=== PATIENT | female | born 1980 | race Two or more races ===

== ENCOUNTER → 2024-04-26 | Outpatient (CLI) | payer BC, SELFPAY ==
--- NOTE | 2024-04-26 16:15 | XR_ITS ---
Examination: Transvaginal ultrasound of the pelvis, complete Technique: Transvaginal sonographic images pelvis performed using calzada scale imaging Exam date and time: April 26, 2024 1407 hours INDICATIONS: Intermittent pelvic pain beginning one week ago FINDINGS: Uterus 9.4 x 4.2 x 4.9 cm anteverted Endometrial stripe 13 mm No uterine mass or intrauterine gestation Right ovary 3.6 x 2.0 x 3.0 cm arterial flow 19 mm follicular cyst Left ovary 3.6 x 1.9 x 2.5 cm arterial flow, follicular cysts, the largest 11 mm IMPRESSION: Negative examination.
== END | disposition home or self-care (01) ==
PROVIDERS: PCP Internal Medicine; Referring Provider Internal Medicine; Visit Provider Internal Medicine
DX: R10.2 Pelvic and perineal pain (principal)
CPT/HCPCS: 76830

== ENCOUNTER → 2024-08-03 | Outpatient (CLI) | payer BC, SELFPAY ==
[2024-08-03 11:01] LABS: Sed Rate (ESR) 12 mm/hr (0-20)
[2024-08-03 11:14] LABS: Syphilis Nonreactive (Nonreactive)
[2024-08-03 16:06] LABS: Chlamydia trachomatis PCR Negative (Not Detect); Neisseria Gonorrhoeae DNA PCR Negative (Not Detect); Trichomonas Negative (Negative)
[2024-08-08 06:51] LABS: HSV2 IgG Type Specific Ab <0.90 INDEX
== END | disposition home or self-care (01) ==
LOC: COPL 09:12
PROVIDERS: PCP Internal Medicine; Referring Provider Internal Medicine; Visit Provider Internal Medicine
DX: Z11.3 Encounter for screening for infections with a predominantly sexual mode of transmission (principal); M60.89 Other myositis, multiple sites
CPT/HCPCS: 36415; 85652; 86695; 86696; 86780; 87491; 87591; 87661

== ENCOUNTER → 2024-09-21 | Outpatient (CLI) | payer BC, SELFPAY ==
--- NOTE | 2024-09-21 10:13 | XR_ITS ---
Examination: Retroperitoneal ultrasound, complete Technique: Multiple high resolution grayscale images of the retroperitoneum obtained, including kidneys and bladder. Exam date and time:September 21, 2024 1101 hours INDICATIONS: Left flank pain beginning today FINDINGS: Right kidney 11.4 cm cortex 1.4 cm Midpole cyst 7 mm Left kidney 13.2 cm cortex 1.7 cm Multiple calculi, the largest 5 mm in the mid kidney Moderate bilateral renal parenchymal scar formation Mild to moderate left hydronephrosis No bladder mass or bladder calculi Bladder prevoid volume 121 cc Incidental note multiple periaortic lymph nodes, the largest 6.8 cm IMPRESSION: Multiple left renal calculi Mild to moderate left hydronephrosis Significant periaortic lymphadenopathy Recommend CT scan abdomen pelvis pre and post intravenous contrast follow-up
== END | disposition home or self-care (01) ==
LOC: CDIM 10:06
PROVIDERS: PCP Internal Medicine; Referring Provider Internal Medicine; Visit Provider Internal Medicine
DX: N20.0 Calculus of kidney (principal); N13.30 Unspecified hydronephrosis; R59.0 Localized enlarged lymph nodes
CPT/HCPCS: 76770

== ENCOUNTER 2024-09-27 03:39 | Inpatient (IN) | payer BC, SELFPAY ==
[2024-09-27] VITALS (8 sets, daily range): BP systolic 136–163; BP diastolic 73–94; PULSE 67–89; RESP 17–20; TEMP 36.5–37.2; O2SAT 96–100; BMI 28.3; BMI 27.8
--- NOTE | 2024-09-27 04:11 | XR_ITS ---
Examination: CT abdomen and pelvis without contrast. Coronal 3-D reconstructions. Sagittal 2-D reconstructions. Date and time of exam:September 27, 2024 0439 hours INDICATIONS: Right flank and abdominal pain beginning 12 hours ago CTDI: vol (mGy): 8.1 DLP: (mGycm): 441 Technique: Axial images of the abdomen have been obtained, 3 mm slice thickness Intravenous contrast material has not been administered. Low dose protocols were performed. One or more of the following dose reduction techniques were used; automated exposure control, adjustment of the mA and/or KV according to patient size, use of iterative reconstruction technique. Findings: 6 mm lower right lobe liver lesion axial image 81 No gallstones Spleen not enlarged No pancreatic mass Mild bilateral hydronephrosis, likely secondary to extensive pericaval periaortic lymphadenopathy as Normal appendix Fluid distended small bowel loops Prominent common iliac and external iliac lymphadenopathy No pelvic mass Urinary bladder wall is thickened IMPRESSION: Extensive abdominal and pelvic lymphadenopathy, differential would include metastatic lymphadenopathy, Hodgkin's disease, non-Hodgkin's lymphoma Recommend MRI abdomen liver follow-up pre and postcontrast to assess right lower lobe liver lesion
--- NOTE | 2024-09-27 04:14 | PD.EDRME ---
Rapid Medical Screening Exam RME Arrival date/time: 09/27/24 03:39 Chief Complaint: Abdominal Pain Time Seen by Provider: 09/27/24 03:43 Vital signs: Vital Signs Temperature 98.1 F 09/27/24 03:44 Pulse Rate 89 09/27/24 03:44 Respiratory Rate 19 09/27/24 03:44 Blood Pressure 148/79 H 09/27/24 03:44 Pulse Oximetry (%) 100 09/27/24 03:44 Oxygen Delivery Method Room Air 09/27/24 03:44 RME Narrative: Right flank pain radiating to RLQ since 1500 yesterday. Reports nausea but no vomiting. History of kidney stones.
[2024-09-27 04:24] LABS: Collection Type, Urine Clean Catch
[2024-09-27] MEDS: ONDANSETRON ODT 4 MG TABRAP PO (04:27)
[2024-09-27] MEDS: KETOROLAC INJ 60 MG/2 ML VIAL 30 MG IM (04:27)
[2024-09-27 04:28] LABS: Bilirubin,Urine Negative (Negative); Blood,Urine Negative (Negative); Clarity,Urine Clear (Clear/Hazy); Color,Urine Colorless (Lt Yel-Yel); Glucose, Urine Negative (Negative); Ketones,Urine Negative (Negative); Leukocyte Esterase,Urine Negative (Negative); Nitrite,Urine Negative (Negative); PH,Urine 6.5 (5.0-7.0); Protein,Urine Negative (Neg - Trace); RBC,Urine < 1 /hpf (0-3); Specific Gravity,Urine 1.011 (1.001-1.035); Squamous Epithelial Cell,Urine 5 /hpf (0-5); Urobilinogen,Urine Negative mg/dL (0.0-1.0); WBC,Urine 2 /hpf (0-5)
[2024-09-27 04:29] LABS: HCG Qualitative,Urine Negative
[2024-09-27] MEDS: HYDROcodone/APAP 5/325 TABLET 1 TAB PO (04:29)
[2024-09-27 05:16] LABS: Basophils % (Auto) 1 % (0-2.5); Eosinophils % (Auto) 1 % (0-10); Hematocrit 31.7 % (36.0-46.0); Hemoglobin 10.2 g/dL (12.0-16.0); Immature Granulocytes % (Auto) 0 % (0-0); Immature Granulocytes Auto 0.01 Thou/mm3 (0.00-0.00); Lymphocytes # (Auto) 0.7 Thou/mm3 (1.0-4.8); Lymphocytes % (Auto) 12 % (10-50); Mean Corpuscular HGB Conc 32.2 g/dl (31.0-37.0); Mean Corpuscular Hemoglobin 24.4 pg (25.0-35.0); Mean Corpuscular Volume 76 fL (80-100); Monocytes # (Auto) 0.5 Thou/mm3 (0.0-0.8); Monocytes % (Auto) 8 % (0-12); Neutrophils % (Auto) 79 % (37-80); Nucleated Red Blood Cell % 0 /100 WBC (0); Platelet Count 149 Thou/mm3 (140-440); RDW Standard Deviation 42.4 fL (36.4-46.3); Red Blood Count 4.18 Miln/mm3 (4.00-5.20); White Blood Count 6.4 Thou/mm3 (3.6-11.0)
[2024-09-27 05:35] LABS: Alanine Aminotransferase 14 U/L (10-49); Albumin, Serum 4.2 gm/dL (3.5-5.0); Albumin/Globulin Ratio 1.2 (1.2-2.2); Alkaline Phosphatase 79 U/L (46-116); Anion Gap 10 (7-16); Aspartate Amino Transferase 24 U/L (0-34); BUN/Creatinine Ratio 11 Ratio (12-20); Bilirubin,Total 0.4 mg/dL (0.3-1.2); Blood Urea Nitrogen 15 mg/dL (9-23); Calcium 8.6 mg/dL (8.3-10.6); Calcium (Corrected) 8.6 mg/dL (8.5-10.1); Carbon Dioxide 21.5 mMol/L (20.0-31.0); Chloride 104 mMol/L (98-107); Creatinine (Component) 1.4 mg/dL (0.6-1.3); Estimated Creatinine Clearance 46.6 mL/min (>60); Globulin 3.5 gm/dL (2.3-3.5); Glucose 113 mg/dL (74-106); Lipase 62 U/L (12-53); Osmolality,Calculated 271 (275-295); Sodium 135 mMol/L (136-145); Total Protein 7.7 gm/dL (5.7-8.2); eGFR 47 See Note
--- NOTE | 2024-09-27 06:00 | PRELIM_ITS ---
CT scan of the abdomen and pelvis without intravenous contrast (axial sections with sagittal and coronal reformats) September 27, 2024 at 0439 hours Clinical History: Right flank, right lower quadrant pain. Comparison: No prior study is available for comparison. Findings: Clear lung bases. Liver is subtly heterogeneous. The gallbladder, spleen, right adrenal gland, pancreas are unremarkable. Punctate nonobstructing right renal calculus. Moderate bilateral hydroureteronephrosis. 1.5 cm left adrenal nodule measuring 28 Hounsfield units. The urinary bladder is decompressed, limiting evaluation. Possible urinary bladder wall thickening. No urinary tract calculi. Bulky para-aortic lymphadenopathy. Short segment wall thickening of the junction of descending and sigmoid colon. Bulky adjacent mesenteric lymphadenopathy and mesenteric edema. The appendix is normal, best seen (on image 137). The abdominal wall is unremarkable. Small bowel fluid levels. No acute osseous process. Impression: Bulky retroperitoneal lymphadenopathy suspicious for metastatic disease , causing moderate bilateral hydroureteronephrosis. Focal wall thickening of the junction of the descending and sigmoid colon, with adjacent lymphadenopathy and inflammation, may represent focal colitis versus malignancy. Indeterminate left adrenal nodule. Heterogeneous liver. Recommend follow-up with intravenous contrast to exclude metastases Report Electronically Signed By: Ej Disla 09/27/2024 5:59:47 AM [EST]
--- NOTE | 2024-09-27 06:28 | PC.NURSE ---
PT C/O CP, VS DONE AND ORDER EKG.
--- NOTE | 2024-09-27 08:45 | PC.NURSE ---
PT PRESENTED TO THE ED FOR ABDOMINAL AND BACK PAIN. PT FOLLOWED UP WITH PCP AND WAS INSTRUCTED TO TAKE IBUPROFEN and acetaminophen.
--- NOTE | 2024-09-27 08:53 | EDNOTE_ITS ---
ED Abdominal Pain RME/HPI General Chief Complaint: Abdominal Pain Stated complaint: ABD PAIN Time seen by provider: 09/27/24 03:43 Arrival date/time: 09/27/24 03:39 RME / HPI RME / HPI narrative: Right flank pain radiating to RLQ since 1500 yesterday. Reports nausea but no vomiting. History of kidney stones. DR. EPSTEIN MAIN ED EVALUATION: 44 year old female with past medical history significant for kidney stones, hemorrhoids, and an umbilical hernia repair by Dr. Alvarez on 05/19/23 presents to the Emergency Department with complaint of bilateral lower abdominal pain that is sharp since yesterday 3 PM. She states after medications she now feels better. She states she also has nausea, but no vomiting. and bright red blood in the stools from her hemorrhoids which is a chronic problem. She has a referral with urologist Dr. Johns in process. PCP: Dr. Collado. Related Data Previous Rx's ?Medication ?Instructions ?Recorded hydrocodone 5 mg-acetaminophen 325 1 tab PO Q6H #20 ta bs 05/19/23 mg tablet Allergies Allergy/AdvReac Type Severity Reaction Status Date / Time No Known Allergies Allergy Verified 09/27/24 03:42 Review of Systems Review of Systems Systems Reviewed: All systems reviewed, normal except as documented Narrative Review of Systems: Constitutional: DENIES: fevers; Eyes: DENIES: loss of vision; Head/Ear/Nose: DENIES: loss of hearing. Throat: DENIES: dysphagia. Cardiovascular: DENIES: chest pain, dyspnea, or syncope. Respiratory: DENIES: shortness of breath; Gastrointestinal: POSITIVES: bilateral lower abdominal pain, nausea, bright red blood in the stools from her hemorrhoids which is a chronic problem; DENIES: rectal bleeding or melena. Genitourinary: DENIES: dysuria (painful or difficult urination); Musculoskeletal: DENIES: arthralgia (pain in a joint); Skin: DENIES: rash; Neurological: DENIES: loss of function or movement; Psychiatric: DENIES: recent major life stressor, emotional problem, illicit drug use or abuse; Endocrinology: DENIES: weight change,; Hematologic/Lymphatic: DENIES: abnormal bruising. Allergic/Immunologic: DENIES: urticaria (hives). Past Medical History Past Medical History GENITOURINARY: Positive Genitourinary Disorders and Kidney Stones REPRODUCTIVE: Positive Previous Pregnancies HEMATOLOGIC: Positive Blood Disorders and Anemia Social History SMOKING STATUS: Never smoker SUBSTANCE USE: does not use ALCOHOL: Never ED Exam Narrative Physical exam: Physical Exam: General: The vital signs were reviewed. The patient is non-toxic, in no apparent distress and appears healthy with a patent airway, no respiratory distress and has no apparent circulatory problems. Head & Scalp: Normocephalic, atraumatic. Face: Appears normal and is without lesions, deformity. Ears: Left external pinna appears normal. Right external pinna appears normal. Eyes: The sclera is anicteric. No obvious photophobia. The Left and Right Orbit/Lid/Conjunctiva appears normal without swelling, discoloration or injection. Nose: The nose is without deformity, discharge or tenderness; Throat: Appears normal. The mucous membranes are pink and moist without exudates, redness or mass seen. The tongue appears normal. Neck: The neck is supple and no apparent mass or adenopathy. Chest: The chest wall is normal in size and symmetry and has no chest wall tenderness or crepitus. The patient displays normal ventilator effort without retractions, accessory muscle use and has adequate air movement bilaterally with no wheezes and no rales. Cardiovascular: Regular rate and rhythm; No murmurs, rubs, or gallops; Gastrointestinal: The abdomen appears normal. Umbilical scar well-healed slightly hypertrophied No obvious hernias or mass. The abdomen has a fullness in the left lower quadrant and tenderness no discrete mass was palpated otherwise the remaining abdomen is soft and benign, non-distended, with no pain, no guarding and no rebound tenderness. Bowel sounds are present and normal sounding. No CVA tenderness. Genitourinary: Back/Spine: Normal inspection nontender Extremities/Musculoskeletal/lymphatic: The bilateral upper and lower extremities are warm. There is no evidence of arterial insufficiency. There is no evidence of venous insufficiency/edema. The patient spontaneously moves bilateral upper and lower extremities with no pain and no limitation of movement. There is no apparent, injury or trauma. Skin: The skin is warm, dry and intact. No rashes. No petechia. No purpura. No abnormal bruising. The color is appropriate with no cyanosis. Mental status/Psychiatric: Mental status is appropriate for age. The patient has no apparent delusions, visual hallucinations, no apparent audible hallucinations. The patient has no apparent suicidal thoughts/ideation and no apparent homicidal thoughts/ideation. Neurological: The patient is awake, alert, interactive, cordial, cooperative and is oriented to name and situation. The patient follows commands and answers historical question with no impairment. There is no visual disturbance apparent. The pupils are equal and reactive bilaterally with normal eye movements and no diplopia The bilateral upper and lower extremities have normal strength, normal range of motion and normal functioning. The gait, station and balance appear to be baseline with no acute change Course Quality Measures none Orders Category Date Time Status Consult to Gastroenterology Stat Cons 09/27/24 08:59 Ordered Diet Clear Liquid Diet 09/27/[address] abdomen pelvis wo con Stat Exams 09/27/24 04:11 Completed CBC Stat Lab 09/27/24 04:21 Completed CMP [Comprehensive Metabolic Panel] Stat Lab 09/27/24 04:21 Completed HCG Qualitative,Urine Stat Lab 09/27/24 04:17 Completed Lipase Stat Lab 09/27/24 04:21 Completed UA [Urinalysis] Stat Lab 09/27/24 04:17 Completed HYDROcodone*/APAP 5/325 [[place] 5/325] Med 09/27/24 04:11 Discontinued 1 tab PO X1 ONE Ketorolac Inj [Toradol Inj] Med 09/27/24 04:11 Discontinued 30 mg IM X1 ONE NA BR[place]FORD/NAHCO3/POLO/PEG (Golytely) [Golytely] Med 09/27/24 08:57 Discontinued 4,000 ml PO X1 ONE Ondansetron Odt [Zofran Odt] Med 09/27/24 04:11 Discontinued 4 mg PO X1 ONE Vital Signs Vital signs: Vital Signs Temperature 98.1 F 09/27/24 03:44 Pulse Rate 89 09/27/24 03:44 Respiratory Rate 19 09/27/24 03:44 Blood Pressure 148/79 H 09/27/24 03:44 Pulse Oximetry (%) 100 09/27/24 03:44 Oxygen Delivery Method Room Air 09/27/24 03:44 Abdominal Pain MDM MDM Narrative MDM Narrative:: I, Comfort Malave, am scribing for and in the presence of Dr. Epstein. Patient presents with a vague abdominal pain which seems to be more reducible in the left lower quadrant even though she points to the right lower midline and a hint of a fullness not a palpable mass at least that I can feel and she is got an ultrasound was recently done that revealed significant adenopathy and a CT today without contrast reveals moderate bilateral hydro and ureteral nephrosis with bulky retroperitoneal lymphadenopathy and focal wall thickening of the junction of the descending and sigmoid colon concerning for neoplasm inflammatory bowel disease. Radiologist felt to the high possibility this could be malignant or neoplastic but also could be secondary to inflammatory bowel issues also. Medical workup today reveals a white count of 6.4 hemoglobin of 10.2 transaminases and bilirubin are normal. Lipase is 62 urinalysis came back negative. Urinalysis came back negative she is not . Dr Collado was called and we discussed the case and she agrees with admit the patient to further work this up for either neoplasm colitis or lymphoma and possibly get IR involved to evaluate the lymphadenopathy I contact Dr. Torres who will be consulting and and he requested GoLytely for bowel prep and clear liquids only. Patient data External records reviewed:: [facility] previous records (Reviewed surgical note by Dr. Alvarez, dated 05/19/23.) Clinical information provided by:: patient and spouse Social determinants that could affect healthcare access:: none Patient has the following chronic illnesses:: kidney stones, hemorrhoids, and an umbilical hernia repair by Dr. Alvarez on 05/19/23. How is presenting disease/condition affected by chronic disease/condition?: exacerbated by Evaluation data The following diagnostics were reviewed and interpreted by me:: lab results, radiology exam(s) and EKG tracing(s) (EKG#1: EKG at 0631 hours. Interpreted by me: sinus rhythm, rate 68, no STEMI) Lab and/or radiology exams considered but not ordered:: none Interpretation Summary: [facility] [address] [place] [address] [place] Preliminary Report Draft Patient: ANUP GARCIA. Record#: [id number] Birthdate: 1980 Age/Sex: 44 / F Location: [facility] Attending Dr: Ordering Physician: Date of Service: Procedure(s): Accession Number(s): cc: ~ CT scan of the abdomen and pelvis without intravenous contrast (axial sections with sagittal and coronal reformats) September 27, 2024 at 0439 hours Clinical History: Right flank, right lower quadrant pain. Comparison: No prior study is available for comparison. Findings: Clear lung bases. Liver is subtly heterogeneous. The gallbladder, spleen, right adrenal gland, pancreas are unremarkable. Punctate nonobstructing right renal calculus. Moderate bilateral hydroureteronephrosis. 1.5 cm left adrenal nodule measuring 28 Hounsfield units. The urinary bladder is decompressed, limiting evaluation. Possible urinary bladder wall thickening. No urinary tract calculi. Bulky para-aortic lymphadenopathy. Short segment wall thickening of the junction of descending and sigmoid colon. Bulky adjacent mesenteric lymphadenopathy and mesenteric edema. The appendix is normal, best seen (on image 137). The abdominal wall is unremarkable. Small bowel fluid levels. No acute osseous process. Impression: Bulky retroperitoneal lymphadenopathy suspicious for metastatic disease , ca using moderate bilateral hydroureteronephrosis. Focal wall thickening of the junction of the descending and sigmoid colon, with adjacent lymphadenopathy and inflammation, may represent focal colitis versus malignancy. Indeterminate left adrenal nodule. Heterogeneous liver. Recommend follow-up with intravenous contrast to exclude metastases Report Electronically Signed By: Ej Disla 09/27/2024 5:59:47 AM [EST] Dictated By: Signed By: DD/ [id number] TD/TT: 09/27/24 0559 Cake Former: Medications / Prescriptions Medications or Prescriptions considered but not ordered:: none Medication administrations:: Medication Administration History Sodium Chloride (Ns) 1,000 mls @ 100 mls/hr IV .Q10H IFEOMA Stop: 10/27/24 12:58 Last Admin: 09/27/24 13:14 Dose: 100 mls/hr Documented By: Discontinued Medications Hydrocodone Bitart/Acetaminophen (Hydrocodone/Apap 5/325 Tablet) 1 tab PO X1 ONE Stop: 09/27/24 04:12 Last Admin: 09/27/24 04:29 Dose: 1 tab Documented By: CVL Ketorolac Tromethamine (Ketorolac Inj 60 Mg/2 Ml Vial) 30 mg IM X1 ONE Stop: 09/27/24 04:12 Last Admin: 09/27/24 04:27 Dose: 30 mg Documented By: CVL Ondansetron HCl (Ondansetron Odt 4 Mg Tabrap) 4 mg PO X1 ONE; Protocol Stop: 09/27/24 04:12 Last Admin: 09/27/24 04:27 Dose: 4 mg Documented By: CVL Polyethylene Glycol/Electrolytes (Na [place]/Nahco3/Polo/Peg (Golytely) 4,000 Ml Btl) 4,000 ml PO X1 ONE Stop: 09/27/24 08:58 Last Admin: 09/27/24 09:30 Dose: 4,000 ml Documented By: SM see above Consultations Consultation(s) initiated? (list below): Yes Consultation #1 (Physician, Specialty, Details): Discussed test HPI, PMHx, lab, radiology results and/or management with Dr. Collado. Will admit for further evaluation and management. Accepts patient for admission. Time: 08:54 Consultation #2 (Physician, Specialty, Details): Discussed test HPI, PMHx, lab, radiology results and/or management with Dr. Torres. Will consult. Time: 08:56 Diagnosis Differential diagnosis abdominal pain: abdominal pain, calculus of kidney and other (thickened neoplasm, colitis, lymphoma) Most likely diagnosis given after review of the tests above:: Abdominal pain Hematochezia Mural thickening of sigmoid colon Retroperitoneal lymphadenopathy Admission Indicated Admission indicated?: indicated Admission Request Was there a request for admission?: Yes Admission Attestation Admission request attestation: Discussed case with [] from Hospitalist service regarding admission. Discussed patients ED course, exam findings, labs, and radiology results. The Hospitalist [agrees,declines] to accept the patient for admission. Disposition Plan Disposition Plan: Admit Discharge Plan Plan Disposition Comment: Dr Collado to admit Dr. Torres to consult Problem List Clinical Impression: Abdominal pain, Hematochezia, Mural thickening of sigmoid colon, Retroperitoneal lymphadenopathy
--- NOTE | 2024-09-27 09:07 | PC.NURSE ---
PHARMACY CALLED TO BRING DOWN HANHLY
[2024-09-27] MEDS: NA SU/NAHCO3/KC/PEG (Golytely) 4,000 ML BTL 4000 ML PO ×2 (09:30→22:40)
--- NOTE | 2024-09-27 13:00 | PD.NEPHHP ---
Documentation for date of: 09/27/24 History of Present Illness History of Present Illness Chief complaint: Abdominal pain History of present illness: Ms. Taveras is a 44 year old female with past medical history significant for kidney stones, hemorrhoids, and an umbilical hernia repair by Dr. Alvarez on 05/19/23 presents to my office last week complaining of left flank pain. Exam showed left CVA tenderness and I requested for a renal ultrasound. Renal ultrasound showed Multiple left renal calculi mild to moderate left hydronephrosis and significant periaortic lymphadenopathy recommended CT with and without contrast. Authorization was submitted to the insurance to get CT. In the interim patient started having significant right lower quadrant abdominal pain since yesterday that she brought herself to the emergency department. In the ED blood pressure 148/79. Heart rate 88. Afebrile. WBC 6.4, hemoglobin 10.2, platelets 149. Coagulation profile normal. Lab data shows sodium 135, potassium 4, BUN 15, creatinine 1.4, glucose 113, calcium 8.6, LFTs normal, lipase 62 urinalysis negative. Cocci titers pending. Patient also stated that she was having occasionally hematochezia for the last couple of weeks on and off. Was supposed to see Dr. Torres as an outpatient. She has a referral with urologist Dr. Johns, Dr. Torres in process as outpatient. Spoke to Dr. Ruggiero-agreed to do lymph node biopsy. Patient admitted to medical floor. GI was consulted. IV fluids were initiated for CHERI. Tylenol given for pain. Review of Systems Review of Systems Narrative Review of Systems: CONSTITUTIONAL: Patient denies any fever, chills. Complaining of fatigue HEENT: Denies any visual disturbances or hearing problems. CARDIOVASCULAR: Patient denies any chest pain, shortness of breath, swelling in the lower extremities. PULMONARY: Patient denies any shortness of breath, cough. GASTROINTESTINAL: Patient complaining of right lower quadrant abdominal pain, blood in the stools on and off GENITOURINARY: Patient denies any urinary symptoms of burning or frequency or hematuria, denies any form in the urine. SKIN: Denies any rash. MUSCULOSKELETAL: Denies any muscular skeletal problems of joint pains. NEUROLOGICAL: Denies any neurological problems of strokes, seizures or confusion. Denies any memory problems. PSYCHIATRIC: Denies any depression or anxiety. LYMPHATICS : No lymphadenopathy Past Medical History Past Medical History NEUROLOGIC: Negative Neurological Disorders or Seizures CARDIAC: Negative Cardiac Disorders or Congestive Heart Failure RESPIRATORY: Negative Chronic Obstructive Pulmonary Disease (COPD) GASTROINTESTINAL: Negative Gastrointestinal Disorders, Hepatitis or Colorectal Cancer GENITOURINARY: Positive Genitourinary Disorders and Kidney Stones; Negative Renal Disease or Prostate Cancer REPRODUCTIVE: Positive Previous Pregnancies; Negative Breast Cancer or Testicular Cancer MUSCULOSKELETAL: Negative Musculoskeletal Disorders or Bone Cancer ENDOCRINE: Negative Endocrine Disorders, Diabetes Mellitus Type 1 or Diabetes Mellitus Type 2 HEMATOLOGIC: Positive Blood Disorders and Anemia OTHER HISTORY: Negative Hospitalization, Autoimmune Disease, Down Syndrome, Developmental Delay, Shingles, Falls, Blood Transfusions, Blood Transfusion Reaction, Anesthesia Reactions, Organ Transplant, Chemotherapy, Radiation Therapy, Hyperbaric Therapy, MRSA, VRSA, Vancomycin-Resistant Enterococci, Human Immunodeficiency Virus (HIV), Chicken Pox, Measles, Mumps, Rubella (Fijian Measles), Pertussis, Clostridium Difficile, Cancer, Breast Cancer, Cervical Cancer, Colorectal Cancer, Lung Cancer, Ovarian Cancer, Prostate Cancer or Testicular Cancer Family History FAMILY HISTORY: Negative Family Psychiatric Problems, Family Respiratory Disorders, Family Cardiac Disorders, Family Gastrointestinal Problems, Family Cancer, Family Surgery or Family Anesthesia Reaction Surgical History SURGICAL: Negative Endocrine Surgery, Ear Surgery, Abdominal Surgery, Nephrectomy, Joint Replacement, Neurologic Surgery, Mastectomy, Section, Vasectomy or Organ Transplant OTHER SURGICAL HX: As in the history of present illness Social History SMOKING STATUS: Never smoker SUBSTANCE USE: does not use Meds Home Medications and Allergies Home Medications ?Medication ?Instructions ?Recorded ?Confirmed ?Type acetaminophen 500 mg tablet 500 mg PO Q4H PRN pain 09/27/24 09/27/24 History (Acetaminophen Extra Strength) cetirizine 5 mg tablet (Allergy 5 mg PO QDAY PRN allergy symptoms 09/27/24 09/27/24 History Relief (cetirizine)) ibuprofen 600 mg tablet 600 mg PO QDAY PRN pain 09/27/24 09/27/24 History Allergies Allergy/AdvReac Type Severity Reaction Status Date / Time No Known Allergies Allergy Verified 09/27/24 03:42 Exam Vital Signs Temp Pulse Resp BP Pulse Ox O2 Del Method 36.7 C 86 17 150/82 H 100 Room Air 09/27/24 10:23 09/27/24 10:23 09/27/24 10:23 09/27/24 10:23 09/27/24 10:23 09/27/24 10:23 Narrative Exam GENERAL APPEARANCE: Patient seems to be comfortable, adequately hydrated and nourished. Seen in emergency department HEENT: EOMI, PERRLA NECK: Neck supple, no JVD or bruit CARDIOVASCULAR: Heart regular, no murmurs LUNGS/CHEST: Chest clear to auscultation. No rales, rhonchi, wheezing ABDOMEN: Soft, tenderness noted in the right lower quadrant. Nondistended. No masses. Normal bowel sounds. EXTREMITIES: No edema, clubbing or cyanosis. SKIN: Skin exam normal without any rashes MUSCULOSKELETAL: Musculoskeletal exam normal PSYCHIATRIC: Normal mood, affect LYMPHATICS: No lymphadenopathy noted NEUROLOGICAL : No neurological deficits Results: Labs 09/27/24 04:21 09/27/24 04:21 Labs: Short CBC 09/27/24 Range/Units 04:21 WBC 6.4 (3.6-11.0) Thou/mm3 Hgb 10.2 L (12.0-16.0) g/dL Hct 31.7 L (36.0-46.0) % Plt Count 149 (140-440) Thou/mm3 BMP 09/27/24 04:21 Sodium 135 L Potassium 4.0 Chloride 104 Carbon Dioxide 21.5 BUN 15 Creatinine 1.4 H Glucose 113 H Calcium 8.6 Liver Function 09/27/24 Range/Units 04:21 Total Bilirubin 0.4 (0.3-1.2) mg/dL AST 24 (0-34) U/L ALT 14 (10-49) U/L Alkaline Phosphatase 79 (46-116) U/L Albumin 4.2 (3.5-5.0) gm/dL Urine 09/27/24 Range/Units 04:17 Urine Color Colorless A (Lt Yel-Yel) Urine Clarity Clear (Clear/Hazy) Urine pH 6.5 (5.0-7.0) Ur Specific [place] 1.011 (1.001-1.035) Urine Protein Negative (Neg - Trace) Urine Glucose (UA) Negative (Negative) Assessment & Plan Assessment and plan (1) Abdominal pain: Status: Acute Assessment and plan: Patient presented with abdominal pain right lower quadrant. CT scan showed multiple retroperitoneal lymphadenopathy and calculi. Mild hydronephrosis noted probably related to the lymph node impingement. Good urine output. Will give IV fluids. Biopsy of the lymph node will be done. Rule out malignancy// inflammatory response. GI was consulted. Dr. Torres planning to do endoscopy and colonoscopy. IV fluids for CHERI. (2) Retroperitoneal lymphadenopathy: Status: Acute (3) Mural thickening of sigmoid colon: Status: Acute (4) Hematochezia: Status: Acute (5) CHERI (acute kidney injury): Status: Acute Additional Assessment & Plan Additional Plan: Estimated length of stay 2 days DVT prophylaxis not needed GI prophylaxis Protonix Disposition Home Quality Measures Quality Measures none
[2024-09-27] MEDS: SODIUM CHLORIDE 0.9% 1000 ML 1,000 ML 100 ML IV ×2 (13:14→22:43)
--- NOTE | 2024-09-27 14:00 | PC.SS ---
Initial assessment: this is 44 year old female pending admission to med/tele. Patient appears to be alert and oriented. Patient reports living at home with her Arnol and their children. Patient confirmed demographic information. Patient reports being independent with ADL's. Patient denies use of DME. Patient informs her PCP is Dr. Collado. Pharmacy of choice is [facility] in [place]. Patient assigned her spouse Arnol as her alternate medical surrogate decision maker. Patient would like to return home upon discharge, family to assist with transportation. No needs identified at this time. D/c plan: Home Next of kin: spouse, Arnol
[2024-09-27 14:21] LABS: Partial Thromboplastin Time 28.4 Seconds (22.0-36.0); Prothrombin Time 10.8 Seconds (9.0-12.2)
--- NOTE | 2024-09-27 14:30 | PC.NURSE ---
notified anne vazquez of [facility] recommendation of performing ct guide biopsy of lymphnode as a scheduled outpatient procedure.
--- NOTE | 2024-09-27 20:50 | PD.IMCONS ---
HPI Data of Consult Requesting Physician: Ching Collado MD Primary Care Provider: Ching Collado MD Consult Narrative Reason for consult: rectal bleeding hematochezia abnormal CTAP History of present illness: 44 years old female called into consult by the ER physician for episodes of hematochezia She also had a CT scan of the abdomen pelvis done which showed extensive abdominal and pelvic lymphadenopathy Presenting hemoglobin hematocrit 10.2 and 31.7 with a platelet count of 149,000 She also has a history of kidney stones and umbilical hernia repair in the past cc:: cc: Ching Collado MD Review of Systems Review of Systems Systems Reviewed: All systems reviewed, normal except as documented Past Medical History Surgical History OTHER SURGICAL HX: As in the history of present illness Meds Home Medications and Allergies Home Medications ?Medication ?Instructions ?Recorded ?Confirmed ?Type acetaminophen 500 mg tablet 500 mg PO Q4H PRN pain 09/27/24 09/27/24 History (Acetaminophen Extra Strength) cetirizine 5 mg tablet (Allergy 5 mg PO QDAY PRN allergy symptoms 09/27/24 09/27/24 History Relief (cetirizine)) ibuprofen 600 mg tablet 600 mg PO QDAY PRN pain 09/27/24 09/27/24 History Allergies Allergy/AdvReac Type Severity Reaction Status Date / Time No Known Allergies Allergy Verified 09/27/24 03:42 Exam Vital Signs Temp Pulse Resp BP Pulse Ox O2 Del Method 97.7 F 88 17 148/76 H 98 Room Air 09/27/24 20:00 09/27/24 20:00 09/27/24 20:00 09/27/24 20:00 09/27/24 20:00 09/27/24 20:00 Constitutional Comments: Chronically ill-appearing Routine Respiratory Exam Comments: Normal to auscultation Routine Abdominal Exam Comments: Tender positive bowel sounds Results Labs 09/29/24 04:30 09/29/24 04:30 Labs: Short CBC 09/27/24 Range/Units 04:21 WBC 6.4 (3.6-11.0) Thou/mm3 Hgb 10.2 L (12.0-16.0) g/dL Hct 31.7 L (36.0-46.0) % Plt Count 149 (140-440) Thou/mm3 BMP 09/27/24 04:21 Sodium 135 L Potassium 4.0 Chloride 104 Carbon Dioxide 21.5 BUN 15 Creatinine 1.4 H Glucose 113 H Calcium 8.6 Liver Function 09/27/24 Range/Units 04:21 Total Bilirubin 0.4 (0.3-1.2) mg/dL AST 24 (0-34) U/L ALT 14 (10-49) U/L Alkaline Phosphatase 79 (46-116) U/L Albumin 4.2 (3.5-5.0) gm/dL Urine 09/27/24 Range/Units 04:17 Urine Color Colorless A (Lt Yel-Yel) Urine Clarity Clear (Clear/Hazy) Urine pH 6.5 (5.0-7.0) Ur Specific [place] 1.011 (1.001-1.035) Urine Protein Negative (Neg - Trace) Urine Glucose (UA) Negative (Negative) Assessment and Plan Additional Assessment & Plan Additional Plan: # Hematochezia # Abnormal CT scan of the abdomen pelvis with extensive abdominal and pelvic lymphadenopathy plan Tumor markers CEA level CA 19?9 level CA 15-3 level AFP Ca125 level CT-guided biopsy of the left adenopathy by the IR Clear liquid diet consider colonoscopy once biopsy is done with a GoLytely prep and possible upper endoscopy to make sure the GI tract is clean Thank you very much for the opportunity to participate in care of this patient
--- NOTE | 2024-09-27 21:30 | PC.NURSE ---
seen and examined by Dr. Torres.
[2024-09-28] VITALS (31 sets, daily range): BP systolic 121–163; BP diastolic 66–99; PULSE 78–112; RESP 12–27; TEMP 36.2–37.2; O2SAT 91–100
[2024-09-28] MEDS: HYDROcodone/APAP 5/325 TABLET 1 TAB PO (00:55)
[2024-09-28 06:46] LABS: AFP Non-Pregnant < 1.30 ng/mL (<8.10); CA 15-3 4.5 U/mL (<32.4); Carcinoembryonic Antigen 8.8 ng/mL (0.0-5.0)
[2024-09-28 07:48] LABS: Basophils % (Auto) 1 % (0-2.5); Eosinophils % (Auto) 1 % (0-10); Hematocrit 27.4 % (36.0-46.0); Immature Granulocytes % (Auto) 0 % (0-0); Immature Granulocytes Auto 0.01 Thou/mm3 (0.00-0.00); Lymphocytes # (Auto) 0.7 Thou/mm3 (1.0-4.8); Lymphocytes % (Auto) 20 % (10-50); Mean Corpuscular HGB Conc 31.8 g/dl (31.0-37.0); Mean Corpuscular Hemoglobin 24.2 pg (25.0-35.0); Mean Corpuscular Volume 76 fL (80-100); Monocytes # (Auto) 0.4 Thou/mm3 (0.0-0.8); Monocytes % (Auto) 13 % (0-12); Neutrophils # (Auto) 2.2 Thou/mm3 (1.8-7.7); Neutrophils % (Auto) 66 % (37-80); Nucleated Red Blood Cell % 0 /100 WBC (0); Platelet Count 147 Thou/mm3 (140-440); RDW Standard Deviation 44.1 fL (36.4-46.3); White Blood Count 3.3 Thou/mm3 (3.6-11.0)
[2024-09-28 07:50] LABS: Hemoglobin 8.7 g/dL (12.0-16.0)
--- NOTE | 2024-09-28 08:00 | XR_ITS ---
Examination: CT-guided percutaneous biopsy para-aortic lymph node CT abdomen without intravenous contrast INDICATIONS: Extensive abdominal pelvic lymphadenopathy on CT abdomen pelvis September 27, 2024 Date and time of procedure: September 28, 2024 1238 hours Informed consent provided. A timeout was completed verifying correct patient, procedure, site and positioning. Technique: Axial 3 mm sections were obtained for localization of an enlarged lower left lateral periaortic lymph node Appropriate area is marked. The patient's site was prepped and draped in sterile fashion Maximal sterile barrier technique utilized, including hand hygiene Local anesthesia was obtained with 1% lidocaine. Low dose protocols were performed. One or more of the following dose reduction techniques were used; automated exposure control, adjustment of the mA and/or KV according to patient size, use of iterative reconstruction technique. Single 18-gauge core biopsies obtained of the lower left lateral periaortic lymph node Patient appears in stable condition during this procedure. At completion of the procedure, the patient is in satisfactory condition. Estimated blood loss 4 cc Complete pathology report to follow. Impression: Successful CT-guided percutaneous biopsy para-aortic lymph node
[2024-09-28 08:17] LABS: Alanine Aminotransferase 11 U/L (10-49); Albumin, Serum 3.3 gm/dL (3.5-5.0); Albumin/Globulin Ratio 1.1 (1.2-2.2); Alkaline Phosphatase 63 U/L (46-116); Anion Gap 9 (7-16); Aspartate Amino Transferase 23 U/L (0-34); BUN/Creatinine Ratio 8 Ratio (12-20); Bilirubin,Total 0.3 mg/dL (0.3-1.2); Blood Urea Nitrogen 13 mg/dL (9-23); Calcium 7.6 mg/dL (8.3-10.6); Calcium (Corrected) 8.2 mg/dL (8.5-10.1); Carbon Dioxide 22.4 mMol/L (20.0-31.0); Chloride 115 mMol/L (98-107); Creatinine (Component) 1.6 mg/dL (0.6-1.3); Glucose 71 mg/dL (74-106); Osmolality,Calculated 288 (275-295); Phosphorous 3.7 mg/dL (2.4-5.1); Potassium 4.3 mMol/L (3.4-5.1); Sodium 146 mMol/L (136-145); Total Protein 6.3 gm/dL (5.7-8.2); eGFR 40 See Note
--- NOTE | 2024-09-28 08:39 | PD.RESPRO ---
Documentation for date of: 09/28/24 Subjective Subjective Interval history: Ms. Taveras is a 44 year old female with past medical history significant for kidney stones, hemorrhoids, and an umbilical hernia repair by Dr. Alvarez on 05/19/23 presents to my office last week complaining of left flank pain. Exam showed left CVA tenderness and I requested for a renal ultrasound. Renal ultrasound showed Multiple left renal calculi mild to moderate left hydronephrosis and significant periaortic lymphadenopathy recommended CT with and without contrast. Authorization was submitted to the insurance to get CT. In the interim patient started having significant right lower quadrant abdominal pain since yesterday that she brought herself to the emergency department. In the ED blood pressure 148/79. Heart rate 88. Afebrile. WBC 6.4, hemoglobin 10.2, platelets 149. Coagulation profile normal. Lab data shows sodium 135, potassium 4, BUN 15, creatinine 1.4, glucose 113, calcium 8.6, LFTs normal, lipase 62 urinalysis negative. Cocci titers pending. Patient also stated that she was having occasionally hematochezia for the last couple of weeks on and off. Was supposed to see Dr. Torres as an outpatient. 09/28/24: Patient was seen and examined in [facility] today. There were no major overnight events and patient is doing okay this morning. She continues to have abdominal pain for which she has been receiving Keiser's. CEA came back at 8.8 which is elevated. CA 15-3 is negative CA 19-9 is pending and tumor marker AFP is negative. Patient will undergo CT-guided percutaneous biopsy of the lymphadenopathy later today. Her creatinine function did worsen to 1.6 today we will continue to monitor closely. Intake. Exam Vital Signs Temp Pulse Resp BP Pulse Ox O2 Del Method 97.3 F 87 16 129/75 98 Room Air 09/28/24 04:00 09/28/24 04:00 09/28/24 04:00 09/28/24 04:00 09/28/24 04:00 09/28/24 04:00 Narrative Exam Constitutional: Well nourished and in no acute distress CVS: RRR, S1 and S2 present, no murmurs, rubs or gallops . RESP: CTAB, no SOB, no rales, rhonchi or wheezing. No respiratory Distress GI: Tenderness to deep palpation but normal BS, nondistended. MSK: Full range of motion, No trauma or deformities or masses. Skin: Warm to touch, Dry. No rashes or lesions. 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 Sensation grossly intact. Psych: (AAO) x3 . Appropriate mood and affect. Objective Labs 09/29/24 04:30 09/29/24 04:30 Labs: Laboratory Results - last 24 hr 09/27/24 09/28/24 04:21 04:45 WBC 3.3 L D RBC 3.60 L Hgb 8.7 L Hct 27.4 L MCV 76 L MCH 24.2 L MCHC 31.8 RDW Std Deviation 44.1 Plt Count 147 Neut % (Auto) 66 Lymph % (Auto) 20 [place] % (Auto) 13 H Eos % (Auto) 1 Baso % (Auto) 1 Neut # (Auto) 2.2 Lymph # (Auto) 0.7 L [place] # (Auto) 0.4 Eos # (Auto) 0.0 Baso # (Auto) 0.0 Immature Gran # (Auto) 0.01 H Absolute Nucleated RBC 0.00 Immature Gran % 0 Nucleated RBC % 0 PT 10.8 INR 1.0 APTT 28.4 Sodium 146 H D Potassium 4.3 Chloride 115 H Carbon Dioxide 22.4 Anion Gap 9 BUN 13 Creatinine 1.6 H Estim Creat Clear Calc 42.0 L eGFR 40 L BUN/Creatinine Ratio 8 L Glucose 71 L Calculated Osmolality 288 Calcium 7.6 L Corrected Calcium 8.2 L Phosphorus 3.7 Magnesium 2.0 Total Bilirubin 0.3 AST 23 ALT 11 Alkaline Phosphatase 63 D Total Protein 6.3 Albumin 3.3 L D Globulin 3.0 Albumin/Globulin Ratio 1.1 L Tumor Marker AFP < 1.30 Carcinoembryonic Ag 8.8 H CA 15-3 Antigen 4.5 Quality Measures Quality Measures none Assessment & Plan Assessment Current Active Medications: Generic Name Dose Route Start Last Admin Trade Name Freq PRN Reason Stop Dose Admin Acetaminophen 650 mg 09/27/24 20:59 Acetaminophen 325 Mg Tablet PO 10/27/24 20:58 Q6HR PRN PAIN SCALE 1-3 (mild Hydrocodone Bitart/Acetaminophen 1 tab 09/28/24 00:18 09/28/24 00:55 Hydrocodone/Apap 5/325 Tablet PO 10/03/24 00:17 1 tab Q6HR PRN Administration PAIN SCALE 4-6 (Moderate Sodium Chloride 1,000 mls @ 100 mls/hr 09/27/24 12:59 09/27/24 22:43 Ns IV 10/27/24 12:58 100 mls/hr .Q10H IFEOMA Administration Plan 44-year-old female with past medical history of kidney stones, hemorrhoids and umbilical hernia repair with Dr. Mcfarland on 05/19/2023 admitted for left flank pain and found to have abdominal lymphadenopathy. #Retroperitoneal lymphadenopathy #Unretractable abdominal pain Patient presented with abdominal pain right lower quadrant. CT scan showed multiple retroperitoneal lymphadenopathy and calculi. Mild hydronephrosis noted probably related to the lymph node impingement. Good urine output. Will give IV fluids. Biopsy of the lymph node will be done. Rule out malignancy// inflammatory response. GI was consulted. CA 15?3 is negative as well as tumor marker AFP. CEA is positive at 8.8 and CA 19-9 is pending. Plan: ? Patient will undergo CT-guided percutaneous lung biopsy today. ?Follow-up with pathology ? N.p.o. ? Pain management #Hematochezia #Mural thickening of sigmoid colon Patient presented with episodes of hematochezia Patient does have history of hemorrhoids however the hematochezia is more prominent and given thickening of the sigmoid colon she needs colonoscopy GI was consulted Plan: ? Patient will undergo colonoscopy later today. #CHERI (acute kidney injury): Likely obstructive from impingement by the lymphadenopathy. Patient's baseline creatinine 0.7 it has climbed up to 1.6 Plan: ? Continue IV fluids ? Will restart oral intake once patient undergoes the procedures ? Follow-up with daily [facility] Health maintenance plan: Dispo: Patient will remain in [facility] for further management of her unretractable abdominal pain and workup of her retroperitoneal lymphadenopathy Code: Full code DVT PPx: None GI PPx: None FEN: N.p.o., NS at 100 cc/h I discussed patient's care with attending physician, Dr Heaven Santoyo PGY3 Attending Provider Attestation/Addendum Patient seen and examined with resident physician Dr. Santoyo. Note reviewed, agree with findings and recommendations. Significant lymphadenopathy. Going for intra-abdominal lymph node biopsy, colonoscopy for hematochezia.
[2024-09-28 10:05] LABS: Prothrombin Time 10.9 Seconds (9.0-12.2)
[2024-09-28] MEDS: SODIUM CHLORIDE 0.9% 1000 ML 1,000 ML 100 ML IV (10:32)
[2024-09-28 12:42] LABS: Cocci Serology, IgM Positive (Negative)
[2024-09-28 12:43] LABS: Cocid Sro, CF/ID (UCD) NO CHG* See Sep Rpt
[2024-09-28] MEDS: fentaNYL CIT INJ 50 mCg/ML AMP 2ML 100 MCG IVP (13:05)
--- NOTE | 2024-09-28 14:38 | PC.SS ---
SS follow up note; Patient will undergo CT-guided percutaneous biopsy of the lymphadenopathy later today. Patient will discharge back home when medically cleared.
[2024-09-28] MEDS: FLUCONAZOLE/NS 400 MG IVPB 400 MG/200 ML BAG 100 MG IV (15:50)
--- NOTE | 2024-09-28 20:05 | SUR.PHASEI ---
pt received from OR in recovery bay 2. pt asleep but responds to voice, breathing unlabored on nc 2l. v/s stable. report received from Ev ASHLEY.
--- NOTE | 2024-09-28 20:45 | SUR.PHASEI ---
pt asleep but responds to voice, breathing unlabored on 1l nc. v/s stable. report called to Anali ASHLEY. pt will be transferred to room at this time.
--- NOTE | 2024-09-28 21:24 | PC.NURSE ---
reconnectedf to iv fluid of ns at 100ml/hr.
[2024-09-29] VITALS (7 sets, daily range): BP systolic 116–163; BP diastolic 78–98; PULSE 85–110; RESP 17–18; TEMP 36.1–37.2; O2SAT 98–100
[2024-09-29] MEDS: SODIUM CHLORIDE 0.9% 1000 ML 1,000 ML 100 ML IV (05:34)
[2024-09-29 05:56] LABS: Basophils % (Auto) 0 % (0-2.5); Eosinophils % (Auto) 1 % (0-10); Hematocrit 29.1 % (36.0-46.0); Immature Granulocytes % (Auto) 0 % (0-0); Immature Granulocytes Auto 0.01 Thou/mm3 (0.00-0.00); Lymphocytes # (Auto) 0.6 Thou/mm3 (1.0-4.8); Lymphocytes % (Auto) 19 % (10-50); Mean Corpuscular HGB Conc 30.9 g/dl (31.0-37.0); Mean Corpuscular Volume 78 fL (80-100); Monocytes # (Auto) 0.4 Thou/mm3 (0.0-0.8); Monocytes % (Auto) 13 % (0-12); Neutrophils # (Auto) 1.9 Thou/mm3 (1.8-7.7); Neutrophils % (Auto) 66 % (37-80); Nucleated Red Blood Cell % 0 /100 WBC (0); Platelet Count 150 Thou/mm3 (140-440); RDW Standard Deviation 45.9 fL (36.4-46.3); Red Blood Count 3.75 Miln/mm3 (4.00-5.20)
[2024-09-29 06:13] LABS: White Blood Count 2.9 Thou/mm3 (3.6-11.0)
[2024-09-29 06:28] LABS: Alanine Aminotransferase 17 U/L (10-49); Albumin, Serum 3.6 gm/dL (3.5-5.0); Albumin/Globulin Ratio 1.2 (1.2-2.2); Alkaline Phosphatase 65 U/L (46-116); Anion Gap 15 (7-16); Aspartate Amino Transferase 31 U/L (0-34); BUN/Creatinine Ratio 9 Ratio (12-20); Bilirubin,Total 0.4 mg/dL (0.3-1.2); Blood Urea Nitrogen 12 mg/dL (9-23); Calcium 8.2 mg/dL (8.3-10.6); Calcium (Corrected) 8.5 mg/dL (8.5-10.1); Carbon Dioxide 16.8 mMol/L (20.0-31.0); Chloride 116 mMol/L (98-107); Creatinine (Component) 1.3 mg/dL (0.6-1.3); Estimated Creatinine Clearance 51.7 mL/min (>60); Globulin 3.1 gm/dL (2.3-3.5); Glucose 53 mg/dL (74-106); Osmolality,Calculated 290 (275-295); Phosphorous 4.9 mg/dL (2.4-5.1); Potassium 4.1 mMol/L (3.4-5.1); Sodium 148 mMol/L (136-145); Total Protein 6.7 gm/dL (5.7-8.2); eGFR 52 See Note
--- NOTE | 2024-09-29 08:42 | PD.RESPRO ---
Documentation for date of: 09/29/24 Subjective Subjective Interval history: Ms. Taveras is a 44 year old female with past medical history significant for kidney stones, hemorrhoids, and an umbilical hernia repair by Dr. Alvarez on 05/19/23 presents to my office last week complaining of left flank pain. Exam showed left CVA tenderness and I requested for a renal ultrasound. Renal ultrasound showed Multiple left renal calculi mild to moderate left hydronephrosis and significant periaortic lymphadenopathy recommended CT with and without contrast. Authorization was submitted to the insurance to get CT. In the interim patient started having significant right lower quadrant abdominal pain since yesterday that she brought herself to the emergency department. In the ED blood pressure 148/79. Heart rate 88. Afebrile. WBC 6.4, hemoglobin 10.2, platelets 149. Coagulation profile normal. Lab data shows sodium 135, potassium 4, BUN 15, creatinine 1.4, glucose 113, calcium 8.6, LFTs normal, lipase 62 urinalysis negative. Cocci titers pending. Patient also stated that she was having occasionally hematochezia for the last couple of weeks on and off. Was supposed to see Dr. Torres as an outpatient. 09/28/24: Patient was seen and examined in [facility] today. There were no major overnight events and patient is doing okay this morning. She continues to have abdominal pain for which she has been receiving Cromwell's. CEA came back at 8.8 which is elevated. CA 15-3 is negative CA 19-9 is pending and tumor marker AFP is negative. Patient will undergo CT-guided percutaneous biopsy of the lymphadenopathy later today. Her creatinine function did worsen to 1.6 today we will continue to monitor closely. 09/29/24: Patient seen and examined at bedside, resting comfortably. Patient states abdominal pain significantly improved. Patient received CT-guided percutaneous biopsy and colonoscopy yesterday, well-tolerated. However colonoscopy showed ulcerated partially obstructing mass in sigmoid colon with biopsies taken, concern for malignancy. Dr Levine was consulted, will see patient. Patient seems to be developing hyperchloremic metabolic acidosis induced by excess normal saline, fluids stopped. Started Bicitra. BUN 12, creatinine 1.3, EGFR 52. Encouraged oral hydration. Exam Vital Signs Temp Pulse Resp BP Pulse Ox O2 Del Method O2 Flow Rate 97.4 F 108 H 18 151/80 H 98 Room Air 1 09/29/24 08:00 09/29/24 08:00 09/29/24 08:00 09/29/24 08:00 09/29/24 08:00 09/29/24 08:00 09/28/24 20:35 Narrative Exam Constitutional: Well nourished and in no acute distress CVS: RRR, S1 and S2 present, no murmurs, rubs or gallops . RESP: CTAB, no SOB, no rales, rhonchi or wheezing. No respiratory Distress GI: Tenderness to deep palpation but normal BS, nondistended. MSK: Full range of motion, No trauma or deformities or masses. Skin: Warm to touch, Dry. No rashes or lesions. 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 Sensation grossly intact. Psych: (AAO) x3 . Appropriate mood and affect. Objective Labs 09/29/24 04:30 09/29/24 04:30 Labs: Laboratory Results - last 24 hr 09/27/24 09/28/24 09/29/24 13:28 09:11 04:30 WBC 2.9 L RBC 3.75 L Hgb 9.0 L Hct 29.1 L MCV 78 L MCH 24.0 L MCHC 30.9 L RDW Std Deviation 45.9 Plt Count 150 Neut % (Auto) 66 Lymph % (Auto) 19 [place] % (Auto) 13 H Eos % (Auto) 1 Baso % (Auto) 0 Neut # (Auto) 1.9 Lymph # (Auto) 0.6 L [place] # (Auto) 0.4 Eos # (Auto) 0.0 Baso # (Auto) 0.0 Immature Gran # (Auto) 0.01 H Absolute Nucleated RBC 0.00 Immature Gran % 0 Nucleated RBC % 0 PT 10.9 INR 1.0 Sodium 148 H Potassium 4.1 Chloride 116 H Carbon Dioxide 16.8 L Anion Gap 15 BUN 12 Creatinine 1.3 Estim Creat Clear Calc 51.7 L eGFR 52 L BUN/Creatinine Ratio 9 L Glucose 53 L Calculated Osmolality 290 Calcium 8.2 L Corrected Calcium 8.5 Phosphorus 4.9 Magnesium 2.0 Total Bilirubin 0.4 AST 31 ALT 17 Alkaline Phosphatase 65 Total Protein 6.7 Albumin 3.6 Globulin 3.1 Albumin/Globulin Ratio 1.2 Coccidioides IgM Ab Positive A Quality Measures Quality Measures VTE prophylaxis Assessment & Plan Assessment Current Active Medications: Generic Name Dose Route Start Last Admin Trade Name Freq PRN Reason Stop Dose Admin Acetaminophen 650 mg 09/27/24 20:59 Acetaminophen 325 Mg Tablet PO 10/27/24 20:58 Q6HR PRN PAIN SCALE 1-3 (mild Hydrocodone Bitart/Acetaminophen 1 tab 09/28/24 00:18 09/28/24 00:55 Hydrocodone/Apap 5/325 Tablet PO 10/03/24 00:17 1 tab Q6HR PRN Administration PAIN SCALE 4-6 (Moderate Citric Acid/Sodium Citrate 30 ml 09/29/24 09:00 Citric Acid/Sodium Citr 15 Ml Udc (Bicitra) PO 10/29/24 08:59 BID IFEOMA Fluconazole 400 mg in 200 mls @ 100 mls/hr 09/28/24 13:32 09/28/24 15:50 Diflucan/Ns Ivpb IV 10/05/24 13:31 100 mls/hr QDAY IFEOMA Administration Plan 44-year-old female with past medical history of kidney stones, hemorrhoids and umbilical hernia repair with Dr. Mcfarland on 05/19/2023 admitted for left flank pain and found to have abdominal lymphadenopathy. #Retroperitoneal lymphadenopathy #Hematochezia #Colon mass Patient presented with abdominal pain right lower quadrant. CT scan showed multiple retroperitoneal lymphadenopathy and calculi. Mild hydronephrosis noted probably related to the lymph node impingement. Good urine output. Will give IV fluids. Biopsy of the lymph node will be done. Rule out malignancy// inflammatory response. GI was consulted, colonoscopy performed. Patient found to have ulcerated partially obstructing mass in the sigmoid colon, biopsies taken. Concerning for malignancy. These results were discussed with patient and her . General surgery consulted CA 15?3 is negative as well as tumor marker AFP. CEA is positive at 8.8 and CA 19-9 is pending. Patient denies any known family history of colon cancer. - General Surgery consulted, appreciate recommendations - Appreciate GI recommendations - Follow-up on biopsies #Hypochloremic metabolic acidosis Labs showed increased chloride 116, with increased sodium 148. Patient's metabolic acidosis 16.8 bicarb. Likely due to high rates of IV fluids normal saline. Fluids held. - Monitor daily labs - Bicitra 30 mL p.o. twice daily #CHERI (acute kidney injury) Likely obstructive from impingement by the lymphadenopathy. Patient's baseline creatinine 0.7 it has climbed up to 1.6 Creatinine and eGFR improving. Patient received several liters of normal saline, appears to be developing metabolic acidosis, fluids held. - Encourage oral hydration - Avoid nephrotoxins - Monitor daily labs Code: Full code DVT PPx: SCDs GI PPx: None FEN: Clear liquid diet Lines: PIV Plan of care discussed with attending Dr. Collado. Alex Lenz MD PGY?1 Attending Provider Attestation/Addendum Patient seen and examined with resident physician Dr. Patel. Note reviewed, agree with findings and recommendations. Significant intra-abdominal lymphadenopathy. Preliminary biopsy came back metastatic colon cancer. Dr Levine was consulted. Awaiting final pathology from colonoscopy Biopsies. Colonoscopy showed a left sigmoid partially obstructive mass
[2024-09-29] MEDS: CITRIC ACID/SODIUM CITR 15 ML UDC (BICITRA) 30 ML PO ×2 (09:01→20:27)
[2024-09-29] MEDS: FLUCONAZOLE/NS 400 MG IVPB 400 MG/200 ML BAG 100 MG IV (09:02)
--- NOTE | 2024-09-29 14:06 | PD.SURCONS ---
HPI Consult details Consult date: 09/29/24 Reason for consultation narrative: Obstructing sigmoid tumor History of present illness: 44-year-old female with history of kidney stone was admitted with left-sided flank pain radiating to lower abdomen. She states that she has had this pain for about a week that has been getting progressively worse. She denies nausea, vomiting, fever, chills, weight loss or changes in bowel habits. She has noted blood per rectum over the past week. She has not had colonoscopy in the past and she denies having family history of colorectal cancer. A CT scan revealed significant abdominal and pelvic lymphadenopathy, CT-guided biopsy was performed. Patient also underwent a colonoscopy that revealed near obstructing sigmoid tumor, biopsies were obtained and pending. Review of Systems Constitutional Constitutional: Denies chills, Denies fatigue, Denies fever(s) and Denies weight loss Cardiovascular Cardiovascular: Denies chest pain Respiratory Respiratory: Denies cough Gastrointestinal Gastrointestinal: Reports abdominal pain, Denies nausea and Denies vomiting Genitourinary Genitourinary: Denies difficulty voiding Endocrine Endocrine: Denies fatigue Hematologic/Lymphatic Hematologic/Lymphatic: Denies easy bleeding and Denies easy bruising Past Medical History Surgical History OTHER SURGICAL HX: Umbilical hernia repair, diagnostic laparoscopy Social History SMOKING STATUS: Never smoker SUBSTANCE USE: does not use ALCOHOL: Never Meds Home Medications and Allergies Home Medications ?Medication ?Instructions ?Recorded ?Confirmed ?Type acetaminophen 500 mg tablet 500 mg PO Q4H PRN pain 09/27/24 09/27/24 History (Acetaminophen Extra Strength) cetirizine 5 mg tablet (Allergy 5 mg PO QDAY PRN allergy symptoms 09/27/24 09/27/24 History Relief (cetirizine)) ibuprofen 600 mg tablet 600 mg PO QDAY PRN pain 09/27/24 09/27/24 History Allergies Allergy/AdvReac Type Severity Reaction Status Date / Time No Known Allergies Allergy Verified 09/27/24 03:42 Exam Vital Signs Temp Pulse Resp BP Pulse Ox O2 Del Method O2 Flow Rate 98.3 F 110 H 18 116/98 H 99 Room Air 1 09/29/24 12:00 09/29/24 12:00 09/29/24 12:00 09/29/24 12:00 09/29/24 12:00 09/29/24 12:00 09/28/24 20:35 Constitutional Constitutional: no acute distress Routine Abdominal Exam Comments: Abdomen is soft and minimally distended. No obvious hernia. Minimal tenderness to deep palpation, no rebound tenderness or peritonitis at this time Results Results: Laboratory Laboratory results: results reviewed Results: Imaging CT scan - abdomen: report reviewed and image reviewed CT scan - pelvis: report reviewed and image reviewed Assessment & Plan Additional Assessment Additional comments: Near obstructing sigmoid tumor. Significant abdominal and pelvic lymphadenopathy. Differentials would include lymphoma versus metastatic colon cancer, biopsies are waiting Plan Await biopsy results. If biopsies reveal lymphoma, patient will require Port-A-Cath placement for administration of systemic chemotherapy. If she is found to have colon cancer she will require palliative resection.
--- NOTE | 2024-09-29 19:23 | PD.IMPROG ---
Documentation for date of: 09/29/24 Subjective Subjective Interval history: Patient evaluated Hemoglobin hematocrit 9.0 and 29.1 Discussed the case with Dr. Collado as well as Dr. Julianna Nation on surgery till the path report is available which should be ready by tomorrow Also discussed the findings with the patient and the family in the room Exam Vital Signs Temp Pulse Resp BP Pulse Ox O2 Del Method O2 Flow Rate 98.7 F 92 18 163/93 H 100 Room Air 1 09/29/24 16:00 09/29/24 16:00 09/29/24 16:00 09/29/24 16:00 09/29/24 16:00 09/29/24 16:00 09/28/24 20:35 Objective Labs 09/29/24 04:30 09/29/24 04:30 Labs: Laboratory Results - last 24 hr 09/29/24 04:30 WBC 2.9 L RBC 3.75 L Hgb 9.0 L Hct 29.1 L MCV 78 L MCH 24.0 L MCHC 30.9 L RDW Std Deviation 45.9 Plt Count 150 Neut % (Auto) 66 Lymph % (Auto) 19 [place] % (Auto) 13 H Eos % (Auto) 1 Baso % (Auto) 0 Neut # (Auto) 1.9 Lymph # (Auto) 0.6 L [place] # (Auto) 0.4 Eos # (Auto) 0.0 Baso # (Auto) 0.0 Immature Gran # (Auto) 0.01 H Absolute Nucleated RBC 0.00 Immature Gran % 0 Nucleated RBC % 0 Sodium 148 H Potassium 4.1 Chloride 116 H Carbon Dioxide 16.8 L Anion Gap 15 BUN 12 Creatinine 1.3 Estim Creat Clear Calc 51.7 L eGFR 52 L BUN/Creatinine Ratio 9 L Glucose 53 L Calculated Osmolality 290 Calcium 8.2 L Corrected Calcium 8.5 Phosphorus 4.9 Magnesium 2.0 Total Bilirubin 0.4 AST 31 ALT 17 Alkaline Phosphatase 65 Total Protein 6.7 Albumin 3.6 Globulin 3.1 Albumin/Globulin Ratio 1.2 Impressions Impression: Sigmoid colon mass Abdominal lymphadenopathy Late for biopsy report Assessment & Plan A&P Narrative # Hematochezia # Abnormal CT scan of the abdomen pelvis with extensive abdominal and pelvic lymphadenopathy plan Tumor markers CEA level CA 19?9 level CA 15-3 level AFP Ca125 level CT-guided biopsy of the left adenopathy by the IR Clear liquid diet consider colonoscopy once biopsy is done with a GoLytely prep and possible upper endoscopy to make sure the GI tract is clean Thank you very much for the opportunity to participate in care of this patient Time Spent With Patient Time: Total time spent is greater than 50% in coordination of care (as documented) at patient's floor/unit and/or counseling patient:
[2024-09-29] MEDS: ACETAMINOPHEN 325 MG TABLET 650 MG PO (20:27)
[2024-09-30] VITALS: BP 147/85; PULSE 82; RESP 18; TEMP 36.3; O2SAT 98
[2024-09-30 04:00] VITALS: BP 151/77; PULSE 75; RESP 18; TEMP 36.4; O2SAT 99
[2024-09-30 06:22] LABS: Basophils % (Auto) 1 % (0-2.5); Eosinophils # (Auto) 0.1 Thou/mm3 (0.0-0.5); Eosinophils % (Auto) 3 % (0-10); Hematocrit 30.1 % (36.0-46.0); Hemoglobin 9.3 g/dL (12.0-16.0); Immature Granulocytes % (Auto) 0 % (0-0); Lymphocytes # (Auto) 0.6 Thou/mm3 (1.0-4.8); Lymphocytes % (Auto) 24 % (10-50); Mean Corpuscular HGB Conc 30.9 g/dl (31.0-37.0); Mean Corpuscular Hemoglobin 23.7 pg (25.0-35.0); Mean Corpuscular Volume 77 fL (80-100); Monocytes # (Auto) 0.3 Thou/mm3 (0.0-0.8); Monocytes % (Auto) 13 % (0-12); Neutrophils # (Auto) 1.6 Thou/mm3 (1.8-7.7); Neutrophils % (Auto) 59 % (37-80); Nucleated Red Blood Cell % 0 /100 WBC (0); Platelet Count 152 Thou/mm3 (140-440); Red Blood Count 3.92 Miln/mm3 (4.00-5.20)
[2024-09-30 06:41] LABS: White Blood Count 2.6 Thou/mm3 (3.6-11.0)
[2024-09-30 07:07] LABS: Alanine Aminotransferase 21 U/L (10-49); Albumin, Serum 3.6 gm/dL (3.5-5.0); Albumin/Globulin Ratio 1.1 (1.2-2.2); Alkaline Phosphatase 65 U/L (46-116); Anion Gap 11 (7-16); Aspartate Amino Transferase 32 U/L (0-34); BUN/Creatinine Ratio 6 Ratio (12-20); Bilirubin,Total 0.4 mg/dL (0.3-1.2); Blood Urea Nitrogen 10 mg/dL (9-23); Calcium 8.7 mg/dL (8.3-10.6); Carbon Dioxide 24.2 mMol/L (20.0-31.0); Chloride 111 mMol/L (98-107); Creatinine (Component) 1.6 mg/dL (0.6-1.3); Globulin 3.2 gm/dL (2.3-3.5); Glucose 82 mg/dL (74-106); Magnesium 1.7 mg/dL (1.6-2.6); Osmolality,Calculated 288 (275-295); Potassium 3.8 mMol/L (3.4-5.1); Sodium 146 mMol/L (136-145); Total Protein 6.8 gm/dL (5.7-8.2); eGFR 40 See Note
[2024-09-30 08:00] VITALS: BP 144/82; PULSE 83; RESP 16; TEMP 36.7; O2SAT 98
[2024-09-30] MEDS: FLUCONAZOLE/NS 400 MG IVPB 400 MG/200 ML BAG 100 MG IV (08:50)
[2024-09-30] MEDS: CITRIC ACID/SODIUM CITR 15 ML UDC (BICITRA) 30 ML PO ×2 (08:50→20:49)
[2024-09-30 09:26] VITALS: BMI 27.8
--- NOTE | 2024-09-30 09:47 | ESPR_ITS ---
Documentation for date of: 09/30/24 Subjective Subjective Interval history: Ms. Taveras is a 44 year old female with past medical history significant for kidney stones, hemorrhoids, and an umbilical hernia repair by Dr. Alvarez on 05/19/23 presents to my office last week complaining of left flank pain. Exam showed left CVA tenderness and I requested for a renal ultrasound. Renal ultrasound showed Multiple left renal calculi mild to moderate left hydronephrosis and significant periaortic lymphadenopathy recommended CT with and without contrast. Authorization was submitted to the insurance to get CT. In the interim patient started having significant right lower quadrant abdominal pain since yesterday that she brought herself to the emergency department. In the ED blood pressure 148/79. Heart rate 88. Afebrile. WBC 6.4, hemoglobin 10.2, platelets 149. Coagulation profile normal. Lab data shows sodium 135, potassium 4, BUN 15, creatinine 1.4, glucose 113, calcium 8.6, LFTs normal, lipase 62 urinalysis negative. Cocci titers pending. Patient also stated that she was having occasionally hematochezia for the last couple of weeks on and off. Was supposed to see Dr. Torres as an outpatient. 09/28/24: Patient was seen and examined in [facility] today. There were no major overnight events and patient is doing okay this morning. She continues to have abdominal pain for which she has been receiving [place]'s. CEA came back at 8.8 which is elevated. CA 15-3 is negative CA 19-9 is pending and tumor marker AFP is negative. Patient will undergo CT-guided percutaneous biopsy of the lymphadenopathy later today. Her creatinine function did worsen to 1.6 today we will continue to monitor closely. 09/29/24: Patient seen and examined at bedside, resting comfortably. Patient states abdominal pain significantly improved. Patient received CT-guided percutaneous biopsy and colonoscopy yesterday, well-tolerated. However colonoscopy showed ulcerated partially obstructing mass in sigmoid colon with biopsies taken, concern for malignancy. Dr Levine was consulted, will see patient. Patient seems to be developing hyperchloremic metabolic acidosis induced by excess normal saline, fluids stopped. Started Bicitra. BUN 12, creatinine 1.3, EGFR 52. Encouraged oral hydration. 09/30/24: Patient seen examined at bedside, resting comfortably. Pathology report from lymph node biopsy in colon when mass biopsy showed well- differentiated adenocarcinoma, metastatic colon cancer. Patient was told about her diagnosis, discussed next steps. Patient was emotionally distraught, provided comfort and answered questions with patient and her . Dr Levine was informed of the updated diagnosis, patient will need resection of colonic tumor, outpatient chemotherapy treatment. Hemoglobin 9.3, WBC 2.6. Sodium improved to 146, chloride 111, bicarb 24.2. BUN 10, creatinine 1.6, EGFR 40. Exam Vital Signs Temp Pulse Resp BP Pulse Ox O2 Del Method O2 Flow Rate 98.1 F 83 16 144/82 H 98 Room Air 1 09/30/24 08:00 09/30/24 08:00 09/30/24 08:00 09/30/24 08:00 09/30/24 08:00 09/30/24 08:00 09/28/24 20:35 Narrative Exam Constitutional: Well nourished and in no acute distress CVS: RRR, S1 and S2 present, no murmurs, rubs or gallops . RESP: CTAB, no SOB, no rales, rhonchi or wheezing. No respiratory Distress GI: Tenderness to deep palpation but normal BS, nondistended. MSK: Full range of motion, No trauma or deformities or masses. Skin: Warm to touch, Dry. No rashes or lesions. 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 Sensation grossly intact. Psych: (AAO) x3 . Appropriate mood and affect. Objective Labs 09/30/24 05:19 09/30/24 05:19 Labs: Laboratory Results - last 24 hr 09/30/24 05:19 WBC 2.6 L RBC 3.92 L Hgb 9.3 L Hct 30.1 L MCV 77 L MCH 23.7 L MCHC 30.9 L RDW Std Deviation 44.0 Plt Count 152 Neut % (Auto) 59 Lymph % (Auto) 24 [place] % (Auto) 13 H Eos % (Auto) 3 Baso % (Auto) 1 Neut # (Auto) 1.6 L Lymph # (Auto) 0.6 L [place] # (Auto) 0.3 Eos # (Auto) 0.1 Baso # (Auto) 0.0 Immature Gran # (Auto) 0.00 Absolute Nucleated RBC 0.00 Immature Gran % 0 Nucleated RBC % 0 Sodium 146 H Potassium 3.8 Chloride 111 H Carbon Dioxide 24.2 Anion Gap 11 BUN 10 Creatinine 1.6 H Estim Creat Clear Calc 42.0 L eGFR 40 L BUN/Creatinine Ratio 6 L Glucose 82 D Calculated Osmolality 288 Calcium 8.7 Corrected Calcium 9.0 Phosphorus 4.0 Magnesium 1.7 Total Bilirubin 0.4 AST 32 ALT 21 Alkaline Phosphatase 65 Total Protein 6.8 Albumin 3.6 Globulin 3.2 Albumin/Globulin Ratio 1.1 L Quality Measures Quality Measures VTE prophylaxis Assessment & Plan Assessment Current Active Medications: Generic Name Dose Route Start Last Admin Trade Name Freq PRN Reason Stop Dose Admin Acetaminophen 650 mg 09/27/24 20:59 09/29/24 20:27 Acetaminophen 325 Mg Tablet PO 10/27/24 20:58 650 mg Q6HR PRN Administration PAIN SCALE 1-3 (mild Hydrocodone Bitart/Acetaminophen 1 tab 09/28/24 00:18 09/28/24 00:55 Hydrocodone/Apap 5/325 Tablet PO 10/03/24 00:17 1 tab Q6HR PRN Administration PAIN SCALE 4-6 (Moderate Citric Acid/Sodium Citrate 30 ml 09/29/24 09:00 09/30/24 08:50 Citric Acid/Sodium Citr 15 Ml Udc (Bicitra) PO 10/29/24 08:59 30 ml BID IFEOMA Administration Fluconazole 400 mg in 200 mls @ 100 mls/hr 09/28/24 13:32 09/30/24 08:50 Diflucan/Ns Ivpb IV 10/05/24 13:31 100 mls/hr QDAY IFEOMA Administration Plan 44-year-old female with past medical history of kidney stones, hemorrhoids and umbilical hernia repair with Dr. Mcfarland on 05/19/2023 admitted for left flank pain and found to have abdominal lymphadenopathy. #Metastatic colon cancer #Hematochezia Patient presented with abdominal pain right lower quadrant. CT scan showed multiple retroperitoneal lymphadenopathy and calculi. Mild hydronephrosis noted probably related to the lymph node impingement. Good urine output. Will give IV fluids. Biopsy of the lymph node will be done. Rule out malignancy// inflammatory response. GI was consulted, colonoscopy performed. Patient found to have ulcerated partially obstructing mass in the sigmoid colon, biopsies taken. Concerning for malignancy. These results were discussed with patient and her . General surgery consulted CA 15?3 is negative as well as tumor marker AFP. CEA is positive at 8.8 and CA 19-9 is pending. Patient denies any known family history of colon cancer. Biopsies showed no differentiated adenocarcinoma, metastatic colon cancer. Patient informed of her diagnosis. - General Surgery consulted, appreciate recommendations - Appreciate GI recommendations - Will refer for outpatient chemotherapy #Hypochloremic metabolic acidosis, resolved Labs showed increased chloride 116, with increased sodium 148. Patient's metabolic acidosis 16.8 bicarb. Likely due to high rates of IV fluids normal saline. Fluids held. New labs show chloride 111, sodium 146, bicarb 24.2. - Monitor daily labs - Bicitra 30 mL p.o. twice daily #CHERI (acute kidney injury) Likely obstructive from impingement by the lymphadenopathy. Patient's baseline creatinine 0.7 it has climbed up to 1.6 Creatinine and eGFR improving. Patient received several liters of normal saline, appears to be developing metabolic acidosis, fluids held. - Encourage oral hydration - Avoid nephrotoxins - Monitor daily labs Code: Full code DVT PPx: SCDs GI PPx: None FEN: Clear liquid diet Lines: PIV Plan of care discussed with attending Dr. Collado. Alex Lenz MD PGY?1 Attending Provider Attestation/Addendum Patient seen and examined with resident physician Dr. Patel. Note reviewed, agree with findings and recommendations. Significant intra-abdominal lymphadenopathy. Preliminary biopsy came back metastatic colon cancer. Dr Levine was consulted. pathology from colonoscopy Biopsies- Colon cancer. Colonoscopy showed a left sigmoid partially obstructive mass. Had a long conversation with patient, at bedside. Spoke to Dr. Levine- needs colon surgery, Port-A-Cath prior to discharge. Spoke to Dr. Torres. Spoke to Dr. Hdz at cancer center, Dr. Dunaway-recommended surgery, Port-A-Cath and will start chemotherapy once she gets discharged. Will try to quicken the process.
--- NOTE | 2024-09-30 11:07 | PC.SS ---
SS follow up note; Pathology report from lymph node biopsy in colon. Biopsy showed well-differentiated adenocarcinoma, metastatic colon cancer. Patient getting IV fluid. Patient will follow up with oncology when medically cleared.
[2024-09-30 12:00] VITALS: BP 149/82; PULSE 77; RESP 18; TEMP 36.9; O2SAT 97
--- NOTE | 2024-09-30 12:10 | PD.IMPROG ---
Documentation for date of: 09/30/24 Subjective Subjective Interval history: Patient evaluated Colonic mass biopsy via colonoscopy and lymph node biopsy by CT-guided all consistent with well-differentiated adenocarcinoma Exam Vital Signs Temp Pulse Resp BP Pulse Ox O2 Del Method O2 Flow Rate 98.1 F 83 16 144/82 H 98 Room Air 1 09/30/24 08:00 09/30/24 08:00 09/30/24 08:00 09/30/24 08:00 09/30/24 08:00 09/30/24 08:00 09/28/24 20:35 Objective Labs 09/30/24 05:19 09/30/24 05:19 Labs: Laboratory Results - last 24 hr 09/30/24 05:19 WBC 2.6 L RBC 3.92 L Hgb 9.3 L Hct 30.1 L MCV 77 L MCH 23.7 L MCHC 30.9 L RDW Std Deviation 44.0 Plt Count 152 Neut % (Auto) 59 Lymph % (Auto) 24 [place] % (Auto) 13 H Eos % (Auto) 3 Baso % (Auto) 1 Neut # (Auto) 1.6 L Lymph # (Auto) 0.6 L [place] # (Auto) 0.3 Eos # (Auto) 0.1 Baso # (Auto) 0.0 Immature Gran # (Auto) 0.00 Absolute Nucleated RBC 0.00 Immature Gran % 0 Nucleated RBC % 0 Sodium 146 H Potassium 3.8 Chloride 111 H Carbon Dioxide 24.2 Anion Gap 11 BUN 10 Creatinine 1.6 H Estim Creat Clear Calc 42.0 L eGFR 40 L BUN/Creatinine Ratio 6 L Glucose 82 D Calculated Osmolality 288 Calcium 8.7 Corrected Calcium 9.0 Phosphorus 4.0 Magnesium 1.7 Total Bilirubin 0.4 AST 32 ALT 21 Alkaline Phosphatase 65 Total Protein 6.8 Albumin 3.6 Globulin 3.2 Albumin/Globulin Ratio 1.1 L Impressions Impression: # Metastatic well-differentiated adenocarcinoma of the sigmoid colon Plan Case discussed with Dr Levine Surgical intervention as planned MRI of the liver pending Assessment & Plan A&P Narrative # Hematochezia # Abnormal CT scan of the abdomen pelvis with extensive abdominal and pelvic lymphadenopathy plan Tumor markers CEA level CA 19?9 level CA 15-3 level AFP Ca125 level CT-guided biopsy of the left adenopathy by the IR Clear liquid diet consider colonoscopy once biopsy is done with a GoLytely prep and possible upper endoscopy to make sure the GI tract is clean Thank you very much for the opportunity to participate in care of this patient Time Spent With Patient Time: Total time spent is greater than 50% in coordination of care (as documented) at patient's floor/unit and/or counseling patient:
[2024-09-30] MEDS: NA SU/NAHCO3/KC/PEG (Golytely) 4,000 ML BTL 4000 ML PO (13:27)
[2024-09-30] MEDS: ZINC SULFATE 220 MG CAPSULE PO (13:27)
[2024-09-30 16:00] VITALS: BP 162/100; PULSE 83; RESP 18; TEMP 37; O2SAT 100
--- NOTE | 2024-09-30 17:20 | PC.NURSE ---
Verified with lukas Connor over the phone in regards to multiple doses for neomycin and flagyl doses for this afternoon. Per pharmacist safe to give and a usual med indication by MD Levine.
[2024-09-30] MEDS: metroNIDAZOLE 250 MG TABLET 1000 MG PO ×2 (17:32→19:07)
[2024-09-30] MEDS: NEOMYCIN SULFATE 500 MG TABLET 1000 MG PO ×2 (17:33→19:06)
[2024-09-30 20:00] VITALS: BP 141/92; PULSE 92; RESP 18; TEMP 36.3; O2SAT 99
[2024-09-30] MEDS: ASCORBIC ACID 250 MG TABLET 500 MG PO (20:49)
[2024-10-01] VITALS (15 sets, daily range): BP systolic 139–163; BP diastolic 73–96; PULSE 78–104; RESP 16–24; TEMP 36.2–36.7; O2SAT 97–100
--- NOTE | 2024-10-01 | XR_ITS ---
Examination: MRI abdomen with intravenous contrast. MRI abdomen without intravenous contrast. Date and time of exam: October 01, 2024, 1156 hours INDICATIONS: Diagnosis malignant neoplasms of the colon 2 weeks ago with extensive abdominal pelvic lymphadenopathy and 6 mm lower right lobe liver lesion on CT abdomen pelvis September 27, 2024, staging Technique: Multiple axial, sagittal and coronal sections of the abdomen obtained. Transverse images, TR 6020, TE 107. T1 weighted transverse images, TR 582, TE 9.5. T2-weighted sagittal images, TR 4000, TE 105. T2-weighted sagittal images, TR 4000, TE 5. Coronal images, TR 4210, TE 107. Axial and coronal images are obtained post 3 cc intravenous injection, gadolinium. Findings: Hepatomegaly, 17 cm 5 mm posterior right lobe liver lesion, increased signal on the T2-weighted precontrast images Postcontrast images do not demonstrate enhancement of this lesion No gallstones Spleen not enlarged No hydronephrosis Prominent abdominal lymphadenopathy and mesenteric lymphadenopathy, including left lateral periaortic 31 mm lymph node No ascites Homogeneous marrow signal IMPRESSION: Hepatomegaly Small benign cyst right lobe of the liver, no enhancing hepatic metastases noted Prominent abdominal lymphadenopathy
[2024-10-01] MEDS: metroNIDAZOLE 250 MG TABLET 1000 MG PO (02:09)
[2024-10-01] MEDS: NEOMYCIN SULFATE 500 MG TABLET 1000 MG PO (02:09)
[2024-10-01] MEDS: ONDANSETRON INJ 2 MG/ML INJ 2 ML 4 MG IV (03:53)
[2024-10-01 05:57] LABS: Basophils % (Auto) 1 % (0-2.5); Eosinophils % (Auto) 2 % (0-10); Hematocrit 29.8 % (36.0-46.0); Hemoglobin 9.5 g/dL (12.0-16.0); Immature Granulocytes % (Auto) 1 % (0-0); Immature Granulocytes Auto 0.01 Thou/mm3 (0.00-0.00); Lymphocytes # (Auto) 0.6 Thou/mm3 (1.0-4.8); Lymphocytes % (Auto) 29 % (10-50); Mean Corpuscular HGB Conc 31.9 g/dl (31.0-37.0); Mean Corpuscular Hemoglobin 23.9 pg (25.0-35.0); Mean Corpuscular Volume 75 fL (80-100); Monocytes # (Auto) 0.3 Thou/mm3 (0.0-0.8); Monocytes % (Auto) 16 % (0-12); Neutrophils # (Auto) 1.1 Thou/mm3 (1.8-7.7); Neutrophils % (Auto) 52 % (37-80); Nucleated Red Blood Cell % 0 /100 WBC (0); Platelet Count 155 Thou/mm3 (140-440); RDW Standard Deviation 42.9 fL (36.4-46.3); Red Blood Count 3.98 Miln/mm3 (4.00-5.20)
[2024-10-01 06:29] LABS: Alanine Aminotransferase 17 U/L (10-49); Albumin/Globulin Ratio 1.1 (1.2-2.2); Alkaline Phosphatase 68 U/L (46-116); Anion Gap 12 (7-16); Aspartate Amino Transferase 26 U/L (0-34); BUN/Creatinine Ratio 5 Ratio (12-20); Bilirubin,Total 0.4 mg/dL (0.3-1.2); Blood Urea Nitrogen 11 mg/dL (9-23); Calcium 8.4 mg/dL (8.3-10.6); Calcium (Corrected) 8.4 mg/dL (8.5-10.1); Carbon Dioxide 24.8 mMol/L (20.0-31.0); Chloride 108 mMol/L (98-107); Creatinine (Component) 2.1 mg/dL (0.6-1.3); Estimated Creatinine Clearance 31.3 mL/min (>60); Globulin 3.5 gm/dL (2.3-3.5); Glucose 99 mg/dL (74-106); Magnesium 1.7 mg/dL (1.6-2.6); Osmolality,Calculated 288 (275-295); Phosphorous 4.3 mg/dL (2.4-5.1); Potassium 3.4 mMol/L (3.4-5.1); Sodium 145 mMol/L (136-145); Total Protein 7.5 gm/dL (5.7-8.2); eGFR 29 See Note
[2024-10-01] MEDS: HYDROcodone/APAP 5/325 TABLET 1 TAB PO (08:08)
[2024-10-01] MEDS: FLUCONAZOLE/NS 400 MG IVPB 400 MG/200 ML BAG 100 MG IV (09:14)
--- NOTE | 2024-10-01 10:30 | XR_ITS ---
Examination: Abdomen sonogram, complete Date and time of exam: October 01, 2024, 1047 hours INDICATIONS: Right upper abdominal pain radiating to the back beginning 5 hours ago, a 6 mm right lobe liver lesion on CT abdomen September 27, 2024. Technique: Multiple real-time grayscale transabdominal sonographic images of the abdomen have been obtained. Findings: Normal gallbladder. Normal common bile ducts are 0.3 cm Pancreatic head 2.9 cm Aorta not enlarged. Liver 14.4 cm fatty infiltration no focal liver lesions noted Normal hepatopedal portal venous flow Patent IVC Right kidney 12.8 cm renal cortex 1.5 cm 5 mm mid pole calculus [id number] hydronephrosis Left kidney 12.9 cm renal cortical) 9 cm Dlij-ib-bmesiaoc hydronephrosis Spleen 10.2 cm IMPRESSION: Normal gallbladder. Normal common bile duct. Liver 14.4 cm fatty infiltration no definite focal liver lesions noted Mild to moderate bilateral hydronephrosis. 5 mm mid pole right renal calculus
--- NOTE | 2024-10-01 10:52 | PD.RESPRO ---
Documentation for date of: 10/01/24 Subjective Subjective Interval history: Ms. Taveras is a 44 year old female with past medical history significant for kidney stones, hemorrhoids, and an umbilical hernia repair by Dr. Alvarez on 05/19/23 presents to my office last week complaining of left flank pain. Exam showed left CVA tenderness and I requested for a renal ultrasound. Renal ultrasound showed Multiple left renal calculi mild to moderate left hydronephrosis and significant periaortic lymphadenopathy recommended CT with and without contrast. Authorization was submitted to the insurance to get CT. In the interim patient started having significant right lower quadrant abdominal pain since yesterday that she brought herself to the emergency department. In the ED blood pressure 148/79. Heart rate 88. Afebrile. WBC 6.4, hemoglobin 10.2, platelets 149. Coagulation profile normal. Lab data shows sodium 135, potassium 4, BUN 15, creatinine 1.4, glucose 113, calcium 8.6, LFTs normal, lipase 62 urinalysis negative. Cocci titers pending. Patient also stated that she was having occasionally hematochezia for the last couple of weeks on and off. Was supposed to see Dr. Torres as an outpatient. 09/28/24: Patient was seen and examined in [facility] today. There were no major overnight events and patient is doing okay this morning. She continues to have abdominal pain for which she has been receiving [place]'s. CEA came back at 8.8 which is elevated. CA 15-3 is negative CA 19-9 is pending and tumor marker AFP is negative. Patient will undergo CT-guided percutaneous biopsy of the lymphadenopathy later today. Her creatinine function did worsen to 1.6 today we will continue to monitor closely. 09/29/24: Patient seen and examined at bedside, resting comfortably. Patient states abdominal pain significantly improved. Patient received CT-guided percutaneous biopsy and colonoscopy yesterday, well-tolerated. However colonoscopy showed ulcerated partially obstructing mass in sigmoid colon with biopsies taken, concern for malignancy. Dr Levine was consulted, will see patient. Patient seems to be developing hyperchloremic metabolic acidosis induced by excess normal saline, fluids stopped. Started Bicitra. BUN 12, creatinine 1.3, EGFR 52. Encouraged oral hydration. 09/30/24: Patient seen examined at bedside, resting comfortably. Pathology report from lymph node biopsy in colon when mass biopsy showed well-differentiated adenocarcinoma, metastatic colon cancer. Patient was told about her diagnosis, discussed next steps. Patient was emotionally distraught, provided comfort and answered questions with patient and her . Dr Levine was informed of the updated diagnosis, patient will need resection of colonic tumor, outpatient chemotherapy treatment. Hemoglobin 9.3, WBC 2.6. Sodium improved to 146, chloride 111, bicarb 24.2. BUN 10, creatinine 1.6, EGFR 40. 10/01/2024: Patient seen examined at bedside, resting comfortably. Patient remains mildly emotionally distressed due to diagnosis, but appears to be coping well overall. Hemoglobin 9.5, sodium 145, BUN 11, creatinine 2.1, EGFR 29. Patient had multiple bowel movements due to GoLytely prep anticipation of colonic resection, suspect dehydration. Patient was complaining of right sided pain in back and abdomen, ordered abdominal ultrasound. Will provide IV fluids. Exam Vital Signs Temp Pulse Resp BP Pulse Ox O2 Del Method O2 Flow Rate 97.2 F 85 16 144/76 H 97 Room Air 1 10/01/24 07:21 10/01/24 07:21 10/01/24 07:21 10/01/24 07:21 10/01/24 07:21 10/01/24 07:21 09/28/24 20:35 Narrative Exam Constitutional: Well nourished and in no acute distress CVS: RRR, S1 and S2 present, no murmurs, rubs or gallops . RESP: CTAB, no SOB, no rales, rhonchi or wheezing. No respiratory Distress GI: Normal BS, nondistended. Tenderness right upper quadrant with pain in right flank. MSK: Full range of motion, No trauma or deformities or masses. Skin: Warm to touch, Dry. No rashes or lesions. 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 Sensation grossly intact. Psych: (AAO) x3 . Appropriate mood and affect. Objective Labs 10/02/24 06:09 10/02/24 06:09 Labs: Laboratory Results - last 24 hr 10/01/24 05:17 WBC 2.0 L RBC 3.98 L Hgb 9.5 L Hct 29.8 L MCV 75 L MCH 23.9 L MCHC 31.9 RDW Std Deviation 42.9 Plt Count 155 Neut % (Auto) 52 Lymph % (Auto) 29 [place] % (Auto) 16 H Eos % (Auto) 2 Baso % (Auto) 1 Neut # (Auto) 1.1 L Lymph # (Auto) 0.6 L [place] # (Auto) 0.3 Eos # (Auto) 0.0 Baso # (Auto) 0.0 Immature Gran # (Auto) 0.01 H Absolute Nucleated RBC 0.00 Immature Gran % 1 H Nucleated RBC % 0 Sodium 145 Potassium 3.4 Chloride 108 H Carbon Dioxide 24.8 Anion Gap 12 BUN 11 Creatinine 2.1 H D Estim Creat Clear Calc 31.3 L eGFR 29 L BUN/Creatinine Ratio 5 L Glucose 99 Calculated Osmolality 288 Calcium 8.4 Corrected Calcium 8.4 L Phosphorus 4.3 Magnesium 1.7 Total Bilirubin 0.4 AST 26 ALT 17 Alkaline Phosphatase 68 Total Protein 7.5 Albumin 4.0 Globulin 3.5 Albumin/Globulin Ratio 1.1 L Quality Measures Quality Measures VTE prophylaxis Assessment & Plan Assessment Current Active Medications: Generic Name Dose Route Start Last Admin Trade Name Freq PRN Reason Stop Dose Admin Acetaminophen 650 mg 09/27/24 20:59 09/29/24 20:27 Acetaminophen 325 Mg Tablet PO 10/27/24 20:58 650 mg Q6HR PRN Administration PAIN SCALE 1-3 (mild Hydrocodone Bitart/Acetaminophen 1 tab 09/28/24 00:18 10/01/24 08:08 Hydrocodone/Apap 5/325 Tablet PO 10/03/24 00:17 1 tab Q6HR PRN Administration PAIN SCALE 4-6 (Moderate Ascorbic Acid 500 mg 09/30/24 21:00 09/30/24 20:49 Ascorbic Acid 250 Mg Tablet PO 10/30/24 20:59 500 mg BID IFEOMA Administration Citric Acid/Sodium Citrate 30 ml 09/29/24 09:00 09/30/24 20:49 Citric Acid/Sodium Citr 15 Ml Udc (Bicitra) PO 10/29/24 08:59 30 ml BID IFEOMA Administration Fluconazole 400 mg in 200 mls @ 100 mls/hr 09/28/24 13:32 10/01/24 09:14 Diflucan/Ns Ivpb IV 10/05/24 13:31 100 mls/hr QDAY IFEOMA Administration Sodium Chloride 1,000 mls @ 125 mls/hr 10/01/24 11:31 Ns 0.45% IV 10/02/24 03:30 .Q8H IFEOMA Ondansetron HCl 4 mg 10/01/24 03:44 10/01/24 03:53 Ondansetron Inj 2 Mg/Ml Inj 2 Ml IV 10/31/24 03:43 4 mg Q6HR PRN Administration NAUSEA OR VOMITING Protocol Zinc Sulfate 220 mg 09/30/24 11:00 09/30/24 13:27 Zinc Sulfate 220 Mg Capsule PO 10/30/24 10:59 220 mg QDAY IFEOMA Administration Plan 44-year-old female with past medical history of kidney stones, hemorrhoids and umbilical hernia repair with Dr. Mcfarland on 05/19/2023 admitted for left flank pain and found to have abdominal lymphadenopathy. #Metastatic colon cancer #Hematochezia Patient presented with abdominal pain right lower quadrant. CT scan showed multiple retroperitoneal lymphadenopathy and calculi. Mild hydronephrosis noted probably related to the lymph node impingement. Good urine output. Will give IV fluids. Biopsy of the lymph node will be done. Rule out malignancy// inflammatory response. GI was consulted, colonoscopy performed. Patient found to have ulcerated partially obstructing mass in the sigmoid colon, biopsies taken. Concerning for malignancy. These results were discussed with patient and her . General surgery consulted CA 15?3 is negative as well as tumor marker AFP. CEA is positive at 8.8 and CA 19-9 is pending. Patient denies any known family history of colon cancer. Biopsies showed well differentiated adenocarcinoma, metastatic colon cancer. Patient informed of her diagnosis. - General Surgery consulted, appreciate recommendations - Plan for hemicolectomy - Appreciate GI recommendations - Will refer for outpatient chemotherapy with Dr. To #CHERI (acute kidney injury) Likely obstructive from impingement by the lymphadenopathy. Patient's baseline creatinine 0.7 it has climbed up to 1.6 Creatinine and eGFR improving. Patient received several liters of normal saline, appears to be developing metabolic acidosis, fluids held. Patient taking GoLytely preparation for surgery, has had multiple bowel movements. Kidney function worsening, likely due to dehydration. Also possible obstruction given right flank plain and lymphadenopathy. - Encourage oral hydration - Avoid nephrotoxins - Monitor daily labs - Abdominal ultrasound, follow-up - Bolus 1 L half NS - IVF: Half NS at 125 mL x 2 L #Hypochloremic metabolic acidosis, resolved Labs showed increased chloride 116, with increased sodium 148. Patient's metabolic acidosis 16.8 bicarb. Likely due to high rates of IV fluids normal saline. Fluids held. New labs show chloride 111, sodium 146, bicarb 24.2. - Monitor daily labs - Bicitra 30 mL p.o. twice daily Code: Full code DVT PPx: SCDs GI PPx: None FEN: Currently n.p.o. Lines: PIV Plan of care discussed with attending Dr. Collado. Alex Lenz MD PGY?1 Attending Provider Attestation/Addendum Patient seen and examined with resident physician Dr. Patel. Note reviewed, agree with findings and recommendations. Significant intra-abdominal lymphadenopathy. Preliminary biopsy came back metastatic colon cancer. Dr Levine was consulted. pathology from colonoscopy Biopsies- Colon cancer. Colonoscopy showed a left sigmoid partially obstructive mass. Had a long conversation with patient, at bedside. Spoke to Dr. Levine-needs colon surgery, Port-A-Cath prior to discharge. Spoke to Dr. Torres. Spoke to Dr. Hdz at cancer center, Dr. Dunaway-recommended surgery, Port-A-Cath and will start chemotherapy once she gets discharged. Will try to quicken the process. 10/01/2024 patient currently seen in medical floor. at bedside. She will be going for a partial colectomy for the colon cancer today. Spoke to Dr. Levine-she will need a Port-A-Cath prior to discharge. Complaining of mild right upper quadrant abdominal discomfort. Abdominal ultrasound ordered. MRI ordered by Dr. Levine. Noted patient has elevated BUN and creatinine-did have loose stools and decreased p.o. intake. Will repeat renal ultrasound and give fluids.
[2024-10-01] MEDS: SODIUM CHLORIDE 0.45 % 1,000 ML 125 ML IV (11:36)
--- NOTE | 2024-10-01 15:35 | PD.SUROPNT ---
Date of Procedure 10/01/24 Pre Op Diagnosis Sigmoid cancer Post Op Diagnosis Sigmoid cancer Significant lymphadenopathy around inferior mesenteric vessels Right adnexal mass Procedure Exploratory laparotomy, sigmoid colectomy with low pelvic coloproctostomy Excision of right adnexal mass Findings Near obstructing sigmoid tumor with significant lymphadenopathy around the inferior mesenteric vessels. Right adnexal mass. No evidence of pelvic, peritoneal or omental nodules. No ascites. Anterior surface of the liver was smooth without nodules or any lesions. Procedure Description Patient brought into the operating room in supine position. After administration of general endotracheal anesthesia, patient was placed in low lithotomy position. Her abdomen and perineum prepped and draped in standard surgical manner. A laparotomy incision was made from above the umbilicus to suprapubic region. Dissection was carried to subcutaneous tissue and anterior abdominal fascia was divided. Upon entering the abdominal cavity a Bookwalter retractor was placed for adequate exposure. The small bowel was eviscerated, was run from ligament of Treitz up to ileocecal junction, no obvious mass, tumors or adenopathy noted. Cecum, ascending colon, transverse colon and descending colon were palpated, no masses noted. The anterior surface of the liver was smooth without nodules or any lesions. There was no evidence of omental or pelvic nodules. Patient was noted to have a large and obstructing tumor of the sigmoid colon with significant lymphadenopathy around inferior mesenteric vessels. She was also noted to have a hard right adnexal mass that was suspicious for tumor. The right adnexal mass was excised with Enseal harmonic device and removed as specimen. The descending colon and sigmoid colon were mobilized by dividing the white line of [place]. Mobilization continued superiorly up to the splenic flexure to assure tension-free anastomosis. Proximal aspect of the rectum and distal sigmoid colon were mobilized. Distal end of descending colon was divided with JEB stapling device. The mesocolon was ligated with Enseal harmonic scalpel. The proximal rectum was divided with TA stapling device. The remainder of mesocolon and mesorectum ligated with Enseal harmonic device. Patient was noted to have significant adenopathy around the inferior mesenteric vessels. The vessels were dissected and ligated with silk tie, the enlarged lymph nodes around the inferior mesenteric vessels were removed with the specimen. The end of descending colon was reaching the pelvis without any tension. End of descending colon was opened and a pursestring suture using 2-0 Prolene applied. The anvil portion of the EEA stapling device was placed and pursestring suture was closed. The anal canal and patient's rectum was dilated sequentially. The EEA stapling device was placed through the rectum and brought out just anterior to the staple line. The EEA stapling device was opened and connected with the anvil, care was taken to make sure orientation was appropriate without tension or any kinking. The EEA stapling device was closed and fired, 2 well-formed donuts were retrieved. An air leak test was performed by placing a rigid proctoscope and insufflating air. The pelvis was filled with warm saline, there were no air bubbles assuring the anastomosis was airtight. There was evacuated and the rigid proctoscope was removed. I elected to place Lembert sutures using 3-0 silk circumferentially around the anastomosis to further secure the anastomosis. Abdomen and pelvis copiously and thoroughly washed and irrigated, all the fluids were suctioned and the suction fluid returned clear. Hemostasis was adequate and satisfactory. Anterior abdominal fascia was closed with running 0 PDS as well as interrupted sutures with #1 Vicryl. Incision was washed and closed with sam. Instruments, needles and sponge counts were reported to be correct x2. Patient tolerated procedure well. She was placed in supine position then extubated. She was breathing spontaneously and without difficulty and was transferred to postanesthesia care in stable condition. Anesthesia GETA Pathology / specimen Other (Sigmoid colon, right adnexal mass) Estimated Blood Loss 150 Condition Stable Disposition PACU Surgeon Shahid Levine MD Surgical Staff Operation Date: 10/01/24 13:45 Case Staff Anesthesiologist: Uriah Quiroz RN First Assistant: Tali Gonzalez
--- NOTE | 2024-10-01 15:45 | SUR.PHASEI ---
received report from GABI Mares and Dr Quiroz. VSS, Dressing to mid abd CDI, IV in place, no redness or infiltration noted to site. Pt asleep at this time, no distress noted. F/C in place and draining well.
[2024-10-01] MEDS: Morphine Sulfate PF 1 MG/ML PCA VIAL 30 ML 30 MG IV ×2 (16:19→23:52)
--- NOTE | 2024-10-01 16:38 | SUR.PHASEI ---
Pt c/o of 6/10 pain and is moaning[address] Dr[address] Quiroz at bedside and informed of pt's pain after AV SPECIALIST was initiated. Received orders to follow pain medication protocol as he had ordered.
[2024-10-01] MEDS: MORPHINE SULF INJ 10 MG/ML VIAL 3 MG IV (16:41)
--- NOTE | 2024-10-01 17:00 | SUR.PHASEI ---
report given to GABI Aggarwal, pt's pain is now controlled, no distress noted, dressing remains CDI, f/c continues to drain well, IV still intact - no redness or infiltration noted to site. Pt requested to remove blankets and wants a sheet instead of the blankets.
--- NOTE | 2024-10-01 17:10 | SUR.PHASEI ---
pt is resting, no distress noted, vss. Pt states 4/10 pain to abd. Pain meds are now effective. Educated her that she has a pain medication pump and she receive pain meds every 10 mins. She stated verbal understanding.
--- NOTE | 2024-10-01 17:43 | PD.IMPROG ---
Documentation for date of: 10/01/24 Subjective Subjective Interval history: Patient status post Hospital problems were resection of right adnexal mass resection with significant lymphadenopathy in the [place] colonic mass region Fortunately liver is clean And also no peritoneal carcinomatosis Exam Vital Signs Temp Pulse Resp BP Pulse Ox O2 Del Method O2 Flow Rate 98.0 F 89 16 148/84 H 100 Room Air 2 10/01/24 17:38 10/01/24 17:38 10/01/24 17:38 10/01/24 17:38 10/01/24 17:38 10/01/24 17:38 10/01/24 17:15 FiO2 4 10/01/24 15:55 Objective Labs 10/01/24 05:17 10/01/24 05:17 Labs: Laboratory Results - last 24 hr 10/01/24 05:17 WBC 2.0 L RBC 3.98 L Hgb 9.5 L Hct 29.8 L MCV 75 L MCH 23.9 L MCHC 31.9 RDW Std Deviation 42.9 Plt Count 155 Neut % (Auto) 52 Lymph % (Auto) 29 [place] % (Auto) 16 H Eos % (Auto) 2 Baso % (Auto) 1 Neut # (Auto) 1.1 L Lymph # (Auto) 0.6 L [place] # (Auto) 0.3 Eos # (Auto) 0.0 Baso # (Auto) 0.0 Immature Gran # (Auto) 0.01 H Absolute Nucleated RBC 0.00 Immature Gran % 1 H Nucleated RBC % 0 Sodium 145 Potassium 3.4 Chloride 108 H Carbon Dioxide 24.8 Anion Gap 12 BUN 11 Creatinine 2.1 H D Estim Creat Clear Calc 31.3 L eGFR 29 L BUN/Creatinine Ratio 5 L Glucose 99 Calculated Osmolality 288 Calcium 8.4 Corrected Calcium 8.4 L Phosphorus 4.3 Magnesium 1.7 Total Bilirubin 0.4 AST 26 ALT 17 Alkaline Phosphatase 68 Total Protein 7.5 Albumin 4.0 Globulin 3.5 Albumin/Globulin Ratio 1.1 L Impressions Impression: Mass sigmoid colon status post resection it is well-differentiated adenocarcinoma with significant pericolonic lymphadenopathy Right adnexal mass status post resection Plan Continue postoperative care Assessment & Plan A&P Narrative # Hematochezia # Abnormal CT scan of the abdomen pelvis with extensive abdominal and pelvic lymphadenopathy plan Tumor markers CEA level CA 19?9 level CA 15-3 level AFP Ca125 level CT-guided biopsy of the left adenopathy by the IR Clear liquid diet consider colonoscopy once biopsy is done with a GoLytely prep and possible upper endoscopy to make sure the GI tract is clean Thank you very much for the opportunity to participate in care of this patient Time Spent With Patient Time: Total time spent is greater than 50% in coordination of care (as documented) at patient's floor/unit and/or counseling patient:
[2024-10-01] MEDS: KCL 20 mEq/L in D5-1/2NS 20 MEQ/1,000 ML BAG 60 MEQ IV (17:49)
[2024-10-01] MEDS: CEFOXITIN 2 GM in SODIUM CHLORIDE 0.9% (Popper) 50 ML IV (18:03)
[2024-10-01] MEDS: ACETAMINOPHEN IVPB 1,000 MG/100 ML VIAL 250 MG IV ×2 (18:38→23:46)
--- NOTE | 2024-10-01 21:17 | PC.NURSE ---
Rn called Dr. Magdaleno because pt has no diet ordered after surgery with Dr. Levine. Dr. Magdaleno said to wait for Dr. Levine to put a diet order and keep her NPO for now.
[2024-10-01] MEDS: DOCUSATE SOD 100 MG CAPSULE PO (21:22)
[2024-10-01] MEDS: ASCORBIC ACID 250 MG TABLET 500 MG PO (21:22)
[2024-10-02] VITALS (8 sets, daily range): BP systolic 103–156; BP diastolic 75–95; PULSE 70–98; RESP 16–28; TEMP 36.2–36.6; O2SAT 94–99
[2024-10-02] MEDS: CEFOXITIN 2 GM in SODIUM CHLORIDE 0.9% (Popper) 50 ML IV ×3 (05:11→22:22)
[2024-10-02] MEDS: ACETAMINOPHEN IVPB 1,000 MG/100 ML VIAL 250 MG IV ×2 (05:49→12:06)
[2024-10-02 07:11] LABS: Alanine Aminotransferase 14 U/L (10-49); Albumin, Serum 3.8 gm/dL (3.5-5.0); Albumin/Globulin Ratio 1.1 (1.2-2.2); Alkaline Phosphatase 64 U/L (46-116); Anion Gap 14 (7-16); Aspartate Amino Transferase 20 U/L (0-34); BUN/Creatinine Ratio 7 Ratio (12-20); Bilirubin,Total 0.4 mg/dL (0.3-1.2); Blood Urea Nitrogen 15 mg/dL (9-23); Calcium 8.2 mg/dL (8.3-10.6); Calcium (Corrected) 8.4 mg/dL (8.5-10.1); Carbon Dioxide 21.4 mMol/L (20.0-31.0); Chloride 111 mMol/L (98-107); Creatinine (Component) 2.1 mg/dL (0.6-1.3); Estimated Creatinine Clearance 31.3 mL/min (>60); Globulin 3.4 gm/dL (2.3-3.5); Glucose 151 mg/dL (74-106); Magnesium 1.8 mg/dL (1.6-2.6); Osmolality,Calculated 294 (275-295); Phosphorous 4.5 mg/dL (2.4-5.1); Potassium 4.1 mMol/L (3.4-5.1); Sodium 146 mMol/L (136-145); Total Protein 7.2 gm/dL (5.7-8.2); eGFR 29 See Note
[2024-10-02 07:14] LABS: Basophils % (Auto) 0 % (0-2.5); Eosinophils % (Auto) 0 % (0-10); Hematocrit 31.6 % (36.0-46.0); Hemoglobin 9.7 g/dL (12.0-16.0); Immature Granulocytes % (Auto) 0 % (0-0); Immature Granulocytes Auto 0.01 Thou/mm3 (0.00-0.00); Lymphocytes # (Auto) 0.3 Thou/mm3 (1.0-4.8); Lymphocytes % (Auto) 6 % (10-50); Mean Corpuscular HGB Conc 30.7 g/dl (31.0-37.0); Mean Corpuscular Hemoglobin 24.1 pg (25.0-35.0); Mean Corpuscular Volume 78 fL (80-100); Monocytes # (Auto) 0.3 Thou/mm3 (0.0-0.8); Monocytes % (Auto) 8 % (0-12); Neutrophils # (Auto) 3.6 Thou/mm3 (1.8-7.7); Neutrophils % (Auto) 86 % (37-80); Nucleated Red Blood Cell % 0 /100 WBC (0); Platelet Count 148 Thou/mm3 (140-440); RDW Standard Deviation 45.7 fL (36.4-46.3); Red Blood Count 4.03 Miln/mm3 (4.00-5.20); White Blood Count 4.2 Thou/mm3 (3.6-11.0)
[2024-10-02] MEDS: FLUCONAZOLE/NS 200 MG IVPB 100 ML 100 MG IV (09:02)
--- NOTE | 2024-10-02 10:03 | PD.SURPROG ---
Documentation for date of: 10/02/24 Subjective Subjective Narrative: Patient is seen and examined. She is complaining of incisional pain that is controlled with [employer]. She denies nausea or vomiting. She has not passed flatus or bowel movement yet Exam Vital Signs Temp Pulse Resp BP Pulse Ox O2 Del Method O2 Flow Rate 97.5 F 90 18 141/86 H 94 L Nasal Cannula 2 10/02/24 07:57 10/02/24 07:57 10/02/24 07:57 10/02/24 07:57 10/02/24 07:57 10/02/24 04:00 10/02/24 04:00 FiO2 4 10/01/24 15:55 Constitutional Constitutional: no acute distress Routine Abdominal Exam Comments: Abdomen is soft and mildly distended. There are no active bowel sounds. Incision with dressings clean, dry and intact Assessment & Plan Assessment Additional comments: Postop day #1 status post exploratory laparotomy with sigmoid colectomy and excision of right adnexal mass Plan Keep n.p.o. except ice chips and sips of water with oral pain medications. DC Posey catheter. Increase ambulation and use incentive spirometer. Procedures Procedures Exploratory laparotomy, sigmoid colectomy with low pelvic coloproctostomy Excision of right adnexal mass
--- NOTE | 2024-10-02 12:13 | ESPR_ITS ---
Documentation for date of: 10/02/24 Subjective Subjective Interval history: Ms. Taveras is a 44 year old female with past medical history significant for kidney stones, hemorrhoids, and an umbilical hernia repair by Dr. Alvarez on 05/19/23 presents to my office last week complaining of left flank pain. Exam showed left CVA tenderness and I requested for a renal ultrasound. Renal ultrasound showed Multiple left renal calculi mild to moderate left hydronephrosis and significant periaortic lymphadenopathy recommended CT with and without contrast. Authorization was submitted to the insurance to get CT. In the interim patient started having significant right lower quadrant abdominal pain since yesterday that she brought herself to the emergency department. In the ED blood pressure 148/79. Heart rate 88. Afebrile. WBC 6.4, hemoglobin 10.2, platelets 149. Coagulation profile normal. Lab data shows sodium 135, potassium 4, BUN 15, creatinine 1.4, glucose 113, calcium 8.6, LFTs normal, lipase 62 urinalysis negative. Cocci titers pending. Patient also stated that she was having occasionally hematochezia for the last couple of weeks on and off. Was supposed to see Dr. Torres as an outpatient. She has a referral with urologist Dr. Johns, Dr. Torres in process as outpatient. Spoke to Dr. Ruggiero-agreed to do lymph node biopsy. Patient admitted to medical floor. GI was consulted. IV fluids were initiated for CHERI. Tylenol given for pain. 10/02/2024 patient currently seen in medical floor. Status post left partial colectomy with Dr Levine along with removal of adnexal mass. Postop day 1. Did not pass gas yet. and 2 kids at bedside. Currently being controlled with the [employer] pump. Dr Levine order removal of Posey catheter. Ice chips given. Labs showed creatinine 2.1. Continue with IV fluids. Review of Systems Review of Systems Narrative Review of Systems: CONSTITUTIONAL: Patient denies any fever, chills. Complaining of fatigue HEENT: Denies any visual disturbances or hearing problems. CARDIOVASCULAR: Patient denies any chest pain, shortness of breath, swelling in the lower extremities. PULMONARY: Patient denies any shortness of breath, cough. GASTROINTESTINAL: Patient complaining of abdominal pain GENITOURINARY: Patient denies any urinary symptoms of burning or frequency or hematuria, denies any form in the urine. SKIN: Denies any rash. MUSCULOSKELETAL: Denies any muscular skeletal problems of joint pains. NEUROLOGICAL: Denies any neurological problems of strokes, seizures or confusion. Denies any memory problems. PSYCHIATRIC: Denies any depression or anxiety. LYMPHATICS : No lymphadenopathy Exam Vital Signs Temp Pulse Resp BP Pulse Ox O2 Del Method O2 Flow Rate 36.5 C 82 16 103/75 94 L Room Air 2 10/02/24 11:57 10/02/24 11:57 10/02/24 11:57 10/02/24 11:57 10/02/24 11:57 10/02/24 11:57 10/02/24 04:00 FiO2 4 10/01/24 15:55 Narrative Exam GENERAL APPEARANCE: Patient seems to be comfortable, adequately hydrated and nourished. Seen in medical floor HEENT: EOMI, PERRLA NECK: Neck supple, no JVD or bruit CARDIOVASCULAR: Heart regular, no murmurs LUNGS/CHEST: Chest clear to auscultation. No rales, rhonchi, wheezing ABDOMEN: Soft, tenderness noted in the lower quadrant. Nondistended. No masses. ++ bowel sounds. Midline incision. EXTREMITIES: No edema, clubbing or cyanosis. SKIN: Skin exam normal without any rashes MUSCULOSKELETAL: Musculoskeletal exam normal PSYCHIATRIC: Normal mood, affect LYMPHATICS: No lymphadenopathy noted NEUROLOGICAL : No neurological deficits Objective Labs 10/03/24 05:06 10/02/24 06:09 Labs: Laboratory Results - last 24 hr 10/02/24 06:09 WBC 4.2 D RBC 4.03 Hgb 9.7 L Hct 31.6 L MCV 78 L MCH 24.1 L MCHC 30.7 L RDW Std Deviation 45.7 Plt Count 148 Neut % (Auto) 86 H Lymph % (Auto) 6 L [place] % (Auto) 8 Eos % (Auto) 0 Baso % (Auto) 0 Neut # (Auto) 3.6 Lymph # (Auto) 0.3 L [place] # (Auto) 0.3 Eos # (Auto) 0.0 Baso # (Auto) 0.0 Immature Gran # (Auto) 0.01 H Absolute Nucleated RBC 0.00 Immature Gran % 0 Nucleated RBC % 0 Sodium 146 H Potassium 4.1 D Chloride 111 H Carbon Dioxide 21.4 Anion Gap 14 BUN 15 Creatinine 2.1 H Estim Creat Clear Calc 31.3 L eGFR 29 L BUN/Creatinine Ratio 7 L Glucose 151 H D Calculated Osmolality 294 Calcium 8.2 L Corrected Calcium 8.4 L Phosphorus 4.5 Magnesium 1.8 Total Bilirubin 0.4 AST 20 ALT 14 Alkaline Phosphatase 64 Total Protein 7.2 Albumin 3.8 Globulin 3.4 Albumin/Globulin Ratio 1.1 L Assessment & Plan Assessment and plan (1) Abdominal pain: Status: Acute (2) Retroperitoneal lymphadenopathy: Status: Acute (3) Mural thickening of sigmoid colon: Status: Acute (4) Hematochezia: Status: Acute (5) CHERI (acute kidney injury): Status: Acute Additional Assessment & Plan Additional Plan: 44-year-old female with past medical history of kidney stones, hemorrhoids and umbilical hernia repair with Dr. Mcfarland on 05/19/2023 admitted for left flank pain and found to have abdominal lymphadenopathy. #Metastatic colon cancer #Hematochezia Patient presented with abdominal pain right lower quadrant. CT scan showed multiple retroperitoneal lymphadenopathy and calculi. Mild hydronephrosis noted probably related to the lymph node impingement. Good urine output. Will give IV fluids. Biopsy of the lymph node will be done. Rule out malignancy// inflammatory response. GI was consulted, colonoscopy performed. Patient found to have ulcerated partially obstructing mass in the sigmoid colon, biopsies taken. CA 15?3 is negative as well as tumor marker AFP. CEA is positive at 8.8 and CA 19-9 is pending. Patient denies any known family history of colon cancer. Biopsies showed well differentiated adenocarcinoma, metastatic colon cancer. Patient informed of her diagnosis. - General Surgery - s/p hemicolectomy - Appreciate GI recommendations - Will refer for outpatient chemotherapy with Dr. Hdz Patient needs a Port-A-Cath prior to discharge. If white count continues to be low-will do reverse isolation #CHERI (acute kidney injury) Likely obstructive from impingement by the lymphadenopathy. Patient's baseline creatinine 0.7 it has climbed up to 2.1 Creatinine and eGFR improving. Continue with fluids,, also possible obstruction given right flank plain and lymphadenopathy. Renal ultrasound showed mild left hydronephrosis - Encourage oral hydration - Avoid nephrotoxins - Monitor daily labs #Hyperchloremic metabolic acidosis- better Was given Bicitra - Monitor daily labs - Code: Full code DVT PPx: SCDs GI PPx: None FEN: Currently n.p.o. Lines: PIV
[2024-10-02] MEDS: SODIUM CHLORIDE 0.45 % 1,000 ML 120 ML IV (18:02)
--- NOTE | 2024-10-02 19:30 | ESPR_ITS ---
Documentation for date of: 10/02/24 Subjective Subjective Interval history: No passage of flatus incisional hernia pain Controlled by [employer] Exam Vital Signs Temp Pulse Resp BP Pulse Ox O2 Del Method O2 Flow Rate 97.7 F 94 16 156/95 H 99 Room Air 4 10/02/24 15:49 10/02/24 15:49 10/02/24 15:49 10/02/24 15:49 10/02/24 15:49 10/02/24 11:57 10/02/24 12:50 FiO2 4 10/01/24 15:55 Objective Labs 10/02/24 06:09 10/02/24 06:09 Labs: Laboratory Results - last 24 hr 10/02/24 06:09 WBC 4.2 D RBC 4.03 Hgb 9.7 L Hct 31.6 L MCV 78 L MCH 24.1 L MCHC 30.7 L RDW Std Deviation 45.7 Plt Count 148 Neut % (Auto) 86 H Lymph % (Auto) 6 L [place] % (Auto) 8 Eos % (Auto) 0 Baso % (Auto) 0 Neut # (Auto) 3.6 Lymph # (Auto) 0.3 L [place] # (Auto) 0.3 Eos # (Auto) 0.0 Baso # (Auto) 0.0 Immature Gran # (Auto) 0.01 H Absolute Nucleated RBC 0.00 Immature Gran % 0 Nucleated RBC % 0 Sodium 146 H Potassium 4.1 D Chloride 111 H Carbon Dioxide 21.4 Anion Gap 14 BUN 15 Creatinine 2.1 H Estim Creat Clear Calc 31.3 L eGFR 29 L BUN/Creatinine Ratio 7 L Glucose 151 H D Calculated Osmolality 294 Calcium 8.2 L Corrected Calcium 8.4 L Phosphorus 4.5 Magnesium 1.8 Total Bilirubin 0.4 AST 20 ALT 14 Alkaline Phosphatase 64 Total Protein 7.2 Albumin 3.8 Globulin 3.4 Albumin/Globulin Ratio 1.1 L Impressions 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 Continue postoperative care Assessment & Plan A&P Narrative # Hematochezia # Abnormal CT scan of the abdomen pelvis with extensive abdominal and pelvic lymphadenopathy plan Tumor markers CEA level CA 19?9 level CA 15-3 level AFP Ca125 level CT-guided biopsy of the left adenopathy by the IR Clear liquid diet consider colonoscopy once biopsy is done with a GoLytely prep and possible upper endoscopy to make sure the GI tract is clean Thank you very much for the opportunity to participate in care of this patient Time Spent With Patient Time: Total time spent is greater than 50% in coordination of care (as documented) at patient's floor/unit and/or counseling patient:
[2024-10-02] MEDS: DOCUSATE SOD 100 MG CAPSULE PO (21:14)
[2024-10-02] MEDS: ASCORBIC ACID 250 MG TABLET 500 MG PO (21:14)
[2024-10-03] VITALS (8 sets, daily range): BP systolic 142–154; BP diastolic 80–94; PULSE 89–100; RESP 16–18; TEMP 36.2–36.8; O2SAT 94–100
[2024-10-03] MEDS: SODIUM CHLORIDE 0.45 % 1,000 ML 120 ML IV (04:39)
[2024-10-03] MEDS: CEFOXITIN 2 GM in SODIUM CHLORIDE 0.9% (Popper) 50 ML IV ×3 (05:12→21:45)
[2024-10-03 05:55] LABS: Basophils % (Auto) 0 % (0-2.5); Eosinophils % (Auto) 0 % (0-10); Hematocrit 25.8 % (36.0-46.0); Immature Granulocytes % (Auto) 0 % (0-0); Lymphocytes # (Auto) 0.4 Thou/mm3 (1.0-4.8); Lymphocytes % (Auto) 23 % (10-50); Mean Corpuscular HGB Conc 31.8 g/dl (31.0-37.0); Mean Corpuscular Hemoglobin 24.1 pg (25.0-35.0); Mean Corpuscular Volume 76 fL (80-100); Monocytes # (Auto) 0.4 Thou/mm3 (0.0-0.8); Monocytes % (Auto) 20 % (0-12); Neutrophils # (Auto) 1.1 Thou/mm3 (1.8-7.7); Neutrophils % (Auto) 57 % (37-80); Nucleated Red Blood Cell % 0 /100 WBC (0); Platelet Count 157 Thou/mm3 (140-440); RDW Standard Deviation 45.2 fL (36.4-46.3)
[2024-10-03 06:18] LABS: White Blood Count 1.9 Thou/mm3 (3.6-11.0)
--- NOTE | 2024-10-03 06:19 | PC.NURSE ---
Dr. Cooper made aware of patients WBC count from 4.[address] Cooper will notify the day team.
[2024-10-03 06:30] LABS: Hemoglobin 8.2 g/dL (12.0-16.0)
[2024-10-03 06:51] LABS: Alanine Aminotransferase 11 U/L (10-49); Albumin, Serum 3.6 gm/dL (3.5-5.0); Albumin/Globulin Ratio 1.1 (1.2-2.2); Alkaline Phosphatase 55 U/L (46-116); Anion Gap 13 (7-16); Aspartate Amino Transferase 17 U/L (0-34); BUN/Creatinine Ratio 13 Ratio (12-20); Bilirubin,Total 0.4 mg/dL (0.3-1.2); Blood Urea Nitrogen 21 mg/dL (9-23); Calcium (Corrected) 8.3 mg/dL (8.5-10.1); Carbon Dioxide 20.9 mMol/L (20.0-31.0); Chloride 113 mMol/L (98-107); Creatinine (Component) 1.6 mg/dL (0.6-1.3); Estimated Creatinine Clearance 41.1 mL/min (>60); Globulin 3.2 gm/dL (2.3-3.5); Glucose 100 mg/dL (74-106); Magnesium 1.9 mg/dL (1.6-2.6); Osmolality,Calculated 295 (275-295); Phosphorous 3.7 mg/dL (2.4-5.1); Potassium 4.1 mMol/L (3.4-5.1); Sodium 147 mMol/L (136-145); Total Protein 6.8 gm/dL (5.7-8.2); eGFR 40 See Note
[2024-10-03 07:18] LABS: CA 19-9 Antigen* 26 U/mL (<34)
[2024-10-03] MEDS: FLUCONAZOLE/NS 200 MG IVPB 100 ML 100 MG IV (08:38)
[2024-10-03] MEDS: ZINC SULFATE 220 MG CAPSULE PO (08:39)
[2024-10-03] MEDS: DOCUSATE SOD 100 MG CAPSULE PO ×2 (08:39→20:15)
[2024-10-03] MEDS: ASCORBIC ACID 250 MG TABLET 500 MG PO ×2 (08:39→20:15)
--- NOTE | 2024-10-03 08:43 | ESPR_ITS ---
Documentation for date of: 10/03/24 Subjective Subjective Interval history: Ms. Taveras is a 44 year old female with past medical history significant for kidney stones, hemorrhoids, and an umbilical hernia repair by Dr. Alvarez on 05/19/23 presents to my office last week complaining of left flank pain. Exam showed left CVA tenderness and I requested for a renal ultrasound. Renal ultrasound showed Multiple left renal calculi mild to moderate left hydronephrosis and significant periaortic lymphadenopathy recommended CT with and without contrast. Authorization was submitted to the insurance to get CT. In the interim patient started having significant right lower quadrant abdominal pain since yesterday that she brought herself to the emergency department. In the ED blood pressure 148/79. Heart rate 88. Afebrile. WBC 6.4, hemoglobin 10.2, platelets 149. Coagulation profile normal. Lab data shows sodium 135, potassium 4, BUN 15, creatinine 1.4, glucose 113, calcium 8.6, LFTs normal, lipase 62 urinalysis negative. Cocci titers pending. Patient also stated that she was having occasionally hematochezia for the last couple of weeks on and off. Was supposed to see Dr. Torres as an outpatient. 09/28/24: Patient was seen and examined in [facility] today. There were no major overnight events and patient is doing okay this morning. She continues to have abdominal pain for which she has been receiving [place]'s. CEA came back at 8.8 which is elevated. CA 15-3 is negative CA 19-9 is pending and tumor marker AFP is negative. Patient will undergo CT-guided percutaneous biopsy of the lymphadenopathy later today. Her creatinine function did worsen to 1.6 today we will continue to monitor closely. 09/29/24: Patient seen and examined at bedside, resting comfortably. Patient states abdominal pain significantly improved. Patient received CT-guided percutaneous biopsy and colonoscopy yesterday, well-tolerated. However colonoscopy showed ulcerated partially obstructing mass in sigmoid colon with biopsies taken, concern for malignancy. Dr Levine was consulted, will see patient. Patient seems to be developing hyperchloremic metabolic acidosis induced by excess normal saline, fluids stopped. Started Bicitra. BUN 12, creatinine 1.3, EGFR 52. Encouraged oral hydration. 09/30/24: Patient seen examined at bedside, resting comfortably. Pathology report from lymph node biopsy in colon when mass biopsy showed well- differentiated adenocarcinoma, metastatic colon cancer. Patient was told about her diagnosis, discussed next steps. Patient was emotionally distraught, provided comfort and answered questions with patient and her . Dr Levine was informed of the updated diagnosis, patient will need resection of colonic tumor, outpatient chemotherapy treatment. Hemoglobin 9.3, WBC 2.6. Sodium improved to 146, chloride 111, bicarb 24.2. BUN 10, creatinine 1.6, EGFR 40. 10/01/2024: Patient seen examined at bedside, resting comfortably. Patient remains mildly emotionally distressed due to diagnosis, but appears to be coping well overall. Hemoglobin 9.5, sodium 145, BUN 11, creatinine 2.1, EGFR 29. Patient had multiple bowel movements due to GoLytely prep anticipation of colonic resection, suspect dehydration. Patient was complaining of right sided pain in back and abdomen, ordered abdominal ultrasound. Will provide IV fluids. 10/02/2024 patient currently seen in medical floor. Status post left partial colectomy with Dr Levine along with removal of adnexal mass. Postop day 1. Did not pass gas yet. and 2 kids at bedside. Currently being controlled with the CONTROL SYSTEM[employer] SPECIALIST pump. Dr Levine order removal of Posey catheter. Ice chips given. Labs showed creatinine 2.1. Continue with IV fluids. 10/03/2024: Patient seen and examined abmulating in her room. Comfortable. Reports no bowel movements but has been passing gas. Plan to start clear liquid diet today. Denies nausea, vomiting, chest pain. Abdominal tenderness in LLQ. WBC 1.9, reverse isolation precuations ordered. Sodium 147, BUN 21, creatinine 1.6, eGFR 40. Continuing IVF, pain controlled with pain pump. Exam Vital Signs Temp Pulse Resp BP Pulse Ox O2 Del Method O2 Flow Rate 97.3 F 97 18 154/93 H 96 Room Air 4 10/03/24 08:00 10/03/24 08:00 10/03/24 08:00 10/03/24 08:00 10/03/24 08:00 10/03/24 08:00 10/02/24 12:50 FiO2 4 10/01/24 15:55 Narrative Exam Constitutional: Well nourished and in no acute distress CVS: RRR, S1 and S2 present, no murmurs, rubs or gallops . RESP: CTAB, no SOB, no rales, rhonchi or wheezing. No respiratory Distress GI: Hypoactive bowel sounds, nondistended. Tenderness LLQ. MSK: Full range of motion, No trauma or deformities or masses. Skin: Warm to touch, Dry. No rashes or lesions. 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 Sensation grossly intact. Psych: (AAO) x3 . Appropriate mood and affect. Objective Labs 10/03/24 05:06 10/03/24 05:06 Labs: Laboratory Results - last 24 hr 09/28/24 10/03/24 04:45 05:06 WBC 1.9 L D RBC 3.40 L Hgb 8.2 L Hct 25.8 L MCV 76 L MCH 24.1 L MCHC 31.8 RDW Std Deviation 45.2 Plt Count 157 Neut % (Auto) 57 Lymph % (Auto) 23 [place] % (Auto) 20 H Eos % (Auto) 0 Baso % (Auto) 0 Neut # (Auto) 1.1 L Lymph # (Auto) 0.4 L [place] # (Auto) 0.4 Eos # (Auto) 0.0 Baso # (Auto) 0.0 Immature Gran # (Auto) 0.00 Absolute Nucleated RBC 0.00 Immature Gran % 0 Nucleated RBC % 0 Sodium 147 H Potassium 4.1 Chloride 113 H Carbon Dioxide 20.9 Anion Gap 13 BUN 21 Creatinine 1.6 H D Estim Creat Clear Calc 41.1 L eGFR 40 L BUN/Creatinine Ratio 13 Glucose 100 D Calculated Osmolality 295 Calcium 8.0 L Corrected Calcium 8.3 L Phosphorus 3.7 Magnesium 1.9 Total Bilirubin 0.4 AST 17 ALT 11 Alkaline Phosphatase 55 Total Protein 6.8 Albumin 3.6 Globulin 3.2 Albumin/Globulin Ratio 1.1 L CA 19-9 Antigen 26 Quality Measures Quality Measures VTE prophylaxis Assessment & Plan Assessment Current Active Medications: Generic Name Dose Route Start Last Admin Trade Name Freq PRN Reason Stop Dose Admin Ascorbic Acid 500 mg 09/30/24 21:00 10/03/24 08:39 Ascorbic Acid 250 Mg Tablet PO 10/30/24 20:59 500 mg BID IFEOMA Administration Docusate Sodium 100 mg 10/01/24 21:00 10/03/24 08:39 Docusate Sod 100 Mg Capsule PO 10/31/24 20:59 100 mg BID IFEOMA Administration Protocol Fluconazole 100 mls @ 100 mls/hr 10/02/24 09:00 10/03/24 08:38 Diflucan/Ns Ivpb IV 10/05/24 13:31 100 mls/hr DAILY IFEOMA Administration Cefoxitin Sodium 2 gm/ Sodium 50 mls @ 100 mls/hr 10/01/24 18:00 10/03/24 05:12 Chloride IV 10/08/24 17:59 100 mls/hr Q8HR IFEOMA Administration Potassium Chloride/Dextrose/Sod Cl 20 meq in 1,000 mls @ 30 mls/hr 10/02/24 10:09 Kcl 20 Meq/L In D5-1/2ns IV 11/01/24 10:07 .Q24H IFEOMA Sodium Chloride 1,000 mls @ 120 mls/hr 10/02/24 12:04 10/03/24 04:39 Ns 0.45% IV 11/01/24 12:03 120 mls/hr .Q8H20M IFEOMA Administration Morphine Sulfate 30 mg 10/01/24 16:15 10/01/24 23:52 Morphine Sulfate Pf 1 Mg/Ml Choke Reamer Vial 30 Ml IV 10/06/24 16:14 30 mg UD IFEOMA Administration Protocol Ondansetron HCl 4 mg 10/01/24 03:44 10/01/24 03:53 Ondansetron Inj 2 Mg/Ml Inj 2 Ml IV 10/31/24 03:43 4 mg Q6HR PRN Administration NAUSEA OR VOMITING Protocol Zinc Sulfate 220 mg 09/30/24 11:00 10/03/24 08:39 Zinc Sulfate 220 Mg Capsule PO 10/30/24 10:59 220 mg QDAY IFEOMA Administration Plan 44-year-old female with past medical history of kidney stones, hemorrhoids and umbilical hernia repair with Dr. Mcfarland on 05/19/2023 admitted for left flank pain and found to have abdominal lymphadenopathy. #Metastatic colon cancer s/p sigmoid colectomy #Hematochezia Patient presented with abdominal pain right lower quadrant. CT scan showed multiple retroperitoneal lymphadenopathy and calculi. Mild hydronephrosis noted probably related to the lymph node impingement. Good urine output. Will give IV fluids. Biopsy of the lymph node will be done. Rule out malignancy// inflammatory response. GI was consulted, colonoscopy performed. Patient found to have ulcerated partially obstructing mass in the sigmoid colon, biopsies taken. Concerning for malignancy. These results were discussed with patient and her . General surgery consulted CA 15?3 is negative as well as tumor marker AFP. CEA is positive at 8.8 and CA 19-9 is pending. Patient denies any known family history of colon cancer. Biopsies showed well differentiated adenocarcinoma, metastatic colon cancer. Patient informed of her diagnosis. Patient received exploratory laporotomy with sigmoid colectomy and right adnexal mass excision. - General Surgery - s/p sigmoid collectomy - Appreciate GI recommendations - Will refer for outpatient chemotherapy with Dr. Hdz - Patient needs a Port-A-Cath prior to discharge. - reverse isolation due to low WBCs - patient controlled morphine pump #CHERI (acute kidney injury) Likely obstructive from impingement by the lymphadenopathy. Patient's baseline creatinine 0.7 it has climbed up to 1.6 Creatinine and eGFR improving. Patient received several liters of normal saline, appears to be developing metabolic acidosis, fluids held. Patient taking GoLytely preparation for surgery, has had multiple bowel movements. Kidney function worsening, likely due to dehydration. Also possible obstruction given right flank plain and lymphadenopathy. US showed right nonobstructing nephrolithiasis, mild to moderate bilateral hydronephrosis. - Encourage oral hydration - Avoid nephrotoxins - Monitor daily labs - encourage oral hydration #Hypochloremic metabolic acidosis, resolved Labs showed increased chloride 116, with increased sodium 148. Patient's metabolic acidosis 16.8 bicarb. Likely due to high rates of IV fluids normal saline. Fluids held. New labs show chloride 111, sodium 146, bicarb 24.2. - Monitor daily labs - Bicitra 30 mL p.o. twice daily Code: Full code DVT PPx: SCDs GI PPx: None FEN: Clear liquid diet Lines: PIV Plan of care discussed with attending Dr. Collado. Alex Lenz MD PGY?1 Attending Provider Attestation/Addendum Patient seen and examined with resident physician Dr. Patel. Note reviewed, agree with findings and recommendations. s/p partial colectomy- Dr. Levine POD #2 Passing gas on clear liquid diet WBC low- reverse isolation
--- NOTE | 2024-10-03 09:33 | PC.SS ---
Follow up note: On IV medications and IV anti fungal. White blood cells are low. Pt will return home upon dc.
--- NOTE | 2024-10-03 11:03 | PD.SURPROG ---
Documentation for date of: 10/03/24 Subjective Subjective Brief History: Narrative: Pt is seen and examined. Her pain is improving. She is passing flatus Exam Vital Signs Temp Pulse Resp BP Pulse Ox O2 Del Method O2 Flow Rate 97.3 F 97 18 154/93 H 96 Room Air 4 10/03/24 08:00 10/03/24 08:00 10/03/24 08:00 10/03/24 08:00 10/03/24 08:00 10/03/24 08:00 10/02/24 12:50 FiO2 4 10/01/24 15:55 Constitutional Constitutional: no acute distress Routine Abdominal Exam Comments: Abdomen is soft and minimally distended. Incision with dressings clean, dry and intact. She has hypoactive bowel sounds Assessment & Plan Assessment Additional comments: Postop day #2 status post exploratory laparotomy with sigmoid colectomy and excision of right adnexal mass Plan Start clear liquids Procedures Procedures Exploratory laparotomy, sigmoid colectomy with low pelvic coloproctostomy Excision of right adnexal mass
[2024-10-03 15:13] LABS: Cocci Serology, IgM Positive (Negative)
[2024-10-03 15:15] LABS: Cocid Sro, CF/ID (UCD) NO CHG* See Sep Rpt
--- NOTE | 2024-10-03 16:15 | PC.NURSE ---
Morphine DRAGLINE OILER not given dose for 1615 d/t morphine remaining amount in pump.
[2024-10-03] MEDS: FILGRASTIM INJ (ZARXIO) 300 MCG/0.5 ML SYRINGE SC (18:21)
--- NOTE | 2024-10-03 19:25 | PC.NURSE ---
Morphine MOLECULAR SPECTROSCOPIST amounts verified with Apolinar ASHLEY at change of shifts. Amount received for my shift was 5MG total. Remaining amount at this time 1922 was 7.39mls.
--- NOTE | 2024-10-03 21:10 | PD.IMPROG ---
Documentation for date of: 10/03/24 Subjective Subjective Interval history: Passing flatus No nausea vomiting Advance to clear liquid diet Exam Vital Signs Temp Pulse Resp BP Pulse Ox O2 Del Method O2 Flow Rate 97.8 F 100 17 150/84 H 100 Room Air 4 10/03/24 20:00 10/03/24 20:45 10/03/24 20:45 10/03/24 20:00 10/03/24 20:45 10/03/24 20:00 10/02/24 12:50 FiO2 4 10/01/24 15:55 Objective Labs 10/03/24 05:06 10/03/24 05:06 Labs: Laboratory Results - last 24 hr 09/28/24 10/03/24 10/03/24 04:45 05:06 07:44 WBC 1.9 L D RBC 3.40 L Hgb 8.2 L Hct 25.8 L MCV 76 L MCH 24.1 L MCHC 31.8 RDW Std Deviation 45.2 Plt Count 157 Neut % (Auto) 57 Lymph % (Auto) 23 [place] % (Auto) 20 H Eos % (Auto) 0 Baso % (Auto) 0 Neut # (Auto) 1.1 L Lymph # (Auto) 0.4 L [place] # (Auto) 0.4 Eos # (Auto) 0.0 Baso # (Auto) 0.0 Immature Gran # (Auto) 0.00 Absolute Nucleated RBC 0.00 Immature Gran % 0 Nucleated RBC % 0 Sodium 147 H Potassium 4.1 Chloride 113 H Carbon Dioxide 20.9 Anion Gap 13 BUN 21 Creatinine 1.6 H D Estim Creat Clear Calc 41.1 L eGFR 40 L BUN/Creatinine Ratio 13 Glucose 100 D Calculated Osmolality 295 Calcium 8.0 L Corrected Calcium 8.3 L Phosphorus 3.7 Magnesium 1.9 Total Bilirubin 0.4 AST 17 ALT 11 Alkaline Phosphatase 55 Total Protein 6.8 Albumin 3.6 Globulin 3.2 Albumin/Globulin Ratio 1.1 L CA 19-9 Antigen 26 Coccidioides IgM Ab Positive A Impressions Impression: Status post exploratory laparotomy and sigmoid colectomy and primary anastomosis for well-differentiated adenocarcinoma of the sigmoid colon metastatic regional lymph nodes clear liquid diet Assessment & Plan A&P Narrative # Hematochezia # Abnormal CT scan of the abdomen pelvis with extensive abdominal and pelvic lymphadenopathy plan Tumor markers CEA level CA 19?9 level CA 15-3 level AFP Ca125 level CT-guided biopsy of the left adenopathy by the IR Clear liquid diet consider colonoscopy once biopsy is done with a GoLytely prep and possible upper endoscopy to make sure the GI tract is clean Thank you very much for the opportunity to participate in care of this patient Time Spent With Patient Time: Total time spent is greater than 50% in coordination of care (as documented) at patient's floor/unit and/or counseling patient:
[2024-10-04] VITALS (19 sets, daily range): BP systolic 125–161; BP diastolic 74–90; PULSE 85–100; RESP 16–92; TEMP 36.6–37.2; O2SAT 18–100
[2024-10-04] MEDS: CEFOXITIN 2 GM in SODIUM CHLORIDE 0.9% (Popper) 50 ML IV (05:29)
[2024-10-04 06:28] LABS: Basophils % (Auto) 1 % (0-2.5); Eosinophils # (Auto) 0.1 Thou/mm3 (0.0-0.5); Eosinophils % (Auto) 4 % (0-10); Hematocrit 24.5 % (36.0-46.0); Immature Granulocytes % (Auto) 1 % (0-0); Immature Granulocytes Auto 0.02 Thou/mm3 (0.00-0.00); Lymphocytes # (Auto) 0.5 Thou/mm3 (1.0-4.8); Lymphocytes % (Auto) 21 % (10-50); Mean Corpuscular HGB Conc 31.8 g/dl (31.0-37.0); Mean Corpuscular Hemoglobin 24.4 pg (25.0-35.0); Mean Corpuscular Volume 77 fL (80-100); Monocytes # (Auto) 0.4 Thou/mm3 (0.0-0.8); Monocytes % (Auto) 17 % (0-12); Neutrophils # (Auto) 1.4 Thou/mm3 (1.8-7.7); Neutrophils % (Auto) 57 % (37-80); Nucleated Red Blood Cell % 0 /100 WBC (0); Platelet Count 132 Thou/mm3 (140-440); RDW Standard Deviation 46.9 fL (36.4-46.3)
[2024-10-04 07:04] LABS: Hemoglobin 7.8 g/dL (12.0-16.0); White Blood Count 2.5 Thou/mm3 (3.6-11.0)
[2024-10-04 07:21] LABS: Alanine Aminotransferase 9 U/L (10-49); Albumin, Serum 3.5 gm/dL (3.5-5.0); Albumin/Globulin Ratio 1.2 (1.2-2.2); Alkaline Phosphatase 54 U/L (46-116); Anion Gap 12 (7-16); Aspartate Amino Transferase 18 U/L (0-34); BUN/Creatinine Ratio 10 Ratio (12-20); Bilirubin,Total 0.3 mg/dL (0.3-1.2); Blood Urea Nitrogen 30 mg/dL (9-23); Calcium (Corrected) 8.4 mg/dL (8.5-10.1); Carbon Dioxide 19.6 mMol/L (20.0-31.0); Chloride 113 mMol/L (98-107); Estimated Creatinine Clearance 21.9 mL/min (>60); Globulin 2.9 gm/dL (2.3-3.5); Glucose 78 mg/dL (74-106); Osmolality,Calculated 293 (275-295); Potassium 3.9 mMol/L (3.4-5.1); Sodium 145 mMol/L (136-145); Total Protein 6.4 gm/dL (5.7-8.2); eGFR 19 See Note
[2024-10-04] MEDS: DOCUSATE SOD 100 MG CAPSULE PO ×2 (08:14→23:28)
[2024-10-04] MEDS: ZINC SULFATE 220 MG CAPSULE PO (08:14)
[2024-10-04] MEDS: ASCORBIC ACID 250 MG TABLET 500 MG PO ×2 (08:14→23:28)
[2024-10-04] MEDS: FLUCONAZOLE/NS 200 MG IVPB 100 ML 100 MG IV (08:15)
[2024-10-04] MEDS: CITRIC ACID/SODIUM CITR 15 ML UDC (BICITRA) 30 ML PO ×2 (09:37→23:29)
--- NOTE | 2024-10-04 12:09 | PD.SURPROG ---
Documentation for date of: 10/04/24 Subjective Subjective Brief History: Narrative: Patient is seen and examined. Her pain is improving. She is tolerating clear liquids without nausea or vomiting. She started passing flatus and had a small bowel movement Exam Vital Signs Temp Pulse Resp BP Pulse Ox O2 Del Method O2 Flow Rate 98.5 F 97 17 142/79 H 100 Room Air 4 10/04/24 08:00 10/04/24 10:07 10/04/24 10:07 10/04/24 08:00 10/04/24 10:07 10/04/24 08:00 10/02/24 12:50 FiO2 4 10/01/24 15:55 Constitutional Constitutional: no acute distress Routine Abdominal Exam Comments: Abdomen is soft and minimally distended. Incision is clean, dry and intact. She has active bowel sounds Assessment & Plan Assessment Additional comments: Postop day #3 status post exploratory laparotomy with sigmoid colectomy and excision of right adnexal mass. She was noted to have drop in hemoglobin and elevation of BUN and creatinine Plan Advance to full liquids and nutritional supplements. Patient will receive blood transfusions today Procedures Procedures Exploratory laparotomy, sigmoid colectomy with low pelvic coloproctostomy Excision of right adnexal mass
--- NOTE | 2024-10-04 13:22 | ESPR_ITS ---
Documentation for date of: 10/04/24 Subjective Subjective Interval history: Ms. Taveras is a 44 year old female with past medical history significant for kidney stones, hemorrhoids, and an umbilical hernia repair by Dr. Alvarez on 05/19/23 presents to my office last week complaining of left flank pain. Exam showed left CVA tenderness and I requested for a renal ultrasound. Renal ultrasound showed Multiple left renal calculi mild to moderate left hydronephrosis and significant periaortic lymphadenopathy recommended CT with and without contrast. Authorization was submitted to the insurance to get CT. In the interim patient started having significant right lower quadrant abdominal pain since yesterday that she brought herself to the emergency department. In the ED blood pressure 148/79. Heart rate 88. Afebrile. WBC 6.4, hemoglobin 10.2, platelets 149. Coagulation profile normal. Lab data shows sodium 135, potassium 4, BUN 15, creatinine 1.4, glucose 113, calcium 8.6, LFTs normal, lipase 62 urinalysis negative. Cocci titers pending. Patient also stated that she was having occasionally hematochezia for the last couple of weeks on and off. Was supposed to see Dr. Torres as an outpatient. 09/28/24: Patient was seen and examined in [facility] today. There were no major overnight events and patient is doing okay this morning. She continues to have abdominal pain for which she has been receiving [place]'s. CEA came back at 8.8 which is elevated. CA 15-3 is negative CA 19-9 is pending and tumor marker AFP is negative. Patient will undergo CT-guided percutaneous biopsy of the lymphadenopathy later today. Her creatinine function did worsen to 1.6 today we will continue to monitor closely. 09/29/24: Patient seen and examined at bedside, resting comfortably. Patient states abdominal pain significantly improved. Patient received CT-guided percutaneous biopsy and colonoscopy yesterday, well-tolerated. However colonoscopy showed ulcerated partially obstructing mass in sigmoid colon with biopsies taken, concern for malignancy. Dr Levine was consulted, will see patient. Patient seems to be developing hyperchloremic metabolic acidosis induced by excess normal saline, fluids stopped. Started Bicitra. BUN 12, creatinine 1.3, EGFR 52. Encouraged oral hydration. 09/30/24: Patient seen examined at bedside, resting comfortably. Pathology report from lymph node biopsy in colon when mass biopsy showed well- differentiated adenocarcinoma, metastatic colon cancer. Patient was told about her diagnosis, discussed next steps. Patient was emotionally distraught, provided comfort and answered questions with patient and her . Dr Levine was informed of the updated diagnosis, patient will need resection of colonic tumor, outpatient chemotherapy treatment. Hemoglobin 9.3, WBC 2.6. Sodium improved to 146, chloride 111, bicarb 24.2. BUN 10, creatinine 1.6, EGFR 40. 10/01/2024: Patient seen examined at bedside, resting comfortably. Patient remains mildly emotionally distressed due to diagnosis, but appears to be coping well overall. Hemoglobin 9.5, sodium 145, BUN 11, creatinine 2.1, EGFR 29. Patient had multiple bowel movements due to GoLytely prep anticipation of colonic resection, suspect dehydration. Patient was complaining of right sided pain in back and abdomen, ordered abdominal ultrasound. Will provide IV fluids. 10/02/2024 patient currently seen in medical floor. Status post left partial colectomy with Dr Levine along with removal of adnexal mass. Postop day 1. Did not pass gas yet. and 2 kids at bedside. 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 Dr Levine order removal of Posey catheter. Ice chips given. Labs showed creatinine 2.1. Continue with IV fluids. 10/03/2024: Patient seen and examined abmulating in her room. Comfortable. Reports no bowel movements but has been passing gas. Plan to start clear liquid diet today. Denies nausea, vomiting, chest pain. Abdominal tenderness in LLQ. WBC 1.9, reverse isolation precuations ordered. Sodium 147, BUN 21, creatinine 1.6, eGFR 40. Continuing IVF, pain controlled with pain pump. 10/04/2024: Patient seen examined ambulating in her room. Patient has been avoiding using the pain pump, states pain is present but not overwhelming. Tolerating liquid diet well, advancing to full liquid diet. Hemoglobin has dropped, patient reports she is currently having her period, has had a bowel movement which may or may not be bloody. Hemoglobin 7.8, WBC 2.5. Sodium 145, potassium 3.9, chloride 113, bicarb 19.6, BUN 30, creatinine 3.0, EGFR 19. Transfusing 1 unit PRBC, after which we will get repeat CBC and renal panel. Started patient on Bicitra. Transitioned pain pump to p.o. [place], fluconazole from IV to p.o., discontinued IV antibiotics. Exam Vital Signs Temp Pulse Resp BP Pulse Ox O2 Del Method O2 Flow Rate 98.2 F 100 19 142/74 H 98 Room Air 4 10/04/24 13:15 10/04/24 13:15 10/04/24 13:15 10/04/24 13:15 10/04/24 13:15 10/04/24 12:00 10/02/24 12:50 FiO2 4 10/01/24 15:55 Narrative Exam Constitutional: Well nourished and in no acute distress CVS: RRR, S1 and S2 present, no murmurs, rubs or gallops . RESP: CTAB, no SOB, no rales, rhonchi or wheezing. No respiratory Distress GI: Hypoactive bowel sounds, nondistended. Tenderness LLQ. MSK: Full range of motion, No trauma or deformities or masses. Skin: Warm to touch, Dry. No rashes or lesions. No hematomas Neuro: hemodialysis technician II-XII grossly intact. Sensation grossly intact. Psych: (AAO) x3 . Appropriate mood and affect. Objective Labs 10/09/24 06:35 10/09/24 06:35 Labs: Laboratory Results - last 24 hr 10/03/24 10/04/24 10/04/24 07:44 04:52 09:20 WBC 2.5 L RBC 3.20 L Hgb 7.8 L Hct 24.5 L MCV 77 L MCH 24.4 L MCHC 31.8 RDW Std Deviation 46.9 H Plt Count 132 L Neut % (Auto) 57 Lymph % (Auto) 21 [place] % (Auto) 17 H Eos % (Auto) 4 Baso % (Auto) 1 Neut # (Auto) 1.4 L Lymph # (Auto) 0.5 L [place] # (Auto) 0.4 Eos # (Auto) 0.1 Baso # (Auto) 0.0 Immature Gran # (Auto) 0.02 H Absolute Nucleated RBC 0.00 Immature Gran % 1 H Nucleated RBC % 0 Sodium 145 Potassium 3.9 Chloride 113 H Carbon Dioxide 19.6 L Anion Gap 12 BUN 30 H Creatinine 3.0 H D Estim Creat Clear Calc 21.9 L eGFR 19 L BUN/Creatinine Ratio 10 L Glucose 78 Calculated Osmolality 293 Calcium 8.0 L Corrected Calcium 8.4 L Phosphorus 4.0 Magnesium 2.0 Total Bilirubin 0.3 AST 18 ALT 9 L Alkaline Phosphatase 54 Total Protein 6.4 Albumin 3.5 Globulin 2.9 Albumin/Globulin Ratio 1.2 Coccidioides IgM Ab Positive A Blood Type O Positive Antibody Screen NEGATIVE Crossmatch See Detail Blood Bank Wristband ID Yes Quality Measures Quality Measures VTE prophylaxis Assessment & Plan Assessment Current Active Medications: Generic Name Dose Route Start Last Admin Trade Name Freq PRN Reason Stop Dose Admin Hydrocodone Bitart/Acetaminophen 1 tab 10/04/24 08:56 Hydrocodone/Apap 5/325 Tablet PO 10/09/24 08:55 Q4HR PRN PAIN Ascorbic Acid 500 mg 09/30/24 21:00 10/04/24 08:14 Ascorbic Acid 250 Mg Tablet PO 10/30/24 20:59 500 mg BID IFEOMA Administration Citric Acid/Sodium Citrate 30 ml 10/04/24 09:00 10/04/24 09:37 Citric Acid/Sodium Citr 15 Ml Udc (Bicitra) PO 11/03/24 08:59 30 ml BID IFEOMA Administration Docusate Sodium 100 mg 10/01/24 21:00 10/04/24 08:14 Docusate Sod 100 Mg Capsule PO 10/31/24 20:59 100 mg BID IFEOMA Administration Protocol Fluconazole 400 mg 10/05/24 09:00 Fluconazole 100 Mg Tablet PO 10/12/24 08:59 QDAY IFEOMA Fluconazole 100 mls @ 100 mls/hr 10/02/24 09:00 10/04/24 08:15 Diflucan/Ns Ivpb IV 10/05/24 13:31 100 mls/hr DAILY IFEOMA Administration Ondansetron HCl 4 mg 10/01/24 03:44 10/01/24 03:53 Ondansetron Inj 2 Mg/Ml Inj 2 Ml IV 10/31/24 03:43 4 mg Q6HR PRN Administration NAUSEA OR VOMITING Protocol Zinc Sulfate 220 mg 09/30/24 11:00 10/04/24 08:14 Zinc Sulfate 220 Mg Capsule PO 10/30/24 10:59 220 mg QDAY IFEOMA Administration Plan 44-year-old female with past medical history of kidney stones, hemorrhoids and umbilical hernia repair with Dr. Mcfarland on 05/19/2023 admitted for left flank pain and found to have abdominal lymphadenopathy. #Metastatic colon cancer s/p sigmoid colectomy #Hematochezia #Acute anemia Patient presented with abdominal pain right lower quadrant. CT scan showed multiple retroperitoneal lymphadenopathy and calculi. Mild hydronephrosis noted probably related to the lymph node impingement. Good urine output. Will give IV fluids. Biopsy of the lymph node will be done. Rule out malignancy// inflammatory response. GI was consulted, colonoscopy performed. Patient found to have ulcerated partially obstructing mass in the sigmoid colon, biopsies taken. Concerning for malignancy. These results were discussed with patient and her . General surgery consulted CA 15?3 is negative as well as tumor marker AFP. CEA is positive at 8.8 and CA 19-9 is pending. Patient denies any known family history of colon cancer. Biopsies showed well differentiated adenocarcinoma, metastatic colon cancer. Patient informed of her diagnosis. Patient received exploratory laporotomy with sigmoid colectomy and right adnexal mass excision. Following day patient had notable drop in hemoglobin. Patient currently on her period, has had a bowel movement which may or may not be bloody. - General Surgery - s/p sigmoid colectomy - Appreciate GI recommendations - Will refer for outpatient chemotherapy with Dr. Hdz - Patient needs a Port-A-Cath prior to discharge. - reverse isolation due to low WBCs - [place] 5 every 6 hours as needed for pain - 1 unit PRBCs, CBC after transfusion #CHERI (acute kidney injury) Likely obstructive from impingement by the lymphadenopathy. Patient's baseline creatinine 0.7 it has climbed up to 1.6 Creatinine and eGFR improving. Patient received several liters of normal saline, appears to be developing metabolic acidosis, fluids held. Patient taking GoLytely preparation for surgery, has had multiple bowel movements. Kidney function worsening, likely due to dehydration. Also possible obstruction given right flank plain and lymphadenopathy. US showed right nonobstructing nephrolithiasis, mild to moderate bilateral hydronephrosis. 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 Does not report respiratory symptoms. - Fluconazole 400 mg p.o. daily #Hypochloremic metabolic acidosis, resolved Labs showed increased chloride 116, with increased sodium 148. Patient's metabolic acidosis 16.8 bicarb. Likely due to high rates of IV fluids normal saline. Fluids held. New labs show chloride 111, sodium 146, bicarb 24.2. - Monitor daily labs - Bicitra 30 mL p.o. twice daily Code: Full code DVT PPx: SCDs GI PPx: None FEN: Full liquid diet, protein supplement Lines: PIV Plan of care discussed with attending Dr. Collado. Alex Lenz MD PGY?1 Attending Provider Attestation/Addendum Patient currently seen and examined with resident physician Dr. Patel. Note reviewed, agree with findings and recommendations. Patient noted to have CHERI, neutropenia. Will monitor closely. Dr. Villalobos will be covering for me.
[2024-10-04 15:43] LABS: Albumin, Serum 3.8 gm/dL (3.5-5.0); Anion Gap 11 (7-16); BUN/Creatinine Ratio 9 Ratio (12-20); Blood Urea Nitrogen 34 mg/dL (9-23); Calcium 8.5 mg/dL (8.3-10.6); Calcium (Corrected) 8.7 mg/dL (8.5-10.1); Chloride 107 mMol/L (98-107); Creatinine (Component) 3.6 mg/dL (0.6-1.3); Estimated Creatinine Clearance 18.2 mL/min (>60); Glucose 109 mg/dL (74-106); Osmolality,Calculated 284 (275-295); Phosphorous 4.2 mg/dL (2.4-5.1); Potassium 3.4 mMol/L (3.4-5.1); Sodium 138 mMol/L (136-145); eGFR 15 See Note
[2024-10-04] MEDS: FUROSEMIDE INJ 10 MG/ML 4ML VIAL 40 MG IVP (16:05)
--- NOTE | 2024-10-04 20:30 | PD.IMPROG ---
Documentation for date of: 10/04/24 Subjective Subjective Interval history: Patient evaluated Hemoglobin hematocrit 7.8 and 24.5 Getting blood transfusion Passing flatus and had a small bowel movement Currently on full liquid diet and tolerating Exam Vital Signs Temp Pulse Resp BP Pulse Ox O2 Del Method O2 Flow Rate 98.9 F 95 17 157/88 H 99 Room Air 4 10/04/24 20:00 10/04/24 20:00 10/04/24 20:00 10/04/24 20:00 10/04/24 20:00 10/04/24 20:00 10/02/24 12:50 FiO2 4 10/01/24 15:55 Objective Labs 10/04/24 04:52 10/04/24 14:56 Labs: Laboratory Results - last 24 hr 10/04/24 10/04/24 10/04/24 04:52 09:20 14:56 WBC 2.5 L RBC 3.20 L Hgb 7.8 L Hct 24.5 L MCV 77 L MCH 24.4 L MCHC 31.8 RDW Std Deviation 46.9 H Plt Count 132 L Neut % (Auto) 57 Lymph % (Auto) 21 [place] % (Auto) 17 H Eos % (Auto) 4 Baso % (Auto) 1 Neut # (Auto) 1.4 L Lymph # (Auto) 0.5 L [place] # (Auto) 0.4 Eos # (Auto) 0.1 Baso # (Auto) 0.0 Immature Gran # (Auto) 0.02 H Absolute Nucleated RBC 0.00 Immature Gran % 1 H Nucleated RBC % 0 Sodium 145 138 Potassium 3.9 3.4 D Chloride 113 H 107 Carbon Dioxide 19.6 L 20.0 Anion Gap 12 11 BUN 30 H 34 H Creatinine 3.0 H D 3.6 H D Estim Creat Clear Calc 21.9 L 18.2 L eGFR 19 L 15 L BUN/Creatinine Ratio 10 L 9 L Glucose 78 109 H Calculated Osmolality 293 284 Calcium 8.0 L 8.5 Corrected Calcium 8.4 L 8.7 Phosphorus 4.0 4.2 Magnesium 2.0 Total Bilirubin 0.3 AST 18 ALT 9 L Alkaline Phosphatase 54 Total Protein 6.4 Albumin 3.5 3.8 Globulin 2.9 Albumin/Globulin Ratio 1.2 Blood Type O Positive Antibody Screen NEGATIVE Crossmatch See Detail Blood Bank Wristband ID Yes Impressions Impression: Status post sigmoid colectomy with primary anastomosis for well-differentiated adenocarcinoma of the sigmoid colon advance diet as tolerated Assessment & Plan A&P Narrative # Hematochezia # Abnormal CT scan of the abdomen pelvis with extensive abdominal and pelvic lymphadenopathy plan Tumor markers CEA level CA 19?9 level CA 15-3 level AFP Ca125 level CT-guided biopsy of the left adenopathy by the IR Clear liquid diet consider colonoscopy once biopsy is done with a GoLytely prep and possible upper endoscopy to make sure the GI tract is clean Thank you very much for the opportunity to participate in care of this patient Time Spent With Patient Time: Total time spent is greater than 50% in coordination of care (as documented) at patient's floor/unit and/or counseling patient:
[2024-10-05] VITALS (7 sets, daily range): BP systolic 150–162; BP diastolic 76–99; PULSE 75–89; RESP 17–19; TEMP 36.1–36.5; O2SAT 92–97; BMI 27.8
[2024-10-05 05:52] LABS: Basophils % (Auto) 1 % (0-2.5); Eosinophils # (Auto) 0.2 Thou/mm3 (0.0-0.5); Eosinophils % (Auto) 5 % (0-10); Hematocrit 33.3 % (36.0-46.0); Hemoglobin 10.9 g/dL (12.0-16.0); Immature Granulocytes % (Auto) 2 % (0-0); Immature Granulocytes Auto 0.05 Thou/mm3 (0.00-0.00); Lymphocytes # (Auto) 0.7 Thou/mm3 (1.0-4.8); Lymphocytes % (Auto) 21 % (10-50); Mean Corpuscular HGB Conc 32.7 g/dl (31.0-37.0); Mean Corpuscular Hemoglobin 25.8 pg (25.0-35.0); Mean Corpuscular Volume 79 fL (80-100); Monocytes # (Auto) 0.5 Thou/mm3 (0.0-0.8); Monocytes % (Auto) 14 % (0-12); Neutrophils # (Auto) 1.9 Thou/mm3 (1.8-7.7); Neutrophils % (Auto) 57 % (37-80); Nucleated Red Blood Cell % 0 /100 WBC (0); Platelet Count 122 Thou/mm3 (140-440); RDW Standard Deviation 46.9 fL (36.4-46.3); Red Blood Count 4.23 Miln/mm3 (4.00-5.20); White Blood Count 3.4 Thou/mm3 (3.6-11.0)
[2024-10-05 06:47] LABS: Alanine Aminotransferase 10 U/L (10-49); Albumin, Serum 3.6 gm/dL (3.5-5.0); Albumin/Globulin Ratio 1.2 (1.2-2.2); Alkaline Phosphatase 76 U/L (46-116); Anion Gap 11 (7-16); Aspartate Amino Transferase 19 U/L (0-34); BUN/Creatinine Ratio 11 Ratio (12-20); Bilirubin,Total 0.3 mg/dL (0.3-1.2); Blood Urea Nitrogen 39 mg/dL (9-23); Calcium 8.5 mg/dL (8.3-10.6); Calcium (Corrected) 8.8 mg/dL (8.5-10.1); Carbon Dioxide 22.4 mMol/L (20.0-31.0); Chloride 109 mMol/L (98-107); Creatinine (Component) 3.6 mg/dL (0.6-1.3); Estimated Creatinine Clearance 18.2 mL/min (>60); Glucose 97 mg/dL (74-106); Osmolality,Calculated 292 (275-295); Phosphorous 5.4 mg/dL (2.4-5.1); Potassium 3.8 mMol/L (3.4-5.1); Sodium 142 mMol/L (136-145); Total Protein 6.6 gm/dL (5.7-8.2); eGFR 15 See Note
[2024-10-05] MEDS: ASCORBIC ACID 250 MG TABLET 500 MG PO ×2 (08:58→20:20)
[2024-10-05] MEDS: HYDROcodone/APAP 5/325 TABLET 1 TAB PO (08:58)
[2024-10-05] MEDS: ZINC SULFATE 220 MG CAPSULE PO (08:58)
[2024-10-05] MEDS: DOCUSATE SOD 100 MG CAPSULE PO ×2 (08:58→20:20)
[2024-10-05] MEDS: CITRIC ACID/SODIUM CITR 15 ML UDC (BICITRA) 30 ML PO ×2 (08:59→20:18)
[2024-10-05] MEDS: FLUCONAZOLE 100 MG TABLET 400 MG PO (08:59)
--- NOTE | 2024-10-05 09:15 | PC.SS ---
Follow up note: Pending general surgery recommendations. On IV fluids. Pt will return home upon dc.
[2024-10-05 09:48] LABS: Creatine Kinase 103 U/L (34-171)
--- NOTE | 2024-10-05 11:09 | XR_ITS ---
Examination: Retroperitoneal ultrasound, complete Technique: Multiple high resolution grayscale images of the retroperitoneum obtained, including kidneys and bladder. Exam date and time:September 1356 hours INDICATIONS: Bilateral flank pain history kidney stones this week, recent diagnosis malignant neoplasm colon FINDINGS: Right kidney 12.0 cm cortex 1.4 cm Mild right hydronephrosis 5 mm midpole calculus Left kidney 13.5 cm cortex 2.0 cm Mild hydronephrosis Bilateral mild renal cortical scar formation No bladder mass or bladder calculi Contracted urinary bladder IMPRESSION: Mild bilateral hydronephrosis 5 mm midpole left renal calculus
[2024-10-05] MEDS: SODIUM CHLORIDE 0.9% 1000 ML 1,000 ML 125 ML IV (11:20)
--- NOTE | 2024-10-05 11:25 | ESPR_ITS ---
Documentation for date of: 10/05/24 Subjective Subjective Brief History: Narrative: Patient is seen and examined. She is resting comfortably. She is tolerating clear liquids without nausea or vomiting and having bowel movements Exam Vital Signs Temp Pulse Resp BP Pulse Ox O2 Del Method O2 Flow Rate 97.3 F 75 18 150/76 H 97 Room Air 4 10/05/24 08:00 10/05/24 08:00 10/05/24 08:00 10/05/24 08:00 10/05/24 08:00 10/05/24 08:00 10/02/24 12:50 FiO2 4 10/01/24 15:55 Constitutional Constitutional: no acute distress Routine Abdominal Exam Abdominal: Present soft, normoactive bowel sounds and tenderness (Mild estrellita- incisional tenderness. Incision is clean, dry and intact); Absent distended Assessment & Plan Assessment Additional comments: Postop day #4 status post exploratory laparotomy with sigmoid colectomy and excision of right adnexal mass. Pathology is adenocarcinoma with 22 lymph nodes positive for cancer (T4 N2b) she is a stage IIIc colon cancer Plan Advance to soft diet. Will keep her n.p.o. after midnight and plan for Port-A-Cath placement tomorrow. Risks include but not limited to infection, bleeding, malfunctioning of the catheter, pneumothorax, possible need for chest tube placement discussed with the patient. Benefits and alternatives explained to her, all her questions answered, she agreed and consented to proceed with the operation. Procedures Procedures Exploratory laparotomy, sigmoid colectomy with low pelvic coloproctostomy Excision of right adnexal mass
[2024-10-05 13:31] LABS: Chloride,Urine Random 47.8 mMol/L (55.0-125.0); Potassium,Urine Random < 10 mMol/L (12-62); Sodium,Urine Random 60.5 mMol/L (20.0-110.0)
[2024-10-05 14:55] LABS: Band Neutrophils (Manual) 12 % (0-6); Eosinophils (Manual) 5 % (0-4); Lymphocytes (Manual) 22 % (20-44); Metamyelocytes (Manual) 4 % (0-0); Monocytes (Manual) 11 % (2-9); Myelocytes (Manual) 3 % (0-0); Neutrophils (Manual) 43 % (50-70)
--- NOTE | 2024-10-05 16:30 | ESPR_ITS ---
<Statement entered by Raghu Mayer MD - 10/05/24 18:30> Patient was seen and examined at bedside, patient was noted to have serum creatinine of 2.6 continue to uptrend. Even though the patient has been tolerating feeding well. Her urine output this morning was 500, we noticed that at 4 PM that her urine output was only 50 milliliters for that reason we did a bladder scan it was negative, we opted for the patient renal ultrasound, CK, urine creatinine, renal ultrasound only showed mild bilateral hydronephrosis, creatinine kinase was normal, pending urine electrolytes and urine creatinine. Will do strict in and out every 1 hour, will start the patient on IV fluids 100 mL/h with close monitoring for any signs of fluid overload. Dr Levine patient that tomorrow we will place a Port-A-Cath for the patient to start her chemotherapy. - Patient's plan and care discussed with my attending, Dr. Dulce Mayer MD Internal Medicine PGY-2 Documentation for date of: 10/05/24 Subjective Subjective Interval history: Patient was seen and examined at bedside this AM. No acute exents overnight. Patient tolerating diet, adequate urine output and mentation is at baseline. Patient endorses improvement of abdominal pain. She had 2 bowel movements for the day Patient is currently on her menstrual cycle, the previously suspected hematochezia was due to this. Will advance to soft diet. N.p.o. after midnight for Port-A-Cath placement tomorrow. BUN 39, CR 3.6. Renal ultrasound, urine sodium, CK, CK-MB ordered. Normal saline IV fluids at 120 cc/h. Exam Vital Signs Temp Pulse Resp BP Pulse Ox O2 Del Method O2 Flow Rate 97.0 F 78 18 151/85 H 94 L Room Air 4 10/05/24 12:00 10/05/24 12:00 10/05/24 12:00 10/05/24 12:00 10/05/24 12:00 10/05/24 12:00 10/02/24 12:50 FiO2 4 10/01/24 15:55 Narrative Exam Constitutional Alert, oriented x 3 and comfortable. Young female HEENT Vision grossly intact. Patent nares. Trachea midline Respiratory Chest normal on inspection and clear auscultation bilaterally Cardiovascular S1 and S2 audible, RRR. No murmurs carotid bruit. No gross JVD. Abdominal Soft, mild distention, midline abdominal scar with sam, no oozing. Bowel sounds present Genitourinary No bladder tenderness, no flank pain. Normal to palpation Musculoskeletal Extremities tone within normal limits. No LE edema. Neurological CN II - XII grossly intact. Extremity motor and sensation grossly intact. Skin Warm, dry and intact. No apparent lesions. Psychiatric Patient has good affect, is cooperative Objective Labs 10/06/24 05:27 10/06/24 05:27 Labs: Laboratory Results - last 24 hr 10/04/24 10/05/24 10/05/24 09:20 04:26 12:15 WBC 3.4 L RBC 4.23 Hgb 10.9 L D Hct 33.3 L MCV 79 L MCH 25.8 MCHC 32.7 RDW Std Deviation 46.9 H Plt Count 122 L Neut % (Auto) 57 Lymph % (Auto) 21 [place] % (Auto) 14 H Eos % (Auto) 5 Baso % (Auto) 1 Neut # (Auto) 1.9 Lymph # (Auto) 0.7 L [place] # (Auto) 0.5 Eos # (Auto) 0.2 Baso # (Auto) 0.0 Immature Gran # (Auto) 0.05 H Absolute Nucleated RBC 0.00 Immature Gran % 2 H Neutrophils % (Manual) 43 L Monocytes % (Manual) 11 H Eosinophils % (Manual) 5 H Metamyelocytes % 4 H Myelocytes % 3 H Nucleated RBC % 0 Band Neutrophils 12 H Lymphocytes (Manual) 22 Sodium 142 Potassium 3.8 Chloride 109 H Carbon Dioxide 22.4 Anion Gap 11 BUN 39 H Creatinine 3.6 H Estim Creat Clear Calc 18.2 L eGFR 15 L BUN/Creatinine Ratio 11 L Glucose 97 Calculated Osmolality 292 Calcium 8.5 Corrected Calcium 8.8 Phosphorus 5.4 H Magnesium 2.0 Total Bilirubin 0.3 AST 19 ALT 10 Alkaline Phosphatase 76 D Total Creatine Kinase 103 Total Protein 6.6 Albumin 3.6 Globulin 3.0 Albumin/Globulin Ratio 1.2 Ur Random Sodium 60.5 Ur Random Potassium < 10 L Ur Random Chloride 47.8 L Crossmatch See Detail Quality Measures Quality Measures VTE prophylaxis Assessment & Plan Assessment Current Active Medications: Generic Name Dose Route Start Last Admin Trade Name Freq PRN Reason Stop Dose Admin Hydrocodone Bitart/Acetaminophen 1 tab 10/04/24 08:56 10/05/24 08:58 Hydrocodone/Apap 5/325 Tablet PO 10/09/24 08:55 1 tab Q4HR PRN Administration PAIN Ascorbic Acid 500 mg 09/30/24 21:00 10/05/24 08:58 Ascorbic Acid 250 Mg Tablet PO 10/30/24 20:59 500 mg BID IFEOMA Administration Citric Acid/Sodium Citrate 30 ml 10/04/24 09:00 10/05/24 08:59 Citric Acid/Sodium Citr 15 Ml Udc (Bicitra) PO 11/03/24 08:59 30 ml BID IFEOMA Administration Docusate Sodium 100 mg 10/01/24 21:00 10/05/24 08:58 Docusate Sod 100 Mg Capsule PO 10/31/24 20:59 100 mg BID IFEOMA Administration Protocol Fluconazole 400 mg 10/05/24 09:00 10/05/24 08:59 Fluconazole 100 Mg Tablet PO 10/12/24 08:59 400 mg QDAY IFEOMA Administration Sodium Chloride 1,000 mls @ 125 mls/hr 10/05/24 11:08 10/05/24 11:20 Ns IV 11/04/24 11:07 125 mls/hr .Q8H IFEOMA Administration Ondansetron HCl 4 mg 10/01/24 03:44 10/01/24 03:53 Ondansetron Inj 2 Mg/Ml Inj 2 Ml IV 10/31/24 03:43 4 mg Q6HR PRN Administration NAUSEA OR VOMITING Protocol Zinc Sulfate 220 mg 09/30/24 11:00 10/05/24 08:58 Zinc Sulfate 220 Mg Capsule PO 10/30/24 10:59 220 mg QDAY IFEOMA Administration Plan 44-year-old female with past medical history of kidney stones, hemorrhoids and umbilical hernia repair with Dr. Mcfarland on 05/19/2023 admitted for left flank pain and found to have abdominal lymphadenopathy. #Metastatic colon cancer s/p sigmoid colectomy 10/01 #Acute anemia Patient presented with abdominal pain right lower quadrant. CT scan showed multiple retroperitoneal lymphadenopathy and calculi. Mild hydronephrosis noted probably related to the lymph node impingement. Good urine output. Will give IV fluids. Biopsy of the lymph node will be done. Rule out malignancy// inflammatory response. GI was consulted, colonoscopy performed. Patient found to have ulcerated partially obstructing mass in the sigmoid colon, biopsies taken. Concerning for malignancy. These results were discussed with patient and her . General surgery consulted CA 15?3 is negative as well as tumor marker AFP. CEA is positive at 8.8 and CA 19-9 ; 26. Patient denies any known family history of colon cancer. Biopsies showed well differentiated adenocarcinoma, metastatic colon cancer. Patient informed of her diagnosis. Patient received exploratory laporotomy with sigmoid colectomy and right adnexal mass excision. Following day patient had notable drop in hemoglobin. Patient currently on her period, has had a bowel movement which may or may not be bloody. Plan: ? Soft diet. N.p.o. after midnight ? Strict input output charting ? For insertion of Port-A-Cath tomorrow by general surgeon, Dr Levine. - Will refer for outpatient chemotherapy with Dr. Wilder Dick 5 every 6 hours as needed for pain ? GI, Dr. Torres consulted. Appreciate recommendations ? General Surgery, Dr Levine consulted. Appreciate recommendations #Neutropenia?resolved ANC 1.93 Plan: ? Remove reverse isolation precautions #CHERI (acute kidney injury) Prerenal versus renal DDx: Direct compression, ATN, medication side effect, obstruction Patient abdomen/pelvis CT showed extensive lymphadenopathy. Mild hydronephrosis and 5 mm nonobstructing renal calculi Plan: ? Strict input output charting ? Posey catheter ? Urine electrolytes, urine creatinine ? Renally dose medication ? Avoid nephrotoxic agents ? 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 Does not report respiratory symptoms. - Fluconazole 400 mg p.o. daily #Hypochloremic metabolic acidosis, resolved Labs showed increased chloride 116, with increased sodium 148. Patient's metabolic acidosis 16.8 bicarb. Likely due to high rates of IV fluids normal saline. Fluids held. New labs show chloride 111, sodium 146, bicarb 24.2. - Monitor daily labs - Bicitra 30 mL p.o. twice daily Health maintenance: Disposition: For Port-A-Cath insertion tomorrow Diet: Soft diet. N.p.o. after midnight Lines: pIVs GI Prophylaxis: None Thrombo Prophylaxis: None Code status: FULL CODE Plan of care discussed with Attending Dr. Angeles and PGY 2 Dr. Leyla Cruz MD PGY 1 Disclaimer: This note was dictated by speech recognition. Minor errors in produce associate may be present due to voice recognition software. Attending Provider Attestation/Addendum I attest that I was physically present for the evaluation, physical examination, lab and imaging review of the patient with the residents. I discussed the case with the residents and agree with the findings and plans of care as documented above. At bedside today, patient is states she is feeling better. Her abdominal pain has been improving. She had bowel movement, has been tolerating diet, denies any nausea or vomiting. We will advance her diet to soft diet. Patient's kidney function continues to worsen, BUN/creatinine of 39/3.6 today. We will start her on IV hydration, normal saline at 100 cc/h and encourage her to drink more fluids. 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 Patient is planned for Port-A-Cath placement by Dr. Levine tomorrow, we will keep her n.p.o. after midnight. Bina Angeles MD
[2024-10-05] MEDS: SODIUM CHLORIDE 0.9% 1000 ML 1,000 ML 100 ML IV (18:30)
--- NOTE | 2024-10-05 22:34 | PD.IMPROG ---
Documentation for date of: 10/05/24 Subjective Subjective Interval history: Patient evaluated final path report back All 22 lymph node positive for invasive adenocarcinoma Final stage pT4a Exam Vital Signs Temp Pulse Resp BP Pulse Ox O2 Del Method O2 Flow Rate 97.7 F 89 19 162/99 H 92 L Room Air 4 10/05/24 20:00 10/05/24 20:00 10/05/24 20:00 10/05/24 20:00 10/05/24 20:00 10/05/24 20:00 10/02/24 12:50 FiO2 4 10/01/24 15:55 Objective Labs 10/05/24 04:26 10/05/24 04:26 Labs: Laboratory Results - last 24 hr 10/05/24 10/05/24 04:26 12:15 WBC 3.4 L RBC 4.23 Hgb 10.9 L D Hct 33.3 L MCV 79 L MCH 25.8 MCHC 32.7 RDW Std Deviation 46.9 H Plt Count 122 L Neut % (Auto) 57 Lymph % (Auto) 21 [place] % (Auto) 14 H Eos % (Auto) 5 Baso % (Auto) 1 Neut # (Auto) 1.9 Lymph # (Auto) 0.7 L [place] # (Auto) 0.5 Eos # (Auto) 0.2 Baso # (Auto) 0.0 Immature Gran # (Auto) 0.05 H Absolute Nucleated RBC 0.00 Immature Gran % 2 H Neutrophils % (Manual) 43 L Monocytes % (Manual) 11 H Eosinophils % (Manual) 5 H Metamyelocytes % 4 H Myelocytes % 3 H Nucleated RBC % 0 Band Neutrophils 12 H Lymphocytes (Manual) 22 Sodium 142 Potassium 3.8 Chloride 109 H Carbon Dioxide 22.4 Anion Gap 11 BUN 39 H Creatinine 3.6 H Estim Creat Clear Calc 18.2 L eGFR 15 L BUN/Creatinine Ratio 11 L Glucose 97 Calculated Osmolality 292 Calcium 8.5 Corrected Calcium 8.8 Phosphorus 5.4 H Magnesium 2.0 Total Bilirubin 0.3 AST 19 ALT 10 Alkaline Phosphatase 76 D Total Creatine Kinase 103 Total Protein 6.6 Albumin 3.6 Globulin 3.0 Albumin/Globulin Ratio 1.2 Ur Random Sodium 60.5 Ur Random Potassium < 10 L Ur Random Chloride 47.8 L Impressions Impression: Metastatic adenocarcinoma well-differentiated final stage pT4a Will need extensive chemotherapy postoperatively Assessment & Plan A&P Narrative # Hematochezia # Abnormal CT scan of the abdomen pelvis with extensive abdominal and pelvic lymphadenopathy plan Tumor markers CEA level CA 19?9 level CA 15-3 level AFP Ca125 level CT-guided biopsy of the left adenopathy by the IR Clear liquid diet consider colonoscopy once biopsy is done with a GoLytely prep and possible upper endoscopy to make sure the GI tract is clean Thank you very much for the opportunity to participate in care of this patient Time Spent With Patient Time: Total time spent is greater than 50% in coordination of care (as documented) at patient's floor/unit and/or counseling patient:
[2024-10-06] VITALS (18 sets, daily range): BP systolic 135–166; BP diastolic 67–103; PULSE 66–99; RESP 12–20; TEMP 36.1–37.1; O2SAT 95–99
[2024-10-06 06:27] LABS: Basophils % (Auto) 2 % (0-2.5); Eosinophils # (Auto) 0.1 Thou/mm3 (0.0-0.5); Eosinophils % (Auto) 8 % (0-10); Hematocrit 32.2 % (36.0-46.0); Hemoglobin 10.9 g/dL (12.0-16.0); Immature Granulocytes % (Auto) 6 % (0-0); Lymphocytes # (Auto) 0.5 Thou/mm3 (1.0-4.8); Lymphocytes % (Auto) 31 % (10-50); Mean Corpuscular HGB Conc 33.9 g/dl (31.0-37.0); Mean Corpuscular Hemoglobin 25.9 pg (25.0-35.0); Mean Corpuscular Volume 77 fL (80-100); Monocytes # (Auto) 0.6 Thou/mm3 (0.0-0.8); Monocytes % (Auto) 34 % (0-12); Neutrophils # (Auto) 0.3 Thou/mm3 (1.8-7.7); Neutrophils % (Auto) 20 % (37-80); Nucleated Red Blood Cell % 0 /100 WBC (0); Platelet Count 133 Thou/mm3 (140-440); RDW Standard Deviation 45.5 fL (36.4-46.3); Red Blood Count 4.21 Miln/mm3 (4.00-5.20)
[2024-10-06 06:32] LABS: White Blood Count 1.7 Thou/mm3 (3.6-11.0)
[2024-10-06 06:35] LABS: Partial Thromboplastin Time 27.3 Seconds (22.0-36.0)
--- NOTE | 2024-10-06 06:45 | PC.NURSE ---
Dr. Cooper was contacted to ask if they want to restart the fluids or to continue holding the order, Allison Duggan stated that she would check chart and call back.
[2024-10-06 07:14] LABS: Alanine Aminotransferase 11 U/L (10-49); Albumin, Serum 3.4 gm/dL (3.5-5.0); Albumin/Globulin Ratio 1.2 (1.2-2.2); Alkaline Phosphatase 79 U/L (46-116); Anion Gap 9 (7-16); Aspartate Amino Transferase 17 U/L (0-34); BUN/Creatinine Ratio 10 Ratio (12-20); Bilirubin,Total 0.3 mg/dL (0.3-1.2); Blood Urea Nitrogen 53 mg/dL (9-23); Calcium (Corrected) 8.5 mg/dL (8.5-10.1); Carbon Dioxide 22.9 mMol/L (20.0-31.0); Chloride 106 mMol/L (98-107); Creatinine (Component) 5.2 mg/dL (0.6-1.3); Estimated Creatinine Clearance 12.6 mL/min (>60); Globulin 2.8 gm/dL (2.3-3.5); Glucose 113 mg/dL (74-106); Osmolality,Calculated 291 (275-295); Phosphorous 6.1 mg/dL (2.4-5.1); Potassium 3.8 mMol/L (3.4-5.1); Sodium 138 mMol/L (136-145); Total Protein 6.2 gm/dL (5.7-8.2); eGFR 10 See Note
--- NOTE | 2024-10-06 09:43 | ESPR_ITS ---
<Statement entered by Raghu Mayer MD - 10/06/24 16:13> Patient was seen and examined at bedside, patient continues to have mild abdominal discomfort, her urine output is improving. However her serum creatinine increased to 5.9. Yesterday patient became puffy on examination she was found to have lower extremity edema in which we stopped her IV fluids. Because of worsening of her serum creatinine we consulted the english tutor Dr. Zamorano in which she recommended to keep monitoring the patient and if the patient does not improve by tomorrow a dialysis catheter will be placed and will start hemodialysis. At this time her electrolytes are within normal limits. Today patient underwent for Port-A-Cath placement by Dr Levine - Patient's plan and care discussed with my attending, Dr. Carlos Enrique Mayer MD Internal Medicine PGY-2 Documentation for date of: 10/06/24 Subjective Subjective Interval history: Patient was seen and examined at bedside this AM. No acute exents overnight. Patient tolerating diet, adequate urine output and mentation is at baseline. Patient endorses improvement of abdominal pain. For placement of Port-A-Cath today. BUN 53, CR 5.2. Urine sodium 60.5 Renal ultrasound showed mild bilateral hydronephrosis Nephrology, Dr. Villalobos consulted. Recommended possible placement of dialysis catheter tomorrow. Urology, Dr. Johns consulted. Recommended [place] renal scan ANC 0.34. Continue reverse isolation precautions Exam Vital Signs Temp Pulse Resp BP Pulse Ox O2 Del Method O2 Flow Rate 97.7 F 81 18 164/88 H 97 Room Air 1 10/06/24 08:00 10/06/24 08:00 10/06/24 08:00 10/06/24 08:00 10/06/24 08:00 10/06/24 08:00 10/06/24 00:00 FiO2 4 10/01/24 15:55 Narrative Exam Constitutional Alert, oriented x 3 and comfortable. Young female HEENT Vision grossly intact. Patent nares. Trachea midline Respiratory Chest normal on inspection and clear auscultation bilaterally Cardiovascular S1 and S2 audible, RRR. No murmurs carotid bruit. No gross JVD. Abdominal Soft, mild distention, midline abdominal scar with sam, no oozing. Bowel sounds present Genitourinary No bladder tenderness, no flank pain. Normal to palpation Musculoskeletal Extremities tone within normal limits. No LE edema. Neurological CN II - XII grossly intact. Extremity motor and sensation grossly intact. Skin Warm, dry and intact. No apparent lesions. Psychiatric Patient has good affect, is cooperative Objective Labs 10/06/24 05:27 10/06/24 05:27 Labs: Laboratory Results - last 24 hr 10/05/24 10/05/24 10/06/24 04:26 12:15 05:27 WBC 1.7 L D RBC 4.21 Hgb 10.9 L Hct 32.2 L MCV 77 L MCH 25.9 MCHC 33.9 RDW Std Deviation 45.5 Plt Count 133 L Neut % (Auto) 20 L Lymph % (Auto) 31 [place] % (Auto) 34 H Eos % (Auto) 8 Baso % (Auto) 2 Neut # (Auto) 0.3 L Lymph # (Auto) 0.5 L [place] # (Auto) 0.6 Eos # (Auto) 0.1 Baso # (Auto) 0.0 Immature Gran # (Auto) 0.10 H Absolute Nucleated RBC 0.00 Immature Gran % 6 H Neutrophils % (Manual) 43 L Monocytes % (Manual) 11 H Eosinophils % (Manual) 5 H Metamyelocytes % 4 H Myelocytes % 3 H Nucleated RBC % 0 Band Neutrophils 12 H Lymphocytes (Manual) 22 PT 11.0 INR 1.0 APTT 27.3 Sodium 138 Potassium 3.8 Chloride 106 Carbon Dioxide 22.9 Anion Gap 9 BUN 53 H Creatinine 5.2 H* D Estim Creat Clear Calc 12.6 L eGFR 10 L* BUN/Creatinine Ratio 10 L Glucose 113 H Calculated Osmolality 291 Calcium 8.0 L Corrected Calcium 8.5 Phosphorus 6.1 H Magnesium 2.0 Total Bilirubin 0.3 AST 17 ALT 11 Alkaline Phosphatase 79 Total Creatine Kinase 103 Total Protein 6.2 Albumin 3.4 L Globulin 2.8 Albumin/Globulin Ratio 1.2 Ur Random Sodium 60.5 Ur Random Potassium < 10 L Ur Random Chloride 47.8 L Quality Measures Quality Measures VTE prophylaxis Assessment & Plan Assessment Current Active Medications: Generic Name Dose Route Start Last Admin Trade Name Freq PRN Reason Stop Dose Admin Hydrocodone Bitart/Acetaminophen 1 tab 10/04/24 08:56 10/05/24 08:58 Hydrocodone/Apap 5/325 Tablet PO 10/09/24 08:55 1 tab Q4HR PRN Administration PAIN Ascorbic Acid 500 mg 09/30/24 21:00 10/05/24 20:20 Ascorbic Acid 250 Mg Tablet PO 10/30/24 20:59 500 mg BID IFEOMA Administration Citric Acid/Sodium Citrate 30 ml 10/04/24 09:00 10/05/24 20:18 Citric Acid/Sodium Citr 15 Ml Udc (Bicitra) PO 11/03/24 08:59 30 ml BID IFEOMA Administration Docusate Sodium 100 mg 10/01/24 21:00 10/05/24 20:20 Docusate Sod 100 Mg Capsule PO 10/31/24 20:59 100 mg BID IFEOMA Administration Protocol Fluconazole 400 mg 10/05/24 09:00 10/05/24 08:59 Fluconazole 100 Mg Tablet PO 10/12/24 08:59 400 mg QDAY IFEOMA Administration Sodium Chloride 1,000 mls @ 100 mls/hr 10/05/24 18:20 10/06/24 08:34 Ns IV 11/04/24 18:18 Not Given .Q10H IFEOMA Ondansetron HCl 4 mg 10/01/24 03:44 10/01/24 03:53 Ondansetron Inj 2 Mg/Ml Inj 2 Ml IV 10/31/24 03:43 4 mg Q6HR PRN Administration NAUSEA OR VOMITING Protocol Zinc Sulfate 220 mg 09/30/24 11:00 10/05/24 08:58 Zinc Sulfate 220 Mg Capsule PO 10/30/24 10:59 220 mg QDAY IFEOMA Administration Plan 44-year-old female with past medical history of kidney stones, hemorrhoids and umbilical hernia repair with Dr. Mcfarland on 05/19/2023 admitted for left flank pain and found to have abdominal lymphadenopathy. #CHERI (acute kidney injury) Prerenal versus renal DDx: Direct compression, ATN, medication side effect, obstruction Patient abdomen/pelvis CT showed extensive lymphadenopathy. Mild hydronephrosis and 5 mm nonobstructing renal calculi BUN 53, CR 5.2. Urine sodium 60.5 Renal ultrasound showed mild bilateral hydronephrosis Nephrology, Dr. Villalobos consulted. Recommended possible placement of dialysis catheter tomorrow. Urology, Dr. Johns consulted. Recommended possible percutaneous nephrostomy. Plan: ? Strict input output charting ? Posey catheter ? Renally dose medication ? Avoid nephrotoxic agents - NM renal flow and function ordered - Nephrology, Dr. Villalobos consulted. Appreciate recommendations ? Neurology, Dr. Johns consulted. Appreciate recommendations #Metastatic colon cancer s/p sigmoid colectomy 10/01 #Acute anemia Patient presented with abdominal pain right lower quadrant. CT scan showed multiple retroperitoneal lymphadenopathy and calculi. Mild hydronephrosis noted probably related to the lymph node impingement. Good urine output. Will give IV fluids. Biopsy of the lymph node will be done. Rule out malignancy// inflammatory response. GI was consulted, colonoscopy performed. Patient found to have ulcerated partially obstructing mass in the sigmoid colon, biopsies taken. Concerning for malignancy. These results were discussed with patient and her . General surgery consulted CA 15?3 is negative as well as tumor marker AFP. CEA is positive at 8.8 and CA 19-9 ; 26. Patient denies any known family history of colon cancer. Biopsies showed well differentiated adenocarcinoma, metastatic colon cancer. Patient informed of her diagnosis. Patient received exploratory laporotomy with sigmoid colectomy and right adnexal mass excision. Following day patient had notable drop in hemoglobin. Patient currently on her period, has had a bowel movement which may or may not be bloody. Plan: ? Strict input output charting - Will refer for outpatient chemotherapy with Dr. Wilder Dick 5 every 6 hours as needed for pain ? GI, Dr. Torres consulted. Appreciate recommendations ? General Surgery, Dr Levine consulted. Appreciate recommendations #Neutropenia ANC 0.34 Plan: ? 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 Does not report respiratory symptoms. - Fluconazole 400 mg p.o. daily #Hypochloremic metabolic acidosis, resolved Labs showed increased chloride 116, with increased sodium 148. Patient's metabolic acidosis 16.8 bicarb. Likely due to high rates of IV fluids normal saline. Fluids held. New labs show chloride 111, sodium 146, bicarb 24.2. - Monitor daily labs - Bicitra 30 mL p.o. twice daily Health maintenance: Disposition: Pending Urology consult. Possible nephrostomy tube tomorrow and dialysis catheter Diet: Soft diet. Lines: pIVs GI Prophylaxis: None Thrombo Prophylaxis: None Code status: FULL CODE Plan of care discussed with Attending Dr. Angeles and PGY 2 Dr. Leyla Cruz MD PGY 1 Disclaimer: This note was dictated by speech recognition. Minor errors in ladle liner helper may be present due to voice recognition software. Attending Provider Attestation/Addendum I attest that I was physically present for the evaluation, physical examination, lab and imaging review of the patient with the residents. I discussed the case with the residents and agree with the findings and plans of care as documented above. Bina Angeles MD
[2024-10-06 10:11] LABS: Uric Acid 10.3 mg/dL (3.1-7.8)
--- NOTE | 2024-10-06 10:18 | XR_ITS ---
Examination: AP chest single view Technique : AP portable supine chest single view INDICATIONS: Port-A-Cath insertion today FINDINGS: Left subclavian Port-A-Cath tip right atrium satisfactory position Reduced inspiratory effort Endotracheal tube 22 mm above carol IMPRESSION: Left subclavian Port-A-Cath tip satisfactory position
[2024-10-06 10:21] LABS: Path Review Blood Smear Sent to Pathologist
--- NOTE | 2024-10-06 11:08 | PD.RESCONSUL ---
HPI Data of Consult Patient: new to practice Consult date: 10/06/24 Requesting Physician: Bina Angeles MD Admitting Provider: Ching Collado MD Attending Provider: Bina Angeles MD Primary Care Provider: Ching Collado MD Consult Narrative Reason for consult: Worsening CHERI History of present illness: Ms. Taveras is a 44 year old female with past medical history significant for kidney stones, hemorrhoids, and an umbilical hernia repair by Dr. Alvarez on 05/19/23 presents to my office last week complaining of left flank pain. Exam showed left CVA tenderness and I requested for a renal ultrasound. Renal ultrasound showed Multiple left renal calculi mild to moderate left hydronephrosis and significant periaortic lymphadenopathy recommended CT with and without contrast. Authorization was submitted to the insurance to get CT. In the interim patient started having significant right lower quadrant abdominal pain since yesterday that she brought herself to the emergency department. In the ED blood pressure 148/79. Heart rate 88. Afebrile. Over the course of hospitalization patient had CT-guided biopsy of lymphadenopathy and eventually had a colonoscopy which showed ulcerated partially obstructing mass in sigmoid colon. Pathology report from lymph node showed well-differentiated adenocarcinoma metastatic colon cancer. General surgery was consulted patient had exploratory laparotomy sigmoid colectomy with low pelvic coloproctostomy and excision of right adnexal mass on 10/01/2024. Patient scheduled for Port-A-Cath placement today 10/06/2024: Patient has worsening of renal function BUN 53, creatinine 5.2, GFR 10. Patient has good urine output as of now made about 1300 cc in the last 24 hours, patient was given IV fluids yesterday, has swelling of face legs. Patient has some obstructive etiology considering has multiple lymph node masses throughout abdomen, urology will be consulted for possible nephrostomy tube placement. Will continue to monitor renal function for now, will hold IV fluids. If patient has worsening renal function and decreased urine output, will consider placing dialysis catheter in a.m. cc:: cc: Bina Angeles MD Review of Systems Review of Systems Systems Reviewed: All systems reviewed, normal except as documented Past Medical History Past Medical History NEUROLOGIC: Negative Neurological Disorders or Seizures CARDIAC: Negative Cardiac Disorders or Congestive Heart Failure RESPIRATORY: Negative Chronic Obstructive Pulmonary Disease (COPD) GASTROINTESTINAL: Negative Gastrointestinal Disorders, Hepatitis or Colorectal Cancer GENITOURINARY: Positive Genitourinary Disorders and Kidney Stones; Negative Renal Disease or Prostate Cancer REPRODUCTIVE: Positive Previous Pregnancies; Negative Breast Cancer or Testicular Cancer MUSCULOSKELETAL: Negative Musculoskeletal Disorders or Bone Cancer ENDOCRINE: Negative Endocrine Disorders, Diabetes Mellitus Type 1 or Diabetes Mellitus Type 2 HEMATOLOGIC: Positive Blood Disorders and Anemia OTHER HISTORY: Negative Hospitalization, Autoimmune Disease, Down Syndrome, Developmental Delay, Shingles, Falls, Blood Transfusions, Blood Transfusion Reaction, Anesthesia Reactions, Organ Transplant, Chemotherapy, Radiation Therapy, Hyperbaric Therapy, MRSA, VRSA, Vancomycin-Resistant Enterococci, Human Immunodeficiency Virus (HIV), Chicken Pox, Measles, Mumps, Rubella ([place] Measles), Pertussis, Clostridium Difficile, Cancer, Breast Cancer, Cervical Cancer, Colorectal Cancer, Lung Cancer, Ovarian Cancer, Prostate Cancer or Testicular Cancer Family History FAMILY HISTORY: Negative Family Psychiatric Problems, Family Respiratory Disorders, Family Cardiac Disorders, Family Gastrointestinal Problems, Family Cancer, Family Surgery or Family Anesthesia Reaction Surgical History SURGICAL: Negative Endocrine Surgery, Ear Surgery, Abdominal Surgery, Nephrectomy, Joint Replacement, Neurologic Surgery, Mastectomy, Section, Vasectomy or Organ Transplant OTHER SURGICAL HX: As in the history of present illness Social History SMOKING STATUS: Never smoker SUBSTANCE USE: does not use Exam Vital Signs Temp Pulse Resp BP Pulse Ox O2 Del Method O2 Flow Rate 97.7 F 81 18 164/88 H 97 Room Air 1 10/06/24 08:00 10/06/24 08:00 10/06/24 08:00 10/06/24 08:00 10/06/24 08:00 10/06/24 08:00 10/06/24 00:00 FiO2 4 10/01/24 15:55 Narrative Exam Constitutional Alert, oriented x 3 and comfortable. Young female HEENT Vision grossly intact. Patent nares. Trachea midline Respiratory Chest normal on inspection and clear auscultation bilaterally Cardiovascular S1 and S2 audible, RRR. No murmurs carotid bruit. No gross JVD. Abdominal Soft, mild distention, midline abdominal scar with sam, no oozing. Bowel sounds present Genitourinary No bladder tenderness, no flank pain. Normal to palpation Musculoskeletal Extremities tone within normal limits. No LE edema. Neurological CN II - XII grossly intact. Extremity motor and sensation grossly intact. Skin Warm, dry and intact. No apparent lesions. Psychiatric Patient has good affect, is cooperative Results Labs 10/10/24 04:30 10/10/24 04:30 Labs: Short CBC 10/06/24 Range/Units 05:27 WBC 1.7 L D (3.6-11.0) Thou/mm3 Hgb 10.9 L (12.0-16.0) g/dL Hct 32.2 L (36.0-46.0) % Plt Count 133 L (140-440) Thou/mm3 BMP 10/06/24 05:27 Sodium 138 Potassium 3.8 Chloride 106 Carbon Dioxide 22.9 BUN 53 H Creatinine 5.2 H* D Glucose 113 H Calcium 8.0 L Liver Function 10/06/24 Range/Units 05:27 Total Bilirubin 0.3 (0.3-1.2) mg/dL AST 17 (0-34) U/L ALT 11 (10-49) U/L Alkaline Phosphatase 79 (46-116) U/L Albumin 3.4 L (3.5-5.0) gm/dL Quality Measures Quality Measures VTE prophylaxis Medications Home Medications and Allergies Home Medications ?Medication ?Instructions ?Recorded ?Confirmed ?Type acetaminophen 500 mg tablet 500 mg PO Q4H PRN pain 09/27/24 09/27/24 History (Acetaminophen Extra Strength) cetirizine 5 mg tablet (Allergy 5 mg PO QDAY PRN allergy symptoms 09/27/24 09/27/24 History Relief (cetirizine)) ibuprofen 600 mg tablet 600 mg PO QDAY PRN pain 09/27/24 09/27/24 History Allergies Allergy/AdvReac Type Severity Reaction Status Date / Time No Known Allergies Allergy Verified 10/10/24 15:43 Visit Medications Hydrocodone Bitart/Acetaminophen (Hydrocodone/Apap 5/325 Tablet) 1 tab PO Q4HR PRN PRN Reason: PAIN Stop: 10/09/24 08:55 Last Admin: 10/05/24 08:58 Dose: 1 tab Ascorbic Acid (Ascorbic Acid 250 Mg Tablet) 500 mg PO BID IFEOMA Stop: 10/30/24 20:59 Last Admin: 10/06/24 09:00 Dose: Not Given Citric Acid/Sodium Citrate (Citric Acid/Sodium Citr 15 Ml Udc (Bicitra)) 30 ml PO BID IFEOMA Stop: 11/03/24 08:59 Last Admin: 10/06/24 09:00 Dose: Not Given Docusate Sodium (Docusate Sod 100 Mg Capsule) 100 mg PO BID [facility]; Protocol Stop: 10/31/24 20:59 Last Admin: 10/06/24 09:00 Dose: Not Given Fluconazole (Fluconazole 100 Mg Tablet) 400 mg PO QDAY [facility] Stop: 10/12/24 08:59 Last Admin: 10/06/24 09:00 Dose: Not Given Sodium Chloride (Ns) 1,000 mls @ 100 mls/hr IV .Q10H [facility] Stop: 11/04/24 18:18 Last Admin: 10/06/24 08:34 Dose: Not Given Ondansetron HCl (Ondansetron Inj 2 Mg/Ml Inj 2 Ml) 4 mg IV Q6HR PRN; Protocol PRN Reason: NAUSEA OR VOMITING Stop: 10/31/24 03:43 Last Admin: 10/01/24 03:53 Dose: 4 mg Pharmacy Consult (Pharmacy Renal Dose Adjustment 1 Ea) 1 each XX PRN PRN PRN Reason: CONSULT Stop: 11/05/24 10:13 Zinc Sulfate (Zinc Sulfate 220 Mg Capsule) 220 mg PO QDAY [facility] Stop: 10/30/24 10:59 Last Admin: 10/06/24 09:00 Dose: Not Given Discontinued Medications Acetaminophen (Acetaminophen 325 Mg Tablet) 650 mg PO Q6HR PRN PRN Reason: PAIN SCALE 1-3 (mild Stop: 10/27/24 20:58 Last Admin: 09/29/24 20:27 Dose: 650 mg Hydrocodone Bitart/Acetaminophen (Hydrocodone/Apap 5/325 Tablet) 1 tab PO X1 ONE Stop: 09/27/24 04:12 Last Admin: 09/27/24 04:29 Dose: 1 tab Hydrocodone Bitart/Acetaminophen (Hydrocodone/Apap 5/325 Tablet) 1 tab PO Q6H PRN PRN Reason: pain Stop: 10/02/24 21:44 Hydrocodone Bitart/Acetaminophen (Hydrocodone/Apap 5/325 Tablet) 1 tab PO Q6HR PRN PRN Reason: PAIN SCALE 4-6 (Moderate Stop: 10/03/24 00:17 Last Admin: 10/01/24 08:08 Dose: 1 tab Bisacodyl (Bisacodyl 10 Mg Supp) 10 mg TX X1 PRN PRN Reason: Gas pain Stop: 09/28/24 21:17 Citric Acid/Sodium Citrate (Citric Acid/Sodium Citr 15 Ml Udc (Bicitra)) 30 ml PO BID IFEOMA Stop: 10/29/24 08:59 Last Admin: 10/01/24 17:12 Dose: Not Given Diphenhydramine HCl (Diphenhydramine Inj 50 Mg/Ml Vial) 25 mg IV PRNMRX1 PRN PRN Reason: MODERATE SEDATION Stop: 09/28/24 21:16 Fentanyl Citrate (Fentanyl Cit Inj 50 Mcg/Ml Amp 2ml) 100 mcg IVP X1 ONE Stop: 09/28/24 13:01 Last Admin: 09/28/24 13:05 Dose: 100 mcg Fentanyl Citrate (Fentanyl Cit Inj 50 Mcg/Ml Amp 2ml) 50 mcg IV Q2M PRN PRN Reason: MODERATE SEDATION Stop: 09/28/24 21:16 Fentanyl Citrate (Fentanyl Cit Inj 50 Mcg/Ml Amp 2ml) 25 mcg IV Q5M PRN PRN Reason: PAIN SCALE 1-3 (mild Stop: 10/01/24 16:15 Filgrastim (Filgrastim Inj (Zarxio) 300 Mcg/0.5 Ml Syringe) 300 mcg SC X1 ONE Stop: 10/03/24 18:01 Last Admin: 10/03/24 18:21 Dose: 300 mcg Furosemide (Furosemide Inj 10 Mg/Ml 4ml Vial) 40 mg IVP X1 ONE Stop: 10/04/24 14:15 Last Admin: 10/04/24 16:05 Dose: 40 mg Hydromorphone HCl (Hydromorphone Inj 2 Mg/Ml Vial) 0.4 mg IV Q5M PRN PRN Reason: PAIN SCALE 7-10 (Severe Stop: 10/01/24 16:16 Sodium Chloride (Ns) 1,000 mls @ 100 mls/hr IV .Q10H [facility] Stop: 10/27/24 12:58 Last Admin: 09/29/24 05:34 Dose: 100 mls/hr Fluconazole (Diflucan/Ns Ivpb) 400 mg in 200 mls @ 100 mls/hr IV QDAY IFEOMA Stop: 10/05/24 13:31 Last Admin: 10/01/24 09:14 Dose: 100 mls/hr Sodium Chloride (Ns 0.45%) 1,000 mls @ 125 mls/hr IV .Q8H IFEOMA Stop: 10/02/24 03:30 Last Admin: 10/01/24 11:36 Dose: 125 mls/hr Acetaminophen (Ofirmev Inj) 1,000 mg in 100 mls @ 250 mls/hr IV Q6H IFEOMA Stop: 10/02/24 08:39 Potassium Chloride/Dextrose/Sod Cl (Kcl 20 Meq/L In D5-1/2ns) 20 meq in 1,000 mls @ 60 mls/hr IV .[id number] IFEOMA Stop: 10/31/24 17:14 Last Infusion: 10/02/24 18:23 Dose: Infused Fluconazole (Diflucan/Ns Ivpb) 100 mls @ 100 mls/hr IV DAILY IFEOMA Stop: 10/05/24 13:31 Last Admin: 10/04/24 08:15 Dose: 100 mls/hr Cefoxitin Sodium 2 gm/ Sodium (Chloride) 50 mls @ 100 mls/hr IV Q8HR IFEOMA Stop: 10/08/24 17:59 Last Admin: 10/04/24 05:29 Dose: 100 mls/hr Acetaminophen (Ofirmev Inj) 1,000 mg in 100 mls @ 250 mls/hr IV Q6H IFEOMA Stop: 10/02/24 12:07 Last Admin: 10/02/24 12:06 Dose: 250 mls/hr Potassium Chloride/Dextrose/Sod Cl (Kcl 20 Meq/L In D5-1/2ns) 20 meq in 1,000 mls @ 30 mls/hr IV .Q24H IFEOMA Stop: 11/01/24 10:07 Sodium Chloride (Ns 0.45%) 1,000 mls @ 120 mls/hr IV .Q8H20M IFEOMA Stop: 11/01/24 12:03 Last Admin: 10/03/24 04:39 Dose: 120 mls/hr Sodium Chloride (Ns) 1,000 mls @ 125 mls/hr IV .Q8H IFEOMA Stop: 11/04/24 11:07 Last Admin: 10/05/24 11:20 Dose: 125 mls/hr Ketorolac Tromethamine (Ketorolac Inj 60 Mg/2 Ml Vial) 30 mg IM X1 ONE Stop: 09/27/24 04:12 Last Admin: 09/27/24 04:27 Dose: 30 mg Metronidazole (Metronidazole 250 Mg Tablet) 1,000 mg PO X1 ONE Stop: 09/30/24 18:01 Last Admin: 09/30/24 17:32 Dose: 1,000 mg Metronidazole (Metronidazole 250 Mg Tablet) 1,000 mg PO X1 ONE Stop: 09/30/24 19:01 Last Admin: 09/30/24 19:07 Dose: 1,000 mg Metronidazole (Metronidazole 250 Mg Tablet) 1,000 mg PO X1 ONE Stop: 09/30/24 23:51 Last Admin: 10/01/24 02:09 Dose: 1,000 mg Midazolam HCl (Midazolam Inj 1 Mg/Ml Vial 2 Ml) 2 mg IV Q2M PRN PRN Reason: Moderate Sedation Stop: 09/28/24 21:16 Morphine Sulfate (Morphine Sulf Inj 10 Mg/Ml Vial) 3 mg IV Q5M PRN PRN Reason: PAIN SCALE 4-6 (Moderate Stop: 10/01/24 16:16 Last Admin: 10/01/24 16:41 Dose: 3 mg Morphine Sulfate (Morphine Sulf 1 Mg/Ml Wrister Syringe 30 Ml) 30 mg IV UD IFEOMA; Protocol Stop: 10/06/24 15:54 Morphine Sulfate (Morphine Sulfate Pf 1 Mg/Ml Wrister Vial 30 Ml) 30 mg IV UD IFEOMA; Protocol Stop: 10/06/24 16:14 Last Admin: 10/01/24 23:52 Dose: 30 mg Neomycin Sulfate (Neomycin Sulfate 500 Mg Tablet) 1,000 mg PO X1 ONE Stop: 09/30/24 19:01 Last Admin: 09/30/24 19:06 Dose: 1,000 mg Neomycin Sulfate (Neomycin Sulfate 500 Mg Tablet) 1,000 mg PO X1 ONE Stop: 09/30/24 18:01 Last Admin: 09/30/24 17:33 Dose: 1,000 mg Neomycin Sulfate (Neomycin Sulfate 500 Mg Tablet) 1,000 mg PO X1 ONE Stop: 09/30/24 23:51 Last Admin: 10/01/24 02:09 Dose: 1,000 mg Ondansetron HCl (Ondansetron Odt 4 Mg Tabrap) 4 mg PO X1 ONE; Protocol Stop: 09/27/24 04:12 Last Admin: 09/27/24 04:27 Dose: 4 mg Ondansetron HCl (Ondansetron Inj 2 Mg/Ml Inj 2 Ml) 4 mg IV X1 ONE Stop: 10/01/24 14:16 Polyethylene Glycol/Electrolytes ([place]/Nahco3/Salvador/Peg (Golytely) 4,000 Ml Btl) 4,000 ml PO X1 ONE Stop: 09/27/24 08:58 Last Admin: 09/27/24 09:30 Dose: 4,000 ml Polyethylene Glycol/Electrolytes ([place]/Nahco3/Salvador/Peg (Golytely) 4,000 Ml Btl) 4,000 ml PO X1 ONE Stop: 09/27/24 21:38 Last Admin: 09/27/24 22:40 Dose: 4,000 ml Polyethylene Glycol/Electrolytes ([place]/Nahco3/Salvador/Peg (Golytely) 4,000 Ml Btl) 4,000 ml PO X1 ONE Stop: 09/30/24 10:56 Last Admin: 09/30/24 13:27 Dose: 1 btl Assessment & Plan Plan 44-year-old female with past medical history of kidney stones, hemorrhoids and umbilical hernia repair with Dr. Mcfarland on 05/19/2023 admitted for left flank pain and found to have abdominal lymphadenopathy. #CHERI (acute kidney injury) Prerenal versus renal DDx: Direct compression, ATN, medication side effect, obstruction Patient abdomen/pelvis CT showed extensive lymphadenopathy. Mild hydronephrosis and 5 mm nonobstructing renal calculi BUN 53, CR 5.2. Urine sodium 60.5 Renal ultrasound showed mild bilateral hydronephrosis Recommendations: - If patient has worsening renal function and decreased urine output, will schedule for dialysis catheter placement. - Consult urology, patient will likely benefit from urological evaluation ? Strict input output charting ? Posey catheter ? Renally dose medication ? Avoid nephrotoxic agents #Metastatic colon cancer s/p sigmoid colectomy 10/01 #Acute anemia #Neutropenia #Pancytopenia #Coccidiomycosis #Hypochloremic metabolic acidosis, resolved - Management per primary team Case discussed with Attending Dr. Villalobos. Rohith Magdaleno PGY1 Disclaimer: This note was dictated by speech recognition. Minor errors in lard maker may be present due to voice recognition software. Attending Provider Attestation/Addendum Pt is seen and examined. Labs and investigations are reviewed. Agree witth assessment and plan by resident. agree with findings. Jeremiah Villalobos MD
--- NOTE | 2024-10-06 11:38 | SUR.PHASEI ---
1138 Patient arrived to recovery resting comfortably in [facility], on oxygen 8L with an oral airway in place, breathing unlabored, vital signs stable, dressing intact to upper left chest; dermabond, gauze, tegaderm, no bleeding noted, report received from Kristine ASHLEY and Yosef HERRON/Yosef PIERCE
--- NOTE | 2024-10-06 11:38 | PD.SUROPNT ---
Date of Procedure 10/06/24 Pre Op Diagnosis Compression of vein History of advanced colon cancer Post Op Diagnosis Compression of vein History of advanced colon cancer Procedure Port-A-Cath placement in the left subclavian vein Findings No evidence of pneumothorax, tip of the catheter in superior vena cava Procedure Description The patient was brought into the operating room in supine position. After administration of general endotracheal anesthesia, the left upper chest and neck prepped and draped in standard surgical manner. The infraclavicular region was anesthetized with 0.5% Marcaine. Left subclavian vein was cannulated in first attempt and guidewire was placed. The needle was removed. The placement of guidewire was confirmed on an x-ray. Inferior to the insertion site of the guidewire, an approximate 3 cm incision was made. The guidewire was then tunneled and brought out of the incision. Over the inferior aspects of incision, a pocket was created to accommodate the port aspects of the Port-A-Cath. Once this was done, dilator and introducer sheath placed over the guidewire. The guidewire and dilator were removed. The catheter was placed through the introducer sheath and introducer sheath was then removed. The catheter was cut to an appropriate length and was connected to the port. Connector was tightened. Blood was being aspirated through the port easily, was flushed with heparinized saline. Once again the appropriate placement of the catheter was confirmed with an x-ray. Hemostasis was adequate and satisfactory. Subcutaneous tissue was closed with interrupted suture using 3-0 Vicryl. The skin was closed with 4-0 Monocryl in subcuticular fashion. The port was then accessed through the skin. Blood was being aspirated through the port easily, was flushed with heparinized saline. The patient tolerated the procedure well, was breathing spontaneously and without difficulty, was transferred to the postanesthesia care in stable condition. Anesthesia GETA and local Pathology / specimen None Estimated Blood Loss 5 Condition Stable Disposition PACU Surgeon Shahid Levine MD Surgical Staff Operation Date: 10/06/24 13:15 Case Staff TECHNICIAN TEST SYSTEMS: Yosef Aguilar TECHNICIAN TEST SYSTEMS: Yosef Faulkner
--- NOTE | 2024-10-06 13:02 | SUR.PHASEI ---
1258 Report given to Maribel ASHLEY, patient meets discharge criteria from recovery, awake and alert, breathing unlabored, vital signs stable, denies pain and nausea, eating ice chips tolerating well, dressing intact; no bleeding noted. 1302 Patient transported via gurney to room 363 without incident.
[2024-10-06 13:24] LABS: LDH (Lactate Dehydrogenase) 322 U/L (120-246)
--- NOTE | 2024-10-06 17:23 | XR_ITS ---
Examination: Nuclear medicine renal flow and function multiple studies Examination date time: October 07, 2024 1350 hours INDICATIONS: Elevated BUN/creatinine on laboratory examination last week, mild hydronephrosis on CT abdomen and pelvis October 07, 2024 TECHNIQUE AND FINDINGS: Intravenous administration 10.2 mCi technetium 99m MAG3 Flow and function curves generated to 60 minutes Adequate flow left kidney Minimal renal function, 15% of normal Adequate flow right kidney Minimal renal function, less than 10% IMPRESSION: Minimal bilateral renal function
[2024-10-06] MEDS: CITRIC ACID/SODIUM CITR 15 ML UDC (BICITRA) 30 ML PO (20:04)
[2024-10-06] MEDS: ASCORBIC ACID 250 MG TABLET 500 MG PO (20:04)
[2024-10-06] MEDS: DOCUSATE SOD 100 MG CAPSULE PO (20:04)
--- NOTE | 2024-10-06 21:06 | ESPR_ITS ---
Documentation for date of: 10/06/24 Subjective Subjective Interval history: Status post placement of a Port-A-Cath Having bowel movements Exam Vital Signs Temp Pulse Resp BP Pulse Ox O2 Del Method O2 Flow Rate 98.3 F 89 19 160/93 H 95 Room Air 5 10/06/24 20:00 10/06/24 20:00 10/06/24 20:00 10/06/24 20:00 10/06/24 20:00 10/06/24 20:00 10/06/24 12:23 FiO2 4 10/01/24 15:55 Objective Labs 10/06/24 05:27 10/06/24 05:27 Labs: Laboratory Results - last 24 hr 10/06/24 05:27 WBC 1.7 L D RBC 4.21 Hgb 10.9 L Hct 32.2 L MCV 77 L MCH 25.9 MCHC 33.9 RDW Std Deviation 45.5 Plt Count 133 L Neut % (Auto) 20 L Lymph % (Auto) 31 [place] % (Auto) 34 H Eos % (Auto) 8 Baso % (Auto) 2 Neut # (Auto) 0.3 L Lymph # (Auto) 0.5 L [place] # (Auto) 0.6 Eos # (Auto) 0.1 Baso # (Auto) 0.0 Immature Gran # (Auto) 0.10 H Absolute Nucleated RBC 0.00 Immature Gran % 6 H Nucleated RBC % 0 Smear Path Review Sent to Pathologist PT 11.0 INR 1.0 APTT 27.3 Sodium 138 Potassium 3.8 Chloride 106 Carbon Dioxide 22.9 Anion Gap 9 BUN 53 H Creatinine 5.2 H* D Estim Creat Clear Calc 12.6 L eGFR 10 L* BUN/Creatinine Ratio 10 L Glucose 113 H Calculated Osmolality 291 Uric Acid 10.3 H Calcium 8.0 L Corrected Calcium 8.5 Phosphorus 6.1 H Magnesium 2.0 Total Bilirubin 0.3 AST 17 ALT 11 Alkaline Phosphatase 79 Lactate Dehydrogenase 322 H Total Protein 6.2 Albumin 3.4 L Globulin 2.8 Albumin/Globulin Ratio 1.2 Impressions Impression: Status post sigmoid resection for colon carcinoma well-differentiated Status postplacement of a Port-A-Cath left subclavian for future chemotherapy Assessment & Plan A&P Narrative # Hematochezia # Abnormal CT scan of the abdomen pelvis with extensive abdominal and pelvic lymphadenopathy plan Tumor markers CEA level CA 19?9 level CA 15-3 level AFP Ca125 level CT-guided biopsy of the left adenopathy by the IR Clear liquid diet consider colonoscopy once biopsy is done with a GoLytely prep and possible upper endoscopy to make sure the GI tract is clean Thank you very much for the opportunity to participate in care of this patient Time Spent With Patient Time: Total time spent is greater than 50% in coordination of care (as documented) at patient's floor/unit and/or counseling patient:
[2024-10-07] VITALS: BP 141/81; PULSE 72; RESP 16; TEMP 36.4; O2SAT 95
[2024-10-07 04:00] VITALS: BP 153/88; PULSE 87; RESP 16; TEMP 36.3; O2SAT 95
[2024-10-07 05:45] LABS: Basophils % (Auto) 1 % (0-2.5); Eosinophils % (Auto) 0 % (0-10); Hematocrit 34.3 % (36.0-46.0); Hemoglobin 11.6 g/dL (12.0-16.0); Immature Granulocytes % (Auto) 7 % (0-0); Lymphocytes # (Auto) 0.3 Thou/mm3 (1.0-4.8); Lymphocytes % (Auto) 24 % (10-50); Mean Corpuscular HGB Conc 33.8 g/dl (31.0-37.0); Mean Corpuscular Hemoglobin 25.7 pg (25.0-35.0); Mean Corpuscular Volume 76 fL (80-100); Monocytes # (Auto) 0.5 Thou/mm3 (0.0-0.8); Monocytes % (Auto) 38 % (0-12); Neutrophils # (Auto) 0.4 Thou/mm3 (1.8-7.7); Neutrophils % (Auto) 30 % (37-80); Nucleated Red Blood Cell % 0 /100 WBC (0); Platelet Count 135 Thou/mm3 (140-440); RDW Standard Deviation 45.8 fL (36.4-46.3); Red Blood Count 4.51 Miln/mm3 (4.00-5.20)
[2024-10-07 06:20] LABS: White Blood Count 1.4 Thou/mm3 (3.6-11.0)
[2024-10-07 06:29] LABS: Alanine Aminotransferase 9 U/L (10-49); Albumin, Serum 3.7 gm/dL (3.5-5.0); Albumin/Globulin Ratio 1.2 (1.2-2.2); Alkaline Phosphatase 76 U/L (46-116); Anion Gap 13 (7-16); Aspartate Amino Transferase 18 U/L (0-34); BUN/Creatinine Ratio 10 Ratio (12-20); Bilirubin,Total 0.2 mg/dL (0.3-1.2); Blood Urea Nitrogen 62 mg/dL (9-23); Calcium 8.4 mg/dL (8.3-10.6); Calcium (Corrected) 8.6 mg/dL (8.5-10.1); Carbon Dioxide 22.7 mMol/L (20.0-31.0); Chloride 103 mMol/L (98-107); Creatinine (Component) 6.2 mg/dL (0.6-1.3); Estimated Creatinine Clearance 10.6 mL/min (>60); Globulin 3.2 gm/dL (2.3-3.5); Glucose 125 mg/dL (74-106); Magnesium 2.2 mg/dL (1.6-2.6); Osmolality,Calculated 296 (275-295); Phosphorous 6.6 mg/dL (2.4-5.1); Potassium 4.3 mMol/L (3.4-5.1); Sodium 139 mMol/L (136-145); Total Protein 6.9 gm/dL (5.7-8.2); eGFR 8 See Note
[2024-10-07 07:35] VITALS: BP 154/87; PULSE 86; RESP 15; TEMP 36.8; O2SAT 96
--- NOTE | 2024-10-07 09:00 | XR_ITS ---
Examination: CT abdomen and pelvis without contrast. Coronal 3-D reconstructions. Sagittal 2-D reconstructions. Date and time of exam:October 07, 2024 1011 hours Comparison September 27, 2024 INDICATIONS: History extensive abdominal pelvic lymphadenopathy on CT abdomen pelvis September 27, 2024 CTDI: vol (mGy): 8.50 DLP: (mGycm): 494 Technique: Axial images of the abdomen have been obtained, 3 mm slice thickness Intravenous contrast material has not been administered. Low dose protocols were performed. One or more of the following dose reduction techniques were used; automated exposure control, adjustment of the mA and/or KV according to patient size, use of iterative reconstruction technique. Findings: Pneumoperitoneum, clinical correlation advised No abdominal or pelvic lymphadenopathy No gallstones Mild edema around the head of the pancreas axial image 88 Mild hydronephrosis, again noted extensive abdominal and pelvic lymphadenopathy Postoperative changes anterior abdominal wall Normal appendix Mild free fluid in the pelvis No bowel obstruction No pelvic mass Urinary bladder contracted around a Posey catheter IMPRESSION: Pneumoperitoneum, clinical correlation advised Mild acute pancreatitis Mild hydronephrosis Again noted extensive abdominal and pelvic lymphadenopathy
[2024-10-07 09:18] LABS: Collection Type, Urine Catheter; Squamous Epithelial Cell,Urine 0 /hpf (0-5)
--- NOTE | 2024-10-07 09:20 | PC.SS ---
Follow up note: Pt is possibly new dialysis (not been determined). Pt has bad CHERI. Pt will have dialysis. Pt will return home upon dc.
[2024-10-07 09:26] LABS: HCG Qualitative,Urine Negative
[2024-10-07 09:27] LABS: Bacteria,Urine Rare; Bilirubin,Urine Negative (Negative); Blood,Urine 2+ (Negative); Clarity,Urine Clear (Clear/Hazy); Color,Urine Colorless (Lt Yel-Yel); Glucose, Urine Negative (Negative); Ketones,Urine Trace (Negative); Leukocyte Esterase,Urine Negative (Negative); Nitrite,Urine Negative (Negative); PH,Urine 6.5 (5.0-7.0); Protein,Urine Negative (Neg - Trace); RBC,Urine 92 /hpf (0-3); Specific Gravity,Urine 1.009 (1.001-1.035); Urobilinogen,Urine Negative mg/dL (0.0-1.0); WBC,Urine 5 /hpf (0-5)
[2024-10-07 09:36] LABS: Chloride,Urine Random 29.1 mMol/L (55.0-125.0); Creatinine MALB Rnd Ur 51 mg/dL (30-125); Microalbumin Creat Ratio 10 mg/gCrea (<30); Microalbumin, Random Urine 5 mg/L (0-300); Potassium,Urine Random < 10 mMol/L (12-62); Protein Total, Random Urine 13 mg/dL (1-14); Sodium,Urine Random 58.9 mMol/L (20.0-110.0)
--- NOTE | 2024-10-07 11:51 | ESPR_ITS ---
Documentation for date of: 10/07/24 Subjective Subjective Interval history: Patient evaluated Eating having bowel movements Major problem at the moment is worsening renal function with a BUN of 62 and creatinine of 6.2 CT scan imaging showing mild hydronephrosis May be because of the abdominal and pelvic lymphadenopathy Stenting of the ureters might be of help Patient will be evaluated by the urologist Exam Vital Signs Temp Pulse Resp BP Pulse Ox O2 Del Method O2 Flow Rate 98.2 F 86 15 154/87 H 96 Room Air 5 10/07/24 07:35 10/07/24 07:35 10/07/24 07:35 10/07/24 07:35 10/07/24 07:35 10/07/24 04:00 10/06/24 12:23 FiO2 4 10/01/24 15:55 Objective Labs 10/07/24 04:17 10/07/24 04:17 Labs: Laboratory Results - last 24 hr 10/06/24 10/07/24 10/07/24 05:27 04:17 08:50 WBC 1.4 L RBC 4.51 Hgb 11.6 L Hct 34.3 L MCV 76 L MCH 25.7 MCHC 33.8 RDW Std Deviation 45.8 Plt Count 135 L Neut % (Auto) 30 L Lymph % (Auto) 24 [place] % (Auto) 38 H Eos % (Auto) 0 Baso % (Auto) 1 Neut # (Auto) 0.4 L Lymph # (Auto) 0.3 L [place] # (Auto) 0.5 Eos # (Auto) 0.0 Baso # (Auto) 0.0 Immature Gran # (Auto) 0.10 H Absolute Nucleated RBC 0.00 Immature Gran % 7 H Nucleated RBC % 0 Sodium 139 Potassium 4.3 D Chloride 103 Carbon Dioxide 22.7 Anion Gap 13 BUN 62 H Creatinine 6.2 H* D Estim Creat Clear Calc 10.6 L eGFR 8 L* BUN/Creatinine Ratio 10 L Glucose 125 H Calculated Osmolality 296 H Calcium 8.4 Corrected Calcium 8.6 Phosphorus 6.6 H Magnesium 2.2 Total Bilirubin 0.2 L AST 18 ALT 9 L Alkaline Phosphatase 76 Lactate Dehydrogenase 322 H Total Protein 6.9 Albumin 3.7 Globulin 3.2 Albumin/Globulin Ratio 1.2 Ur Collection Type Catheter Urine Color Colorless A Urine Clarity Clear Urine pH 6.5 Ur Specific [place] 1.009 Urine Protein Negative Urine Glucose (UA) Negative Urine Ketones Trace Urine Blood 2+ A Urine Nitrite Negative Urine Bilirubin Negative Urine Urobilinogen (Auto) Negative Ur Leukocyte Esterase Negative Urine RBC 92 H Urine WBC 5 Ur Squamous Epith Cells 0 Urine Bacteria Rare Ur Random Microalbumin 5 U Random Total Protein 13 Ur Random Sodium 58.9 Ur Random Potassium < 10 L Ur Random Chloride 29.1 L Ur Random Urea Nitrogn 395.0 U Creat (Microalbumin) 51 Microalb/Creat Ratio 10 Urine HCG, Qual Negative Impressions Impression: Obstructive uropathy and worsening renal function Doing very well postoperatively after sigmoid colectomy and primary anastomosis Assessment & Plan A&P Narrative # Hematochezia # Abnormal CT scan of the abdomen pelvis with extensive abdominal and pelvic lymphadenopathy plan Tumor markers CEA level CA 19?9 level CA 15-3 level AFP Ca125 level CT-guided biopsy of the left adenopathy by the IR Clear liquid diet consider colonoscopy once biopsy is done with a GoLytely prep and possible upper endoscopy to make sure the GI tract is clean Thank you very much for the opportunity to participate in care of this patient Time Spent With Patient Time: Total time spent is greater than 50% in coordination of care (as documented) at patient's floor/unit and/or counseling patient:
--- NOTE | 2024-10-07 11:52 | ESPR_ITS ---
Documentation for date of: 10/07/24 Subjective Subjective Brief History: Narrative: Pt is seen and examined. Her pain is improving. She is eating and tolerating diet well and having bowel movements. Exam Vital Signs Temp Pulse Resp BP Pulse Ox O2 Del Method O2 Flow Rate 98.2 F 86 15 154/87 H 96 Room Air 5 10/07/24 07:35 10/07/24 07:35 10/07/24 07:35 10/07/24 07:35 10/07/24 07:35 10/07/24 04:00 10/06/24 12:23 FiO2 4 10/01/24 15:55 Constitutional Constitutional: no acute distress Routine Abdominal Exam Abdominal: Present soft, normoactive bowel sounds and tenderness (minimal estrellita- incisional tenderness. Incision is clean, dry and intact.); Absent distended Assessment & Plan Assessment Additional comments: S/P sigmoid colectomy and portacath placement. She is making urine, but her Cr is going up. Plan Discussed with Dr. Johns who will evaluate the pt for possible bilateral ureteral stent placement. Procedures Procedures Port-A-Cath placement in the left subclavian vein
[2024-10-07 11:57] VITALS: BP 156/88; PULSE 76; RESP 16; TEMP 36.4; O2SAT 98
[2024-10-07 16:00] VITALS: BP 163/92; PULSE 85; RESP 16; TEMP 36.2
[2024-10-07 16:52] LABS: Microalbumin, 24hr Urine 24 mg/L (Unavailable)
--- NOTE | 2024-10-07 16:55 | PD.HHPROG ---
Documentation for date of: 10/07/24 Subjective - Hospitalist Subjective Interval history: At bedside today, patient states she is feeling okay and does not have new complaints. Patient underwent abdomen/pelvic CT shows mild acute pancreatitis and mild hydronephrosis along with extensive abdominal and pelvic lymphadenopathy. We will obtain lipase level for a.m., patient does not have nausea/vomiting or upper abdominal pain. She also underwent nuclear medicine renal scan, shows minimal bilateral renal function. Patient is planned for cystoscopic examination and placement of bilateral ureteral stents by urology. Review of Systems Review of Systems Systems Reviewed: All systems reviewed, normal except as documented Exam Vital Signs Temp Pulse Resp BP Pulse Ox O2 Del Method O2 Flow Rate 98.0 F 89 18 166/101 H 98 Room Air 5 10/07/24 19:49 10/07/24 19:49 10/07/24 19:49 10/07/24 19:49 10/07/24 19:49 10/07/24 19:49 10/06/24 12:23 FiO2 4 10/01/24 15:55 Narrative General: Alert and oriented, comfortable, able to answer questions and follow commands appropriately HEENT: EOMI, PERRLA, no pallor or icterus Cardio: RRR, S1 and S2 heard without murmurs Respiratory: Clear to auscultate bilaterally, no wheeze or crackles Abdomen: Soft, midline abdominal scar without discharge, bowel sounds present MSK: No edema Neuro:Alert and Oriented x 4, moving all her extremities Psych: Appropriate mood and behaviour Objective - Hospitalist Labs Diagram: 10/07/24 04:17 10/07/24 04:17 Labs: Laboratory Results - last 24 hr 10/07/24 10/07/24 10/07/24 04:17 08:50 15:31 WBC 1.4 L RBC 4.51 Hgb 11.6 L Hct 34.3 L MCV 76 L MCH 25.7 MCHC 33.8 RDW Std Deviation 45.8 Plt Count 135 L Neut % (Auto) 30 L Lymph % (Auto) 24 [place] % (Auto) 38 H Eos % (Auto) 0 Baso % (Auto) 1 Neut # (Auto) 0.4 L Lymph # (Auto) 0.3 L [place] # (Auto) 0.5 Eos # (Auto) 0.0 Baso # (Auto) 0.0 Immature Gran # (Auto) 0.10 H Absolute Nucleated RBC 0.00 Immature Gran % 7 H Nucleated RBC % 0 Sodium 139 Potassium 4.3 D Chloride 103 Carbon Dioxide 22.7 Anion Gap 13 BUN 62 H Creatinine 6.2 H* D Estim Creat Clear Calc 10.6 L eGFR 8 L* BUN/Creatinine Ratio 10 L Glucose 125 H Calculated Osmolality 296 H Calcium 8.4 Corrected Calcium 8.6 Phosphorus 6.6 H Magnesium 2.2 Total Bilirubin 0.2 L AST 18 ALT 9 L Alkaline Phosphatase 76 Total Protein 6.9 Albumin 3.7 Globulin 3.2 Albumin/Globulin Ratio 1.2 Ur Collection Type Catheter Urine Color Colorless A Urine Clarity Clear Urine pH 6.5 Ur Specific [place] 1.009 Urine Protein Negative Urine Glucose (UA) Negative Urine Ketones Trace Urine Blood 2+ A Urine Nitrite Negative Urine Bilirubin Negative Urine Urobilinogen (Auto) Negative Ur Leukocyte Esterase Negative Urine RBC 92 H Urine WBC 5 Ur Squamous Epith Cells 0 Urine Bacteria Rare Ur Random Creatinine Cancelled Ur Random Microalbumin 5 U Random Total Protein 13 Ur Random Sodium 58.9 Ur Random Potassium < 10 L Ur Random Chloride 29.1 L Ur Random Urea Nitrogn 395.0 Urine Total Volume 1800 Urine Microalbumin 24 Ur Microalbumin mg/day 43 H Ur Microalbumin mcg/min 30 H U Creat (Microalbumin) 51 Microalb/Creat Ratio 10 Urine HCG, Qual Negative Assessment & Plan Assessment: 44-year-old female with past medical history of kidney stones, hemorrhoids and umbilical hernia repair with Dr. Mcfarland on 05/19/2023 admitted for left flank pain and found to have abdominal lymphadenopathy. #CHERI (acute kidney injury) Prerenal versus renal DDx: Direct compression, ATN, medication side effect, obstruction Patient abdomen/pelvis CT showed extensive lymphadenopathy. Mild hydronephrosis and 5 mm nonobstructing renal calculi Worsening BUN/creatinine, 62/6.2 today Renal ultrasound showed mild bilateral hydronephrosis Nephrology, Dr. Villalobos following. Patient has received dialysis catheter Urology, Dr. Johns following. Patient planned for cystoscopy and stent placement Plan: ? Strict input output charting ? Posey catheter ? Renally dose medication ? Avoid nephrotoxic agents - NM renal flow and function showed minimal bilateral kidney function #Metastatic colon cancer s/p sigmoid colectomy 10/01 #Acute anemia Patient presented with abdominal pain right lower quadrant. CT scan showed multiple retroperitoneal lymphadenopathy and calculi. Mild hydronephrosis noted probably related to the lymph node impingement. Good urine output. Will give IV fluids. Biopsy of the lymph node will be done. Rule out malignancy// inflammatory response. GI was consulted, colonoscopy performed. Patient found to have ulcerated partially obstructing mass in the sigmoid colon, biopsies taken. Concerning for malignancy. These results were discussed with patient and her . General surgery consulted CA 15?3 is negative as well as tumor marker AFP. CEA is positive at 8.8 and CA 19-9 ; 26. Patient denies any known family history of colon cancer. Biopsies showed well differentiated adenocarcinoma, metastatic colon cancer. Patient informed of her diagnosis. Patient received exploratory laporotomy with sigmoid colectomy and right adnexal mass excision. Following day patient had notable drop in hemoglobin. Patient currently on her period, has had a bowel movement which may or may not be bloody. Plan: ? Strict input output charting - Will refer for outpatient chemotherapy with Dr. Wilder Dick 5 every 6 hours as needed for pain ? GI, Dr. Torres consulted. Appreciate recommendations ? General Surgery, Dr Levine following. Appreciate recommendations ? Patient has received Port-A-Cath with general surgery for outpatient chemotherapy #Neutropenia ANC 0.4 Plan: ? 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 Does not report respiratory symptoms. - Fluconazole 400 mg p.o. daily Diet: Soft diet. Lines: pIVs GI Prophylaxis: None Thrombo Prophylaxis: None Code status: FULL CODE Bina Angeles MD Time Spent with Patient Time: Total time spent is greater than 50% in coordination of care (as documented) at patient's floor/unit and/or counseling patient: Time with patient: Greater than 35 minutes Reason for Continued Stay Reason for continued stay: other Quality Measures Quality Measures VTE prophylaxis
[2024-10-07 17:04] LABS: Microalbumin, 24hr U mcg/min 30 mg/L (<20); Microalbumin, 24hr U mg/24 43 mg/24hr (<30); Microalbumin, Urine Volume 1800 mL/24hr (600-1800)
--- NOTE | 2024-10-07 17:54 | PC.NURSE ---
pt completed a 24 hr specimen collection with a total of 1800
--- NOTE | 2024-10-07 19:46 | UCCONSULT_ITS ---
RE: ANUP GARCIA : 1980 DATE OF CONSULTATION: 10/07/2024 CHIEF COMPLAINT: 1. Abdominal pain. 2. History of stone disease in the past. 3. Mild hydronephrosis bilateral. 4. Renal failure. HISTORY OF PRESENT ILLNESS: This is a 44-year-old female. The patient in the past had kidney stones and hemorrhoids. She also has umbilical hernia repair done by Dr. Alvarez on 05/19/2023. She was found to have a cancer of the sigmoid colon with significant lymphadenopathy around the inferior mesenteric vessels and a right adnexal mass She underwent exploratory laparotomy sigmoid colectomy and a low pelvic Coloproctostomy ostomy excision of right adnexal massThe patient had bilateral hydronephrosis on CAT scan and significant periaortic lymphadenopathy. In the emergency room, her WBC is 6.4, hemoglobin is 10.2, and platelet count is 149 and coagulation profile is within normal limits. The patient metastatic sigmoid colon cancer and significant lymphadenopathy with compression of bilateral ureteral obstruction and hydronephrosis. Past medical history, family history, review of the system, personal history, please refer to patient's history form dated 10/07/2024. NARRATIVE REVIEW OF THE SYSTEM: CONSTITUTIONAL. The patient denies any fever or chills. She is complaining of fatigue. CARDIOVASCULAR: The patient denies any chest pain, shortness of breath or swelling of the lower extremities. PULMONARY: Denies any shortness of breath or cough. GASTROINTESTINAL: The patient complains of right lower quadrant abdominal pain and blood in stool off and on. GENITOURINARY: The patient has history of burning in the past. SKIN: Denies any rash. MUSCULOSKELETAL: Denies any musculoskeletal problem of the joint. PSYCHIATRIC: Denies any depression or anxiety. FAMILY HISTORY: Negative for any psychiatric problem in family, respiratory disorder, cardiac disorder, gastrointestinal problems or family history of cancer. SURGICAL HISTORY: Negative endocrine or abdominal history. Negative for nephrectomy, joint replacement or mastectomy. PHYSICAL EXAMINATION: The patient is lying comfortably in the bed. She is not in acute distress. Vital signs are stable. They are in HPI, in EMR. IMPRESSION: 1. Acute renal failure. The patient has indwelling catheter. 2. Bilateral hydronephrosis mild RECOMMENDATIONS: Cystoscopic examination and placement of bilateral ureteral stents under fluoroscopic examination. Procedure and complications were discussed with patient in detail and she is scheduled for the same. DT: 16:36:02 TT: 19:44:00 Ref: [id number] - TID: [id number] MTDD
[2024-10-07 19:49] VITALS: BP 166/101; PULSE 89; RESP 18; TEMP 36.7; O2SAT 98
[2024-10-07] MEDS: DOCUSATE SOD 100 MG CAPSULE PO (20:26)
[2024-10-07] MEDS: ASCORBIC ACID 250 MG TABLET 500 MG PO (20:26)
[2024-10-07] MEDS: CITRIC ACID/SODIUM CITR 15 ML UDC (BICITRA) 30 ML PO (20:26)
[2024-10-08] VITALS: BP 155/92; PULSE 84; RESP 18; TEMP 36.1; O2SAT 98
[2024-10-08 04:00] VITALS: BP 152/84; PULSE 82; RESP 18; TEMP 36.3; O2SAT 98
[2024-10-08 05:22] LABS: Basophils % (Auto) 1 % (0-2.5); Eosinophils # (Auto) 0.1 Thou/mm3 (0.0-0.5); Eosinophils % (Auto) 5 % (0-10); Hematocrit 30.9 % (36.0-46.0); Hemoglobin 10.5 g/dL (12.0-16.0); Immature Granulocytes % (Auto) 1 % (0-0); Immature Granulocytes Auto 0.03 Thou/mm3 (0.00-0.00); Lymphocytes # (Auto) 0.6 Thou/mm3 (1.0-4.8); Lymphocytes % (Auto) 28 % (10-50); Mean Corpuscular Hemoglobin 25.8 pg (25.0-35.0); Mean Corpuscular Volume 76 fL (80-100); Monocytes % (Auto) 47 % (0-12); Neutrophils # (Auto) 0.4 Thou/mm3 (1.8-7.7); Neutrophils % (Auto) 18 % (37-80); Nucleated Red Blood Cell % 0 /100 WBC (0); Platelet Count 144 Thou/mm3 (140-440); Red Blood Count 4.07 Miln/mm3 (4.00-5.20)
[2024-10-08 05:25] LABS: White Blood Count 2.1 Thou/mm3 (3.6-11.0)
[2024-10-08 06:02] LABS: Alanine Aminotransferase 8 U/L (10-49); Albumin, Serum 3.4 gm/dL (3.5-5.0); Albumin/Globulin Ratio 1.2 (1.2-2.2); Alkaline Phosphatase 68 U/L (46-116); Anion Gap 12 (7-16); Aspartate Amino Transferase 19 U/L (0-34); BUN/Creatinine Ratio 11 Ratio (12-20); Bilirubin,Total 0.2 mg/dL (0.3-1.2); Blood Urea Nitrogen 73 mg/dL (9-23); Calcium 8.3 mg/dL (8.3-10.6); Calcium (Corrected) 8.8 mg/dL (8.5-10.1); Carbon Dioxide 21.8 mMol/L (20.0-31.0); Chloride 104 mMol/L (98-107); Creatinine (Component) 6.9 mg/dL (0.6-1.3); Estimated Creatinine Clearance 9.5 mL/min (>60); Globulin 2.9 gm/dL (2.3-3.5); Glucose 94 mg/dL (74-106); Magnesium 2.3 mg/dL (1.6-2.6); Osmolality,Calculated 297 (275-295); Phosphorous 6.8 mg/dL (2.4-5.1); Potassium 4.1 mMol/L (3.4-5.1); Sodium 138 mMol/L (136-145); Total Protein 6.3 gm/dL (5.7-8.2); eGFR 7 See Note
[2024-10-08] MEDS: HYDROcodone/APAP 5/325 TABLET 1 TAB PO ×2 (07:35→15:17)
[2024-10-08 08:00] VITALS: BP 156/94; PULSE 85; RESP 18; TEMP 36.6; O2SAT 98
[2024-10-08 08:47] LABS: Lipase 67 U/L (12-53)
[2024-10-08] MEDS: ASCORBIC ACID 250 MG TABLET 500 MG PO ×2 (08:55→21:58)
[2024-10-08] MEDS: DOCUSATE SOD 100 MG CAPSULE PO ×2 (08:55→21:58)
[2024-10-08] MEDS: CITRIC ACID/SODIUM CITR 15 ML UDC (BICITRA) 30 ML PO ×2 (08:55→21:58)
[2024-10-08] MEDS: FLUCONAZOLE 100 MG TABLET 400 MG PO (08:55)
[2024-10-08] MEDS: ZINC SULFATE 220 MG CAPSULE PO (08:56)
--- NOTE | 2024-10-08 09:41 | PD.RESPRO ---
Documentation for date of: 10/08/24 Subjective Subjective Interval history: Ms. Taveras is a 44 year old female with past medical history significant for kidney stones, hemorrhoids, and an umbilical hernia repair by Dr. Alvarez on 05/19/23 presents to my office last week complaining of left flank pain. Exam showed left CVA tenderness and I requested for a renal ultrasound. Renal ultrasound showed Multiple left renal calculi mild to moderate left hydronephrosis and significant periaortic lymphadenopathy recommended CT with and without contrast. Authorization was submitted to the insurance to get CT. In the interim patient started having significant right lower quadrant abdominal pain since yesterday that she brought herself to the emergency department. In the ED blood pressure 148/79. Heart rate 88. Afebrile. Over the course of hospitalization patient had CT-guided biopsy of lymphadenopathy and eventually had a colonoscopy which showed ulcerated partially obstructing mass in sigmoid colon. Pathology report from lymph node showed well-differentiated adenocarcinoma metastatic colon cancer. General surgery was consulted patient had exploratory laparotomy sigmoid colectomy with low pelvic coloproctostomy and excision of right adnexal mass on 10/01/2024. Patient scheduled for Port-A-Cath placement today 10/06/2024: Patient has worsening of renal function BUN 53, creatinine 5.2, GFR 10. Patient has good urine output as of now made about 1300 cc in the last 24 hours, patient was given IV fluids yesterday, has swelling of face legs. Patient has some obstructive etiology considering has multiple lymph node masses throughout abdomen, urology will be consulted for possible nephrostomy tube placement. Will continue to monitor renal function for now, will hold IV fluids. If patient has worsening renal function and decreased urine output, will consider placing dialysis catheter in a.m. 10/08/2024: Patient seen and examined at bedside, over the course of last 2 days patient's BUN and creatinine have worsened creatinine 6.9, BUN 73, GFR 7 today. Patient's phosphorus 6.8, magnesium 2.3. Patient has underlying ATN, discussed with patient, that she will possibly need dialysis, urine output not being charted, patient does report that she is making good urine. Significant swelling of bilateral lower extremities noted, although patient is stable on room air. Discussed with patient at bedside to start dialysis, temporary dialysis catheter placement discussed with ICU. Patient reports that she wants to discuss with her first and will let the primary team know, both primary team and certified alcohol drug counselor team updated. Exam Vital Signs Temp Pulse Resp BP Pulse Ox O2 Del Method O2 Flow Rate 97.8 F 85 18 156/94 H 98 Room Air 5 10/08/24 08:00 10/08/24 08:00 10/08/24 08:00 10/08/24 08:00 10/08/24 08:00 10/08/24 08:00 10/06/24 12:23 FiO2 4 10/01/24 15:55 Narrative Exam Constitutional Alert, oriented x 3 and comfortable. Young female HEENT Vision grossly intact. Patent nares. Trachea midline Respiratory Chest normal on inspection and clear auscultation bilaterally Cardiovascular S1 and S2 audible, RRR. No murmurs carotid bruit. No gross JVD. Abdominal Soft, mild distention, midline abdominal scar with sam, no oozing. Bowel sounds present Genitourinary No bladder tenderness, no flank pain. Normal to palpation Musculoskeletal Extremities tone within normal limits. No LE edema. Neurological CN II - XII grossly intact. Extremity motor and sensation grossly intact. Skin Warm, dry and intact. No apparent lesions. Psychiatric Patient has good affect, is cooperative Objective Labs 10/10/24 04:30 10/10/24 04:30 Labs: Laboratory Results - last 24 hr 10/07/24 10/08/24 15:31 04:14 WBC 2.1 L D RBC 4.07 Hgb 10.5 L Hct 30.9 L MCV 76 L MCH 25.8 MCHC 34.0 RDW Std Deviation 47.0 H Plt Count 144 Neut % (Auto) 18 L Lymph % (Auto) 28 [place] % (Auto) 47 H Eos % (Auto) 5 Baso % (Auto) 1 Neut # (Auto) 0.4 L Lymph # (Auto) 0.6 L [place] # (Auto) 1.0 H Eos # (Auto) 0.1 Baso # (Auto) 0.0 Immature Gran # (Auto) 0.03 H Absolute Nucleated RBC 0.00 Immature Gran % 1 H Nucleated RBC % 0 Sodium 138 Potassium 4.1 Chloride 104 Carbon Dioxide 21.8 Anion Gap 12 BUN 73 H Creatinine 6.9 H* D Estim Creat Clear Calc 9.5 L eGFR 7 L* BUN/Creatinine Ratio 11 L Glucose 94 Calculated Osmolality 297 H Calcium 8.3 Corrected Calcium 8.8 Phosphorus 6.8 H Magnesium 2.3 Total Bilirubin 0.2 L AST 19 ALT 8 L Alkaline Phosphatase 68 Total Protein 6.3 Albumin 3.4 L Globulin 2.9 Albumin/Globulin Ratio 1.2 Lipase 67 H Ur Random Creatinine Cancelled Urine Total Volume 1800 Urine Microalbumin 24 Ur Microalbumin mg/day 43 H Ur Microalbumin mcg/min 30 H Quality Measures Quality Measures VTE prophylaxis Assessment & Plan Assessment Current Active Medications: Generic Name Dose Route Start Last Admin Trade Name Freq PRN Reason Stop Dose Admin Hydrocodone Bitart/Acetaminophen 1 tab 10/04/24 08:56 10/08/24 07:35 Hydrocodone/Apap 5/325 Tablet PO 10/09/24 08:55 1 tab Q4HR PRN Administration PAIN Ascorbic Acid 500 mg 09/30/24 21:00 10/08/24 08:55 Ascorbic Acid 250 Mg Tablet PO 10/30/24 20:59 500 mg BID IFEOMA Administration Citric Acid/Sodium Citrate 30 ml 10/04/24 09:00 10/08/24 08:55 Citric Acid/Sodium Citr 15 Ml Udc (Bicitra) PO 11/03/24 08:59 30 ml BID IFEOMA Administration Docusate Sodium 100 mg 10/01/24 21:00 10/08/24 08:55 Docusate Sod 100 Mg Capsule PO 10/31/24 20:59 100 mg BID IFEOMA Administration Protocol Fluconazole 400 mg 10/05/24 09:00 10/08/24 08:55 Fluconazole 100 Mg Tablet PO 10/12/24 08:59 400 mg QDAY IFEOMA Administration Sodium Chloride 1,000 mls @ 100 mls/hr 10/05/24 18:20 10/08/24 09:00 Ns IV 11/04/24 18:18 Not Given .Q10H IFEOMA Ondansetron HCl 4 mg 10/01/24 03:44 10/01/24 03:53 Ondansetron Inj 2 Mg/Ml Inj 2 Ml IV 10/31/24 03:43 4 mg Q6HR PRN Administration NAUSEA OR VOMITING Protocol Pharmacy Consult 1 each 10/06/24 10:14 Pharmacy Renal Dose Adjustment 1 Ea XX 11/05/24 10:13 PRN PRN CONSULT Zinc Sulfate 220 mg 09/30/24 11:00 10/08/24 08:56 Zinc Sulfate 220 Mg Capsule PO 10/30/24 10:59 220 mg QDAY IFEOMA Administration Plan 44-year-old female with past medical history of kidney stones, hemorrhoids and umbilical hernia repair with Dr. Mcfarland on 05/19/2023 admitted for left flank pain and found to have abdominal lymphadenopathy. #CHERI (acute kidney injury) Prerenal versus renal DDx: Direct compression, ATN, medication side effect, obstruction Patient abdomen/pelvis CT showed extensive lymphadenopathy. Mild hydronephrosis and 5 mm nonobstructing renal calculi 10/06- BUN 53, CR 5.2. Urine sodium 60.5 Renal ultrasound showed mild bilateral hydronephrosis. Urology saw the patient, per urology patient will benefit from cystoscopic examination and placement of bilateral ureteral stents. Worsening of renal function noted, BUN 73, creatinine 6.9, GFR 7 Recommendations: - Plan for temporary dialysis catheter placement if patient agrees later today - Will schedule for dialysis after temporary dialysis catheter placement ? Strict input output charting ? Posey catheter ? Renally dose medication ? Avoid nephrotoxic agents #Metastatic colon cancer s/p sigmoid colectomy 10/01 #Acute anemia #Neutropenia #Pancytopenia #Coccidiomycosis #Hypochloremic metabolic acidosis, resolved - Management per primary team Case discussed with Attending Dr. Villalobos. Rohith Magdaleno PGY1 Disclaimer: This note was dictated by speech recognition. Minor errors in amf mechanic may be present due to voice recognition software. Attending Provider Attestation/Addendum Pt is seen and examined. Labs and investigations are reviewed. Agree witth assessment and plan by resident. agree with findings. Jeremiah Villalobos MD
--- NOTE | 2024-10-08 10:31 | PD.RESPRO ---
Documentation for date of: 10/08/24 Subjective Subjective Interval history: Patient was seen and examined at bedside this AM. No acute exents overnight. Patient tolerating diet, adequate urine output and mentation is at baseline. Patient complains of pain at the Port-A-Cath site. No urine output charted for the past 24 hours. However patient endorses that she has good urine output and described the color as clear. BUN increased to 73 and CR creased to 6.9. Phosphorus increased to 6.8. Started on sevelamer 800 Mg p.o. 3 times daily with meals Nephrology, Dr. Villalobos following closely. Recommended placement of temporary dialysis catheter for HD tonight or tomorrow. Urology, Dr. Johns following closely. Scheduled patient for cystoscopy and placement of bilateral ureteral stents on 10/10/2024 Exam Vital Signs Temp Pulse Resp BP Pulse Ox O2 Del Method O2 Flow Rate 97.8 F 85 18 156/94 H 98 Room Air 5 10/08/24 08:00 10/08/24 08:00 10/08/24 08:00 10/08/24 08:00 10/08/24 08:00 10/08/24 08:00 10/06/24 12:23 FiO2 4 10/01/24 15:55 Narrative Exam Constitutional Alert, oriented x 3 and comfortable. Young female HEENT Vision grossly intact. Patent nares. Trachea midline Respiratory Port-A-Cath noted left chest wall. clear auscultation bilaterally Cardiovascular S1 and S2 audible, RRR. No murmurs carotid bruit. No gross JVD. Abdominal Soft, mild distention, midline abdominal scar with sam, no oozing. Bowel sounds present Genitourinary No bladder tenderness, no flank pain. Normal to palpation Musculoskeletal Extremities tone within normal limits. No LE edema. Neurological CN II - XII grossly intact. Extremity motor and sensation grossly intact. Skin Warm, dry and intact. No apparent lesions. Psychiatric Patient has good affect, is cooperative Objective Labs 10/08/24 04:14 10/08/24 04:14 Labs: Laboratory Results - last 24 hr 10/07/24 10/08/24 15:31 04:14 WBC 2.1 L D RBC 4.07 Hgb 10.5 L Hct 30.9 L MCV 76 L MCH 25.8 MCHC 34.0 RDW Std Deviation 47.0 H Plt Count 144 Neut % (Auto) 18 L Lymph % (Auto) 28 [place] % (Auto) 47 H Eos % (Auto) 5 Baso % (Auto) 1 Neut # (Auto) 0.4 L Lymph # (Auto) 0.6 L [place] # (Auto) 1.0 H Eos # (Auto) 0.1 Baso # (Auto) 0.0 Immature Gran # (Auto) 0.03 H Absolute Nucleated RBC 0.00 Immature Gran % 1 H Nucleated RBC % 0 Sodium 138 Potassium 4.1 Chloride 104 Carbon Dioxide 21.8 Anion Gap 12 BUN 73 H Creatinine 6.9 H* D Estim Creat Clear Calc 9.5 L eGFR 7 L* BUN/Creatinine Ratio 11 L Glucose 94 Calculated Osmolality 297 H Calcium 8.3 Corrected Calcium 8.8 Phosphorus 6.8 H Magnesium 2.3 Total Bilirubin 0.2 L AST 19 ALT 8 L Alkaline Phosphatase 68 Total Protein 6.3 Albumin 3.4 L Globulin 2.9 Albumin/Globulin Ratio 1.2 Lipase 67 H Ur Random Creatinine Cancelled Urine Total Volume 1800 Urine Microalbumin 24 Ur Microalbumin mg/day 43 H Ur Microalbumin mcg/min 30 H Quality Measures Quality Measures VTE prophylaxis Assessment & Plan Assessment Current Active Medications: Generic Name Dose Route Start Last Admin Trade Name Freq PRN Reason Stop Dose Admin Hydrocodone Bitart/Acetaminophen 1 tab 10/04/24 08:56 10/08/24 07:35 Hydrocodone/Apap 5/325 Tablet PO 10/09/24 08:55 1 tab Q4HR PRN Administration PAIN Ascorbic Acid 500 mg 09/30/24 21:00 10/08/24 08:55 Ascorbic Acid 250 Mg Tablet PO 10/30/24 20:59 500 mg BID IFEOMA Administration Citric Acid/Sodium Citrate 30 ml 10/04/24 09:00 10/08/24 08:55 Citric Acid/Sodium Citr 15 Ml Udc (Bicitra) PO 11/03/24 08:59 30 ml BID IFEOMA Administration Docusate Sodium 100 mg 10/01/24 21:00 10/08/24 08:55 Docusate Sod 100 Mg Capsule PO 10/31/24 20:59 100 mg BID IFEOMA Administration Protocol Fluconazole 400 mg 10/05/24 09:00 10/08/24 08:55 Fluconazole 100 Mg Tablet PO 10/12/24 08:59 400 mg QDAY IFEOMA Administration Sodium Chloride 1,000 mls @ 100 mls/hr 10/05/24 18:20 10/08/24 09:00 Ns IV 11/04/24 18:18 Not Given .Q10H IFEOMA Ondansetron HCl 4 mg 10/01/24 03:44 10/01/24 03:53 Ondansetron Inj 2 Mg/Ml Inj 2 Ml IV 10/31/24 03:43 4 mg Q6HR PRN Administration NAUSEA OR VOMITING Protocol Pharmacy Consult 1 each 10/06/24 10:14 Pharmacy Renal Dose Adjustment 1 Ea XX 11/05/24 10:13 PRN PRN CONSULT Sevelamer Carbonate 800 mg 10/08/24 12:00 Sevelamer Carbonate 800 Mg Tablet PO 11/07/24 11:59 TIDWM IFEOMA Zinc Sulfate 220 mg 09/30/24 11:00 10/08/24 08:56 Zinc Sulfate 220 Mg Capsule PO 10/30/24 10:59 220 mg QDAY IFEOMA Administration Plan 44-year-old female with past medical history of kidney stones, hemorrhoids and umbilical hernia repair with Dr. Mcfarland on 05/19/2023 admitted for left flank pain and found to have abdominal lymphadenopathy. #CHERI (acute kidney injury) Prerenal versus renal DDx: Direct compression, ATN, medication side effect, obstruction Patient abdomen/pelvis CT showed extensive lymphadenopathy. Mild hydronephrosis and 5 mm nonobstructing renal calculi Renal ultrasound showed mild bilateral hydronephrosis Nuclear medicine renal scan showed left kidney 15% function right kidney 10% renal function. No urine output charted for the past 24 hours. However patient endorses that she has good urine output and described the color as clear. BUN increased to 73 and CR creased to 6.9. Phosphorus increased to 6.8. Started on sevelamer 800 Mg p.o. 3 times daily with meals Plan: ? Strict input output charting ? Posey catheter ? Renally dose medication ? Avoid nephrotoxic agents - Placement of temporary left IJ catheter was unsuccessful today. Will defer until tomorrow as per patient's wishes ? Nephrology, Dr. Villalobos following closely. Recommended placement of temporary dialysis catheter for HD tonight or tomorrow. - Urology, Dr. Johns following closely. Scheduled patient for cystoscopy and placement of bilateral ureteral stents on 10/10/2024 #Metastatic colon cancer s/p sigmoid colectomy 10/01 #Acute anemia Patient presented with abdominal pain right lower quadrant. CT scan showed multiple retroperitoneal lymphadenopathy and calculi. Mild hydronephrosis noted probably related to the lymph node impingement. Good urine output. Will give IV fluids. Biopsy of the lymph node will be done. Rule out malignancy// inflammatory response. GI was consulted, colonoscopy performed. Patient found to have ulcerated partially obstructing mass in the sigmoid colon, biopsies taken. Concerning for malignancy. These results were discussed with patient and her . General surgery consulted CA 15?3 is negative as well as tumor marker AFP. CEA is positive at 8.8 and CA 19-9 ; 26. Patient denies any known family history of colon cancer. Biopsies showed well differentiated adenocarcinoma, metastatic colon cancer. Patient informed of her diagnosis. Patient received exploratory laporotomy with sigmoid colectomy and right adnexal mass excision. Following day patient had notable drop in hemoglobin. Patient currently on her period, has had a bowel movement which may or may not be bloody. Plan: ? Strict input output charting - Will refer for outpatient chemotherapy with Dr. Wilder Dick 5 every 6 hours as needed for pain ? GI, Dr. Torres consulted. Appreciate recommendations ? General Surgery, Dr Levine following. Appreciate recommendations ? Patient has received Port-A-Cath with general surgery for outpatient chemotherapy #Neutropenia ANC 0.4 Plan: ? 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 Does not report respiratory symptoms. - Fluconazole 400 mg p.o. daily Diet: Soft diet. Lines: pIVs GI Prophylaxis: None Thrombo Prophylaxis: None Code status: FULL CODE Plan of care discussed with Attending Dr. Bridgette Cruz MD PGY 1 Disclaimer: This note was dictated by speech recognition. Minor errors in sales store checker may be present due to voice recognition software. Attending Provider Attestation/Addendum I attest that I was physically present for the evaluation, physical examination, lab and imaging review of the patient with the residents. I discussed the case with the residents and agree with the findings and plans of care as documented above. Bina Angeles MD
[2024-10-08] MEDS: SEVELAMER CARBONATE 800 MG TABLET PO ×2 (11:13→17:47)
[2024-10-08] MEDS: TUBERCULIN PPD INJ 5 UNIT/0.1 ML DOSE ID (11:14)
[2024-10-08 12:00] VITALS: BP 152/98; PULSE 83; RESP 18; TEMP 36.4; O2SAT 92
--- NOTE | 2024-10-08 15:30 | PD.RESPROC ---
Procedures Procedure Date / Time 10/08/24 15:30 Procedure Narrative Procedure Narrative: Central Venous Catheter for Dialysis Time 3:30 PM Time out completed to verify correct patient, procedure, site, and equipment. Patient was placed supine in reverse [place]. US sound used to locate right internal jugular vein. Area sterilized and draped. Lidocaine used to anesthetize surrounding area. Introducer needles inserted into vein and negative pressure applied until venous return with good blood flow noted. Needle angle dropped parallel to jugular vein. Guidewire introduced. Guidewire met resistance. Using ultrasound, guidewire noted to be in correct location. Repeated two more additional times with successful introducer needle at site but resistance against guidewire once again noted. Patient declined procedure and appeared anxious despite receiving oral pain medication prior to procedure. Consider femoral venous site tomorrow. Minimal blood loss. - The patient's plan was discussed with attending Dr. Shahid King MD PGY1 Internal Medicine Attending Attestation: I was not present at the time of the procedure. Unable to adequately advance the guidewire and appropriately aborted. No immediate complications. Patient will undergo attempt in AM potentially for femoral line placement. Follow up chest xray to ensure no post procedure PTX. Central Line Placement Right IJ: Indication(s): other (Acute Kidney Injury ) Informed consent obtained: from patient Time out done, and the following verified: correct patient, side and site, procedure and patient position Patient placed on monitor/pulse ox: Yes Hand Hygiene: scrub, soap & water and alcohol-based hand rub Max Sterile Barrier Techniques used: cap, mask, sterile gown, sterile gloves and sterile full body drape Central line prep: Povidone-Iodine 1% Local anesthesia used: lidocaine 1% Ultrasound used for placement: Yes Sterile Technique if Ultrasound used, including sterile gel: yes Central line lumen inserted: single Patient tolerated procedure: other (Patient decided to stop procedure and did not want to continue ) Complications: none
--- NOTE | 2024-10-08 15:57 | PD.IMPROG ---
Documentation for date of: 10/08/24 Subjective Subjective Interval history: Worsening renal function he is a major concern with a creatinine jumping up to 6.9 and BUN 73 She most likely has obstructive uropathy Awaiting urology consultation for possible stenting Exam Vital Signs Temp Pulse Resp BP Pulse Ox O2 Del Method O2 Flow Rate 97.6 F 83 18 152/98 H 92 L Room Air 5 10/08/24 12:00 10/08/24 12:00 10/08/24 12:00 10/08/24 12:00 10/08/24 12:00 10/08/24 12:00 10/06/24 12:23 FiO2 4 10/01/24 15:55 Objective Labs 10/08/24 04:14 10/08/24 04:14 Labs: Laboratory Results - last 24 hr 10/07/24 10/08/24 15:31 04:14 WBC 2.1 L D RBC 4.07 Hgb 10.5 L Hct 30.9 L MCV 76 L MCH 25.8 MCHC 34.0 RDW Std Deviation 47.0 H Plt Count 144 Neut % (Auto) 18 L Lymph % (Auto) 28 [place] % (Auto) 47 H Eos % (Auto) 5 Baso % (Auto) 1 Neut # (Auto) 0.4 L Lymph # (Auto) 0.6 L [place] # (Auto) 1.0 H Eos # (Auto) 0.1 Baso # (Auto) 0.0 Immature Gran # (Auto) 0.03 H Absolute Nucleated RBC 0.00 Immature Gran % 1 H Nucleated RBC % 0 Sodium 138 Potassium 4.1 Chloride 104 Carbon Dioxide 21.8 Anion Gap 12 BUN 73 H Creatinine 6.9 H* D Estim Creat Clear Calc 9.5 L eGFR 7 L* BUN/Creatinine Ratio 11 L Glucose 94 Calculated Osmolality 297 H Calcium 8.3 Corrected Calcium 8.8 Phosphorus 6.8 H Magnesium 2.3 Total Bilirubin 0.2 L AST 19 ALT 8 L Alkaline Phosphatase 68 Total Protein 6.3 Albumin 3.4 L Globulin 2.9 Albumin/Globulin Ratio 1.2 Lipase 67 H Ur Random Creatinine Cancelled Urine Total Volume 1800 Urine Microalbumin 24 Ur Microalbumin mg/day 43 H Ur Microalbumin mcg/min 30 H Impressions Impression: Obstructive uropathy Bowel differential adenocarcinoma status post sigmoid resection patient has metastatic disease Continue current management Assessment & Plan A&P Narrative # [place]emat[place]zia # Abnormal CT scan of the abdomen pelvis with extensive abdominal and pelvic lymphadenopathy plan Tumor markers CEA level CA 19?9 level CA 15-3 level AFP Ca125 level CT-guided biopsy of the left adenopathy by the IR Clear liquid diet consider colonoscopy once biopsy is done with a GoLytely prep and possible upper endoscopy to make sure the GI tract is clean Thank you very much for the opportunity to participate in care of this patient Time Spent With Patient Time: Total time spent is greater than 50% in coordination of care (as documented) at patient's floor/unit and/or counseling patient:
[2024-10-08 16:00] VITALS: BP 174/94; PULSE 79; RESP 18; TEMP 36.6; O2SAT 98
[2024-10-08 20:00] VITALS: BP 167/90; PULSE 88; RESP 18; TEMP 37; O2SAT 99
--- NOTE | 2024-10-08 21:02 | XR_ITS ---
Examination: AP chest single view TECHNIQUE: AP portable upright chest single view Date and time: October 08, [id number] hours Comparison October 06, 2024 INDICATIONS: Post dialysis catheter placement FINDINGS: Left subclavian Port-A-Cath tip SVC No pneumothorax Normal heart size Osseous structures are intact IMPRESSION: Left subclavian Port-A-Cath tip satisfactory position, no pneumothorax
[2024-10-09] VITALS (7 sets, daily range): BP systolic 150–168; BP diastolic 87–104; PULSE 94–105; RESP 16–18; TEMP 36.4–37.2; O2SAT 94–98
[2024-10-09 07:49] LABS: Basophils % (Auto) 1 % (0-2.5); Eosinophils # (Auto) 0.1 Thou/mm3 (0.0-0.5); Eosinophils % (Auto) 4 % (0-10); Hematocrit 33.1 % (36.0-46.0); Hemoglobin 11.1 g/dL (12.0-16.0); Immature Granulocytes % (Auto) 1 % (0-0); Immature Granulocytes Auto 0.02 Thou/mm3 (0.00-0.00); Lymphocytes # (Auto) 0.4 Thou/mm3 (1.0-4.8); Lymphocytes % (Auto) 30 % (10-50); Mean Corpuscular HGB Conc 33.5 g/dl (31.0-37.0); Mean Corpuscular Hemoglobin 25.7 pg (25.0-35.0); Mean Corpuscular Volume 77 fL (80-100); Monocytes # (Auto) 0.5 Thou/mm3 (0.0-0.8); Monocytes % (Auto) 33 % (0-12); Neutrophils # (Auto) 0.4 Thou/mm3 (1.8-7.7); Neutrophils % (Auto) 30 % (37-80); Nucleated Red Blood Cell % 0 /100 WBC (0); Platelet Count 148 Thou/mm3 (140-440); RDW Standard Deviation 46.9 fL (36.4-46.3); Red Blood Count 4.32 Miln/mm3 (4.00-5.20)
[2024-10-09 07:54] LABS: Alanine Aminotransferase < 7 U/L (10-49); Albumin, Serum 3.6 gm/dL (3.5-5.0); Albumin/Globulin Ratio 1.2 (1.2-2.2); Alkaline Phosphatase 69 U/L (46-116); Anion Gap 11 (7-16); Aspartate Amino Transferase 15 U/L (0-34); BUN/Creatinine Ratio 12 Ratio (12-20); Bilirubin,Total 0.3 mg/dL (0.3-1.2); Blood Urea Nitrogen 91 mg/dL (9-23); Calcium 8.3 mg/dL (8.3-10.6); Calcium (Corrected) 8.6 mg/dL (8.5-10.1); Carbon Dioxide 23.2 mMol/L (20.0-31.0); Chloride 99 mMol/L (98-107); Creatinine (Component) 7.7 mg/dL (0.6-1.3); Estimated Creatinine Clearance 8.5 mL/min (>60); Glucose 97 mg/dL (74-106); Magnesium 2.1 mg/dL (1.6-2.6); Osmolality,Calculated 294 (275-295); Phosphorous 7.4 mg/dL (2.4-5.1); Potassium 4.4 mMol/L (3.4-5.1); Sodium 133 mMol/L (136-145); Total Protein 6.6 gm/dL (5.7-8.2); White Blood Count 1.4 Thou/mm3 (3.6-11.0); eGFR 6 See Note
[2024-10-09] MEDS: SEVELAMER CARBONATE 800 MG TABLET PO (08:32)
[2024-10-09] MEDS: CITRIC ACID/SODIUM CITR 15 ML UDC (BICITRA) 30 ML PO (08:32)
[2024-10-09] MEDS: FLUCONAZOLE 100 MG TABLET 400 MG PO (08:32)
[2024-10-09] MEDS: ASCORBIC ACID 250 MG TABLET 500 MG PO ×2 (08:32→20:18)
[2024-10-09] MEDS: ZINC SULFATE 220 MG CAPSULE PO (08:32)
[2024-10-09] MEDS: DOCUSATE SOD 100 MG CAPSULE PO (08:33)
[2024-10-09 10:30] LABS: HIV (1&2) Antibody Rapid Non-Reactive
[2024-10-09] MEDS: FILGRASTIM 300 MCG/ML SC (11:48)
[2024-10-09] MEDS: METOPROLOL SUCCINATE XL 25 MG TABCR 50 MG PO (11:48)
[2024-10-09] MEDS: POLYETHYLENE GLYCOL 17 GM PACKET PO (11:48)
[2024-10-09] MEDS: SEVELAMER CARBONATE 800 MG TABLET 1600 MG PO ×2 (11:48→17:55)
--- NOTE | 2024-10-09 12:06 | PD.RESPRO ---
Documentation for date of: 10/09/24 Subjective Subjective Interval history: Ms. Taveras is a 44 year old female with past medical history significant for kidney stones, hemorrhoids, and an umbilical hernia repair by Dr. Alvarez on 05/19/23 presents to my office last week complaining of left flank pain. Exam showed left CVA tenderness and I requested for a renal ultrasound. Renal ultrasound showed Multiple left renal calculi mild to moderate left hydronephrosis and significant periaortic lymphadenopathy recommended CT with and without contrast. Authorization was submitted to the insurance to get CT. In the interim patient started having significant right lower quadrant abdominal pain since yesterday that she brought herself to the emergency department. In the ED blood pressure 148/79. Heart rate 88. Afebrile. Over the course of hospitalization patient had CT-guided biopsy of lymphadenopathy and eventually had a colonoscopy which showed ulcerated partially obstructing mass in sigmoid colon. Pathology report from lymph node showed well-differentiated adenocarcinoma metastatic colon cancer. General surgery was consulted patient had exploratory laparotomy sigmoid colectomy with low pelvic coloproctostomy and excision of right adnexal mass on 10/01/2024. Patient scheduled for Port-A-Cath placement today 10/06/2024: Patient has worsening of renal function BUN 53, creatinine 5.2, GFR 10. Patient has good urine output as of now made about 1300 cc in the last 24 hours, patient was given IV fluids yesterday, has swelling of face legs. Patient has some obstructive etiology considering has multiple lymph node masses throughout abdomen, urology will be consulted for possible nephrostomy tube placement. Will continue to monitor renal function for now, will hold IV fluids. If patient has worsening renal function and decreased urine output, will consider placing dialysis catheter in a.m. 10/08/2024: Patient seen and examined at bedside, over the course of last 2 days patient's BUN and creatinine have worsened creatinine 6.9, BUN 73, GFR 7 today. Patient's phosphorus 6.8, magnesium 2.3. Patient has underlying ATN, discussed with patient, that she will possibly need dialysis, urine output not being charted, patient does report that she is making good urine. Significant swelling of bilateral lower extremities noted, although patient is stable on room air. Discussed with patient at bedside to start dialysis, temporary dialysis catheter placement discussed with ICU. Patient reports that she wants to discuss with her first and will let the primary team know, both primary team and electronic intelligence officer team updated. 10/09/2024: Patient seen examined at bedside, comfortable. Denies fever, chills, chest pain, nausea, vomiting. Endorses constipation (last bowel movement 10/07), minimal abdominal pain with eating. Strong suspicion of ATN in the setting of recent major surgery. Patient continues to make good urine, will follow urine output, hold off on dialysis at this time. Plan for cystoscopy with bilateral stent placement tomorrow. Fluconazole held due to confirmatory IgG testing being negative. Filgrastim x 1 given. Exam Vital Signs Temp Pulse Resp BP Pulse Ox O2 Del Method O2 Flow Rate 97.8 F 97 16 160/104 H 94 L Room Air 5 10/09/24 08:00 10/09/24 11:48 10/09/24 08:00 10/09/24 11:48 10/09/24 08:00 10/09/24 08:00 10/06/24 12:23 FiO2 4 10/01/24 15:55 Narrative Exam Constitutional: Well nourished and in no acute distress CVS: RRR, S1 and S2 present, no murmurs, rubs or gallops . RESP: CTAB, no SOB, no rales, rhonchi or wheezing. No respiratory Distress GI: Hypoactive bowel sounds, nondistended, nontender. Midline laparotomy scar, clean, dry, intact. MSK: Full range of motion, No trauma or deformities or masses. 2+ pitting edema BLE. Skin: Warm to touch, Dry. No rashes or lesions. No hematomas Neuro: hadoop analyst II-XII grossly intact. Sensation grossly intact. Psych: (AAO) x3 . Appropriate mood and affect. Objective Labs 10/09/24 06:35 10/09/24 06:35 Labs: Laboratory Results - last 24 hr 10/09/24 06:35 WBC 1.4 L RBC 4.32 Hgb 11.1 L Hct 33.1 L MCV 77 L MCH 25.7 MCHC 33.5 RDW Std Deviation 46.9 H Plt Count 148 Neut % (Auto) 30 L Lymph % (Auto) 30 [place] % (Auto) 33 H Eos % (Auto) 4 Baso % (Auto) 1 Neut # (Auto) 0.4 L Lymph # (Auto) 0.4 L [place] # (Auto) 0.5 Eos # (Auto) 0.1 Baso # (Auto) 0.0 Immature Gran # (Auto) 0.02 H Absolute Nucleated RBC 0.00 Immature Gran % 1 H Nucleated RBC % 0 Sodium 133 L Potassium 4.4 Chloride 99 Carbon Dioxide 23.2 Anion Gap 11 BUN 91 H Creatinine 7.7 H* D Estim Creat Clear Calc 8.5 L eGFR 6 L* BUN/Creatinine Ratio 12 Glucose 97 Calculated Osmolality 294 Calcium 8.3 Corrected Calcium 8.6 Phosphorus 7.4 H Magnesium 2.1 Total Bilirubin 0.3 AST 15 ALT < 7 L Alkaline Phosphatase 69 Total Protein 6.6 Albumin 3.6 Globulin 3.0 Albumin/Globulin Ratio 1.2 HIV 1&2 Antibody Rapid Non-Reactive Quality Measures Quality Measures VTE prophylaxis Assessment & Plan Assessment Current Active Medications: Generic Name Dose Route Start Last Admin Trade Name Freq PRN Reason Stop Dose Admin Acetaminophen 650 mg 10/09/24 11:11 Acetaminophen 325 Mg Tablet PO 11/08/24 11:10 Q6HR PRN Fever >101, pain Ascorbic Acid 500 mg 09/30/24 21:00 10/09/24 08:32 Ascorbic Acid 250 Mg Tablet PO 10/30/24 20:59 500 mg BID IFEOMA Administration Bisacodyl 10 mg 10/09/24 11:09 Bisacodyl 10 Mg Supp OR 11/08/24 11:08 QDAY PRN CONSTIPATION Protocol Citric Acid/Sodium Citrate 30 ml 10/10/24 09:00 Citric Acid/Sodium Citr 15 Ml Udc (Bicitra) PO 11/09/24 08:59 DAILY IFEOMA Metoprolol Succinate 50 mg 10/09/24 11:15 10/09/24 11:48 Metoprolol Succinate Xl 25 Mg Tabcr PO 11/08/24 11:14 50 mg QDAY IFEOMA Administration Ondansetron HCl 4 mg 10/01/24 03:44 10/01/24 03:53 Ondansetron Inj 2 Mg/Ml Inj 2 Ml IV 10/31/24 03:43 4 mg Q6HR PRN Administration NAUSEA OR VOMITING Protocol Pharmacy Consult 1 each 10/06/24 10:14 Pharmacy Renal Dose Adjustment 1 Ea XX 11/05/24 10:13 PRN PRN CONSULT Polyethylene Glycol 17 gm 10/09/24 11:15 10/09/24 11:48 Polyethylene Glycol 17 Gm Packet PO 11/08/24 11:14 17 gm QDAY IFEOMA Administration Sevelamer Carbonate 1,600 mg 10/09/24 12:00 10/09/24 11:48 Sevelamer Carbonate 800 Mg Tablet PO 11/08/24 11:59 1,600 mg TIDWM IFEOMA Administration Zinc Sulfate 220 mg 09/30/24 11:00 10/09/24 08:32 Zinc Sulfate 220 Mg Capsule PO 10/30/24 10:59 220 mg QDAY IFEOMA Administration Plan 44-year-old female with past medical history of kidney stones, hemorrhoids and umbilical hernia repair with Dr. Mcfarland on 05/19/2023 admitted for left flank pain and found to have abdominal lymphadenopathy. #CHERI (acute kidney injury) Prerenal versus renal DDx: Direct compression, ATN, medication side effect, obstruction Patient abdomen/pelvis CT showed extensive lymphadenopathy. Mild hydronephrosis and 5 mm nonobstructing renal calculi Renal ultrasound showed mild bilateral hydronephrosis Nuclear medicine renal scan showed left kidney 15% function right kidney 10% renal function. No urine output charted for the past 24 hours. However patient endorses that she has good urine output and described the color as clear. BUN increased to 73 and CR creased to 6.9. Phosphorus increased to 6.8. Started on sevelamer 800 Mg p.o. 3 times daily with meals Urology Dr Johns consulted, plan for cystoscopy with bilateral ureteral stent placement tomorrow. - Strict input output charting - Renally dose medication - Avoid nephrotoxic agents - Placement of temporary left IJ catheter was unsuccessful. Continue to monitor, holding off on dialysis at this time. - Urology, Dr. Johns following closely. Scheduled patient for cystoscopy and placement of bilateral ureteral stents on 10/10/2024 #Metastatic colon cancer s/p sigmoid colectomy 10/01 #Acute anemia Patient presented with abdominal pain right lower quadrant. CT scan showed multiple retroperitoneal lymphadenopathy and calculi. Mild hydronephrosis noted probably related to the lymph node impingement. Good urine output. Will give IV fluids. Biopsy of the lymph node will be done. Rule out malignancy// inflammatory response. GI was consulted, colonoscopy performed. Patient found to have ulcerated partially obstructing mass in the sigmoid colon, biopsies taken. Concerning for malignancy. These results were discussed with patient and her . General surgery consulted CA 15?3 is negative as well as tumor marker AFP. CEA is positive at 8.8 and CA 19-9 ; 26. Patient denies any known family history of colon cancer. Biopsies showed well differentiated adenocarcinoma, metastatic colon cancer. Patient informed of her diagnosis. Patient received exploratory laporotomy with sigmoid colectomy and right adnexal mass excision. Following day patient had notable drop in hemoglobin. Patient currently on her period, has had a bowel movement which may or may not be bloody. ? Strict input output charting - Will refer for outpatient chemotherapy with Dr. Hdz ? GI, Dr. Torres consulted. Appreciate recommendations ? General Surgery, Dr Levine following. Appreciate recommendations ? Patient has received Port-A-Cath with general surgery for outpatient chemotherapy #Constipation Patient reports constipation, with mild abdominal discomfort. Last bowel movement 10/07 prior to Port-A-Cath placement. - MiraLAX - Dulcolax suppository #Neutropenia ANC 0.4. Possible suppression due to fluconazole. - Place reverse isolation precautions - Filgastrim x 1 given - Hold fluconazole as below #Coccidiomycosis, ruled out Patient has positive cocci IgM test x 2. Does not report respiratory symptoms. Confirmatory IgG testing negative. - Fluconazole has been stopped Diet: Soft diet. Lines: PIVs, Port-A-Cath GI Prophylaxis: None Thrombo Prophylaxis: None Code status: FULL CODE Plan of care discussed with attending Dr. Collado. Alex Patel MD PGY?1 Attending Provider Attestation/Addendum Patient currently seen and examined with resident physician Dr. Patel. Note reviewed, agree with findings and recommendations. Patient currently seen in medical floor. She seems to be sad with all the procedures she has to go through. Acute renal failure-most likely related to ATN versus obstructive uropathy from underlying lymphadenopathy. Despite BUN/creatinine significantly elevated patient continues to make good urine. Hold off on dialysis. Renal scan consistent with ATN and hopefully will have renal recovery. Yesterday team tried for Vas-Cath placement and were unsuccessful. Patient wants to hold off for now on dialysis catheter. Currently on binders for hyperphosphatemia. Hep panel, PPD negative. Spoke to Dr. Johns-will place him ureteral stents tomorrow. Will keep her n.p.o. Will decide on dialysis in the next 1 to 2 days if needed. [facility] confirmation for cocci came back negative. Will DC fluconazole Patient continues to have leukopenia. Not quite sure if it is related to medication versus underlying malignancy. She needs outpatient hematology follow-up once discharged. Discontinue fluconazole. 1 dose of Neupogen given today. Left message for Dr. Hdz. On reverse isolation. Patient with metastatic colon cancer-s/p left Port-A-Cath by Dr. Levine. Also had partial colectomy. Still having significant constipation-discontinue Colace and instead give Dulcolax suppository and MiraLAX. Suggested to ambulate. Give Tylenol for pain. Time spent today more than 40 minutes regarding plan of care and disease management. Patient admits to depression although did not want any medications. Noted blood pressure significantly elevated with tachycardia-add metoprolol.
--- NOTE | 2024-10-09 13:37 | ESPR_ITS ---
Documentation for date of: 10/09/24 Subjective Subjective Interval history: Major issue at the moment is elevated creatinine and renal function Dialysis on hold Cystoscopy with possible stenting tomorrow Patient continues to make good urinary output Exam Vital Signs Temp Pulse Resp BP Pulse Ox O2 Del Method O2 Flow Rate 98.2 F 97 18 160/104 H 95 Room Air 5 10/09/24 12:00 10/09/24 12:00 10/09/24 12:00 10/09/24 12:00 10/09/24 12:00 10/09/24 12:00 10/06/24 12:23 FiO2 4 10/01/24 15:55 Objective Labs 10/09/24 06:35 10/09/24 06:35 Labs: Laboratory Results - last 24 hr 10/09/24 06:35 WBC 1.4 L RBC 4.32 Hgb 11.1 L Hct 33.1 L MCV 77 L MCH 25.7 MCHC 33.5 RDW Std Deviation 46.9 H Plt Count 148 Neut % (Auto) 30 L Lymph % (Auto) 30 [place] % (Auto) 33 H Eos % (Auto) 4 Baso % (Auto) 1 Neut # (Auto) 0.4 L Lymph # (Auto) 0.4 L [place] # (Auto) 0.5 Eos # (Auto) 0.1 Baso # (Auto) 0.0 Immature Gran # (Auto) 0.02 H Absolute Nucleated RBC 0.00 Immature Gran % 1 H Nucleated RBC % 0 Sodium 133 L Potassium 4.4 Chloride 99 Carbon Dioxide 23.2 Anion Gap 11 BUN 91 H Creatinine 7.7 H* D Estim Creat Clear Calc 8.5 L eGFR 6 L* BUN/Creatinine Ratio 12 Glucose 97 Calculated Osmolality 294 Calcium 8.3 Corrected Calcium 8.6 Phosphorus 7.4 H Magnesium 2.1 Total Bilirubin 0.3 AST 15 ALT < 7 L Alkaline Phosphatase 69 Total Protein 6.6 Albumin 3.6 Globulin 3.0 Albumin/Globulin Ratio 1.2 HIV 1&2 Antibody Rapid Non-Reactive Impressions Impression: Deteriorating renal function urology on board Status post sigmoid colectomy primary anastomosis for well-differentiated adenocarcinoma of the colon with regional spread Continue current management Assessment & Plan A&P Narrative # Hematochezia # Abnormal CT scan of the abdomen pelvis with extensive abdominal and pelvic lymphadenopathy plan Tumor markers CEA level CA 19?9 level CA 15-3 level AFP Ca125 level CT-guided biopsy of the left adenopathy by the IR Clear liquid diet consider colonoscopy once biopsy is done with a GoLytely prep and possible upper endoscopy to make sure the GI tract is clean Thank you very much for the opportunity to participate in care of this patient Time Spent With Patient Time: Total time spent is greater than 50% in coordination of care (as documented) at patient's floor/unit and/or counseling patient:
[2024-10-09 13:38] LABS: Uric Acid 12.3 mg/dL (3.1-7.8)
[2024-10-09 20:26] LABS: Hepatitis B Surface Antigen Non Reactive (Non React)
[2024-10-09 21:09] LABS: Hepatitis A Antibody IgM Non Reactive (Non React); Hepatitis B Core Antibody IgM Non Reactive (Non React); Hepatitis B Surface Ab Reactive (Immune) (Immune); Hepatitis B Surface Antigen Non Reactive (Non React); Hepatitis C Antibody Non Reactive (Non React)
[2024-10-09 21:10] LABS: Hepatitis A Antibody IgM Non Reactive (Non React); Hepatitis B Core Antibody IgM Non Reactive (Non React); Hepatitis B Surface Antigen Non Reactive (Non React); Hepatitis C Antibody Non Reactive (Non React)
[2024-10-10] VITALS (19 sets, daily range): BP systolic 107–150; BP diastolic 62–89; PULSE 77–102; RESP 14–27; TEMP 36.3–36.8; O2SAT 5–99; BMI 27.8
[2024-10-10 05:16] LABS: Basophils % (Auto) 1 % (0-2.5); Eosinophils # (Auto) 0.1 Thou/mm3 (0.0-0.5); Eosinophils % (Auto) 2 % (0-10); Hematocrit 28.7 % (36.0-46.0); Hemoglobin 9.9 g/dL (12.0-16.0); Immature Granulocytes % (Auto) 2 % (0-0); Immature Granulocytes Auto 0.12 Thou/mm3 (0.00-0.00); Immature Reticulocyte Fraction 9.2 % (3.0-15.9); Lymphocytes # (Auto) 0.6 Thou/mm3 (1.0-4.8); Lymphocytes % (Auto) 12 % (10-50); Mean Corpuscular HGB Conc 34.5 g/dl (31.0-37.0); Mean Corpuscular Hemoglobin 25.6 pg (25.0-35.0); Mean Corpuscular Volume 74 fL (80-100); Monocytes # (Auto) 0.4 Thou/mm3 (0.0-0.8); Monocytes % (Auto) 8 % (0-12); Neutrophils % (Auto) 76 % (37-80); Nucleated Red Blood Cell % 0 /100 WBC (0); Platelet Count 135 Thou/mm3 (140-440); RDW Standard Deviation 46.4 fL (36.4-46.3); Red Blood Count 3.87 Miln/mm3 (4.00-5.20); Reticulocyte % (Auto) 0.9 % (0.5-1.5); Reticulocyte Absolute Auto 36.4 Biln/L (25.0-75.0); Reticulocyte Hgb Content 27.7 pg (28.0-35.0); White Blood Count 5.2 Thou/mm3 (3.6-11.0)
[2024-10-10 05:53] LABS: Anion Gap 13 (7-16); Blood Urea Nitrogen 88 mg/dL (9-23); Carbon Dioxide 22.1 mMol/L (20.0-31.0); Chloride 94 mMol/L (98-107); Creatinine (Component) 8.4 mg/dL (0.6-1.3); Potassium 4.7 mMol/L (3.4-5.1); Sodium 129 mMol/L (136-145)
[2024-10-10 05:54] LABS: Alanine Aminotransferase < 7 U/L (10-49); Albumin, Serum 3.3 gm/dL (3.5-5.0); Albumin/Globulin Ratio 1.1 (1.2-2.2); Alkaline Phosphatase 67 U/L (46-116); Aspartate Amino Transferase 16 U/L (0-34); BUN/Creatinine Ratio 10 Ratio (12-20); Bilirubin,Total 0.4 mg/dL (0.3-1.2); Calcium (Corrected) 8.6 mg/dL (8.5-10.1); Estimated Creatinine Clearance 7.8 mL/min (>60); Globulin 2.9 gm/dL (2.3-3.5); Glucose 100 mg/dL (74-106); Osmolality,Calculated 285 (275-295); Phosphorous 7.1 mg/dL (2.4-5.1); Total Protein 6.2 gm/dL (5.7-8.2); eGFR 6 See Note
--- NOTE | 2024-10-10 08:10 | PD.SURPROG ---
Documentation for date of: 10/10/24 Subjective Subjective Brief History: Narrative: Patient is seen and examined. She is resting comfortably. She has been tolerating diet and having bowel movements Exam Vital Signs Temp Pulse Resp BP Pulse Ox O2 Del Method O2 Flow Rate 98.1 F 94 17 136/77 H 93 L Room Air 5 10/10/24 07:39 10/10/24 07:39 10/10/24 07:39 10/10/24 07:39 10/10/24 07:39 10/10/24 07:39 10/06/24 12:23 FiO2 4 10/01/24 15:55 Constitutional Constitutional: no acute distress Routine Abdominal Exam Comments: Abdomen is soft and nondistended. Incision is clean, dry and intact Assessment & Plan Assessment Additional comments: Status post sigmoid colectomy and excision of right adnexal mass. Her creatinine continues to go up however she is making adequate urine Plan Awaiting bilateral ureteral stent placement later today Procedures Procedures Port-A-Cath placement in the left subclavian vein
[2024-10-10] MEDS: SEVELAMER CARBONATE 800 MG TABLET 1600 MG PO ×2 (08:21→17:44)
[2024-10-10] MEDS: FUROSEMIDE INJ 10 MG/ML 4ML VIAL 40 MG IVP (08:21)
[2024-10-10] MEDS: bisacodyL 10 MG SUPP PR (08:21)
[2024-10-10] MEDS: METOPROLOL SUCCINATE XL 25 MG TABCR 50 MG PO (08:22)
[2024-10-10] MEDS: ASCORBIC ACID 250 MG TABLET 500 MG PO ×2 (08:22→20:56)
[2024-10-10] MEDS: ZINC SULFATE 220 MG CAPSULE PO (08:22)
[2024-10-10] MEDS: CITRIC ACID/SODIUM CITR 15 ML UDC (BICITRA) 30 ML PO (08:26)
--- NOTE | 2024-10-10 08:38 | PD.RESPRO ---
Documentation for date of: 10/10/24 Subjective Subjective Interval history: Ms. Taveras is a 44 year old female with past medical history significant for kidney stones, hemorrhoids, and an umbilical hernia repair by Dr. Alvarez on 05/19/23 presents to my office last week complaining of left flank pain. Exam showed left CVA tenderness and I requested for a renal ultrasound. Renal ultrasound showed Multiple left renal calculi mild to moderate left hydronephrosis and significant periaortic lymphadenopathy recommended CT with and without contrast. Authorization was submitted to the insurance to get CT. In the interim patient started having significant right lower quadrant abdominal pain since yesterday that she brought herself to the emergency department. In the ED blood pressure 148/79. Heart rate 88. Afebrile. Over the course of hospitalization patient had CT-guided biopsy of lymphadenopathy and eventually had a colonoscopy which showed ulcerated partially obstructing mass in sigmoid colon. Pathology report from lymph node showed well-differentiated adenocarcinoma metastatic colon cancer. General surgery was consulted patient had exploratory laparotomy sigmoid colectomy with low pelvic coloproctostomy and excision of right adnexal mass on 10/01/2024. Patient scheduled for Port-A-Cath placement today 10/06/2024: Patient has worsening of renal function BUN 53, creatinine 5.2, GFR 10. Patient has good urine output as of now made about 1300 cc in the last 24 hours, patient was given IV fluids yesterday, has swelling of face legs. Patient has some obstructive etiology considering has multiple lymph node masses throughout abdomen, urology will be consulted for possible nephrostomy tube placement. Will continue to monitor renal function for now, will hold IV fluids. If patient has worsening renal function and decreased urine output, will consider placing dialysis catheter in a.m. 10/08/2024: Patient seen and examined at bedside, over the course of last 2 days patient's BUN and creatinine have worsened creatinine 6.9, BUN 73, GFR 7 today. Patient's phosphorus 6.8, magnesium 2.3. Patient has underlying ATN, discussed with patient, that she will possibly need dialysis, urine output not being charted, patient does report that she is making good urine. Significant swelling of bilateral lower extremities noted, although patient is stable on room air. Discussed with patient at bedside to start dialysis, temporary dialysis catheter placement discussed with ICU. 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 10/09/2024: Patient seen examined at bedside, comfortable. Denies fever, chills, chest pain, nausea, vomiting. Endorses constipation (last bowel movement 10/07), minimal abdominal pain with eating. Strong suspicion of ATN in the setting of recent major surgery. Patient continues to make good urine, will follow urine output, hold off on dialysis at this time. Plan for cystoscopy with bilateral stent placement tomorrow. Fluconazole held due to confirmatory IgG testing being negative. Filgrastim x 1 given. 10/10/2024: Patient seen and examined at bedside, sitting upright, comfortable. Denies fever, chills, nausea, vomiting, chest pain, shortness of breath. Patient has not had a bowel movement yet. Patient continued to produce good urine, 1.2 L, holding off on dialysis. WBCs improved with Filgrastim, 5.2. Sodium 129, potassium 4.7, BUN 88, creatinine 8.4, EGFR 6. Phosphorus 7.1. Will start lactulose for constipation. Exam Vital Signs Temp Pulse Resp BP Pulse Ox O2 Del Method O2 Flow Rate 98.1 F 94 17 136/77 H 93 L Room Air 5 10/10/24 07:39 10/10/24 08:22 10/10/24 07:39 10/10/24 08:22 10/10/24 07:39 10/10/24 07:39 10/06/24 12:23 FiO2 4 10/01/24 15:55 Narrative Exam Constitutional: Well nourished and in no acute distress CVS: RRR, S1 and S2 present, no murmurs, rubs or gallops . RESP: CTAB, no SOB, no rales, rhonchi or wheezing. No respiratory Distress GI: Hypoactive bowel sounds, nondistended, nontender. Midline laparotomy scar, clean, dry, intact. MSK: Full range of motion, No trauma or deformities or masses. 2+ pitting edema BLE. Skin: Warm to touch, Dry. No rashes or lesions. 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 Sensation grossly intact. Psych: (AAO) x3 . Appropriate mood and affect. Objective Labs 10/10/24 04:30 10/10/24 04:30 Labs: Laboratory Results - last 24 hr 10/08/24 10/08/24 10/09/24 04:14 15:06 06:35 WBC RBC Hgb Hct MCV MCH MCHC RDW Std Deviation Plt Count Neut % (Auto) Lymph % (Auto) [place] % (Auto) Eos % (Auto) Baso % (Auto) Neut # (Auto) Lymph # (Auto) [place] # (Auto) Eos # (Auto) Baso # (Auto) Immature Gran # (Auto) Absolute Nucleated RBC Immature Gran % Nucleated RBC % Retic Count (auto) Absolute Retic Immature Retic Fraction Retic Hgb Content CHr Sodium Potassium Chloride Carbon Dioxide Anion Gap BUN Creatinine Estim Creat Clear Calc eGFR BUN/Creatinine Ratio Glucose Calculated Osmolality Uric Acid 12.3 H Calcium Corrected Calcium Phosphorus Magnesium Total Bilirubin AST ALT Alkaline Phosphatase Total Protein Albumin Globulin Albumin/Globulin Ratio Hepatitis A IgM Ab Non Reactive Non Reactive Hep Bs Antigen Non Reactive Non Reactive Non Reactive Hep Bs Antibody Reactive (Immune) Hep B Core IgM Ab Non Reactive Non Reactive Hepatitis C Antibody Non Reactive Non Reactive HIV 1&2 Antibody Rapid Non-Reactive 10/10/24 04:30 WBC 5.2 D RBC 3.87 L Hgb 9.9 L Hct 28.7 L MCV 74 L MCH 25.6 MCHC 34.5 RDW Std Deviation 46.4 H Plt Count 135 L Neut % (Auto) 76 Lymph % (Auto) 12 [place] % (Auto) 8 Eos % (Auto) 2 Baso % (Auto) 1 Neut # (Auto) 4.0 Lymph # (Auto) 0.6 L [place] # (Auto) 0.4 Eos # (Auto) 0.1 Baso # (Auto) 0.0 Immature Gran # (Auto) 0.12 H Absolute Nucleated RBC 0.00 Immature Gran % 2 H Nucleated RBC % 0 Retic Count (auto) 0.9 Absolute Retic 36.4 Immature Retic Fraction 9.2 Retic Hgb Content CHr 27.7 L Sodium 129 L Potassium 4.7 Chloride 94 L Carbon Dioxide 22.1 Anion Gap 13 BUN 88 H Creatinine 8.4 H* D Estim Creat Clear Calc 7.8 L eGFR 6 L* BUN/Creatinine Ratio 10 L Glucose 100 Calculated Osmolality 285 Uric Acid Calcium 8.0 L Corrected Calcium 8.6 Phosphorus 7.1 H Magnesium 2.0 Total Bilirubin 0.4 AST 16 ALT < 7 L Alkaline Phosphatase 67 Total Protein 6.2 Albumin 3.3 L Globulin 2.9 Albumin/Globulin Ratio 1.1 L Hepatitis A IgM Ab Hep Bs Antigen Hep Bs Antibody Hep B Core IgM Ab Hepatitis C Antibody HIV 1&2 Antibody Rapid Quality Measures Quality Measures VTE prophylaxis Assessment & Plan Assessment Current Active Medications: Generic Name Dose Route Start Last Admin Trade Name Freq PRN Reason Stop Dose Admin Acetaminophen 650 mg 10/09/24 11:11 Acetaminophen 325 Mg Tablet PO 11/08/24 11:10 Q6HR PRN Fever >101, pain Ascorbic Acid 500 mg 09/30/24 21:00 10/10/24 08:22 Ascorbic Acid 250 Mg Tablet PO 10/30/24 20:59 500 mg BID IFEOMA Administration Bisacodyl 10 mg 10/10/24 08:30 Bisacodyl 10 Mg Supp [place] 11/09/24 08:29 QDAY IFEOMA Protocol Citric Acid/Sodium Citrate 30 ml 10/10/24 09:00 10/10/24 08:26 Citric Acid/Sodium Citr 15 Ml Udc (Bicitra) PO 11/09/24 08:59 30 ml DAILY IFEOMA Administration Furosemide 40 mg 10/10/24 09:00 10/10/24 08:21 Furosemide Inj 10 Mg/Ml 4ml Vial IVP 11/09/24 08:59 40 mg QDAY IFEOMA Administration Lactulose 20 gm 10/10/24 09:00 Lactulose Syrup 20 Gm/30 Ml Udc PO 11/09/24 08:59 BID IFEOMA Protocol Metoprolol Succinate 50 mg 10/09/24 11:15 10/10/24 08:22 Metoprolol Succinate Xl 25 Mg Tabcr PO 11/08/24 11:14 50 mg QDAY IFEOMA Administration Ondansetron HCl 4 mg 10/01/24 03:44 10/01/24 03:53 Ondansetron Inj 2 Mg/Ml Inj 2 Ml IV 10/31/24 03:43 4 mg Q6HR PRN Administration NAUSEA OR VOMITING Protocol Pharmacy Consult 1 each 10/06/24 10:14 Pharmacy Renal Dose Adjustment 1 Ea XX 11/05/24 10:13 PRN PRN CONSULT Polyethylene Glycol 17 gm 10/09/24 11:15 10/09/24 11:48 Polyethylene Glycol 17 Gm Packet PO 11/08/24 11:14 17 gm QDAY IFEOMA Administration Sevelamer Carbonate 1,600 mg 10/09/24 12:00 10/10/24 08:21 Sevelamer Carbonate 800 Mg Tablet PO 11/08/24 11:59 1,600 mg TIDWM IFEOMA Administration Zinc Sulfate 220 mg 09/30/24 11:00 10/10/24 08:22 Zinc Sulfate 220 Mg Capsule PO 10/30/24 10:59 220 mg QDAY IFEOMA Administration Plan 44-year-old female with past medical history of kidney stones, hemorrhoids and umbilical hernia repair with Dr. Mcfarland on 05/19/2023 admitted for left flank pain and found to have abdominal lymphadenopathy. #CHERI (acute kidney injury) Prerenal versus renal DDx: Direct compression, ATN, medication side effect, obstruction Patient abdomen/pelvis CT showed extensive lymphadenopathy. Mild hydronephrosis and 5 mm nonobstructing renal calculi Renal ultrasound showed mild bilateral hydronephrosis Nuclear medicine renal scan showed left kidney 15% function right kidney 10% renal function. No urine output charted for the past 24 hours. However patient endorses that she has good urine output and described the color as clear. BUN increased to 73 and CR creased to 6.9. Phosphorus increased to 6.8. Started on sevelamer 800 Mg p.o. 3 times daily with meals Urology Dr Johns consulted, plan for cystoscopy with bilateral ureteral stent placement today. - Strict input output charting - Renally dose medication - Avoid nephrotoxic agents - Placement of temporary left IJ catheter was unsuccessful. Continue to monitor, holding off on dialysis at this time. - Urology, Dr. Johns following closely. Scheduled patient for cystoscopy and placement of bilateral ureteral stents on 10/10/2024 #Metastatic colon cancer s/p sigmoid colectomy 10/01 #Acute anemia Patient presented with abdominal pain right lower quadrant. CT scan showed multiple retroperitoneal lymphadenopathy and calculi. Mild hydronephrosis noted probably related to the lymph node impingement. Good urine output. Will give IV fluids. Biopsy of the lymph node will be done. Rule out malignancy// inflammatory response. GI was consulted, colonoscopy performed. Patient found to have ulcerated partially obstructing mass in the sigmoid colon, biopsies taken. Concerning for malignancy. These results were discussed with patient and her . General surgery consulted CA 15?3 is negative as well as tumor marker AFP. CEA is positive at 8.8 and CA 19-9 ; 26. Patient denies any known family history of colon cancer. Biopsies showed well differentiated adenocarcinoma, metastatic colon cancer. Patient informed of her diagnosis. Patient received exploratory laporotomy with sigmoid colectomy and right adnexal mass excision. Following day patient had notable drop in hemoglobin. Patient currently on her period, has had a bowel movement which may or may not be bloody. ? Strict input output charting - Will refer for outpatient chemotherapy with Dr. Hdz ? GI, Dr. Torres consulted. Appreciate recommendations ? General Surgery, Dr Levine following. Appreciate recommendations ? Patient has received Port-A-Cath with general surgery for outpatient chemotherapy #Constipation Patient reports constipation, with mild abdominal discomfort. Last bowel movement 10/07 prior to Port-A-Cath placement. - MiraLAX - Dulcolax suppository - Lactulose 20 mg p.o. twice daily #Neutropenia ANC 0.4. Possible suppression due to fluconazole. Improved to 5.2, maintaining isoprecautions for now. - Place reverse isolation precautions - Filgastrim x 1 given - Hold fluconazole as below #Coccidiomycosis, ruled out Patient has positive cocci IgM test x 2. Does not report respiratory symptoms. Confirmatory IgG testing negative. - Fluconazole has been stopped Diet: Soft diet. Lines: PIVs, Port-A-Cath GI Prophylaxis: None Thrombo Prophylaxis: None Code status: FULL CODE Plan of care discussed with attending Dr. Collado. Alex Patel MD PGY?1 Attending Provider Attestation/Addendum Patient currently seen and examined with resident physician Dr. Patel. Note reviewed, agree with findings and recommendations. Patient currently seen in medical floor. She seems to be sad with all the procedures she has to go through. Acute renal failure-most likely related to ATN versus obstructive uropathy from underlying lymphadenopathy. Despite BUN/creatinine significantly elevated patient continues to make good urine- 1.5l. Hold off on dialysis. Renal scan consistent with ATN and hopefully will have renal recovery. Currently on binders for hyperphosphatemia. Hep panel, PPD negative. Spoke to Dr. Johns-will place him ureteral stents today. Will keep her n.p.o. Will decide on dialysis in the next 1 to 2 days if needed. [facility] confirmation for cocci came back negative. Will DC fluconazole Patient continues to have leukopenia. Not quite sure if it is related to medication versus underlying malignancy. Peripheral smear did not show any malignancy. She needs outpatient hematology follow-up once discharged. Discontinued fluconazole. 1 dose of Neupogen given. WBC improved. On reverse isolation. Patient with metastatic colon cancer-s/p left Port-A-Cath by Dr. Levine. Also had partial colectomy. Still having significant constipation-discontinue Colace and instead give Dulcolax suppository and lactulose. Suggested to ambulate. Give Tylenol for pain. Time spent today more than 40 minutes regarding plan of care and disease management. Patient admits to depression although did not want any medications. Noted blood pressure significantly elevated with tachycardia-added metoprolol-today blood pressure much better-.
--- NOTE | 2024-10-10 09:03 | PC.SS ---
Follow up note: Dialysis cath pending. Pt is new dialysis. TB was done on 10/08/24. Pt will return home upon dc.
--- NOTE | 2024-10-10 13:13 | XR_ITS ---
Examination: Bilateral retrograde pyelography with without KUB Fluoroscopy 6 spot abdomen films Exam date and time: October 10, 2024 1507 hours INDICATIONS: Mild hydronephrosis secondary to extensive abdominal pelvic lymphadenopathy on CT abdomen pelvis October 07, 2024 TECHNIQUE AND FINDINGS: 6 spot fluoroscopic films of the abdomen obtained with dilated renal collecting systems Ureteral stents satisfactory position Fluoroscopy 24 seconds radiation dose 5.01 milligray IMPRESSION: Retrograde pyelograms as above
--- NOTE | 2024-10-10 14:25 | SUR.OPER ---
ureteral stent size [id number] inserted to the left ureter. uretertal stent [id number] inserted to the right ureter
--- NOTE | 2024-10-10 14:50 | ESOP_ITS ---
Date of Procedure 10/10/24 Pre Op Diagnosis Acute renal failure, bilateral mild hydronephrosis, metastatic sigmoid colon cancer with abdominal lymphadenopathy Post Op Diagnosis Same Procedure Cystoscopic examination bilateral retrograde pyelogram placement of bilateral lateral ureteral stents 26 cm long double-J right side 24 cm long double-J left side Findings Bilateral mild hydronephrosis Procedure Description Indication for procedure this is a 44-year-old female this patient recently was diagnosed with metastatic sigmoid colon cancer with the bilateral abdominal lymphadenopathy bilateral hydronephrosis acute renal failure was recommended above procedure procedure and complications were discussed with the patient in great detail informed consent is obtained Patient was brought to the operating room in a satisfactory condition after appropriate premedication was put on the operating table in a supine position she was appropriately identified by surgeon and operating room staff site scope and indication of the procedure were reconfirmed with the patient. General anesthesia was given uneventfully she was positioned in the dorsolithotomy position parts were prepped and draped in the usual sterile fashion. 21 cystoscope was introduced into the bladder per urethra. Examination of bladder and all the quadrant was carried out there was a lot of catheter reaction. I identified both ureteral orifice no urine was coming out of each ureteral orifice. On the left side I passed a open-ended Pollick catheter retrograde pyelogram was performed there was mild hydronephrosis. Through the open-ended Pollick catheter I placed safety wire into the upper pole calyx. Cystoscope was withdrawn gently and open-ended Pollick catheter was removed. Over the safety wire I placed under fluoroscopic examination 24 cm long double-J stent proximal and curled in the renal pelvis distal in the bladder. Next I passed the cystoscope again and identified right ureteral orifice. Passed the open-ended Pollick catheter through the open-ended Pollick catheter placed a safety wire after retrograde pyelogram under fluoroscopic examination was done there was mild hydronephrosis. Next the cystoscope was withdrawn gently open-ended Pollick catheter was removed over the safety wire I placed 26 cm long double-J stent proximal and curled in the upper pole calyx distally in the bladder bladder was emptied next the patient after having tolerated the procedure well was sent to recovery room in a satisfactory condition to be transferred to the [facility] she will be followed by me in urology office in 3 months Anesthesia GETA Pathology / specimen None Estimated Blood Loss 0.5 Condition Stable Disposition PACU Surgeon Cliff Johns MD Surgical Staff Operation Date: 10/10/24 12:45 Case Staff HYPERBARIC WELDER DIVER: Andre Rhodes
--- NOTE | 2024-10-10 14:50 | PD.SUROPNT ---
Procedure Port-A-Cath placement in the left subclavian vein Surgeon Cliff Johns MD Surgical Staff Operation Date: 10/10/24 12:45 Case Staff AMBULANCE ATTENDANT: Andre Rhodes
[2024-10-10] MEDS: cefTRIAXone/D5w 1gm IV premix 1 GM/50 ML BAG IV (15:33)
--- NOTE | 2024-10-10 15:44 | SUR.PHASEI ---
1439: Pt received in Pac[facility] via gurney. Report from Greg ASHLEY and Lacho PIERCE. LMA in place. Resp even, unlabored. VS stable. 1444: Pt stirring with eye opening. LMA dc'd. Resp even, unlabored. 1515: Pt resting with no complaints voiced. VS stable. Was informed Dr. Johns wanted Rocephin while pt was in recovery. Dr. Johns into recovery and gave verbal order for Rocephin. Pharmacy notified. 1533: Rocephin received and infusion started. 1543: Pt tolerating infusion with no adverse effects observed. VS stable. Pt resting with no complaints voiced.
--- NOTE | 2024-10-10 16:16 | SUR.PHASEI ---
1545: Pt stated she needed to void. Voided on gurney before bed rivas could be placed. Pt cleaned up. Is resting comfortably with no complaints voiced. 1603: Rocephin infusion complete. Pt tolerated infusion with no problems or complaints voiced. 1605: Report to 3rd floor. Pt transferred to 363 in stable condition.
--- NOTE | 2024-10-10 17:20 | PD.IMPROG ---
Documentation for date of: 10/10/24 Subjective Subjective Interval history: Patient status postplacement of bilateral J stents Hopefully the renal function will start improving as the patient is making urine Exam Vital Signs Temp Pulse Resp BP Pulse Ox O2 Del Method O2 Flow Rate 98.3 F 96 17 128/74 99 Room Air 2 10/10/24 14:39 10/10/24 16:05 10/10/24 16:05 10/10/24 16:05 10/10/24 16:05 10/10/24 12:00 10/10/24 16:05 FiO2 4 10/01/24 15:55 Objective Labs 10/10/24 04:30 10/10/24 04:30 Labs: Laboratory Results - last 24 hr 10/08/24 10/08/24 10/09/24 04:14 15:06 06:35 WBC RBC Hgb Hct MCV MCH MCHC RDW Std Deviation Plt Count Neut % (Auto) Lymph % (Auto) [place] % (Auto) Eos % (Auto) Baso % (Auto) Neut # (Auto) Lymph # (Auto) [place] # (Auto) Eos # (Auto) Baso # (Auto) Immature Gran # (Auto) Absolute Nucleated RBC Immature Gran % Nucleated RBC % Retic Count (auto) Absolute Retic Immature Retic Fraction Retic Hgb Content CHr Sodium Potassium Chloride Carbon Dioxide Anion Gap BUN Creatinine Estim Creat Clear Calc eGFR BUN/Creatinine Ratio Glucose Calculated Osmolality Calcium Corrected Calcium Phosphorus Magnesium Total Bilirubin AST ALT Alkaline Phosphatase Total Protein Albumin Globulin Albumin/Globulin Ratio Hepatitis A IgM Ab Non Reactive Non Reactive Hep Bs Antigen Non Reactive Non Reactive Non Reactive Hep Bs Antibody Reactive (Immune) Hep B Core IgM Ab Non Reactive Non Reactive Hepatitis C Antibody Non Reactive Non Reactive 10/10/24 04:30 WBC 5.2 D RBC 3.87 L Hgb 9.9 L Hct 28.7 L MCV 74 L MCH 25.6 MCHC 34.5 RDW Std Deviation 46.4 H Plt Count 135 L Neut % (Auto) 76 Lymph % (Auto) 12 [place] % (Auto) 8 Eos % (Auto) 2 Baso % (Auto) 1 Neut # (Auto) 4.0 Lymph # (Auto) 0.6 L [place] # (Auto) 0.4 Eos # (Auto) 0.1 Baso # (Auto) 0.0 Immature Gran # (Auto) 0.12 H Absolute Nucleated RBC 0.00 Immature Gran % 2 H Nucleated RBC % 0 Retic Count (auto) 0.9 Absolute Retic 36.4 Immature Retic Fraction 9.2 Retic Hgb Content CHr 27.7 L Sodium 129 L Potassium 4.7 Chloride 94 L Carbon Dioxide 22.1 Anion Gap 13 BUN 88 H Creatinine 8.4 H* D Estim Creat Clear Calc 7.8 L eGFR 6 L* BUN/Creatinine Ratio 10 L Glucose 100 Calculated Osmolality 285 Calcium 8.0 L Corrected Calcium 8.6 Phosphorus 7.1 H Magnesium 2.0 Total Bilirubin 0.4 AST 16 ALT < 7 L Alkaline Phosphatase 67 Total Protein 6.2 Albumin 3.3 L Globulin 2.9 Albumin/Globulin Ratio 1.1 L Hepatitis A IgM Ab Hep Bs Antigen Hep Bs Antibody Hep B Core IgM Ab Hepatitis C Antibody Impressions Impression: Obstructive uropathy status post bilateral ureteric stent placement double-J Well-differentiated adenocarcinoma sigmoid colon metastatic status post resection and primary anastomosis Assessment & Plan A&P Narrative # Hematochezia # Abnormal CT scan of the abdomen pelvis with extensive abdominal and pelvic lymphadenopathy plan Tumor markers CEA level CA 19?9 level CA 15-3 level AFP Ca125 level CT-guided biopsy of the left adenopathy by the IR Clear liquid diet consider colonoscopy once biopsy is done with a GoLytely prep and possible upper endoscopy to make sure the GI tract is clean Thank you very much for the opportunity to participate in care of this patient Time Spent With Patient Time: Total time spent is greater than 50% in coordination of care (as documented) at patient's floor/unit and/or counseling patient:
--- NOTE | 2024-10-10 18:05 | PC.NURSE ---
called dr rothman regarding pts diet order, no answer, will continue to try to call.
[2024-10-10] MEDS: LACTULOSE SYRUP 20 GM/30 ML UDC PO (20:56)
[2024-10-11] VITALS: BP 129/84; PULSE 89; RESP 17; TEMP 36.2; O2SAT 96
[2024-10-11 04:00] VITALS: BP 148/90; PULSE 101; RESP 18; TEMP 36.2; O2SAT 95
[2024-10-11 06:18] LABS: Basophils % (Auto) 1 % (0-2.5); Eosinophils # (Auto) 0.1 Thou/mm3 (0.0-0.5); Eosinophils % (Auto) 4 % (0-10); Hematocrit 35.7 % (36.0-46.0); Hemoglobin 11.7 g/dL (12.0-16.0); Immature Granulocytes % (Auto) 3 % (0-0); Immature Granulocytes Auto 0.04 Thou/mm3 (0.00-0.00); Lymphocytes # (Auto) 0.3 Thou/mm3 (1.0-4.8); Lymphocytes % (Auto) 28 % (10-50); Mean Corpuscular HGB Conc 32.8 g/dl (31.0-37.0); Mean Corpuscular Hemoglobin 25.5 pg (25.0-35.0); Mean Corpuscular Volume 78 fL (80-100); Monocytes # (Auto) 0.3 Thou/mm3 (0.0-0.8); Monocytes % (Auto) 21 % (0-12); Neutrophils # (Auto) 0.5 Thou/mm3 (1.8-7.7); Neutrophils % (Auto) 43 % (37-80); Nucleated Red Blood Cell % 0 /100 WBC (0); Platelet Count 132 Thou/mm3 (140-440); RDW Standard Deviation 48.3 fL (36.4-46.3); Red Blood Count 4.59 Miln/mm3 (4.00-5.20)
[2024-10-11 07:20] LABS: Alanine Aminotransferase < 7 U/L (10-49); Albumin, Serum 4.2 gm/dL (3.5-5.0); Albumin/Globulin Ratio 1.2 (1.2-2.2); Alkaline Phosphatase 75 U/L (46-116); Anion Gap 14 (7-16); Aspartate Amino Transferase 16 U/L (0-34); BUN/Creatinine Ratio 17 Ratio (12-20); Bilirubin,Total 0.3 mg/dL (0.3-1.2); Blood Urea Nitrogen 54 mg/dL (9-23); Calcium 9.3 mg/dL (8.3-10.6); Calcium (Corrected) 9.3 mg/dL (8.5-10.1); Carbon Dioxide 27.9 mMol/L (20.0-31.0); Chloride 99 mMol/L (98-107); Creatinine (Component) 3.2 mg/dL (0.6-1.3); Estimated Creatinine Clearance 20.5 mL/min (>60); Globulin 3.4 gm/dL (2.3-3.5); Glucose 100 mg/dL (74-106); Osmolality,Calculated 295 (275-295); Phosphorous 5.3 mg/dL (2.4-5.1); Potassium 4.3 mMol/L (3.4-5.1); Sodium 141 mMol/L (136-145); Total Protein 7.6 gm/dL (5.7-8.2); eGFR 18 See Note
[2024-10-11 08:00] VITALS: BP 133/98; PULSE 111; RESP 18; TEMP 37; O2SAT 96
[2024-10-11 08:52] VITALS: BP 133/98; PULSE 111
[2024-10-11] MEDS: CITRIC ACID/SODIUM CITR 15 ML UDC (BICITRA) 30 ML PO (08:52)
[2024-10-11] MEDS: FUROSEMIDE INJ 10 MG/ML 4ML VIAL 40 MG IVP (08:52)
[2024-10-11] MEDS: ZINC SULFATE 220 MG CAPSULE PO (08:52)
[2024-10-11] MEDS: ASCORBIC ACID 250 MG TABLET 500 MG PO (08:52)
[2024-10-11] MEDS: SEVELAMER CARBONATE 800 MG TABLET 1600 MG PO (08:52)
[2024-10-11] MEDS: METOPROLOL SUCCINATE XL 25 MG TABCR 50 MG PO (08:52)
--- NOTE | 2024-10-11 09:18 | PD.SURPROG ---
Documentation for date of: 10/11/24 Subjective Subjective Brief History: Narrative: Patient is seen and examined. Pain is improving. She is tolerating diet and having bowel movements. She underwent placement of bilateral ureteral stents, her creatinine has significantly improved Exam Vital Signs Temp Pulse Resp BP Pulse Ox O2 Del Method O2 Flow Rate 98.6 F 111 H 18 133/98 H 96 Room Air 2 10/11/24 08:00 10/11/24 08:52 10/11/24 08:00 10/11/24 08:52 10/11/24 08:00 10/11/24 04:00 10/10/24 16:05 FiO2 4 10/01/24 15:55 Constitutional Constitutional: no acute distress Routine Chest/Breast/Axilla Exam Comments: Left upper chest Port-A-Cath site is healing, no evidence of infection or bleeding Routine Abdominal Exam Comments: Abdomen is soft and nondistended. Bowel sounds are active. Incision is clean, dry and intact Assessment & Plan Assessment Additional comments: Status post sigmoid colectomy, excision of right adnexal mass. Status post Port-A-Cath placement Plan Patient can be discharged from surgical standpoint. Procedures Procedures Cystoscopic examination bilateral retrograde pyelogram placement of bilateral lateral ureteral stents 26 cm long double-J right side 24 cm long double-J left side
[2024-10-11 09:20] LABS: White Blood Count 1.2 Thou/mm3 (3.6-11.0)
--- NOTE | 2024-10-11 09:47 | ESDS_ITS ---
Planned Discharge Date 10/11/24 DS: Providers Provider Date of admission: 09/27/24 12:26 Primary care physician: Ching Collado MD Admitting Provider: Ching Collado MD Attending Provider on Admission: Bina Angeles MD Consults: 09/27/24 08:59 Consult to Gastroenterology Stat Comment: Rule out colitis versus neoplasm Consulting Provider: Sumaya Torres 09/29/24 08:26 Consult to General Surgery Urgent Comment: Mass in colon, biopsy pending Consulting Provider: Shahid Levine 10/06/24 10:07 Consult to Nephrology Routine Comment: CHERI. Possible obstruction from Lymphadenopathy Consulting Provider: Jeremiah Villalobos 10/06/24 10:14 Referral Pharmacy Routine Comment: Renally dose medications please Reason for Consult: To renally dose medication please 10/06/24 13:05 Consult to Urology Routine Comment: Metastatic colon cancer, compression of ureters Consulting Provider: Cliff Johns 10/10/24 22:57 Referral [facility] Routine Comment: Please see patient on 10/11, if possible. Thank you Attending Provider on DC: Ching Collado MD Discharging Provider: Alex Ptael MD DS: Diagnosis Problem List Completed Was Problem List Reviewed/Reconciled?: Yes Hospital Course Hospital Course Hospital course: 44 year old female with past medical history significant for kidney stones, hemorrhoids, and an umbilical hernia repair by Dr. Alvarez on 05/19/23 present to ED for significant right lower quadrant abdominal pain. Over the course of hospitalization patient had CT-guided biopsy of lymphadenopathy and eventually had a colonoscopy which showed ulcerated partially obstructing mass in sigmoid colon. Pathology report from lymph node showed well-differentiated adenocarcinoma metastatic colon cancer. General surgery was consulted, patient had exploratory laparotomy sigmoid colectomy with low pelvic coloproctostomy and excision of right adnexal mass on 10/01/2024. Patient was received a Port-A-Cath placement. Hospitalization course complicated by CHERI with decreased urinary output, believed to be ATN in setting of major surgery. Also concern for obstructive nephropathy with enlarged lymph nodes compressing bilateral ureters. Urology was consulted, performed cystoscopy and placed bilateral ureteral stents, well tolerated. Kidney function improved with supportive care. Patient was started on fluconazole for IgM positive for cocci, confirmatory testing was negative fluconazole discontinued. Patient also noted to have severe leukopenia, reverse isolation during length of stay, patient received filgrastim. Patient medically stable and cleared for discharge. Discharge plan: You are being discharged on the following medications: - Metoprolol succinate 50 mg daily please continue taking all other medications as previously prescribed You are to follow-up with Dr. Hdz within 1 week for outpatient cancer treatment. Please follow-up with Dr. Collado in 2 weeks. Please follow-up with Dr. Levine in 1 week. Please return to the ED if you develop new or worsening symptoms. Wound care for laparotomy incision as follows: -May shower. Avoid lifting, straining, pulling or pushing for 6 weeks. May take unoj-xni-woyhhoj laxatives if no bowel movement in 2 days. May use Port-A-Cath. Wear abdominal binder at all times. Follow-up with Dr Levine in 1 week, please call [phone] for an appointment. Diagnoses: #CHERI (acute kidney injury) #Metastatic colon cancer s/p sigmoid colectomy 10/01 #Acute anemia #Constipation #Neutropenia #Coccidiomycosis, ruled out Plan of care discussed with attending Dr. Collado. Alex Patel MD PGY?1 Status at Discharge Overall status at discharge: patient is progressing back to baseline Time Spent with Patient Time attestation: Total time spent providing and/or coordinating discharge services: Time spent: Greater than 30 minutes Exam Vital Signs Temp Pulse Resp BP Pulse Ox O2 Del Method O2 Flow Rate 98.6 F 111 H 18 133/98 H 96 Room Air 2 10/11/24 08:00 10/11/24 08:52 10/11/24 08:00 10/11/24 08:52 10/11/24 08:00 10/11/24 04:00 10/10/24 16:05 FiO2 4 10/01/24 15:55 Narrative Exam Constitutional: Well nourished and in no acute distress CVS: RRR, S1 and S2 present, no murmurs, rubs or gallops . RESP: CTAB, no SOB, no rales, rhonchi or wheezing. No respiratory Distress GI: Hypoactive bowel sounds, nondistended, nontender. Midline laparotomy scar, clean, dry, intact. MSK: Full range of motion, No trauma or deformities or masses. 2+ pitting edema BLE. Skin: Warm to touch, Dry. No rashes or lesions. 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 Sensation grossly intact. Psych: (AAO) x3 . Appropriate mood and affect. Discharge Plan Plan Patient Disposition: HOME (Self Care) Patient condition on transfer: Stable Care Plan Goals: You are being discharged on the following medications: - Metoprolol succinate 50 mg daily please continue taking all other medications as previously prescribed You are to follow-up with Dr. Hdz within 1 week for outpatient cancer treatment. Please follow-up with Dr. Collado in 2 weeks. Please follow-up with Dr. Levine in 1 week. Please return to the ED if you develop new or worsening symptoms. Wound care for laparotomy incision as follows: -May shower. Avoid lifting, straining, pulling or pushing for 6 weeks. May take yuin-tmo-hjnrgfm laxatives if no bowel movement in 2 days. May use Port-A-Cath. Wear abdominal binder at all times. Follow-up with Dr Levine in 1 week, please call [phone] for an appointment. Prescriptions/Referrals Prescriptions/Med Rec: New metoprolol succinate 50 mg capsule,sprinkle,ER 24hr 50 mg PO QDAY 30 Days Qty: 30 0RF docusate sodium [Colace] 100 mg capsule 100 mg PO BID Qty: 40 0RF Continued acetaminophen [Acetaminophen Extra Strength] 500 mg tablet 500 mg PO Q4H PRN (Reason: pain) Rx Instructions: prn abdominal pain- Over the counter. ibuprofen 600 mg tablet 600 mg PO QDAY PRN (Reason: pain) Patient Comments: take 1 tablet by mouth once daily if needed- does not relieve pain, tylenol works better per patient. cetirizine [Allergy Relief (cetirizine)] 5 mg tablet 5 mg PO QDAY PRN (Reason: allergy symptoms) Rx Instructions: 5 or 10mg pt not sure.- over the counter. Discontinued hydrocodone-acetaminophen 5-325 mg tablet 1 tab PO Q6H MDD 4 Qty: 20 0RF Referrals: Tay Hdz MD [Physician] - Shahid Levine MD [Physician] - Ching Collado MD [Primary Care Provider] - Patient/Caregiver Discharge Instructions Discharge Activity: activity as tolerated Education Materials: Exploratory Laparotomy, Vascular Access Port Implantation, Acute Kidney Failure Dc, Preventing Surgical Site Infections, Managing Post-Op Pain at Home Print Language: Cuban Activity Restrictions/Additional Instructions: May shower. Avoid lifting, straining, pulling or pushing for 6 weeks. May take egwn-fao-vgohhvz laxatives if no bowel movement in 2 days. May use Port-A-Cath. Wear abdominal binder at all times. Follow-up with Dr Levine in 1 week, please call [phone] for an appointment. Stand Alone Forms: [employer] Award Info., Patient Portal Info Letter Discharge Order Discharge Orders: Discharge (Routine); Ordered 10/11/24 Ordered By: Alex Patel Quality Discharge Quality Measures VTE prophylaxis MD Attestestation MD Attestation Patient currently seen and examined with resident physician Dr. Patel. Note reviewed, agree with findings and recommendations. Patient currently seen in medical floor. She seems to be sad with all the procedures she has to go through. Acute renal failure-most likely related to ATN versus obstructive uropathy from underlying lymphadenopathy. Status post ureteral stents. Good urine output. Creatinine markedly improved. Will be discharged today. [facility] confirmation for cocci came back negative. Will DC fluconazole Patient noted to have leukopenia-improved with Neupogen Patient with metastatic colon cancer-s/p left Port-A-Cath by Dr. Levine. Also had partial colectomy. Constipation better. Will send her home on Dulcolax Patient admits to depression although did not want any medications. Noted blood pressure significantly elevated with tachycardia-added metoprolol- today blood pressure much better-will discharge her on metoprolol. Follow-up with cancer center in 1 to 2 weeks, follow-up with myself and Dr. Levine in 1 to 2 weeks Plan of care discussed with at bedside
--- NOTE | 2024-10-11 22:14 | ESPR_ITS ---
Documentation for date of: 10/11/24 Subjective Subjective Interval history: Late entry for the note Precipitous drop in the BUN/creatinine to 54 and 3.2 Okay to discharge patient home to be followed as an outpatient Exam Vital Signs Temp Pulse Resp BP Pulse Ox O2 Del Method O2 Flow Rate 98.6 F 111 H 18 133/98 H 96 Room Air 2 10/11/24 08:00 10/11/24 08:52 10/11/24 08:00 10/11/24 08:52 10/11/24 08:00 10/11/24 04:00 10/10/24 16:05 FiO2 4 10/01/24 15:55 Objective Labs 10/11/24 05:50 10/11/24 05:50 Labs: Laboratory Results - last 24 hr 10/11/24 05:50 WBC 1.2 L D RBC 4.59 Hgb 11.7 L Hct 35.7 L MCV 78 L MCH 25.5 MCHC 32.8 RDW Std Deviation 48.3 H Plt Count 132 L Neut % (Auto) 43 Lymph % (Auto) 28 [place] % (Auto) 21 H Eos % (Auto) 4 Baso % (Auto) 1 Neut # (Auto) 0.5 L Lymph # (Auto) 0.3 L [place] # (Auto) 0.3 Eos # (Auto) 0.1 Baso # (Auto) 0.0 Immature Gran # (Auto) 0.04 H Absolute Nucleated RBC 0.00 Immature Gran % 3 H Nucleated RBC % 0 Sodium 141 D Potassium 4.3 Chloride 99 Carbon Dioxide 27.9 Anion Gap 14 BUN 54 H Creatinine 3.2 H D Estim Creat Clear Calc 20.5 L eGFR 18 L BUN/Creatinine Ratio 17 Glucose 100 Calculated Osmolality 295 Calcium 9.3 Corrected Calcium 9.3 Phosphorus 5.3 H Magnesium 2.0 Total Bilirubin 0.3 AST 16 ALT < 7 L Alkaline Phosphatase 75 Total Protein 7.6 Albumin 4.2 D Globulin 3.4 Albumin/Globulin Ratio 1.2 Impressions Impression: Metastatic sigmoid: Well differential adenocarcinoma Obstructive uropathy requiring stent placement bilaterally with improvement of the renal function Outpatient follow-up Assessment & Plan A&P Narrative # Hematochezia # Abnormal CT scan of the abdomen pelvis with extensive abdominal and pelvic lymphadenopathy plan Tumor markers CEA level CA 19?9 level CA 15-3 level AFP Ca125 level CT-guided biopsy of the left adenopathy by the IR Bharti liquid diet consider colonoscopy once biopsy is done with a GoLytely prep and possible upper endoscopy to make sure the GI tract is clean Thank you very much for the opportunity to participate in care of this patient Time Spent With Patient Time: Total time spent is greater than 50% in coordination of care (as documented) at patient's floor/unit and/or counseling patient:
--- NOTE | 2024-10-12 08:08 | CHAP ---
Patient was visited by a Spiritual Care Volunteer on 10/11/2024 between 0900 and 1130 and received comfort, encouragement and/or prayer.
== END 2024-10-11 11:30 | disposition home or self-care (01) | DRG 329 ==
LOC: SERX 09:09 → S3NX 15:09
PROVIDERS: Internal Medicine; Physician Assistant; Radiology Diagnostic Radiology; Specialist; Student in an Organized Health Care Education/Training Program; Surgery; Urology; Admitting Provider Internal Medicine; Emergency Provider Emergency Medicine; PCP Internal Medicine; Visit Provider Student in an Organized Health Care Education/Training Program
PROC: 0DJD8ZZ Inspection of Lower Intestinal Tract, Via Natural or Artificial Opening Endoscopic (ICD-10-PCS; CPT 45378; principal; 2024-09-28 19:45)
PROC: 0DTE4ZZ Resection of Large Intestine, Percutaneous Endoscopic Approach (ICD-10-PCS; principal; 2024-10-01 13:30)
PROC: 0TJB8ZZ Inspection of Bladder, Via Natural or Artificial Opening Endoscopic (ICD-10-PCS; CPT 52000; principal; 2024-10-10 12:30)
DX: C18.7 Malignant neoplasm of sigmoid colon (principal); K85.90 Acute pancreatitis without necrosis or infection, unspecified; N17.0 Acute kidney failure with tubular necrosis; D61.818 Other pancytopenia; E87.29 Other acidosis; K63.3 Ulcer of intestine; N13.1 Hydronephrosis with ureteral stricture, not elsewhere classified; I87.1 Compression of vein; K64.8 Other hemorrhoids; R59.0 Localized enlarged lymph nodes; E83.39 Other disorders of phosphorus metabolism; E87.8 Other disorders of electrolyte and fluid balance, not elsewhere classified; K64.9 Unspecified hemorrhoids; K52.9 Noninfective gastroenteritis and colitis, unspecified; N20.0 Calculus of kidney; Z78.9 Other specified health status; Z87.442 Personal history of urinary calculi; Z79.899 Other long term (current) drug therapy; Z99.2 Dependence on renal dialysis; F32.A Depression, unspecified
CPT/HCPCS: 36415; 71045; 71046; 74176; 74183; 74420; 76700; 76770; 77012; 78708; 80053; 80069; 80074; 81001; 81025; 82043; 82105; 82378; 82436; 82550; 82570; 83615; 83690; 83735; 84100; 84133; 84156; 84300; 84540; 84550; 85025; 85046; 85610; 85730; 86300; 86301; 86580; 86635; 86703; 86706; 86850; 86900; 86901; 86923; 87340; 96374; 99285; A4217; A4649; A9562; A9579; C1769; C1788; C1894; C2617; J0131; J0694; J0696; J1200; J1442; J1450; J1644; J1885; J1938; J2250; J2270; J2405; J2704; J3010; J3480; J3490; J7030; J7050; P9016; Q0138; Q0162; Q4081; Q5101; A9270

== ENCOUNTER 2024-10-17 09:24 | Inpatient (IN) | payer BC, SELFPAY ==
[2024-10-17 09:24] VITALS: BMI 24.7
--- NOTE | 2024-10-17 10:30 | XR_ITS ---
Examination: PA lateral chest 2 views TECHNIQUE: Upright PA lateral chest 2 views October 17, 2024 12 noon INDICATIONS: Chest pain today FINDINGS: Interval right mediastinal lymphadenopathy No subclavian Port-A-Cath tip satisfactory position Atelectasis versus mild pneumonia left base Normal heart size IMPRESSION: Interval right mediastinal lymphadenopathy, likely tumor lymphadenopathy
--- NOTE | 2024-10-17 10:30 | EKG_ITS ---
[facility] Test Date: 2024-10-17 Pat Name: ANUP GARCIA Department: Room: - Gender: Female Clinical Professor: : 1980 Requested By: Ramses Gibson Order Number: [id number] Reading MD: Ramses Gibson Measurements Intervals [place] Rate: 109 P: 36 AK: 133 QRS: -9 QRSD: 84 T: 18 QT: 301 QTc: 407 Interpretive Statements SINUS TACHYCARDIA ST ELEVATION CONSISTENT WITH INJURY, PERICARDITIS, OR EARLY REPOLARIZATION [ST ELEVATION W/O NORMALLY INFLECTED T-WAVE] No previous ECG available for comparison /store/S0/[id number].pdf
--- NOTE | 2024-10-17 10:30 | PD.EDRME ---
Rapid Medical Screening Exam RME Arrival date/time: 10/17/24 09:24 44-year-old female with a history of lymphoma, presents to the emergency room with a chief complaint of 8 out of 10 sternal chest pain that radiates to the left chest and difficulty breathing x 1 week. I have greeted and performed a focused initial assessment of this patient. A comprehensive ED assessment and evaluation of the patient, analysis of all test results, and completion of the medical decision making process will be conducted by additional ED providers. Chief Complaint: Chest Pain Time Seen by Provider: 10/17/24 10:07 Vital signs reviewed by provider: Yes
[2024-10-17 10:32] VITALS: BP 105/71; PULSE 112; RESP 18; TEMP 36.9; O2SAT 98; BMI 24.7
[2024-10-17 11:04] LABS: Basophils % (Auto) 1 % (0-2.5); Eosinophils % (Auto) 1 % (0-10); Hematocrit 31.8 % (36.0-46.0); Immature Granulocytes % (Auto) 1 % (0-0); Immature Granulocytes Auto 0.01 Thou/mm3 (0.00-0.00); Lymphocytes # (Auto) 0.3 Thou/mm3 (1.0-4.8); Lymphocytes % (Auto) 21 % (10-50); Mean Corpuscular HGB Conc 31.4 g/dl (31.0-37.0); Mean Corpuscular Hemoglobin 25.3 pg (25.0-35.0); Mean Corpuscular Volume 80 fL (80-100); Monocytes # (Auto) 0.5 Thou/mm3 (0.0-0.8); Monocytes % (Auto) 40 % (0-12); Neutrophils # (Auto) 0.4 Thou/mm3 (1.8-7.7); Neutrophils % (Auto) 37 % (37-80); Nucleated Red Blood Cell % 0 /100 WBC (0); Platelet Count 143 Thou/mm3 (140-440); Red Blood Count 3.96 Miln/mm3 (4.00-5.20)
[2024-10-17 11:12] LABS: White Blood Count 1.2 Thou/mm3 (3.6-11.0)
[2024-10-17 11:28] LABS: B-Type Natriuretic Peptide 148 pg/mL (0-100)
[2024-10-17 11:34] LABS: Alanine Aminotransferase 28 U/L (10-49); Albumin, Serum 4.1 gm/dL (3.5-5.0); Albumin/Globulin Ratio 1.2 (1.2-2.2); Alkaline Phosphatase 88 U/L (46-116); Anion Gap 12 (7-16); Aspartate Amino Transferase 18 U/L (0-34); BUN/Creatinine Ratio 14 Ratio (12-20); Bilirubin,Total 0.5 mg/dL (0.3-1.2); Blood Urea Nitrogen 14 mg/dL (9-23); Calcium 9.2 mg/dL (8.3-10.6); Calcium (Corrected) 9.2 mg/dL (8.5-10.1); Carbon Dioxide 20.5 mMol/L (20.0-31.0); Chloride 102 mMol/L (98-107); Estimated Creatinine Clearance 63.7 mL/min (>60); Globulin 3.4 gm/dL (2.3-3.5); Glucose 134 mg/dL (74-106); Magnesium 1.8 mg/dL (1.6-2.6); Osmolality,Calculated 270 (275-295); Sodium 134 mMol/L (136-145); Total Protein 7.5 gm/dL (5.7-8.2); eGFR > 60 See Note
[2024-10-17 12:07] VITALS: BP 127/69; PULSE 115; RESP 19; TEMP 37.1; O2SAT 99
--- NOTE | 2024-10-17 12:25 | XR_ITS ---
Examination: CTA chest with intravenous contrast 2-D reconstructions 3-D reconstructions, vascular Date and time of exam: October 17, 2024 1520 hours INDICATIONS: Chest pain shortness of breath today CTDI: vol (mGy) 11.8 DLP: (mGycm) 234 Technique: Multiple axial sections of the thorax have been obtained. 3 mm slice thickness, from below the hemidiaphragms to above the apices of the lungs. Mediastinal and lung density settings have been obtained. 2-D sagittal and coronal reconstructions. 3-D angiographic renderings, 3-D volume renderings, 3D post processing, vascular maximum intensity projections obtained. Contrast administered is 100 cc Isovue-370. Low dose protocols were performed. One or more of the following dose reduction techniques were used; automated exposure control, adjustment of the mA and/or KV according to patient size, use of iterative reconstruction technique. Findings: No thoracic aortic aneurysm dilatation or dissection Pulmonary artery segments are not enlarged No pulmonary artery filling defects Prominent mediastinal lymphadenopathy, anterior mediastinal, hilar left periaortic, right tracheobronchial, aortopulmonary window and subcarinal Trace pericardial effusion Mild enlargement cardiac contour Pneumonia at the lung bases with minimal pleural fluid No visualized liver or splenic lesion Contracted gallbladder No pancreatic mass Moderate osteopenia IMPRESSION: Extensive mediastinal tumor lymphadenopathy Negative for pulmonary artery emboli Bibasilar pneumonia
[2024-10-17] MEDS: MORPHINE SULF INJ 10 MG/ML VIAL 4 MG IVP ×2 (12:26→15:44)
[2024-10-17] MEDS: SODIUM CHLORIDE 0.9% 500 ML 500 ML 999 ML IV (12:28)
[2024-10-17 12:29] LABS: INR 1.1 (0.9-1.3); Partial Thromboplastin Time 27.6 Seconds (22.0-36.0); Prothrombin Time 12.1 Seconds (9.0-12.2)
--- NOTE | 2024-10-17 12:56 | PD.EDCHEST ---
ED Chest Pain RME/HPI General Chief Complaint: Chest Pain Stated Complaint: CHEST PAIN SINCE LAST NIGHT; COUGH X1 WEEK Time Seen by Provider: 10/17/24 10:07 Arrival date/time: 10/17/24 09:24 RME / HPI RME / HPI narrative: 10/17/24 09:24 44-year-old female with a history of lymphoma, presents to the emergency room with a chief complaint of 8 out of 10 sternal chest pain that radiates to the left chest and difficulty breathing x 1 week. I have greeted and performed a focused initial assessment of this patient. A comprehensive ED assessment and evaluation of the patient, analysis of all test results, and completion of the medical decision making process will be conducted by additional ED providers. DR. OLMSTEAD MAIN ED EVALUATION: 44 year old female presents to the Emergency Department with complaint of left-sided chest pain that wraps around the back. Pain is worse with lying on his left side. Pain is sharp and when exacerbated it feels like stabbing. No radiation or migration. PMHx: Recently diagnosed with colon cancer followed by Dr. Torres and Dr. Levine; malignancy resection and left portacath 3 days ago pending chemo with Dr. Hdz and Dr. Dunaway. Other PMHx include kidney stones, hemorrhoids, and an umbilical hernia repair by Dr. Alvarez on 05/19/23. Social Hx: No tobacco, alcohol, or substance use. Related Data Home Medications ?Medication ?Instructions ?Recorded ?Confirmed acetaminophen 500 mg tablet 500 mg PO Q4H PRN pain 09/27/24 09/27/24 (Acetaminophen Extra Strength) cetirizine 5 mg tablet (Allergy 5 mg PO QDAY PRN allergy symptoms 09/27/24 09/27/24 Relief (cetirizine)) ibuprofen 600 mg tablet 600 mg PO QDAY PRN pain 09/27/24 09/27/24 Previous Rx's ?Medication ?Instructions ?Recorded docusate sodium 100 mg capsule 100 mg PO BID #40 caps 10/11/24 (Colace) metoprolol succinate 50 mg capsule 50 mg PO QDAY 1 month #30 ea 10/11/24 sprinkle, ext. release 24 hr Allergies Allergy/AdvReac Type Severity Reaction Status Date / Time No Known Allergies Allergy Verified 10/17/24 09:27 Review of Systems Review of Systems Systems Reviewed: All systems reviewed, normal except as documented Narrative Review of Systems: GEN: No fever, no chills, no weight loss EYES: No discharge, no visual changes, no pain HEENT: No ear pain, no congestion, no sore throat PULM: No shortness of breath, no cough, no congestion CV: + left-sided chest pain that wraps around the back (see HPI), no dyspnea on exertion, no palpitations GI: No nausea, no vomiting, no diarrhea, no pain, no constipation : No frequency, no urgency and no dysuria MUSC/SKEL: No joint pain SKIN: No rash PSYCH: No hallucinations, no depression HEME/LYMPH: No easy bleeding or bruising tendencies NEURO: No weakness, no headache Past Medical History Past Medical History GENITOURINARY: Positive Genitourinary Disorders and Kidney Stones REPRODUCTIVE: Positive Previous Pregnancies HEMATOLOGIC: Positive Blood Disorders and Anemia Social History SMOKING STATUS: Never smoker SUBSTANCE USE: does not use ALCOHOL: Never Past Medical History Comments PMH COMMENT: Recently diagnosed with colon cancer followed by Dr. Torres and Dr. Levine; malignancy resection and left portacath 3 days ago pending chemo with Dr. Hdz and Dr. Dunaway. Other PMHx include kidney stones, hemorrhoids, and an umbilical hernia repair by Dr. Alvarez on 05/19/23. ED Exam Narrative Physical exam: GENERAL APPEARANCE: AxOx4, generally well-appearing, no acute distress. HEENT: NC, AT. MMM. EOMI, clear conjunctiva, oropharynx clear. NECK: Supple without lymphadenopathy. No stiffness or restricted ROM. HEART: Normal rate and regular rhythm, normal S1/S1, no m/r/g LUNGS: CTAB, moving air well. No crackles or wheezes are heard. ABDOMEN: Soft, nontender, nondistended with good bowel sounds heard. BACK: No midline C/T/L spine pain or deformity, No CVAT, no obvious deformity. EXTREMITIES: Without cyanosis, clubbing or edema. MUSCULOSKELETAL: FROM of all major joints, no chest tenderness NEUROLOGICAL: Grossly nonfocal. Alert and oriented, moving all 4 extremities. CN not formally tested but appear grossly intact. Skin: Warm and dry without any rash. Course Quality Measures none Orders Category Date Time Status Admit to Inpatient Status Routine Admission 10/17/24 16:38 Active Patient Condition Routine Admission 10/17/24 16:38 Ordered Activity as Tolerated Routine Care 10/17/24 16:40 Ordered Bedside COVID-19 Antigen Test NOW Care 10/17/24 16:[address] Screening NOW Care 10/17/24 12:25 Active EKG (ED ONLY) *Do not use* NOW Care 10/17/24 10:30 Completed EKG (ED ONLY) *Do not use* NOW Care 10/17/24 11:04 Completed Insert IV NOW Care 10/17/24 12:09 Active Miscellaneous Nursing Order NOW Care 10/17/24 16:38 Active Notify provider NEEDED Care 10/17/24 16:38 Active Consult to Cardiology Stat Cons 10/17/24 12:58 Ordered Diet Regular Diet 10/18/24 Breakfast Active CA echo doppler complete Stat Exams 10/17/24 12:[address] angio chest Stat Exams 10/17/24 12:25 Completed EKG (ED Only) Stat Exams 10/17/24 10:30 Draft EKG (ED Only) Stat Exams 10/17/24 11:15 Ordered XR chest 1V Stat Exams 10/17/24 10:30 Completed B-Type Natriuretic Peptide Stat Lab 10/17/24 10:53 Completed CBC Stat Lab 10/17/24 10:53 Completed CBC [CBC] AM DRAW Lab 10/18/24 05:00 Ordered CBC [CBC] AM DRAW Lab 10/19/24 05:00 Ordered CBC [CBC] AM DRAW Lab 10/20/24 05:00 Ordered CMP [Comprehensive Metabolic Panel] AM DRAW Lab 10/18/24 05:00 Ordered CMP [Comprehensive Metabolic Panel] AM DRAW Lab 10/19/24 05:00 Ordered CMP [Comprehensive Metabolic Panel] AM DRAW Lab 10/20/24 05:00 Ordered CRP [C-Reactive Protein] Stat Lab 10/17/24 13:17 Completed Comprehensive Metabolic Panel Stat Lab 10/17/24 10:53 Completed ESR [Sed Rate (ESR)] Stat Lab 10/17/24 13:17 Completed HCG,Qualitative Serum Stat Lab 10/17/24 10:53 Completed Mag [Magnesium] AM DRAW Lab 10/18/24 05:00 Ordered Mag [Magnesium] AM DRAW Lab 10/19/24 05:00 Ordered Mag [Magnesium] AM DRAW Lab 10/20/24 05:00 Ordered Magnesium Stat Lab 10/17/24 10:53 Completed Partial Thromboplastin Time Stat Lab 10/17/24 10:53 Completed Phosphorous AM DRAW Lab 10/18/24 05:00 Ordered Phosphorous AM DRAW Lab 10/19/24 05:00 Ordered Phosphorous AM DRAW Lab 10/20/24 05:00 Ordered Prothrombin Time with INR Stat Lab 10/17/24 10:53 Completed Troponin I Stat Lab 10/17/24 10:53 Completed Troponin I Stat Lab 10/17/24 13:17 Completed Acetaminophen Tab [Tylenol Tab] Med 10/17/24 16:37 Discontinued 650 mg PO Q6H PRN Docusate Sod [Colace] Med 10/17/24 16:37 Active 100 mg PO QDAY PRN Heparin Inj Med 10/17/24 21:00 Active 5,000 unit SC Q12HR Ketorolac Inj [Toradol Inj] Med 10/17/24 12:25 Discontinued 15 mg IVP X1 ONE Ketorolac Inj [Toradol Inj] Med 10/17/24 16:43 Active 30 mg IVP Q6HR PRN Morphine Inj Med 10/17/24 11:04 Discontinued 4 mg IVP X1 ONE Morphine Inj Med 10/17/24 15:18 Discontinued 4 mg IVP X1 ONE Ondansetron Inj [Zofran Inj] Med 10/17/24 16:37 Active 4 mg IV Q6H PRN Senna [Senokot] Med 10/17/24 16:37 Active 1 tab PO BID PRN Sodium Chloride 0.9% 500 ml [Ns] 500 ml Med 10/17/24 11:04 Discontinued IV 999 mls/hr cefTRIAXone [Rocephin] 1 gm Med 10/17/24 16:43 Discontinued SODIUM CHLORIDE 0.9% (Popper) [Ns 0.9% (P)] 50 ml IV QDAY cefTRIAXone/D5w 1gm IV premix [Rocephin/D5w 1gm IV Med 10/17/24 17:00 Active premix] 1 gm in 50 ml IV QPM Code Status Routine Oth 10/17/24 16:37 Ordered Vital Signs Vital signs: Vital Signs Temperature 98.5 F 10/17/24 10:32 Pulse Rate 112 H 10/17/24 10:32 Respiratory Rate 18 10/17/24 10:32 Blood Pressure 105/71 10/17/24 10:32 Pulse Oximetry (%) 98 10/17/24 10:32 Oxygen Delivery Method Room Air 10/17/24 10:32 Procedures -ED EKG Interpretation #1: Date of EK10/17/24 Time of EK:36 Rate: 110 Interpretation: Interpreted by me Additional EKG comment: sinus tachycardia, rate 110, no STEMI, J point elevation #2: Date of EK10/17/24 Time of EK:18 Rate: 109 Interpretation: Interpreted by me Additional EKG comment: sinus tachycardia with rate 109, slight ST elevation Chest Pain MDM Narrative MDM Narrative:: Comfort Vang am scribing for and in the presence of Dr. Olmstead. Patient data External records reviewed:: [facility] previous records (Reviewed last admission discharge dated 10/11/24 patient admitted for the following: Abdominal pain) Clinical information provided by:: patient Social determinants that could affect healthcare access:: none Patient has the following chronic illnesses:: Recently diagnosed with colon cancer followed by Dr. Torres and Dr. Levine; malignancy resection and left portacath 3 days ago pending chemo with Dr. Hdz and Dr. Dunaway. Other PMHx include kidney stones, hemorrhoids, and an umbilical hernia repair by Dr. Alvarez on 05/19/23. How is presenting disease/condition affected by chronic disease/condition?: exacerbated by Evaluation data The following diagnostics were reviewed and interpreted by me:: lab results, radiology exam(s) and EKG tracing(s) Lab and/or radiology exams considered but not ordered:: none Interpretation Summary: Procedure(s): XR chest 1V Accession Number(s): [id number] cc: Ramses Perez; Yosef Castellon MD~ Examination: PA lateral chest 2 views TECHNIQUE: Upright PA lateral chest 2 views October 17, 2024 12 noon INDICATIONS: Chest pain today FINDINGS: Interval right mediastinal lymphadenopathy No subclavian Port-A-Cath tip satisfactory position Atelectasis versus mild pneumonia left base Normal heart size IMPRESSION: Interval right mediastinal lymphadenopathy, likely tumor lymphadenopathy Dictated By: Yosef Castellon MD Procedure(s): CT angio chest Accession Number(s): [id number] cc: Steve Olmstead MD; Yosef Castellon MD; Ching Collado MD~ Examination: CTA chest with intravenous contrast 2-D reconstructions 3-D reconstructions, vascular Date and time of exam: October 17, 2024 1520 hours INDICATIONS: Chest pain shortness of breath today CTDI: vol (mGy) 11.8 DLP: (mGycm) 234 Technique: Multiple axial sections of the thorax have been obtained. 3 mm slice thickness, from below the hemidiaphragms to above the apices of the lungs. Mediastinal and lung density settings have been obtained. 2-D sagittal and coronal reconstructions. 3-D angiographic renderings, 3-D volume renderings, 3D post processing, vascular maximum intensity projections obtained. Contrast administered is 100 cc Isovue-370. Low dose protocols were performed. One or more of the following dose reduction techniques were used; automated exposure control, adjustment of the mA and/or KV according to patient size, use of iterative reconstruction technique. Findings: No thoracic aortic aneurysm dilatation or dissection Pulmonary artery segments are not enlarged No pulmonary artery filling defects Prominent mediastinal lymphadenopathy, anterior mediastinal, hilar left periaortic, right tracheobronchial, aortopulmonary window and subcarinal Trace pericardial effusion Mild enlargement cardiac contour Pneumonia at the lung bases with minimal pleural fluid No visualized liver or splenic lesion Contracted gallbladder No pancreatic mass Moderate osteopenia IMPRESSION: Extensive mediastinal tumor lymphadenopathy Negative for pulmonary artery emboli Bibasilar pneumonia Dictated By: Yosef Castellon MD Medications / Prescriptions Medications or Prescriptions considered but not ordered:: none Medication administrations:: Medication Administration History Docusate Sodium (Docusate Sod 100 Mg Capsule) 100 mg PO QDAY PRN; Protocol PRN Reason: CONSTIPATION Stop: 11/16/24 16:36 Heparin Sodium (Porcine) (Heparin Sod Inj 5000 Unit/Ml Vial) 5,000 unit SC Q12HR IFEOMA Stop: 10/31/24 20:59 Ceftriaxone Sodium/Dextrose (Rocephin/D5w 1gm Iv Premix) 1 gm in 50 mls @ 100 mls/hr IV QPM IFEOMA Stop: 10/24/24 16:59 Last Infusion: 10/17/24 17:57 Dose: Infused Documented By: Admin: 10/17/24 17:27 Dose: 100 mls/hr Documented By: DO Ibuprofen (Ibuprofen Tab 600 Mg Tablet) 600 mg PO Q6HR PRN PRN Reason: PAIN 1-3 OR FEVER > 101 Stop: 11/16/24 17:27 Ketorolac Tromethamine (Ketorolac Inj 30 Mg/Ml Vial) 30 mg IVP Q6HR PRN PRN Reason: PAIN SCALE 4-10(Mod-Sev Stop: 10/22/24 16:42 Ondansetron HCl (Ondansetron Inj 2 Mg/Ml Inj 2 Ml) 4 mg IV Q6H PRN; Protocol PRN Reason: NAUSEA OR VOMITING Stop: 11/16/24 16:36 Sennosides (Senna Tablet) 1 tab PO BID PRN; Protocol PRN Reason: CONSTIPATION Stop: 11/16/24 16:36 Discontinued Medications Acetaminophen (Acetaminophen 325 Mg Tablet) 650 mg PO Q6H PRN; Protocol PRN Reason: Fever >100.4 or pain Stop: 11/16/24 16:36 Sodium Chloride (Ns) 500 mls @ 999 mls/hr IV .Q31M ONE Stop: 10/17/24 11:34 Last Infusion: 10/17/24 12:59 Dose: Infused Documented By: Admin: 10/17/24 12:28 Dose: 999 mls/hr Documented By: KRISTIN Ceftriaxone Sodium 1 gm/ (Sodium Chloride) 50 mls @ 100 mls/hr IV QDAY IFEOMA Stop: 10/24/24 16:42 Last Admin: 10/17/24 17:08 Dose: Not Given Documented By: DO Non-Admin Reason: Duplicate Medication on eMAR Ketorolac Tromethamine (Ketorolac Inj 30 Mg/Ml Vial) 15 mg IVP X1 ONE Stop: 10/17/24 12:26 Last Admin: 10/17/24 13:04 Dose: 15 mg Documented By: KRISTIN Morphine Sulfate (Morphine Sulf Inj 10 Mg/Ml Vial) 4 mg IVP X1 ONE Stop: 10/17/24 11:05 Last Admin: 10/17/24 12:26 Dose: 4 mg Documented By: MM Morphine Sulfate (Morphine Sulf Inj 10 Mg/Ml Vial) 4 mg IVP X1 ONE Stop: 10/17/24 15:19 Last Admin: 10/17/24 15:44 Dose: 4 mg Documented By: MM see above Consultations Consultation(s) initiated? (list below): Yes Consultation #1 (Physician, Specialty, Details): Discussed test HPI, PMHx, lab, radiology results and/or management with quality control scientist Dr. Singer. Reviewed EKG #1 done at 1036 hours, sinus tachycardia with rate 110. Dr. Singer states there is no STEMI, just some J point elevation. Recommends doing a repeat EKG in 15 minutes and to re-adjust the leads. Time: 10:40 Consultation #2 (Physician, Specialty, Details): Discussed test HPI, PMHx, lab, radiology results and/or management with quality control scientist Dr. Singer. Reviewed repeat EKG #2 done at 1118 hours, sinus tachycardia with rate 109. Dr. Singer states there is slight ST elevation and considers pericarditis. Also discussed the CXR results, right mediastinal lymphadenopathy likely tumor lymphadenopathy; Dr. Singer recommends an echo and agrees with the chest CTA. Time: 12:50 Consultation #3 (Physician, Specialty, Details): Discussed test HPI, PMHx, lab, radiology results and/or management with resident working with the hospitalist. Will admit for further evaluation and management. Accepts patient for admission. Time: 16:30 Diagnosis Chest Pain Differential Diagnosis: atypical chest pain, costochondritis, chest pain and other (malignant pericarditis) Most likely diagnosis given after review of the tests above:: Pneumonia Admission Indicated Admission indicated?: indicated Admission Request Was there a request for admission?: Yes Admission Attestation Admission request attestation: Discussed case with [] from Hospitalist service regarding admission. Discussed patients ED course, exam findings, labs, and radiology results. The Hospitalist [agrees,declines] to accept the patient for admission. Disposition Plan Disposition Plan: Admit Discharge Plan Plan Patient Disposition: Admit Acute Care w/in Hospital Problem List Clinical Impression: Pneumonia
--- NOTE | 2024-10-17 12:58 | ECHO_ITS ---
Transthoracic Echo Report Ht (in): 63 Wt (lb): 140 Exam Location: Echo Lab Status: Emergency Extrusion Supervisor: Daphnie Magallanes Indications: Procedure Performed: BP: 127 / 69 HR: 115 Technical Quality: Technically difficult study MEASUREMENTS (Male / Female) Normal Values 2D ECHO LV Diastolic Diameter PLAX 3.9 cm 4.2 - 5.9 / 3.9 - 5.3 cm LV Systolic Diameter PLAX 2.8 cm IVS Diastolic Thickness 0.7 cm 0.6 - 1.0 / 0.6 - 0.9 cm LVPW Diastolic Thickness 1.1 cm 0.6 - 1.0 / 0.6 - 0.9 cm LV Relative Wall Thickness 0.5 LVOT Diameter 1.6 cm LA Volume Index 22.9 cm?/m? 16 - 28 cm?/m? M-MODE Aortic Root Diameter MM 2.1 cm LA Systolic Diameter MM 3.2 cm LA Ao Ratio MM 1.5 AV Cusp Separation MM 1.6 cm DOPPLER AV Peak Velocity 162.0 cm/s AV Peak Gradient 10.5 mmHg AV Mean Gradient 5.0 mmHg AV Velocity Time Integral 25.4 cm LVOT Peak Velocity 111.0 cm/s LVOT Peak Gradient 4.9 mmHg LVOT Velocity Time Integral 18.9 cm LVOT Cardiac Index 2583.7 cm?/min?m? AV Area Cont Eq vti 1.5 cm? AV Area Cont Eq pk 1.4 cm? MV Area PHT 5.9 cm? MR Peak Velocity 258.0 cm/s MR Peak Gradient 26.6 mmHg Mitral E Point Velocity 69.8 cm/s Mitral A Point Velocity 69.4 cm/s Mitral E to A Ratio 1.0 LV E' Lateral Velocity 9.1 cm/s Mitral E to LV E' Lateral Ratio 7.6 LV E' Septal Velocity 9.3 cm/s Mitral E to LV E' Septal Ratio 7.5 TR Peak Velocity 216.0 cm/s TR Peak Gradient 18.7 mmHg PV Peak Velocity 97.7 cm/s PV Peak Gradient 3.8 mmHg FINDINGS Left Ventricle Normal left ventricular size, wall thickness, systolic function with no obvious regional wall motion abnormalities. Normal left ventricular diastolic filling pattern for age. The ejection fraction is visually estimated at 55-60 %. Right Ventricle The right ventricle is normal in size and systolic function. Left Atrium The left atrium is normal by two-dimensional, color flow and Doppler imaging with no structural abnormalities, no thrombus formation present. Right Atrium The right atrium is normal by two-dimensional imaging, color flow and Doppler imaging with no structural abnormalities, no thrombus formation present. Atrial Septum The interatrial septum appears normal with no evidence of a shunt. Aorta The aorta is normal by two-dimensional, color flow and Doppler interrogation. Mitral Valve The mitral valve is normal by two-dimensional, color flow and Doppler interrogation.mild mitral regurgitation. Aortic Valve The aortic valve is trileaflet and normal by two-dimensional, color flow and Doppler interrogation. There is no significant aortic valve regurgitation. Tricuspid Valve The tricuspid valve is normal by two-dimensional, color flow and Doppler interrogation. There is mild tricuspid valve regurgitation. Pulmonic Valve The pulmonic valve is not well visualized. There is no significant pulmonic valve regurgitation. Vessels The pulmonary artery appears normal. The inferior vena cava pulmonary and hepatic veins appear normal. Pericardium There is a small pericardial effusion. CONCLUSIONS Indication: pericarditis/effusion- chest pain There is a trace pericardial effusion without any evidence of any tamponade. Normal LV size and function. Estimated EF 55-60%. Normal diastolic function. Normal RV size and function. Normal RVSP. Trace MR and mild TR. Ankur Singer (Electronically Signed) Final Date: 17 Oct 2024 19:24
[2024-10-17] MEDS: KETOROLAC INJ 30 MG/ML VIAL 15 MG IVP (13:04)
[2024-10-17 13:54] LABS: Sed Rate (ESR) 75 mm/hr (0-20)
[2024-10-17 14:14] VITALS: BP 93/69; PULSE 100; RESP 18; TEMP 37; O2SAT 98
[2024-10-17 14:54] LABS: C-Reactive Protein 19.4 mg/dL (0.0-0.9)
[2024-10-17 15:05] LABS: HCG,Qualitative Serum Negative
[2024-10-17 16:08] VITALS: BP 103/71; PULSE 107; RESP 17; TEMP 36.7; O2SAT 99
--- NOTE | 2024-10-17 16:46 | PD.RESHP ---
Documentation for date of: 10/17/24 HPI History of Present Illness Chief complaint: Pleuritic chest pain History of present illness: 44 year old female with past medical history significant for kidney stones, hemorrhoids, umbilical hernia repair, and recently diagnosed colon cancer metastasis s/p colectomy but not yet started chemotherapy presents to the ED with chief complaint of significant chest pain and associated shortness of breath for 1 week. Patient was in her usual state of health when she developed sudden onset left-sided chest pain after laying on her left side. The pain is sharp, exacerbated with deep breaths or laying flat on her back, radiates throughout the chest into the back. Pain has worsened intermittently throughout the past week. Patient also endorses fevers, chills, night sweats. Denies cough, palpitations, weakness, nausea, vomiting. ED COURSE: Labs significant for: WBC 1.2, hemoglobin 10.0, ESR 75, CRP 19.4. Troponin negative x 2. BUN 14, creatinine 1.0, EGFR greater than 60. Imaging significant for: EKG showing diffuse ST elevations and tachycardia. CTA chest showed bibasilar pneumonia and extensive mediastinal lymphadenopathy. Patient received morphine and Toradol with symptom relief. Cardiology consulted due to potential pericarditis. Patient admitted to telemetry. Cardiology on board. IV antibiotics ordered. Review of Systems Review of Systems Systems Reviewed: All systems reviewed, normal except as documented Exam Vital Signs Temp Pulse Resp BP Pulse Ox O2 Del Method 98.0 F 107 H 17 103/71 99 Room Air 10/17/24 16:08 10/17/24 16:08 10/17/24 16:08 10/17/24 16:08 10/17/24 16:08 10/17/24 16:08 Narrative Exam PE: Gen: Well-developed and well-nourished. HEENT: NCAT, PERRLA, EOMI, MMM, anicteric conjunctivae. CVS: normal S1 and S2. No M/R/G. Tachycardia, regular rhythm. Tenderness to palpation sternal region. Resp: Bibasilar crackles. Abd: soft, non-tender, non-distended. Midline laparotomy scar, clean, dry, intact. MSK: Good ROM in BUE & BLE. No edema or rash. Neuro: CN II-XII grossly intact. Strength 5/5 in BUE & BLE. Alert and oriented x3. Psych: appropriate mood and affect. Results: Labs 10/19/24 04:43 10/19/24 04:43 Labs: Short CBC 10/17/24 Range/Units 10:53 WBC 1.2 L (3.6-11.0) Thou/mm3 Hgb 10.0 L (12.0-16.0) g/dL Hct 31.8 L (36.0-46.0) % Plt Count 143 (140-440) Thou/mm3 BMP 10/17/24 10:53 Sodium 134 L Potassium 4.0 Chloride 102 Carbon Dioxide 20.5 BUN 14 Creatinine 1.0 D Glucose 134 H Calcium 9.2 Cardiac Enzymes 10/17/24 10/17/24 Range/Units 10:53 13:17 Troponin I 0.020 0.020 (0.0-0.045) ng/mL Liver Function 10/17/24 Range/Units 10:53 Total Bilirubin 0.5 (0.3-1.2) mg/dL AST 18 (0-34) U/L ALT 28 (10-49) U/L Alkaline Phosphatase 88 (46-116) U/L Albumin 4.1 (3.5-5.0) gm/dL Quality Measures Quality Measures none Medications Home Medications and Allergies Home Medications ?Medication ?Instructions ?Recorded ?Confirmed ?Type acetaminophen 500 mg tablet 500 mg PO Q4H PRN pain 09/27/24 09/27/24 History (Acetaminophen Extra Strength) cetirizine 5 mg tablet (Allergy 5 mg PO QDAY PRN allergy symptoms 09/27/24 09/27/24 History Relief (cetirizine)) ibuprofen 600 mg tablet 600 mg PO QDAY PRN pain 09/27/24 09/27/24 History Allergies Allergy/AdvReac Type Severity Reaction Status Date / Time No Known Allergies Allergy Verified 10/17/24 09:27 Visit Medications Acetaminophen (Acetaminophen 325 Mg Tablet) 650 mg PO Q6H PRN; Protocol PRN Reason: Fever >100.4 or pain Stop: 11/16/24 16:36 Docusate Sodium (Docusate Sod 100 Mg Capsule) 100 mg PO QDAY PRN; Protocol PRN Reason: CONSTIPATION Stop: 11/16/24 16:36 Heparin Sodium (Porcine) (Heparin Sod Inj 5000 Unit/Ml Vial) 5,000 unit SC Q12HR IFEOMA Stop: 10/31/24 20:59 Ceftriaxone Sodium 1 gm/ (Sodium Chloride) 50 mls @ 100 mls/hr IV QDAY [facility]EOMA Stop: 10/24/24 16:42 Ketorolac Tromethamine (Ketorolac Inj 30 Mg/Ml Vial) 30 mg IVP Q6HR PRN PRN Reason: PAIN SCALE 4-10(Mod-Sev Stop: 10/22/24 16:42 Ondansetron HCl (Ondansetron Inj 2 Mg/Ml Inj 2 Ml) 4 mg IV Q6H PRN; Protocol PRN Reason: NAUSEA OR VOMITING Stop: 11/16/24 16:36 Sennosides (Senna Tablet) 1 tab PO BID PRN; Protocol PRN Reason: CONSTIPATION Stop: 11/16/24 16:36 Discontinued Medications Sodium Chloride (Ns) 500 mls @ 999 mls/hr IV .Q31M ONE Stop: 10/17/24 11:34 Last Infusion: 10/17/24 12:59 Dose: Infused Ketorolac Tromethamine (Ketorolac Inj 30 Mg/Ml Vial) 15 mg IVP X1 ONE Stop: 10/17/24 12:26 Last Admin: 10/17/24 13:04 Dose: 15 mg Morphine Sulfate (Morphine Sulf Inj 10 Mg/Ml Vial) 4 mg IVP X1 ONE Stop: 10/17/24 11:05 Last Admin: 10/17/24 12:26 Dose: 4 mg Morphine Sulfate (Morphine Sulf Inj 10 Mg/Ml Vial) 4 mg IVP X1 ONE Stop: 10/17/24 15:19 Last Admin: 10/17/24 15:44 Dose: 4 mg Assessment & Plan Plan 44 year old female with past medical history significant for kidney stones, hemorrhoids, umbilical hernia repair, and recently diagnosed colon cancer metastasis s/p colectomy but not yet started chemotherapy presents to the ED with chief complaint of significant chest pain and associated shortness of breath for 1 week, admitted for pneumonia. #Pneumonia #Pleuritic chest pain Patient presented with chief complaint of pleuritic chest pain x 1 week. Pain is sharp, radiates throughout the whole chest, worsened with lying back. CTA chest showed bibasilar pneumonia. EKG showed diffuse ST elevations, mild, with sinus tachycardia. Patient has elevated ESR and CRP. Troponin negative x 2. Cardiology consulted, appreciate recommendations. Patient admitted and IV antibiotics initiated. Patient's parent symptomatic relief with morphine and Toradol. Chest pain possibly also related to extensive mediastinal lymphadenopathy in the setting of metastatic colon cancer. - Rocephin 1 g IV daily - Cardiology consulted, appreciate recommendations - Telemonitoring - Toradol 30 mg IV every 6 hours as needed for moderate/severe pain #Metastatic colon cancer s/p sigmoid colectomy 10/01/24 #Acute anemia Patient recently diagnosed with metastatic colon cancer, received colectomy 09/30/2024. Patient's Port-A-Cath, has not begun chemotherapy yet. CTA chest showed extensive mediastinal lymphadenopathy. - Monitor daily labs and electrolytes - Consider goals of care in light of new imaging #Neutropenia Patient has WBC count of 1.2, ANC 0.4. This was also present on patient's last admission. - Place reverse isolation precautions Diet: Regular Lines: PIVs, Port-A-Cath GI Prophylaxis: None Thrombo Prophylaxis: Heparin Code status: FULL CODE Plan of care discussed with attending Dr. Collado. Alex Patel MD PGY?1 Attending Provider Attestation/Addendum Patient seen and examined with resident physician Dr. Galdamez. Note reviewed, agree with findings and recommendations. patient currently seen in the emergency department. Complaining of chest pain while laying down and better with sitting up and leaning forward. ST elevations noted on EKG. Dr. Arthur Hawthorne was consulted. Diagnosed with pericarditis. Continue with Aspirin, high-dose colchicine, NSAIDs On reverse isolation.
[2024-10-17] MEDS: cefTRIAXone/D5w 1gm IV premix 1 GM/50 ML BAG IV (17:27)
[2024-10-17 18:10] VITALS: BP 118/78; PULSE 120; RESP 17; TEMP 37.2; O2SAT 98
--- NOTE | 2024-10-17 18:20 | ESCONSULT_ITS ---
HPI Data of Consult Requesting Physician: Ching Collado MD Admitting Provider: Ching Collado MD Attending Provider: Ching Collado MD Primary Care Provider: Ching Collado MD Consult Narrative History of present illness: This is a 44-year-old female with PMHx of kidney stones, hemorrhoids, umbilical hernia repair, recently diagnosed with metastatic adenocarcinoma of the colon, s/p resection of adnexal mass earlier this month, presenting to ED with acute episode of shortness of breath and chest pain. Reports 1 week of gradually worsening SOB, occurring at rest with minimal exertion. Associated with chest pain that worsened over the last 2 days. Chest pain located on the left side of her chest, nonradiating, worsened while laying back, coughing, with deep expiration, improves with sitting up, associated with palpitations, not associated with diaphoresis, unrelated to activities. Reports 1 week of upper respiratory symptoms including nasal congestion and sore throat. Reports occasional sneezing, and dry, nonproductive cough. Denies fever, chills, headaches, visual changes, syncope or presyncope, loss of consciousness, head trauma or fall, productive cough, abdominal pain, N/V/D/C, or urinary symptoms. On 09/28/2024, she presented with lower quadrant abdominal pain. Abdominal MRI at that time showed abdominal lymphadenopathy, small benign cyst of the right lobe of the liver, and hepatomegaly. Abdominal ultrasound showed 5 mm right renal calculi, mild to moderate bilateral hydronephrosis, fatty liver with hepatomegaly 14.4 cm. Renal nuclear scan showed minimal bilateral renal function. Abdominal CT showed pneumoperitoneum, mild acute pancreatitis, mild hydronephrosis and extensive abdominal and pelvic lymphadenopathy. Colonoscopy was done showing colonic mass with pathology consistent with invasive, well-differentiated adenocarcinoma. Abdominal as noted CT biopsy showed metastatic adenocarcinoma. She underwent ex lap with sigmoid colectomy and pelvic, coloproctostomy and right adnexal mass excision. Subsequently she underwent retrograde pyelogram, placement of bilateral ureteral stents for bilateral mild hydronephrosis. She endorsed mild dysuria following discharge, however currently asymptomatic without dysuria, hematuria, anuria or polyuria, or vaginal discharge During hospitalization, she was found leukopenic with WBC 3.3, previously normal from earlier this year. Blood smear showed severe leukopenia without morphologic abnormality identified, moderate micro Citic anemia without hemolysis as well as mild thrombocytopenia. She completed Port-A-Cath placement of left subclavian and was scheduled to follow-up with Oncology, Dr. Hdz. Patient has not had her appointment yet. Has not started outpatient work-up or treatment for cancer. On 10/12/24. She underwent CAT scan showing bulky retroperitoneal lymphadenopathy suspicious metastatic disease with moderate bilateral hydro ureteral nephrosis. There is also focal wall thickening of the descending and sigmoid colon as well as lymphadenopathy in outpatient suggestive of colitis or malignancy, indeterminate left adrenal node, and heterogeneous liver. ED COURSE: * Afebrile, BP 105/71, HR 118, RR 18, satting 98% on room air. * WBC 1.2, Hgb 12.0, PLT 143. PMHx: As above PSHx: Miscarriage, 09/2024 sigmoid colectomy and pelvic, coloproctostomy and right adnexal mass excision. MEDS: METOPROLOL SUCCINATE 50 mg daily, FLUCANZOLE 150 mg daily. ALLERGIES: NKA FHx: Dad of stroke at 52, mom healthy, 1 sibling with DM. 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 cc:: cc: Ching Collado MD Exam Vital Signs Temp Pulse Resp BP Pulse Ox O2 Del Method 99.0 F 120 H 17 118/78 98 Room Air 10/17/24 18:10 10/17/24 18:10 10/17/24 18:10 10/17/24 18:10 10/17/24 18:10 10/17/24 18:10 Narrative Exam GENERAL * Normal appearing female, in mod distress 2/2 pain, on room air satting well. HEENT * NCAT.?ANGELES. Oral mucosa is moist. Patent Nares NECK * Supple, nontender, no thyromegaly, no meningismus, no JVD, no step offs CHEST * RRR, no m/g/r * CTAB, no w/r/r. Symmetrical chest rise. No intercostal subcostal retraction * Atraumatic, nontender, no crepitus, symmetrical expansion. ABDOMEN * Soft, flat, nontender. No guarding/rebound tenderness/masses. * Bowel sounds presents EXTREMITIES * No edema/cyanosis.? SKIN * Warm and dry, no jaundice/rashes. * Left subclavian port a cath without signs of infection, tenderness, or inflammation NEUROMUSCULAR * No lumbar or midline, no CVA, no paraspinal muscle spasm or tenderness. * Moves all 4 extremities well, with full ROM and good CSM. * BALL x4, CN II-XII grossly intact. * No focal neurologic deficits. PSYCHIATRY * Normal mood and affect, cooperative, no SI or HI or hallucinations. Results Labs 10/18/24 04:55 10/18/24 04:55 Labs: Short CBC 10/17/24 Range/Units 10:53 WBC 1.2 L (3.6-11.0) Thou/mm3 Hgb 10.0 L (12.0-16.0) g/dL Hct 31.8 L (36.0-46.0) % Plt Count 143 (140-440) Thou/mm3 BMP 10/17/24 10:53 Sodium 134 L Potassium 4.0 Chloride 102 Carbon Dioxide 20.5 BUN 14 Creatinine 1.0 D Glucose 134 H Calcium 9.2 Cardiac Enzymes 10/17/24 10/17/24 Range/Units 10:53 13:17 Troponin I 0.020 0.020 (0.0-0.045) ng/mL Liver Function 10/17/24 Range/Units 10:53 Total Bilirubin 0.5 (0.3-1.2) mg/dL AST 18 (0-34) U/L ALT 28 (10-49) U/L Alkaline Phosphatase 88 (46-116) U/L Albumin 4.1 (3.5-5.0) gm/dL Quality Measures Quality Measures none Medications Home Medications and Allergies Home Medications ?Medication ?Instructions ?Recorded ?Confirmed ?Type acetaminophen 500 mg tablet 500 mg PO Q4H PRN pain 09/27/24 History (Acetaminophen Extra Strength) cetirizine 5 mg tablet (Allergy 5 mg PO QDAY PRN aller gy symptoms 09/27/24 09/27/24 History Relief (cetirizine)) ibuprofen 600 mg tablet 600 mg PO QDAY PRN pain 08/3109/27/24 History Allergies Allergy/AdvReac Type Severity Reaction Status Date / Time No Known Allergies Allergy Verified 10/17/24 09:27 Visit Medications Docusate Sodium (Docusate Sod 100 Mg Capsule) 100 mg PO QDAY PRN; Protocol PRN Reason: CONSTIPATION Stop: 11/16/24 16:36 Heparin Sodium (Porcine) (Heparin Sod Inj 5000 Unit/Ml Vial) 5,000 unit SC Q12HR [facility] Stop: 10/31/24 20:59 Ceftriaxone Sodium/Dextrose (Rocephin/D5w 1gm Iv Premix) 1 gm in 50 mls @ 100 mls/hr IV QPM IFEOMA Stop: 10/24/24 16:59 Last Infusion: 10/17/24 17:57 Dose: Infused Ibuprofen (Ibuprofen Tab 600 Mg Tablet) 600 mg PO Q6HR PRN PRN Reason: PAIN 1-3 OR FEVER > 101 Stop: 11/16/24 17:27 Ketorolac Tromethamine (Ketorolac Inj 30 Mg/Ml Vial) 30 mg IVP Q6HR PRN PRN Reason: PAIN SCALE 4-10(Mod-Sev Stop: 10/22/24 16:42 Ondansetron HCl (Ondansetron Inj 2 Mg/Ml Inj 2 Ml) 4 mg IV Q6H PRN; Protocol PRN Reason: NAUSEA OR VOMITING Stop: 11/16/24 16:36 Sennosides (Senna Tablet) 1 tab PO BID PRN; Protocol PRN Reason: CONSTIPATION Stop: 11/16/24 16:36 Discontinued Medications Acetaminophen (Acetaminophen 325 Mg Tablet) 650 mg PO Q6H PRN; Protocol PRN Reason: Fever >100.4 or pain Stop: 11/16/24 16:36 Sodium Chloride (Ns) 500 mls @ 999 mls/hr IV .Q31M ONE Stop: 10/17/24 11:34 Last Infusion: 10/17/24 12:59 Dose: Infused Ceftriaxone Sodium 1 gm/ (Sodium Chloride) 50 mls @ 100 mls/hr IV QDAY [facility] Stop: 10/24/24 16:42 Last Admin: 10/17/24 17:08 Dose: Not Given Ketorolac Tromethamine (Ketorolac Inj 30 Mg/Ml Vial) 15 mg IVP X1 ONE Stop: 10/17/24 12:26 Last Admin: 10/17/24 13:04 Dose: 15 mg Morphine Sulfate (Morphine Sulf Inj 10 Mg/Ml Vial) 4 mg IVP X1 ONE Stop: 10/17/24 11:05 Last Admin: 10/17/24 12:26 Dose: 4 mg Morphine Sulfate (Morphine Sulf Inj 10 Mg/Ml Vial) 4 mg IVP X1 ONE Stop: 10/17/24 15:19 Last Admin: 10/17/24 15:44 Dose: 4 mg Assessment & Plan Plan This is a 44 year old female with PMHx for kidney stones, hemorrhoids, umbilical hernia repair, and recently diagnosed colon cancer metastasis s/p colectomy but not yet started chemotherapy presents to the ED with chief complaint of significant chest pain and associated shortness of breath for 1 week, admitted for pneumonia. Acute pericarditis Trace pericardial effusion ddx: malignant, viral/bacterial, idiopathic. Presenting with 1 weeks of shortness of breath. Has acute onset pleuretic chest pain, worse on the left, laying flat and with deep inspiration. Reports 1.5 weeks of sore throat and URI symptoms including cough with phlegm. 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 Underwent EXLAP for sigmoid colectomy with low pelvic coloproctostomy and excision of right adnexal mass. EKG showed sinus tachycardia, diffuse ST elevation and decreased VT interval suggestive of pericarditis. CTA showed extensive medistainal tumor LAP, bibasilar pneumonia, negative for PE. ECHO showed trace pericardial effusion without evidence of tamponade, EEF 55-60%, normals LV/RV size/function, normal diastolic function. ESR and CRP elevated. Feels well today, pain controlled today. ST depression still present on tele. Denies chest pain or sob. Recommended IBUPROFEN after meals: 800 mg Q8H for 2 weeks, followed by 600 mg Q8H for 2 weeks, followed by 400 mg Q8H for 2 weeks, followed by 200 mg Q8H for 2 weeks. Recommended PROTONIX 40 mg PO BID before meal to reduce risk of GI bleed for 6 months. Recommended COLCHICINE 0.6 mg BID for 6 months. Pneumonia Complained of UR symptoms for 1 week. PNA seen on imaging. Metastatic colon cancer s/p sigmoid colectomy 10/01/24 Acute anemia Neutropenia Management of rest of the medical conditions as per primary team and other consultants. Thank you for the consult and allowing me to participate in the care of the patient. Cardiology will continue to follow. Case was discussed with attending, Dr. Singer. Kenneth Ford DO PGYI
[2024-10-17] MEDS: KETOROLAC INJ 30 MG/ML VIAL IVP (19:44)
[2024-10-17 20:00] VITALS: BP 131/79; PULSE 122; PULSE 123; RESP 20; TEMP 37.2; O2SAT 98
[2024-10-17] MEDS: PANTOPRAZOLE 40 MG TABLET PO (20:53)
[2024-10-18] VITALS (7 sets, daily range): BP systolic 111–130; BP diastolic 64–89; PULSE 98–118; RESP 14–26; TEMP 36.1–37.5; O2SAT 97–99
[2024-10-18] MEDS: KETOROLAC INJ 30 MG/ML VIAL IVP (04:31)
[2024-10-18 05:37] LABS: Basophils % (Auto) 1 % (0-2.5); Eosinophils # (Auto) 0.1 Thou/mm3 (0.0-0.5); Eosinophils % (Auto) 4 % (0-10); Hematocrit 26.3 % (36.0-46.0); Immature Granulocytes % (Auto) 5 % (0-0); Immature Granulocytes Auto 0.06 Thou/mm3 (0.00-0.00); Lymphocytes # (Auto) 0.3 Thou/mm3 (1.0-4.8); Lymphocytes % (Auto) 22 % (10-50); Mean Corpuscular HGB Conc 32.7 g/dl (31.0-37.0); Mean Corpuscular Hemoglobin 25.4 pg (25.0-35.0); Mean Corpuscular Volume 78 fL (80-100); Monocytes # (Auto) 0.4 Thou/mm3 (0.0-0.8); Monocytes % (Auto) 31 % (0-12); Neutrophils # (Auto) 0.4 Thou/mm3 (1.8-7.7); Neutrophils % (Auto) 37 % (37-80); Nucleated Red Blood Cell % 0 /100 WBC (0); Platelet Count 141 Thou/mm3 (140-440); RDW Standard Deviation 47.6 fL (36.4-46.3); Red Blood Count 3.39 Miln/mm3 (4.00-5.20)
[2024-10-18 05:59] LABS: Hemoglobin 8.6 g/dL (12.0-16.0); White Blood Count 1.2 Thou/mm3 (3.6-11.0)
[2024-10-18 06:08] LABS: Alanine Aminotransferase 22 U/L (10-49); Albumin, Serum 3.6 gm/dL (3.5-5.0); Albumin/Globulin Ratio 1.2 (1.2-2.2); Alkaline Phosphatase 122 U/L (46-116); Anion Gap 12 (7-16); Aspartate Amino Transferase 16 U/L (0-34); BUN/Creatinine Ratio 15 Ratio (12-20); Bilirubin,Total 0.5 mg/dL (0.3-1.2); Blood Urea Nitrogen 20 mg/dL (9-23); Calcium 8.3 mg/dL (8.3-10.6); Calcium (Corrected) 8.6 mg/dL (8.5-10.1); Carbon Dioxide 19.3 mMol/L (20.0-31.0); Chloride 107 mMol/L (98-107); Creatinine (Component) 1.3 mg/dL (0.6-1.3); Estimated Creatinine Clearance 49.4 mL/min (>60); Globulin 3.1 gm/dL (2.3-3.5); Glucose 100 mg/dL (74-106); Magnesium 1.7 mg/dL (1.6-2.6); Osmolality,Calculated 278 (275-295); Phosphorous 3.7 mg/dL (2.4-5.1); Potassium 4.2 mMol/L (3.4-5.1); Sodium 138 mMol/L (136-145); Total Protein 6.7 gm/dL (5.7-8.2); eGFR 52 See Note
--- NOTE | 2024-10-18 09:01 | PD.RESPRO ---
Documentation for date of: 10/18/24 Subjective Subjective Interval history: 44 year old female with past medical history significant for kidney stones, hemorrhoids, umbilical hernia repair, and recently diagnosed colon cancer metastasis s/p colectomy but not yet started chemotherapy presents to the ED with chief complaint of significant chest pain and associated shortness of breath for 1 week. Patient was in her usual state of health when she developed sudden onset left-sided chest pain after laying on her left side. The pain is sharp, exacerbated with deep breaths or laying flat on her back, radiates throughout the chest into the back. Pain has worsened intermittently throughout the past week. Patient also endorses fevers, chills, night sweats. Denies cough, palpitations, weakness, nausea, vomiting. ED COURSE: Labs significant for: WBC 1.2, hemoglobin 10.0, ESR 75, CRP 19.4. Troponin negative x 2. BUN 14, creatinine 1.0, EGFR greater than 60. Imaging significant for: EKG showing diffuse ST elevations and tachycardia. CTA chest showed bibasilar pneumonia and extensive mediastinal lymphadenopathy. Patient received morphine and Toradol with symptom relief. Cardiology consulted due to potential pericarditis. Patient admitted to telemetry. Cardiology on board. IV antibiotics ordered. 10/18/2024: Patient seen examined sitting at bedside, resting comfortably. Patient reports significant improvement in pain with medications. Patient denies fever, chills, nausea, vomiting. Mild shortness of breath due to pain with deep inspiration. Cardiology following, recommended course of colchicine and aspirin with GI prophylaxis for pericarditis. ST elevations on associate trainer, will continue treatment inpatient. WBC 1.2, hemoglobin 8.6. Sodium 138, potassium 4.2, BUN 20, creatinine 1.3, EGFR 52. Patient appears slightly dry on exam, will give fluids. Exam Vital Signs Temp Pulse Resp BP Pulse Ox O2 Del Method 96.9 F 102 H 14 119/72 99 Room Air 10/18/24 08:00 10/18/24 08:00 10/18/24 08:00 10/18/24 08:00 10/18/24 08:00 10/18/24 08:00 Narrative Exam PE: Gen: Well-developed and well-nourished. HEENT: NCAT, PERRLA, EOMI, MMM, anicteric conjunctivae. CVS: normal S1 and S2. No M/R/G. Tachycardia, regular rhythm. Tenderness to palpation sternal region. Resp: Bibasilar crackles, improved. Abd: soft, non-tender, non-distended. Midline laparotomy scar, clean, dry, intact. MSK: Good ROM in BUE & BLE. No edema or rash. Neuro: CN II-XII grossly intact. Strength 5/5 in BUE & BLE. Alert and oriented x3. Psych: appropriate mood and affect. Objective Labs 10/19/24 04:43 10/19/24 04:43 Labs: Laboratory Results - last 24 hr 10/17/24 10/17/24 10/18/24 10:53 13:17 04:55 WBC 1.2 L 1.2 L RBC 3.96 L 3.39 L Hgb 10.0 L 8.6 L Hct 31.8 L 26.3 L MCV 80 78 L MCH 25.3 25.4 MCHC 31.4 32.7 RDW Std Deviation 47.0 H 47.6 H Plt Count 143 141 Neut % (Auto) 37 37 Lymph % (Auto) 21 22 [place] % (Auto) 40 H 31 H Eos % (Auto) 1 4 Baso % (Auto) 1 1 Neut # (Auto) 0.4 L 0.4 L Lymph # (Auto) 0.3 L 0.3 L [place] # (Auto) 0.5 0.4 Eos # (Auto) 0.0 0.1 Baso # (Auto) 0.0 0.0 Immature Gran # (Auto) 0.01 H 0.06 H Absolute Nucleated RBC 0.00 0.00 Immature Gran % 1 H 5 H Nucleated RBC % 0 0 ESR 75 H PT 12.1 INR 1.1 APTT 27.6 Sodium 134 L 138 Potassium 4.0 4.2 Chloride 102 107 Carbon Dioxide 20.5 19.3 L Anion Gap 12 12 BUN 14 20 Creatinine 1.0 D 1.3 Estim Creat Clear Calc 63.7 49.4 L eGFR > 60 52 L BUN/Creatinine Ratio 14 15 Glucose 134 H 100 Calculated Osmolality 270 L 278 Calcium 9.2 8.3 Corrected Calcium 9.2 8.6 Phosphorus 3.7 Magnesium 1.8 1.7 Total Bilirubin 0.5 0.5 AST 18 16 ALT 28 22 Alkaline Phosphatase 88 122 H D Troponin I 0.020 0.020 C-Reactive Prot, Quant 19.4 H B-Natriuretic Peptide 148 H Total Protein 7.5 6.7 Albumin 4.1 3.6 D Globulin 3.4 3.1 Albumin/Globulin Ratio 1.2 1.2 HCG, Qual Negative Quality Measures Quality Measures none Assessment & Plan Assessment Current Active Medications: Generic Name Dose Route Start Last Admin Trade Name Freq PRN Reason Stop Dose Admin Aspirin 812.5 mg 10/18/24 07:45 Aspirin 325 Mg Tablet PO 11/01/24 07:44 Q8H IFEOMA Protocol Colchicine 0.6 mg 10/18/24 09:00 Colchicine 0.6 Mg Tablet PO 11/17/24 08:59 BID IFEOMA Docusate Sodium 100 mg 10/17/24 16:37 Docusate Sod 100 Mg Capsule PO 11/16/24 16:36 QDAY PRN CONSTIPATION Protocol Heparin Sodium (Porcine) 5,000 unit 10/17/24 21:00 10/17/24 20:54 Heparin Sod Inj 5000 Unit/Ml Vial SC 10/31/24 20:59 Not Given Q12HR [facility] Ceftriaxone Sodium/Dextrose 1 gm in 50 mls @ 100 mls/hr 10/17/24 17:00 10/17/24 17:57 Rocephin/D5w 1gm Iv Premix IV 10/24/24 16:59 Infused QPM [facility] Infusion Sodium Chloride 1,000 mls @ 100 mls/hr 10/18/24 07:52 Ns 0.45% IV 11/17/24 07:51 .Q10H [facility] Magnesium Sulfate 4 gm in 50 mls @ 12.5 mls/hr 10/18/24 07:54 Magnesium Sulfate Ivpb IV 10/18/24 11:53 X1 ONE Ibuprofen 600 mg 10/17/24 17:28 Ibuprofen Tab 600 Mg Tablet PO 11/16/24 17:27 Q6HR PRN PAIN 1-3 OR FEVER > 101 Ketorolac Tromethamine 30 mg 10/17/24 16:43 10/18/24 04:31 Ketorolac Inj 30 Mg/Ml Vial IVP 10/22/24 16:42 30 mg Q6HR PRN Administration PAIN SCALE 4-10(Mod-Sev Ondansetron HCl 4 mg 10/17/24 16:37 Ondansetron Inj 2 Mg/Ml Inj 2 Ml IV 11/16/24 16:36 Q6H PRN NAUSEA OR VOMITING Protocol Pantoprazole Sodium 40 mg 10/17/24 21:00 10/17/24 20:53 Pantoprazole 40 Mg Tablet PO 01/15/25 20:59 40 mg BID IFEOMA Administration Sennosides 1 tab 10/17/24 16:37 Senna Tablet PO 11/16/24 16:36 BID PRN CONSTIPATION Protocol Plan 44 year old female with past medical history significant for kidney stones, hemorrhoids, umbilical hernia repair, and recently diagnosed colon cancer metastasis s/p colectomy but not yet started chemotherapy presents to the ED with chief complaint of significant chest pain and associated shortness of breath for 1 week, admitted for pneumonia. #Pneumonia #Pleuritic chest pain #Pericarditis Patient presented with chief complaint of pleuritic chest pain x 1 week. Pain is sharp, radiates throughout the whole chest, worsened with lying back. CTA chest showed bibasilar pneumonia. EKG showed diffuse ST elevations, mild, with sinus tachycardia. Patient has elevated ESR and CRP. Troponin negative x 2. Cardiology consulted, appreciate recommendations. Patient admitted and IV antibiotics initiated. Patient's parent symptomatic relief with morphine and Toradol. Chest pain possibly also related to extensive mediastinal lymphadenopathy in the setting of metastatic colon cancer. - Rocephin 1 g IV daily - Cardiology consulted, appreciate recommendations - Telemonitoring - Aspirin, colchicine, PPI for GI prophylaxis as per cardiology recommendations #CHERI Patient developed mild CHERI day after admission, BUN 20, creatinine 1.3, EGFR 52. Patient peers slightly dry on exam, has had poor p.o. intake since admission. Most likely prerenal. - IVF: Half NS at 100 mL/h x 1 L #Metastatic colon cancer s/p sigmoid colectomy 10/01/24 #Acute anemia Patient recently diagnosed with metastatic colon cancer, received colectomy 09/30/2024. Patient's Port-A-Cath, has not begun chemotherapy yet. CTA chest showed extensive mediastinal lymphadenopathy. - Monitor daily labs and electrolytes #Neutropenia Patient has WBC count of 1.2, ANC 0.4. This was also present on patient's last admission. - Place reverse isolation precautions Diet: Regular Lines: PIVs, Port-A-Cath GI Prophylaxis: PPI Thrombo Prophylaxis: Heparin Code status: FULL CODE Plan of care discussed with attending Dr. Collado. Alex Patel MD PGY?1 Attending Provider Attestation/Addendum Patient seen and examined with resident physician Dr. Galdamez. Note reviewed, agree with findings and recommendations. Patient currently seen in reverse isolation. Admitted with pericarditis. Currently on aspirin, colchicine, ibuprofen
[2024-10-18] MEDS: Magnesium Sulfate 4 GM Ivpb 4 GM/50 ML BAG IV (09:53)
[2024-10-18] MEDS: HEPARIN SOD INJ 5000 UNIT/ML VIAL SC ×2 (09:53→20:38)
[2024-10-18] MEDS: PANTOPRAZOLE 40 MG TABLET PO ×2 (09:54→20:36)
[2024-10-18] MEDS: COLCHICINE 0.6 MG TABLET PO ×2 (09:54→20:36)
[2024-10-18] MEDS: Aspirin 325 MG TABLET 812.5 MG PO (09:57)
[2024-10-18] MEDS: SODIUM CHLORIDE 0.45 % 1,000 ML 100 ML IV (09:57)
--- NOTE | 2024-10-18 17:03 | ESPR_ITS ---
Documentation for date of: 10/18/24 Subjective Subjective Interval history: No acute overnight events. Denies new symptoms or worsening symptoms. Has minimal chest pain today. Vitals WNL. WBC 1.2, Hgb 8.6, PLT 141. CO2 19.3, CR slightly up 1.0 > 1.3, BUN 20, EGFR 52, ALP 122, remainder CHEM panel WNL. Continue on COLCHICINE and IBUPROFEN. Exam Vital Signs Temp Pulse Resp BP Pulse Ox O2 Del Method 99.0 F 98 20 128/65 99 Room Air 10/18/24 16:00 10/18/24 16:00 10/18/24 16:00 10/18/24 16:00 10/18/24 16:00 10/18/24 16:00 Narrative Exam GENERAL * Normal appearing female, in mod distress 2/2 pain, on room air satting well. HEENT * NCAT.?ANGELES. Oral mucosa is moist. Patent Nares NECK * Supple, nontender, no thyromegaly, no meningismus, no JVD, no step offs CHEST * RRR, no m/g/r * CTAB, no w/r/r. Symmetrical chest rise. No intercostal subcostal retraction * Atraumatic, nontender, no crepitus, symmetrical expansion. ABDOMEN * Soft, flat, nontender. No guarding/rebound tenderness/masses. * Bowel sounds presents EXTREMITIES * No edema/cyanosis.? SKIN * Warm and dry, no jaundice/rashes. * Left subclavian port a cath without signs of infection, tenderness, or inflammation NEUROMUSCULAR * No lumbar or midline, no CVA, no paraspinal muscle spasm or tenderness. * Moves all 4 extremities well, with full ROM and good CSM. * BALL x4, CN II-XII grossly intact. * No focal neurologic deficits. PSYCHIATRY * Normal mood and affect, cooperative, no SI or HI or hallucinations. Objective Labs 10/19/24 04:43 10/19/24 04:43 Labs: Laboratory Results - last 24 hr 10/18/24 04:55 WBC 1.2 L RBC 3.39 L Hgb 8.6 L Hct 26.3 L MCV 78 L MCH 25.4 MCHC 32.7 RDW Std Deviation 47.6 H Plt Count 141 Neut % (Auto) 37 Lymph % (Auto) 22 [place] % (Auto) 31 H Eos % (Auto) 4 Baso % (Auto) 1 Neut # (Auto) 0.4 L Lymph # (Auto) 0.3 L [place] # (Auto) 0.4 Eos # (Auto) 0.1 Baso # (Auto) 0.0 Immature Gran # (Auto) 0.06 H Absolute Nucleated RBC 0.00 Immature Gran % 5 H Nucleated RBC % 0 Sodium 138 Potassium 4.2 Chloride 107 Carbon Dioxide 19.3 L Anion Gap 12 BUN 20 Creatinine 1.3 Estim Creat Clear Calc 49.4 L eGFR 52 L BUN/Creatinine Ratio 15 Glucose 100 Calculated Osmolality 278 Calcium 8.3 Corrected Calcium 8.6 Phosphorus 3.7 Magnesium 1.7 Total Bilirubin 0.5 AST 16 ALT 22 Alkaline Phosphatase 122 H D Total Protein 6.7 Albumin 3.6 D Globulin 3.1 Albumin/Globulin Ratio 1.2 Quality Measures Quality Measures none Assessment & Plan Assessment Current Active Medications: Generic Name Dose Route Start Last Admin Trade Name Freq PRN Reason Stop Dose Admin Colchicine 0.6 mg 10/18/24 09:00 10/18/24 09:54 Colchicine 0.6 Mg Tablet PO 11/17/24 08:59 0.6 mg BID IFEOMA Administration Docusate Sodium 100 mg 10/17/24 16:37 Docusate Sod 100 Mg Capsule PO 11/16/24 16:36 QDAY PRN CONSTIPATION Protocol Heparin Sodium (Porcine) 5,000 unit 10/17/24 21:00 10/18/24 09:53 Heparin Sod Inj 5000 Unit/Ml Vial SC 10/31/24 20:59 5,000 unit Q12HR IFEOMA Administration Ceftriaxone Sodium/Dextrose 1 gm in 50 mls @ 100 mls/hr 10/17/24 17:00 10/17/24 17:57 Rocephin/D5w 1gm Iv Premix IV 10/24/24 16:59 Infused QPM IFEOMA Infusion Sodium Chloride 1,000 mls @ 100 mls/hr 10/18/24 07:52 10/18/24 09:57 Ns 0.45% IV 10/18/24 17:51 100 mls/hr .Q10H IFEOMA Administration Ibuprofen 800 mg 10/18/24 21:00 Ibuprofen Tab 400 Mg Tablet PO 11/01/24 20:59 BID IFEOMA Ondansetron HCl 4 mg 10/17/24 16:37 Ondansetron Inj 2 Mg/Ml Inj 2 Ml IV 11/16/24 16:36 Q6H PRN NAUSEA OR VOMITING Protocol Pantoprazole Sodium 40 mg 10/17/24 21:00 10/18/24 09:54 Pantoprazole 40 Mg Tablet PO 01/15/25 20:59 40 mg BID IFEOMA Administration Sennosides 1 tab 10/17/24 16:37 Senna Tablet PO 11/16/24 16:36 BID PRN CONSTIPATION Protocol Plan This is a 44 year old female with PMHx for kidney stones, hemorrhoids, umbilical hernia repair, and recently diagnosed colon cancer metastasis s/p colectomy but not yet started chemotherapy presents to the ED with chief complaint of significant chest pain and associated shortness of breath for 1 week, admitted for pneumonia. Acute pericarditis Trace pericardial effusion ddx: malignant, viral/bacterial, idiopathic. Presenting with 1 weeks of shortness of breath. Has acute onset pleuretic chest pain, worse on the left, laying flat and with deep inspiration. Reports 1.5 weeks of sore throat and URI symptoms including cough with phlegm. 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 Underwent EXLAP for sigmoid colectomy with low pelvic coloproctostomy and excision of right adnexal mass. EKG showed sinus tachycardia, diffuse ST elevation and decreased KS interval suggestive of pericarditis. CTA showed extensive medistainal tumor LAP, bibasilar pneumonia, negative for PE. ECHO showed trace pericardial effusion without evidence of tamponade, EEF 55-60%, normals LV/RV size/function, normal diastolic function. ESR and CRP elevated. Feels well today, pain controlled today. ST depression still present on tele. Denies chest pain or sob. Recommended IBUPROFEN after meals: 800 mg Q8H for 2 weeks, followed by 600 mg Q8H for 2 weeks, followed by 400 mg Q8H for 2 weeks, followed by 200 mg Q8H for 2 weeks. Recommended PROTONIX 40 mg PO BID before meal to reduce risk of GI bleed for 6 months. Recommended COLCHICINE 0.6 mg BID for 6 months. Nephrology recommended IBUPROFEN BID rather than TID given underlying CHERI, agree with plan. Pneumonia Complained of UR symptoms for 1 week. PNA seen on imaging. Metastatic colon cancer s/p sigmoid colectomy 10/01/24 Acute anemia Neutropenia Management of rest of the medical conditions as per primary team and other consultants. Thank you for the consult and allowing me to participate in the care of the patient. Cardiology will continue to follow. Case was discussed with attending, Dr. Singer. Kenneth Ford DO PGYI
--- NOTE | 2024-10-18 17:12 | PC.SS ---
ANESTHESIOLOGIST ASSISTANT conducted bedside contact with the patient. ANESTHESIOLOGIST ASSISTANT confirmed that patient is not aligned with outpatient dialysis. Patient's PCP is Dr. Collado.
[2024-10-18] MEDS: HYDROcodone/APAP 5/325 TABLET 1 TAB PO (18:46)
[2024-10-18] MEDS: cefTRIAXone/D5w 1gm IV premix 1 GM/50 ML BAG IV (20:35)
[2024-10-18] MEDS: IBUPROFEN TAB 400 MG TABLET 800 MG PO (20:36)
[2024-10-19] VITALS: BP 122/85; PULSE 87; PULSE 90; RESP 16; TEMP 36.4; O2SAT 97
[2024-10-19 04:00] VITALS: BP 124/67; PULSE 93; PULSE 95; RESP 17; TEMP 36.6; O2SAT 97
[2024-10-19 05:53] LABS: Basophils % (Auto) 2 % (0-2.5); Eosinophils # (Auto) 0.1 Thou/mm3 (0.0-0.5); Eosinophils % (Auto) 4 % (0-10); Immature Granulocytes % (Auto) 2 % (0-0); Immature Granulocytes Auto 0.02 Thou/mm3 (0.00-0.00); Lymphocytes # (Auto) 0.3 Thou/mm3 (1.0-4.8); Lymphocytes % (Auto) 26 % (10-50); Mean Corpuscular HGB Conc 31.5 g/dl (31.0-37.0); Mean Corpuscular Hemoglobin 25.5 pg (25.0-35.0); Mean Corpuscular Volume 81 fL (80-100); Monocytes # (Auto) 0.4 Thou/mm3 (0.0-0.8); Monocytes % (Auto) 36 % (0-12); Neutrophils # (Auto) 0.4 Thou/mm3 (1.8-7.7); Neutrophils % (Auto) 31 % (37-80); Nucleated Red Blood Cell % 0 /100 WBC (0); Platelet Count 149 Thou/mm3 (140-440); RDW Standard Deviation 49.1 fL (36.4-46.3); Red Blood Count 3.33 Miln/mm3 (4.00-5.20)
[2024-10-19 05:58] LABS: Hemoglobin 8.5 g/dL (12.0-16.0); White Blood Count 1.2 Thou/mm3 (3.6-11.0)
[2024-10-19 06:28] LABS: Alanine Aminotransferase 21 U/L (10-49); Albumin, Serum 3.6 gm/dL (3.5-5.0); Albumin/Globulin Ratio 1.2 (1.2-2.2); Alkaline Phosphatase 118 U/L (46-116); Anion Gap 12 (7-16); Aspartate Amino Transferase 16 U/L (0-34); BUN/Creatinine Ratio 18 Ratio (12-20); Bilirubin,Total 0.3 mg/dL (0.3-1.2); Blood Urea Nitrogen 18 mg/dL (9-23); Calcium 8.4 mg/dL (8.3-10.6); Calcium (Corrected) 8.7 mg/dL (8.5-10.1); Carbon Dioxide 21.3 mMol/L (20.0-31.0); Chloride 106 mMol/L (98-107); Estimated Creatinine Clearance 64.2 mL/min (>60); Globulin 2.9 gm/dL (2.3-3.5); Glucose 104 mg/dL (74-106); Magnesium 2.2 mg/dL (1.6-2.6); Osmolality,Calculated 279 (275-295); Phosphorous 3.7 mg/dL (2.4-5.1); Potassium 4.4 mMol/L (3.4-5.1); Sodium 139 mMol/L (136-145); Total Protein 6.5 gm/dL (5.7-8.2); eGFR > 60 See Note
[2024-10-19 08:00] VITALS: BP 122/72; PULSE 110; PULSE 119; RESP 19; TEMP 37.3; O2SAT 95
[2024-10-19] MEDS: IBUPROFEN TAB 400 MG TABLET 800 MG PO (08:06)
[2024-10-19] MEDS: PANTOPRAZOLE 40 MG TABLET PO (08:06)
[2024-10-19] MEDS: COLCHICINE 0.6 MG TABLET PO (08:06)
[2024-10-19] MEDS: HEPARIN SOD INJ 5000 UNIT/ML VIAL SC (08:07)
--- NOTE | 2024-10-19 09:05 | ESDS_ITS ---
Planned Discharge Date 10/19/24 DS: Providers Provider Date of admission: 10/17/24 16:57 Primary care physician: Ching Collado MD Admitting Provider: Ching Collado MD Attending Provider on Admission: Ching Collado MD Consults: 10/17/24 12:58 Consult to Cardiology Stat Comment: Consulting Provider: Ankur Singer Attending Provider on DC: Ching Collado MD Discharging Provider: Alex Patel MD DS: Diagnosis Problem List Completed Was Problem List Reviewed/Reconciled?: Yes Hospital Course Hospital Course Hospital course: 4 year old female with past medical history significant for kidney stones, hemorrhoids, umbilical hernia repair, and recently diagnosed colon cancer metastasis s/p colectomy but not yet started chemotherapy presents to the ED with chief complaint of significant chest pain and associated shortness of breath for 1 week, admitted for pericarditis. Cardiology was consulted, started patient on ibuprofen and colchicine with PPI prophylaxis. Patient also given IV fluids for dehydration with mild CHERI. Patient found to have pneumonia based on symptoms and CT imaging, started on antibiotics. Patient showed significant improvement with hospital treatment. Patient cleared for discharge from cardiology perspective. Patient medically stable for discharge. Discharge plan: There was started on the following medications: - Augmentin 875 twice daily for 5 days - Colchicine 0.6 mg twice daily for 6 months - Ibuprofen 800 mg 3 times daily for 2 weeks - Protonix 40 mg twice daily for 6 months Please continue taking all other meds as previously prescribed. Please follow-up with Dr. Singer in his clinic in 1 week. Please follow-up with Dr. Collado in 2 weeks. Please return to the ED if develop new or worsening symptoms. Diagnoses: #Pneumonia #Pleuritic chest pain #Pericarditis #CHERI #Metastatic colon cancer s/p sigmoid colectomy 10/01/24 #Acute anemia #Neutropenia Plan of care discussed with attending Dr. Collado. Alex Patel MD PGY?1 Status at Discharge Overall status at discharge: patient is progressing back to baseline Time Spent with Patient Time attestation: Total time spent providing and/or coordinating discharge services: Time spent: Greater than 30 minutes Exam Vital Signs Temp Pulse Resp BP Pulse Ox O2 Del Method 99.1 F 110 H 19 122/72 95 Room Air 10/19/24 08:00 10/19/24 08:00 10/19/24 08:00 10/19/24 08:00 10/19/24 08:00 10/19/24 08:00 Narrative Exam PE: Gen: Well-developed and well-nourished. HEENT: NCAT, PERRLA, EOMI, MMM, anicteric conjunctivae. CVS: normal S1 and S2. No M/R/G. Tachycardia, regular rhythm. Tenderness to palpation sternal region. Resp: Lungs clear to auscultation bilaterally. Abd: soft, non-tender, non-distended. Midline laparotomy scar, clean, dry, intact. MSK: Good ROM in BUE & BLE. No edema or rash. Neuro: CN II-XII grossly intact. Strength 5/5 in BUE & BLE. Alert and oriented x3. Psych: appropriate mood and affect. Discharge Plan Plan Patient Disposition: HOME (Self Care) Patient condition on transfer: Stable Care Plan Goals: There was started on the following medications: - Augmentin 875 twice daily for 5 days - Colchicine 0.6 mg twice daily for 6 months - Ibuprofen 800 mg 3 times daily for 2 weeks - Protonix 40 mg twice daily for 6 months Please continue taking all other meds as previously prescribed. Please follow-up with Dr. Singer in his clinic in 1 week. Please follow-up with Dr. Collado in 2 weeks. Please return to the ED if develop new or worsening symptoms. Prescriptions/Referrals Prescriptions/Med Rec: New amoxicillin-pot clavulanate 875-125 mg tablet 1 tab PO BID 5 Days Qty: 10 0RF pantoprazole [Protonix] 40 mg tablet,delayed release (DR/EC) 40 mg PO BID 30 Days Qty: 60 0RF ibuprofen 800 mg tablet 800 mg PO Q8H 14 Days Qty: 42 0RF colchicine 0.6 mg tablet 0.6 mg PO BID 30 Days Qty: 60 0RF Continued acetaminophen [Acetaminophen Extra Strength] 500 mg tablet 500 mg PO Q4H PRN (Reason: pain) Rx Instructions: prn abdominal pain- Over the counter. cetirizine [Allergy Relief (cetirizine)] 5 mg tablet 5 mg PO QDAY PRN (Reason: allergy symptoms) Rx Instructions: 5 or 10mg pt not sure.- over the counter. metoprolol succinate 50 mg capsule,sprinkle,ER 24hr 50 mg PO QDAY 30 Days Qty: 30 0RF docusate sodium [Colace] 100 mg capsule 100 mg PO BID Qty: 40 0RF Discontinued ibuprofen 600 mg tablet 600 mg PO QDAY PRN (Reason: pain) Patient Comments: take 1 tablet by mouth once daily if needed- does not relieve pain, tylenol works better per patient. Referrals: Ching Collado MD [Primary Care Provider] - Patient/Caregiver Discharge Instructions Discharge Activity: activity as tolerated Education Materials: Pericarditis, What Is Pneumonia? Print Language: Citizen Of [place] Stand Alone Forms: [employer] Award Info., Patient Portal Info Letter Discharge Order Discharge Orders: Discharge (Routine); Ordered 10/19/24 Ordered By: Alex Patel Quality Discharge Quality Measures VTE prophylaxis MD Attestestation MD Attestation Patient seen and examined with resident physician Dr. Galdamez. Note reviewed, agree with findings and recommendations. Patient currently seen in reverse isolation. Admitted with pericarditis. Currently on aspirin, colchicine, ibuprofen--patient will be discharged with same medications per Dr. Arthur Hawthorne recommendations.
[2024-10-19 10:30] VITALS: BP 147/76; PULSE 97; RESP 16; TEMP 36.2; O2SAT 97
== END 2024-10-19 10:36 | disposition home or self-care (01) | DRG 193 ==
LOC: SERX 12:19 → SERHOLD 16:59 → S2NX 19:29
PROVIDERS: Nurse Practitioner Family; Admitting Provider Internal Medicine; Emergency Provider Emergency Medicine; PCP Internal Medicine; Visit Provider Internal Medicine
DX: J18.9 Pneumonia, unspecified organism (principal); K85.90 Acute pancreatitis without necrosis or infection, unspecified; C18.9 Malignant neoplasm of colon, unspecified; I30.9 Acute pericarditis, unspecified; N17.9 Acute kidney failure, unspecified; N13.2 Hydronephrosis with renal and ureteral calculous obstruction; R07.2 Precordial pain; K76.89 Other specified diseases of liver; R59.0 Localized enlarged lymph nodes; K76.0 Fatty (change of) liver, not elsewhere classified; D70.9 Neutropenia, unspecified; Z85.72 Personal history of non-Hodgkin lymphomas; D63.0 Anemia in neoplastic disease; Z90.49 Acquired absence of other specified parts of digestive tract; Z87.442 Personal history of urinary calculi; E86.0 Dehydration; Z78.9 Other specified health status; Z79.82 Long term (current) use of aspirin
CPT/HCPCS: 36415; 71045; 71275; 80053; 81001; 81025; 83735; 83880; 84100; 84484; 84703; 85025; 85610; 85652; 85730; 86140; 87811; 93005; 93306; 96361; 96365; 96375; 99285; A4649; J0696; J1644; J1885; J2270; J3475; J7030; J7040; Q9967; A9270

== ENCOUNTER 2024-10-26 10:01 | Outpatient (RCR) | payer BC, SELFPAY ==
--- NOTE | 2024-10-18 08:13 | PC.CC ---
LATE NOTE: TORIE Garcia completed a face to face initial assessment with the pt at bedside in ER #[id number]. ASW explained my role and reason for the assessment and pt understood. Pt confirmed her demographics and insurance information. Pt reports her Next of Kin is her sister Valerie Wills [phone] and the person to contact and who she allows to provide all medical information is her spouse Arnol Taveras [phone]. Pt reports her PCP is Dr. Collado, her specialist are Dr. Tubbs, Dr. Edward, and Dr. Torres. 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 Pt reports she typically can do her own ADLs but stated that recently she has difficulty cooking and cleaning and states she can bathe herself. Pt reports she does not use DME of any kind and does not use O2. Pt states her Pharmacy is [facility] in [place]. Pt reports that if it recommended for her to go to a SNF upon d/c she would consider it. Pt will accept Home Health if offered. Pt states her spouse will be her transportation home when d/c. Next of Kin: Valerie Wills [phone] Decision Maker and Person to Notify: Arnol Taveras [phone]. SNF vs. Home: Prefers home but if offered SNF she will consider it. Home Health: is interested if offered. Full Code
--- NOTE | 2024-10-19 16:51 | PD.RESPRO ---
Documentation for date of: 10/19/24 Subjective Subjective Interval history: No acute overnight events. Denies new symptoms or worsening of symptoms. Denies fever, chills, headaches, chest pain, sob, cough, GI or urinary symptoms. Labs and vitals are relatively stable. Primary team planning on discharge, will continue with current management. Exam Vital Signs Temp Pulse Resp BP Pulse Ox O2 Del Method 99.0 F 98 20 128/65 99 Room Air 10/18/24 16:00 10/18/24 16:00 10/18/24 16:00 10/18/24 16:10/18/24 16:00 10/18/24 16:00 Narrative Exam GENERAL Normal appearing female, in mod distress 2/2 pain, on room air satting well. HEENT NCAT.?ANGELES. Oral mucosa is moist. Patent Nares NECK Supple, nontender, no thyromegaly, no meningismus, no JVD, no step offs CHEST RRR, no m/g/r CTAB, no w/r/r. Symmetrical chest rise. No intercostal subcostal retraction Atraumatic, nontender, no crepitus, symmetrical expansion. ABDOMEN Soft, flat, nontender. No guarding/rebound tenderness/masses. Bowel sounds presents EXTREMITIES No edema/cyanosis.? SKIN Warm and dry, no jaundice/rashes. Left subclavian port a cath without signs of infection, tenderness, or inflammation NEUROMUSCULAR No lumbar or midline, no CVA, no paraspinal muscle spasm or tenderness. Moves all 4 extremities well, with full ROM and good CSM. BALL x4, CN II-XII grossly intact. No focal neurologic deficits. PSYCHIATRY Normal mood and affect, cooperative, no SI or HI or hallucinations. Quality Measures Quality Measures VTE prophylaxis Assessment & Plan Assessment Current Active Medications: Generic Name Dose Route Start Last Admin Trade Name Freq PRN Reason Stop Dose Admin Colchicine 0.6 mg 10/18/24 09:00 10/18/24 09:54 Colchicine 0.6 Mg Tablet PO 11/17/24 08:59 0.6 mg BID IFEOMA Administration Docusate Sodium 100 mg 10/17/24 16:37 Docusate Sod 100 Mg Capsule PO 11/16/24 16:36 QDAY PRN CONSTIPATION Protocol Heparin Sodium (Porcine) 5,000 unit 10/17/24 21:00 10/18/24 09:53 Heparin Sod Inj 5000 Unit/Ml Vial SC 10/31/24 20:59 5,000 unit Q12HR IFEOMA Administration Ceftriaxone Sodium/Dextrose 1 gm in 50 mls @ 100 mls/hr 10/17/24 17:00 10/17/24 17:57 Rocephin/D5w 1gm Iv Premix IV 10/24/24 16:59 Infused QPM IFEOMA Infusion Sodium Chloride 1,000 mls @ 100 mls/hr 10/18/24 07:52 10/18/24 09:57 Ns 0.45% IV 10/18/24 17:51 100 mls/hr .Q10H IFEOMA Administration Ibuprofen 800 mg 10/18/24 21:00 Ibuprofen Tab 400 Mg Tablet PO 11/01/24 20:59 BID IFEOMA Ondansetron HCl 4 mg 10/17/24 16:37 Ondansetron Inj 2 Mg/Ml Inj 2 Ml IV 11/16/24 16:36 Q6H PRN NAUSEA OR VOMITING Protocol Pantoprazole Sodium 40 mg 10/17/24 21:00 10/18/24 09:54 Pantoprazole 40 Mg Tablet PO 01/15/25 20:59 40 mg BID IFEOMA Administration Sennosides 1 tab 10/17/24 16:37 Senna Tablet PO 11/16/24 16:36 BID PRN CONSTIPATION Protocol Plan This is a 44 year old female with PMHx for kidney stones, hemorrhoids, umbilical hernia repair, and recently diagnosed colon cancer metastasis s/p colectomy but not yet started chemotherapy presents to the ED with chief complaint of significant chest pain and associated shortness of breath for 1 week, admitted for pneumonia. Acute pericarditis Trace pericardial effusion ddx: malignant, viral/bacterial, idiopathic. Presenting with 1 weeks of shortness of breath. Has acute onset pleuretic chest pain, worse on the left, laying flat and with deep inspiration. Reports 1.5 weeks of sore throat and URI symptoms including cough with phlegm. 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 Underwent EXLAP for sigmoid colectomy with low pelvic coloproctostomy and excision of right adnexal mass. EKG showed sinus tachycardia, diffuse ST elevation and decreased W[place] interval suggestive of pericarditis. CTA showed extensive medistainal tumor LAP, bibasilar pneumonia, negative for PE. ECHO showed trace pericardial effusion without evidence of tamponade, EEF 55-60%, normals LV/RV size/function, normal diastolic function. ESR and CRP elevated. Feels well today, pain controlled today. ST depression still present on tele. Denies chest pain or sob. Recommended IBUPROFEN after meals: 800 mg Q8H for 2 weeks, followed by 600 mg Q8H for 2 weeks, followed by 400 mg Q8H for 2 weeks, followed by 200 mg Q8H for 2 weeks. Recommended PROTONIX 40 mg PO BID before meal to reduce risk of GI bleed for 6 months. Recommended COLCHICINE 0.6 mg BID for 6 months. Pneumonia Complained of UR symptoms for 1 week. PNA seen on imaging. Metastatic colon cancer s/p sigmoid colectomy 10/01/24 Acute anemia Neutropenia Management of rest of the medical conditions as per primary team and other consultants. Thank you for the consult and allowing me to participate in the care of the patient. Cardiology will continue to follow. Case was discussed with attending, Dr. Singer. Kenneth Ford DO PGYI
--- NOTE | 2024-10-20 14:18 | CTCCONSULT_ITS ---
[facility] [address] [place], [place] [address] Consultation Note Date: 10/20/2024 MR#: [id number] Name: ANUP GARCIA : 1980 Dx: C18.7 Malignant neoplasm of sigmoid colon Attending physician. Ching Collado MD Reason for consultation. Patient with regionally advanced sigmoid colon cancer with likely distant mets referred to the cancer center for postop adjuvant therapy. History of Present Illness: Patient is an unfortunate 44-year-old with history of kidney stone experiencing significant left-sided flank pain CT abdomen pelvis 09/27/2024 revealed extensive abdominal pelvic lymphadenopathy. CT-guided needle biopsy 09/28/2024 revealed metastatic adenocarcinoma well-differentiated most consistent with colorectal primary. Patient underwent exploratory laparotomy sigmoid colectomy and low pelvic coloproctostomy along with excision of right adnexal mass on 10/01/[address] Shahid Mayo. Findings were near obstructing sigmoid tumor with significant lymphadenopathy around inferior mesenteric vessels. Final pathology revealed adenocarcinoma moderately differentiated G2 3.7 x 2.2 x 1 cm with invasion of the visceral peritoneum extensive small vessel involvement with margins proximal and distal uninvolved but close in the radial mesenteric areas. 22 lymph nodes removed were all involved with mets [id number]. Mismatch repair proteins were intact. CT chest 10/17/2024 showed extensive mediastinal adenopathy with left hilar para-aortic right tracheobronchial aortopulmonary window and subcarinal involvement. Was evaluated by electrologist for chest pain, and felt the patient had acute pericarditis and is prescribed ibuprofen Protonix and colchicine. Patient has had port placed and is referred to the cancer center for adjuvant therapy. Past Medical History: High blood pressure valley fever kidney stones history of umbilical hernia repair Meds. 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 Extensive [id number] sigmoid colon adenocarcinoma mismatch repair expression intact status post sigmoid colectomy low pelvic coloprocostomy 10/01/2024 2. Extensive mediastinal lymphadenopathy likely mets with chest discomfort diagnosed to be acute pericarditis being treated with noncontrolled medications. 3. Already has port placed will be seeing Dr. Hdz in a few days regarding chemo. 4. Patient currently not needing controlled pain medications but I will follow her as needed for any possible need in the future. 5 Thank you for allowing me to evaluate this patient. Cc: MD Shahid Pérez MD Electronically signed by: Grabiel Dunaway MD, DABR 10/20/2024 12:44 PM
--- NOTE | 2024-10-26 13:39 | CTCCONSULT_ITS ---
Patient: ANUP GARCIA : 1980 MR#: [id number] Page 2 of 9 CONSULTATION NOTE DATE OF CONSULTATION: 10/26/2024 NAME: ANUP GARCIA ACCOUNT: [id number] : 1980 AGE: 44 REFERRING PHYSICIAN: Ching Collado MD PRIMARY PHYSICIAN: Ching Collado MD REASON FOR VISIT: ONCOLOGY HISTORY: DIAGNOSIS: Malignant neoplasm of sigmoid colon [ICD10] C18.7 DATE OF DIAGNOSIS: STAGE/TNM: TREATMENT HISTORY: Care?Plan Start?Date Cycle Day Intent mFOLFOX-6?-?5FU?400?+?2400?CIV,?LVR?400,OXALIplat?85 10/26/2024 1 14 Curative?(adjuvant) HISTORY OF PRESENT ILLNESS: 44-year-old female OTHER MEDICAL HISTORY/CONDITIONS: Adenocarcinoma of the colon - dx 09/28/24 HTN Pericarditis while hosptialized 10/19/24 Pneumonia - Kidney stones Hx Valley Fever Exp lap with sigmoid colectomy; low coloproctostomy and excision of right adnexal mass - 10/01/24 Para-aortic lymph node biopsy - 09/28/24 Umbilical hernai repair - 05/19/23 FAMILY HISTORY: Cancer History:?Paternal 1st cousin - breast cancer- dx 40's SOCIAL HISTORY: 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 colchicine - 0.6 mg Twice a Day 2. ibuprofen - 800 mg Every 8 Hours 3. metoprolol succinate - 50 mg Daily 4. pantoprazole - 40 mg 1 Twice a Day?Palabra Meds? Medications Last Reconciled by Vilma Guadalupe RN on 10/26/2024 ALLERGIES: No Known Drug Allergies REVIEW OF SYSTEMS: A complete 14-point review of systems was performed and is negative except as noted in interval history. PHYSICAL EXAMINATION: VITAL SIGNS: B/P?124/77, Height?60?inches, Oxygen?Saturation?98% Weight?128?lbs (Change?since?10/20/24:?-18?lbs) PAIN: 0 - No pain ECOG Performance Status: None GENERAL APPEARANCE: Appears well, in no apparent distress, appropriately interactive. HEENT: Normocephalic, no temporal wasting, normal conjunctiva, no scleral icterus, normal hearing, lips without lesions, neck normal range of motion. CARDIOVASCULAR: Not assessed. PULMONARY: Normal respiratory effort, no respiratory distress or use of accessory muscles, speaking in full sentences, no tachypnea. EXTREMITIES: No pedal edema or cyanosis. SKIN: Normal skin appearance. NEUROLOGIC: Alert and oriented x4. PSHYCHIATRIC: Appropriate affect, mood normal, behavior normal, intact thought and speech. LABORATORY DATA: I have personally reviewed and interpreted each of the patient?s relevant lab tests, abnormal findings are below: Date 10/18/24 10/19/24 ??WHITE?BLOOD?COUNT?(Thou/mm3) ? 1.2?L ??RED?BLOOD?COUNT?(Miln/mm3) ? 3.33?L ??HEMOGLOBIN?(gm/dl) ? 8.5?L ??HEMATOCRIT?(%) ? 27.0?L ??PLATELET?COUNT?(Thou/mm3) ? 149 ??NEUTROPHILS?%,?AUTO?(%) ? 31?L ??LYMPH?%,?AUTO?(%) ? 26 ??NEUTROPHILS,?AUTO?(Thou/mm3) ? 0.4?L ??GLUCOSE,RANDOM?(mg/dL) 100 104 ??BLOOD?UREA?NITROGEN?(mg/dL) 20 18 ??CREATININE?(mg/dL) 1.30 1.00 ??SODIUM?(mmol/L) 138 139 ??POTASSIUM?(mmol/L) 4.2 4.4 ??CHLORIDE?(mmol/L) 107 106 ??AST/SGOT?(Unit/L) 16 16 ??ALT/SGPT?(Unit/L) 22 21 ??ALKALINE?PHOSPHATASE?(Unit/L) 122?H 118?H ??BILIRUBIN,?TOTAL?(mg/dL) 0.5 0.3 ??PROTEIN?TOTAL?(gm/dl) 6.7 6.5 ??ALBUMIN,?SERUM?(gm/dl) 3.6 3.6 ??GLOBULIN?(gm/dl) 3.1 2.9 ??ALBUMIN/GLOBULIN?RATIO 1.2 1.2 ??CALCIUM,?SERUM?(mg/dL) 8.3 8.4 ??CALCIUM?SERUM?(CORRECTED)?(mg/dL) 8.6 8.7 ??MAGNESIUM?(mg/dL) ? 2.2 ASSESSMENT/PLAN: ORDERS: Order # Description [id number] Comprehensive Metabolic Panel - 12 + CBC with Auto Diff + CEA [id number] JOSE - Antinuclear Antibody + Rheumatoid Factor [id number] QuantiFERON-TB Gold Plus ([email or web address] TEST:[id number] CPT: 14080) + Antibody; Coccidioides Immitis + HIV-1/HIV-2 Single Assay + Lupus anticoagulant panel + JOSE - Antinuclear Antibody + Rheumatoid Factor [id number] Assay Of Haptoglobin Quant + Lactate Dehydrogenase (LDH) [id number] Sedimentation Rate [id number] Lactate Dehydrogenase (LDH) + Assay Of Haptoglobin Quant [id number] Comprehensive Metabolic Panel - 12 + CBC with Auto Diff [id number] Infusion 5 Hours [id number] Discontinue CIV Pump [id number] CBC + Comprehensive Metabolic Panel + CEA [id number] Lab Appointment [id number] Follow Up Appointment [id number] Infusion 5 Hours [id number] Discontinue CIV Pump [id number] CBC + Comprehensive Metabolic Panel + CEA [id number] Lab Appointment [id number] Follow Up Appointment [id number] Infusion 5 Hours [id number] Discontinue CIV Pump [id number] CBC + Comprehensive Metabolic Panel + CEA [id number] Lab Appointment [id number] Follow Up Appointment [id number] Infusion 5 Hours [id number] Discontinue CIV Pump [id number] CBC + Comprehensive Metabolic Panel + CEA [id number] Lab Appointment [id number] Follow Up Appointment [id number] Infusion 5 Hours [id number] Discontinue CIV Pump [id number] CBC + Comprehensive Metabolic Panel + CEA [id number] Lab Appointment [id number] Follow Up Appointment [id number] Infusion 5 Hours [id number] Discontinue CIV Pump [id number] CBC + Comprehensive Metabolic Panel + CEA [id number] Lab Appointment [id number] Follow Up Appointment [id number] Infusion 5 Hours [id number] Discontinue CIV Pump [id number] CBC + Comprehensive Metabolic Panel + CEA [id number] Lab Appointment [id number] Follow Up Appointment [id number] Infusion 5 Hours [id number] Discontinue CIV Pump [id number] CBC + Comprehensive Metabolic Panel + CEA [id number] Lab Appointment [id number] Follow Up Appointment [id number] Infusion 5 Hours [id number] Discontinue CIV Pump [id number] CBC + Comprehensive Metabolic Panel + CEA [id number] Lab Appointment [id number] Follow Up Appointment [id number] Infusion 5 Hours [id number] Discontinue CIV Pump [id number] CBC + Comprehensive Metabolic Panel + CEA [id number] Lab Appointment [id number] Follow Up Appointment [id number] Infusion 5 Hours [id number] Discontinue CIV Pump [id number] CBC + Comprehensive Metabolic Panel + CEA [id number] Lab Appointment [id number] Follow Up Appointment [id number] Infusion 5 Hours [id number] Discontinue CIV Pump [id number] CBC + Comprehensive Metabolic Panel + CEA [id number] Lab Appointment [id number] Follow Up Appointment RETURN TO CLINIC: BILLING AND COMPLIANCE: I reviewed external records from providers outside my specialty as summarized above. I spent a total of 50 minutes on this patient?s care on the day of their visit excluding time spent related to any billed procedures. This time includes time spent with the patient as well as time spent documenting in the medical record, reviewing patients records and tests, obtaining history, placing orders, communicating with other healthcare professionals, counseling the patient, family or caregiver, and/or care coordination for the diagnoses above. Electronically Signed by: {Object.Sanct_ID*PnP.NameFL@M}, {Object.Sanct_ID*PnP.Suffix@U} D: {Object.Sanct_Date} T: {Object.Sanct_Time} CC: PCP: Ching Collado Referring: Ching Collado This document was completed utilizing speech recognition software. Grammatical errors, random word insertions, pronoun errors, and incomplete sentences are an occasional consequence of this system due to software limitations, ambient noise, and hardware issues. Any formal questions or concerns about the content, text or information contained within the body of this dictation should be directly addressed to the provider for clarification.
== END 2024-10-29 23:59 | disposition home or self-care (01) ==
LOC: SCTC 10:01
PROVIDERS: PCP Internal Medicine; Referring Provider Internal Medicine; Visit Provider Internal Medicine Hematology & Oncology
DX: C18.7 Malignant neoplasm of sigmoid colon (principal); Z90.49 Acquired absence of other specified parts of digestive tract; I31.9 Disease of pericardium, unspecified; D50.9 Iron deficiency anemia, unspecified; D72.819 Decreased white blood cell count, unspecified; K76.0 Fatty (change of) liver, not elsewhere classified
CPT/HCPCS: 99213; G0463

== ENCOUNTER → 2024-11-10 | Outpatient (CLI) | payer BC, SELFPAY ==
--- NOTE | 2024-11-10 | XR_ITS ---
Examination: Abdomen AP single view Technique: AP portable supine abdomen, single view Exam date and time: November 10, 2024 1132 hours INDICATIONS: History abdominal pain, stent placement FINDINGS: Bilateral ureteral stents satisfactory position No renal or ureteral calculi IMPRESSION: Bilateral ureteral stents satisfactory position
== END | disposition home or self-care (01) ==
LOC: CDIM 11:00
PROVIDERS: PCP Internal Medicine; Referring Provider Urology; Visit Provider Urology
DX: N13.30 Unspecified hydronephrosis (principal); Z96.0 Presence of urogenital implants
CPT/HCPCS: 74018

== ENCOUNTER → 2024-11-10 | Outpatient (BNVA) | payer BC, SELFPAY | END | disposition home or self-care (01) | PROVIDERS: PCP Internal Medicine; Referring Provider Internal Medicine; Visit Provider Urology | DX: C18.9 Malignant neoplasm of colon, unspecified (principal); R59.0 Localized enlarged lymph nodes; Z96.0 Presence of urogenital implants; I10 Essential (primary) hypertension; I25.10 Atherosclerotic heart disease of native coronary artery without angina pectoris; I31.9 Disease of pericardium, unspecified | CPT/HCPCS: 81003; 99212; G0463 ==

== ENCOUNTER 2024-11-15 08:05 | Outpatient (RCR) | payer BC, SELFPAY | END 2024-11-28 23:59 | disposition home or self-care (01) | LOC: SCTC 08:05 | PROVIDERS: PCP Internal Medicine; Referring Provider Internal Medicine; Visit Provider Internal Medicine Hematology & Oncology | DX: C18.7 Malignant neoplasm of sigmoid colon (principal); Z90.49 Acquired absence of other specified parts of digestive tract | CPT/HCPCS: A4216; J1642 ==

== ENCOUNTER → 2024-11-15 | Outpatient (CLI) | payer BC, SELFPAY ==
--- NOTE | 2024-11-15 09:14 | XR_ITS ---
Examination: Duplex scan of the lower extremity, unilateral right Date and time of exam: November 15, 2024 0933 hours INDICATIONS: Positive for DVT in the right leg October 27, 2024,: Carcinoma diagnosis one month ago Technique: Duplex scan of the extremity veins using B-mode/grayscale imaging and Doppler spectral analysis and color flow Attention is directed to internal echogenicity, compression and augmentation involving these veins, color flow assessment, spectral analysis Findings: Major deep venous structures in the extremity demonstrate normal course and caliber. There is no evidence of deep vein thrombosis. Normal color flow and spectral analysis Impression: Negative for DVT..
== END | disposition home or self-care (01) ==
LOC: CDIM 09:05
PROVIDERS: PCP Internal Medicine; Referring Provider Internal Medicine; Visit Provider Internal Medicine
DX: I82.90 Acute embolism and thrombosis of unspecified vein (principal)
CPT/HCPCS: 93971

== ENCOUNTER → 2024-12-12 | Outpatient (CLI) | payer BC, SELFPAY ==
[2024-12-12 09:43] LABS: Collection Type, Urine Clean Catch
[2024-12-12 09:59] LABS: Basophils # (Auto) 0.0 Thou/mm3 (0.0-0.2); Basophils % (Auto) 1 % (0-2.5); Eosinophils # (Auto) 0.0 Thou/mm3 (0.0-0.5); Eosinophils % (Auto) 3 % (0-10); Hematocrit 32.7 % (36.0-46.0); Hemoglobin 10.2 g/dL (12.0-16.0); Immature Granulocytes Auto 0.00 Thou/mm3 (0.00-0.00); Lymphocytes # (Auto) 0.4 Thou/mm3 (1.0-4.8); Lymphocytes % (Auto) 37 % (10-50); Mean Corpuscular HGB Conc 31.2 g/dl (31.0-37.0); Mean Corpuscular Hemoglobin 25.8 pg (25.0-35.0); Mean Corpuscular Volume 83 fL (80-100); Monocytes # (Auto) 0.4 Thou/mm3 (0.0-0.8); Monocytes % (Auto) 38 % (0-12); Neutrophils # (Auto) 0.2 Thou/mm3 (1.8-7.7); Neutrophils % (Auto) 22 % (37-80); Nucleated Red Blood Cell # 0.00 Thou/mm3 (0.00-0.00); Nucleated Red Blood Cell % 0 /100 WBC (0); Platelet Count 158 Thou/mm3 (140-440); RDW Standard Deviation 57.1 fL (36.4-46.3); Red Blood Count 3.96 Miln/mm3 (4.00-5.20)
[2024-12-12 10:23] LABS: Bilirubin,Urine Negative (Negative); Blood,Urine Negative (Negative); Clarity,Urine Clear (Clear/Hazy); Color,Urine Lt-Yellow (Lt Yel-Yel); Glucose, Urine Negative (Negative); Ketones,Urine 1+ (Negative); Leukocyte Esterase,Urine Negative (Negative); Nitrite,Urine Negative (Negative); PH,Urine 6.5 (5.0-7.0); Protein,Urine Trace (Neg - Trace); RBC,Urine 2 /hpf (0-3); Specific Gravity,Urine 1.020 (1.001-1.035); Squamous Epithelial Cell,Urine 2 /hpf (0-5); Urobilinogen,Urine Negative mg/dL (0.0-1.0); WBC,Urine 3 /hpf (0-5)
[2024-12-12 10:26] LABS: Alanine Aminotransferase 11 U/L (10-49); Albumin, Serum 4.0 gm/dL (3.5-5.0); Albumin/Globulin Ratio 1.0 (1.2-2.2); Alkaline Phosphatase 98 U/L (46-116); Anion Gap 14 (7-16); Aspartate Amino Transferase 25 U/L (0-34); BUN/Creatinine Ratio 26 Ratio (12-20); Bilirubin,Total 0.4 mg/dL (0.3-1.2); Blood Urea Nitrogen 18 mg/dL (9-23); Calcium 9.3 mg/dL (8.3-10.6); Calcium (Corrected) 9.3 mg/dL (8.5-10.1); Carbon Dioxide 21.5 mMol/L (20.0-31.0); Chloride 106 mMol/L (98-107); Creatinine (Component) 0.7 mg/dL (0.6-1.3); Globulin 4.1 gm/dL (2.3-3.5); Glucose 84 mg/dL (74-106); Osmolality,Calculated 282 (275-295); Potassium 4.1 mMol/L (3.4-5.1); Sodium 141 mMol/L (136-145); Thyroid Stimulating Hormone 2.81 uIU/mL (0.55-4.78); Total Protein 8.1 gm/dL (5.7-8.2); eGFR > 60 See Note
[2024-12-12 11:19] LABS: White Blood Count 1.0 Thou/mm3 (3.6-11.0)
== END | disposition home or self-care (01) ==
LOC: COPL 08:53
PROVIDERS: PCP Internal Medicine; Referring Provider Internal Medicine; Visit Provider Internal Medicine
DX: I82.90 Acute embolism and thrombosis of unspecified vein (principal); E78.1 Pure hyperglyceridemia; I32 Pericarditis in diseases classified elsewhere
CPT/HCPCS: 36415; 80053; 81001; 84443; 85025

== ENCOUNTER → 2024-12-15 | Outpatient (CLI) | payer BC, SELFPAY ==
--- NOTE | 2024-12-15 09:58 | XR_ITS ---
Examination: Lumbar spine, 5 views Technique: Lumbar spine AP, lateral, coned lateral lower lumbar spine, bilateral obliques 5 views Exam date and time: December 15, 2024 1006 hours INDICATIONS: Low back pain radiating down both legs one week FINDINGS: Bilateral ureteral stents satisfactory position Moderate osteopenia Satisfactory alignment lumbar vertebral bodies Transitional S1 vertebral body Moderate degenerative disc disease L5-S1 IMPRESSION: Moderate degenerative disc disease L5-S1
== END | disposition home or self-care (01) ==
PROVIDERS: PCP Internal Medicine; Referring Provider Internal Medicine; Visit Provider Internal Medicine
DX: M51.370 Other intervertebral disc degeneration, lumbosacral region with discogenic back pain only (principal)
CPT/HCPCS: 72110

== ENCOUNTER → 2025-01-06 | Outpatient (CLI) | payer BC, SELFPAY ==
[2025-01-06 10:55] LABS: Thyroid Stimulating Hormone 8.52 uIU/mL (0.55-4.78)
[2025-01-09 14:45] LABS: Hexagonal Phase Confirm NEGATIVE (NEGATIVE); PTT-LA Screen 45 seconds (< OR = 40); dRVVT Screen 43 seconds (< OR = 45)
[2025-01-13 06:43] LABS: ANA Screen, IFA POSITIVE (NEGATIVE); ANA Titer 1:1280 titer; T3,Total* 60 ng/dL (76-181); Thyroglobulin 31.0 ng/mL
[2025-01-18 07:50] LABS: Thyroglobulin Antibodies* SEE SEP REPORT
== END | disposition home or self-care (01) ==
LOC: SCTO 10:06
PROVIDERS: PCP Internal Medicine; Referring Provider Internal Medicine Hematology & Oncology; Visit Provider Internal Medicine Hematology & Oncology
DX: C18.7 Malignant neoplasm of sigmoid colon (principal)
CPT/HCPCS: 36415; 84432; 84443; 84480; 85598; 85613; 85730; 86038; 86430; 86800

== ENCOUNTER 2025-01-20 08:36 | Outpatient (RCR) | payer BC, SELFPAY ==
--- NOTE | 2025-01-09 02:17 | CTCFLWUP_ITS ---
Patient: ANUP GARCIA : 1980 Page 6 of 7 FOLLOW UP NOTE DATE OF SERVICE: 01/03/2025 NAME: ANUP GARCIA ACCOUNT: [id number] : 1980 AGE: 44 INTERVAL HISTORY: Patient colon cancer Patient planned for chemotherapy with FOLFOX. Patient was also diagnosed with pericarditis and was awaiting for cardiac clearance before chemotherapy can be restarted. Patient has now completed treatment for her pericarditis and here to resume treatment ONCOLOGY HISTORY: DIAGNOSIS: Malignant neoplasm of sigmoid colon [ICD10] C18.7 DATE OF DIAGNOSIS: 09/28/2024 STAGE/TNM: Stage IV metastatic adenocarcinoma well-differentiated consistent with a colorectal primary Microsatellite stable TREATMENT HISTORY: Care?Plan Start?Date Cycle Day Intent mFOLFOX-6?-?5FU?400?+?2400?CIV,?LVR?400,OXALIplat?85 01/17/2025 1 14 Curative?(adjuvant) HISTORY OF PRESENT ILLNESS: Subjective: Chief Complaint Chest pain radiating to the shoulder, colon cancer status post tumor removal with 22 positive lymph nodes, pericarditis, severe iron deficiency, possible mild thrombocytosis, generalized marrow hypoplasia, bilateral mild hydronephrosis History of Present Illness Anup Taveras, a young woman with recently diagnosed colon cancer, presents for follow-up and management of multiple medical issues. She was recently hospitalized and diagnosed with pericarditis, severe iron deficiency, possible mild thrombocytosis, and generalized marrow hypoplasia. The patient reports experiencing chest pain that can radiate to the shoulder, which has been attributed to pericarditis. She developed this chest pain along with a cough about 5 days after being discharged from the hospital. Prior to this, she had been admitted for valley fever, for which she received 15 days of IV medication. A follow-up test for valley fever came back negative. Regarding her colon cancer, a 3.7 cm tumor and another piece measuring 2.2 by 1 cm were removed. Twenty-two lymph nodes were found to be positive, indicating advanced cancer. The patient denies any symptoms typically associated with colon cancer such as weight loss, appetite changes, obstruction, or blood in stools. She does report a history of hemorrhoids but no change in stool caliber. The patient mentions losing 10 pounds during her recent hospital stay. The patient's diet history includes frequent consumption of red meat and fast food from establishments like [employer] and [employer]. 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 The patient also has bilateral hydronephrosis, described as very mild, and fatty liver. Her white blood cell count has been very low, necessitating treatment to improve it. She received blood transfusions during her hospital stay, specifically two bags. Medications and Supplements - Colchicine - Hepatitis B vaccine - Hepatitis A vaccine - Neupogen - 2 shots given - Improved white blood cell count - Blood transfusions - 2 bags given Review of Systems General: Positive for weight loss. Cardiovascular: Positive for chest pain. Respiratory: Positive for cough. Gastrointestinal: Negative for blood in stools, change in stool caliber. Objective: Laboratory, Imaging, and Diagnostic Test Results - Date: 09/27/2024 - Valley fever test: Positive - Previous results: - White blood cell count: 1.6, 2.6, 2.4, 3.4, 5.0 (trend showing improvement) - Echocardiogram: Performed (results not specified) - Colonoscopy: Performed (results: 3.7 cm tumor and another piece 2.2 by 1 cm removed) - Lymph node biopsy: 22 lymph nodes positive for cancer OTHER MEDICAL HISTORY/CONDITIONS: Adenocarcinoma of the colon - dx 09/28/24 HTN Pericarditis while hosptialized 10/19/24 Pneumonia - Kidney stones Hx Valley Fever Exp lap with sigmoid colectomy; low coloproctostomy and excision of right adnexal mass - 10/01/24 Para-aortic lymph node biopsy - 09/28/24 Umbilical hernai repair - 05/19/23 FAMILY HISTORY: Cancer History:?Paternal 1st cousin - breast cancer- dx 40's SOCIAL HISTORY: 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 colchicine - 0.6 mg Twice a Day 2. Compazine - 5 mg 5 mg Daily 3. ibuprofen - 800 mg Every 8 Hours 4. Lidocaine Viscous - 2 % 10 mL Daily 5. Maalox Advanced - 200-200-20 mg/5 mL 20 mL Daily 6. nystatin - 100,000 unit/mL 10 mL Daily 7. ondansetron - 8 mg 8 mg Daily Medications Last Reconciled by Palak Anaya MD on 01/03/2025 ALLERGIES: No Known Drug Allergies REVIEW OF SYSTEMS: A complete 14-point review of systems was performed and is negative except as noted in interval history. PHYSICAL EXAMINATION: VITAL SIGNS: Temperature?97.9, B/P?137/84, Oxygen?Saturation?99% Weight?122?lbs PAIN: 3 - Between mild and moderate pain ECOG Performance Status: None GENERAL APPEARANCE: Appears well, in no apparent distress, appropriately interactive. HEENT: Normocephalic, no temporal wasting, normal conjunctiva, no scleral icterus, normal hearing, lips without lesions, neck normal range of motion. CARDIOVASCULAR: Not assessed. PULMONARY: Normal respiratory effort, no respiratory distress or use of accessory muscles, speaking in full sentences, no tachypnea. EXTREMITIES: No pedal edema or cyanosis. SKIN: Normal skin appearance. NEUROLOGIC: Alert and oriented x4. PSHYCHIATRIC: Appropriate affect, mood normal, behavior normal, intact thought and speech. LABORATORY DATA: I have personally reviewed and interpreted each of the patient?s relevant lab tests, abnormal findings are below: Date 10/19/24 12/12/24 ??WHITE?BLOOD?COUNT?(Thou/mm3) 1.2?L 1.0?L ??RED?BLOOD?COUNT?(Miln/mm3) 3.33?L 3.96?L ??HEMOGLOBIN?(gm/dl) 8.5?L 10.2?L ??HEMATOCRIT?(%) 27.0?L 32.7?L ??PLATELET?COUNT?(Thou/mm3) 149 158 ??NEUTROPHILS?%,?AUTO?(%) 31?L 22?L ??LYMPH?%,?AUTO?(%) 26 37 ??NEUTROPHILS,?AUTO?(Thou/mm3) 0.4?L 0.2?L ??GLUCOSE,RANDOM?(mg/dL) 104 84 ??BLOOD?UREA?NITROGEN?(mg/dL) 18 18 ??CREATININE?(mg/dL) 1.00 0.70 ??SODIUM?(mmol/L) 139 141 ??POTASSIUM?(mmol/L) 4.4 4.1 ??CHLORIDE?(mmol/L) 106 106 ??CrCl?(CandG)?(ml/min) ? 95.78 ??AST/SGOT?(Unit/L) 16 25 ??ALT/SGPT?(Unit/L) 21 11 ??ALKALINE?PHOSPHATASE?(Unit/L) 118?H 98 ??BILIRUBIN,?TOTAL?(mg/dL) 0.3 0.4 ??PROTEIN?TOTAL?(gm/dl) 6.5 8.1 ??ALBUMIN,?SERUM?(gm/dl) 3.6 4.0 ??GLOBULIN?(gm/dl) 2.9 4.1?H ??ALBUMIN/GLOBULIN?RATIO 1.2 1.0?L ??CALCIUM,?SERUM?(mg/dL) 8.4 9.3 ??CALCIUM?SERUM?(CORRECTED)?(mg/dL) 8.7 9.3 ASSESSMENT/PLAN: Assessment and Plan: Anup Taveras, a young female patient with recently diagnosed advanced colon cancer, presenting with pericarditis, iron deficiency anemia, and concerns about chemotherapy initiation. Advanced Colon Cancer Assessment: Patient has recently been diagnosed with advanced colon cancer. Surgical resection was performed, removing a 3.7 cm tumor and another piece measuring 2.2 by 1 cm. Pathology revealed 22 positive lymph nodes, indicating advanced stage disease. No symptoms such as weight loss, appetite changes, obstruction, or blood in stools were reported. The patient's young age is noted as unusual for colon cancer. A Pedro test is planned to assess for residual cancer. Plan: - Order Pedro test to evaluate for residual cancer - Initiate adjuvant FOLFOX chemotherapy regimen - Treatment duration: 6 months - Frequency: Every 2 weeks - Administration: Via port - Obtain labs prior to each chemotherapy session - Place stat referral to [place] for second opinion - Proceed with chemotherapy at current facility once cleared Pericarditis Assessment: Patient developed pericarditis with associated chest pain radiating to the shoulder. Echocardiogram revealed fluid between the heart linings. The etiology is unclear, but it developed 5 days after completing treatment for valley fever. This condition is complicating the initiation of chemotherapy for colon cancer. 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 There is also mention of possible mild thrombocytosis and generalized marrow hypoplasia. A bone marrow biopsy has not been performed. Plan: - Monitor complete blood count - Consider bone marrow biopsy if clinically indicated Leukopenia Assessment: Patient has a history of very low white blood cell count. Previous treatment with Neupogen (filgrastim) resulted in improvement, with counts increasing from 1.6 to 5.0. Plan: - Monitor white blood cell count closely - Consider Neupogen (filgrastim) administration if white blood cell count decreases significantly during chemotherapy Fatty Liver Assessment: Patient has been diagnosed with fatty liver. No further details provided. Plan: - Encourage dietary modifications - Reduce red meat consumption - Limit fast food intake (e.g., [employer], [employer]) Recent Valley Fever Assessment: Patient tested positive for valley fever on September 27 when admitted to the hospital. She received 15 days of IV medication. A repeat test sent to [facility] [place] by Dr. Her came back negative. The patient developed chest pain and cough 5 days after completing treatment, which may be related to the subsequent pericarditis diagnosis. Plan: - Monitor for recurrence of valley fever symptoms ORDERS: Order # Description [id number] Thyroid Stimulating Hormone + Assay Triiodothyronine (T3) [id number] Thyroglobulin Antibody [id number] Lupus anticoagulant panel + JOSE - Antinuclear Antibody + Rheumatoid Factor + Thyroglobulin/Thyroglobulin Antibody [id number] [employer] RETURN TO CLINIC: I reviewed the diagnosis, prognosis, and recommended treatment/procedure options with the patient (and/or their legal data entry representative), including the potential benefits, risks, side effects and alternative therapies. We also discussed the option of no treatment and the possibility of clinical trial participation, if applicable. All questions were addressed, and they demonstrated understanding. They provided informed consent to proceed with the proposed plan of care. BILLING AND COMPLIANCE: I reviewed external records from providers outside my specialty as summarized above. I spent a total of 50 minutes on this patient?s care on the day of their visit excluding time spent related to any billed procedures. This time includes time spent with the patient as well as time spent documenting in the medical record, reviewing patients records and tests, obtaining history, placing orders, communicating with other healthcare professionals, counseling the patient, family or caregiver, and/or care coordination for the diagnoses above. Electronically Signed by: {Object.Sanct_ID*PnP.NameFL@M}, {Object.Sanct_ID*PnP.Suffix@U} D: {Object.Sanct_Date} T: {Object.Sanct_Time} CC: PCP: Ching Collado Referring: Ching Collado This document was completed utilizing speech recognition software. Grammatical errors, random word insertions, pronoun errors, and incomplete sentences are an occasional consequence of this system due to software limitations, ambient noise, and hardware issues. Any formal questions or concerns about the content, text or information contained within the body of this dictation should be directly addressed to the provider for clarification.
[2025-01-20 11:04] LABS: Misc Send Out* See Sep Rpt
[2025-01-20 11:11] LABS: Basophils # (Auto) 0.0 Thou/mm3 (0.0-0.2); Basophils % (Auto) 1 % (0-2.5); Eosinophils # (Auto) 0.0 Thou/mm3 (0.0-0.5); Eosinophils % (Auto) 0 % (0-10); Hematocrit 32.8 % (36.0-46.0); Hemoglobin 10.4 g/dL (12.0-16.0); Immature Granulocytes Auto 0.22 Thou/mm3 (0.00-0.00); Lymphocytes # (Auto) 0.3 Thou/mm3 (1.0-4.8); Lymphocytes % (Auto) 9 % (10-50); Mean Corpuscular HGB Conc 31.7 g/dl (31.0-37.0); Mean Corpuscular Hemoglobin 26.3 pg (25.0-35.0); Mean Corpuscular Volume 83 fL (80-100); Monocytes # (Auto) 0.4 Thou/mm3 (0.0-0.8); Monocytes % (Auto) 10 % (0-12); Neutrophils # (Auto) 2.9 Thou/mm3 (1.8-7.7); Neutrophils % (Auto) 75 % (37-80); Nucleated Red Blood Cell # 0.00 Thou/mm3 (0.00-0.00); Nucleated Red Blood Cell % 0 /100 WBC (0); RDW Standard Deviation 54.8 fL (36.4-46.3); Red Blood Count 3.95 Miln/mm3 (4.00-5.20); White Blood Count 3.9 Thou/mm3 (3.6-11.0)
[2025-01-20 11:17] LABS: Platelet Count 74 Thou/mm3 (140-440)
[2025-01-20 11:35] LABS: Alanine Aminotransferase 73 U/L (10-49); Albumin, Serum 3.1 gm/dL (3.5-5.0); Albumin/Globulin Ratio 0.8 (1.2-2.2); Alkaline Phosphatase 383 U/L (46-116); Anion Gap 15 (7-16); Aspartate Amino Transferase 148 U/L (0-34); BUN/Creatinine Ratio 17 Ratio (12-20); Bilirubin,Total 0.6 mg/dL (0.3-1.2); Blood Urea Nitrogen 10 mg/dL (9-23); Calcium 9.0 mg/dL (8.3-10.6); Calcium (Corrected) 9.7 mg/dL (8.5-10.1); Carbon Dioxide 18.6 mMol/L (20.0-31.0); Chloride 99 mMol/L (98-107); Creatinine (Component) 0.6 mg/dL (0.6-1.3); Globulin 4.1 gm/dL (2.3-3.5); Glucose 71 mg/dL (74-106); Osmolality,Calculated 263 (275-295); Potassium 3.8 mMol/L (3.4-5.1); Sodium 133 mMol/L (136-145); Total Protein 7.2 gm/dL (5.7-8.2); eGFR > 60 See Note
[2025-01-20 12:03] LABS: Carcinoembryonic Antigen 415.3 ng/mL (0.0-5.0)
[2025-01-20 12:36] LABS: Slide Review Platelets confirmed
== END 2025-01-29 23:59 | disposition home or self-care (01) ==
LOC: SCTC 08:36
PROVIDERS: PCP Internal Medicine; Referring Provider Internal Medicine; Visit Provider Internal Medicine Hematology & Oncology
DX: C18.7 Malignant neoplasm of sigmoid colon (principal); D50.9 Iron deficiency anemia, unspecified; D72.819 Decreased white blood cell count, unspecified; K76.0 Fatty (change of) liver, not elsewhere classified; I31.9 Disease of pericardium, unspecified
CPT/HCPCS: 36591; 80053; 82378; 85025; 99212; A4216; J0640; J1100; J1453; J1642; J2405; J7050; J7060; J9190; J9263; G0463

== ENCOUNTER 2025-01-31 22:23 | Inpatient (IN) | payer BC, SELFPAY ==
[2025-01-31 22:27] VITALS: BMI 21.6
[2025-01-31 23:05] VITALS: BP 117/69; PULSE 108; RESP 18; TEMP 36.6; O2SAT 99
--- NOTE | 2025-01-31 23:35 | EDNOTE_ITS ---
ED Extremity Problem RME/HPI General Chief complaint: Extremity Problem,Nontraumatic Stated complaint: BLE, DECREASE URINATION, BACK PAIN, CONSTIPATION Time Seen by Provider: 01/31/25 23:28 Arrival date/time: 01/31/25 22:23 RME / HPI RME / HPI Narrative: See MDM for Dr. Dunaway's HPI documentation. Related Data Home Medications ?Medication ?Instructions ?Recorded ?Confirmed ibuprofen 600 mg tablet 600 mg PO TID 11/10/2411/10 metoprolol succinate 50 mg capsule 50 mg PO QDAY 11/1011/10/24 sprinkle, ext. release 24 hr Allergies Allergy/AdvReac Type Severity Reaction Status Date / Time No Known Allergies Allergy Verified 01/31/25 22:27 Review of Systems Review of Systems Systems Reviewed: All systems reviewed, normal except as documented Past Medical History Past Medical History NEUROLOGIC: Negative Neurological Disorders or Seizures CARDIAC: Negative Cardiac Disorders or Congestive Heart Failure RESPIRATORY: Negative Chronic Obstructive Pulmonary Disease (COPD) or Asthma GASTROINTESTINAL: Negative Gastrointestinal Disorders, Hepatitis or Colorectal Cancer GENITOURINARY: Positive Genitourinary Disorders and Kidney Stones; Negative Renal Disease or Prostate Cancer REPRODUCTIVE: Positive Previous Pregnancies; Negative Breast Cancer or Testicular Cancer MUSCULOSKELETAL: Negative Musculoskeletal Disorders or Bone Cancer ENDOCRINE: Negative Endocrine Disorders, Diabetes Mellitus Type 1 or Diabetes Mellitus Type 2 HEMATOLOGIC: Positive Blood Disorders and Anemia; Negative Sickle Cell Disease OTHER HISTORY: Negative Hospitalization, Autoimmune Disease, Down Syndrome, Dev elopmental Delay, Shingles, Falls, Blood Transfusions, Blood Transfusion Reaction, Anesthesia Reactions, Organ Transplant, Chemotherapy, Radiation Therapy, Hyperbaric Therapy, MRSA, VRSA, Vancomycin-Resistant Enterococci, Human Immunodeficiency Virus (HIV), Chicken Pox, Measles, Mumps, Rubella (Turkish Measles), Pertussis, Clostridium Difficile, Cancer, Breast Cancer, Cervical Cancer, Colorectal Cancer, Lung Cancer, Ovarian Cancer, Prostate Cancer or Testicular Cancer Family History FAMILY HISTORY: Negative Family Psychiatric Problems, Family Respiratory Disorders, Family Cardiac Disorders, Family Gastrointestinal Problems, Family Cancer, Family Surgery or Family Anesthesia Reaction Surgical History SURGICAL: Negative Endocrine Surgery, Ear Surgery, Abdominal Surgery, Nephrectomy, Joint Replacement, Neurologic Surgery, Mastectomy, Section, Vasectomy or Organ Transplant Social History SMOKING STATUS: Never smoker SUBSTANCE USE: does not use ED Exam Narrative Physical exam: See [facility] for Dr. Dunaway's physical exam documentation. Course Quality Measures none Orders Category Date Time Status Bedside COVID-19 Antigen Test NOW Care 01/31/25 23:38 Active Bedside Influenza A&B Antigen Test NOW Care 01/31/25 23:38 Completed COVID-19 Screening Questionnaire NOW Care 02/01/25 05:[address] Screening NOW Care 01/31/25 23:39 Active Decision to Admit X1 Care 02/01/25 05:25 Active EKG (ED ONLY) *Do not use* NOW Care 01/31/25 23:39 Completed Saline [Insert IV] NOW Care 01/31/25 23:38 Active Straight [In and Out Catheter] X1 Care 01/31/25 23:38 Active Urinary Catheter QS Care 02/01/25 01:[address] abdomen pelvis w con Stat Exams 01/31/25 23:[address] angio chest Stat Exams 01/31/25 23:39 Taken EKG (ED Only) Stat Exams 01/31/25 23:39 Draft US abdomen limited Stat Exams 02/01/25 00:00 Taken US venous doppler LE BI Stat Exams 02/01/25 00:00 Taken XR chest 1V portable Stat Exams 01/31/25 23:39 Taken Amylase Stat Lab 01/31/25 23:40 Completed BNP [B-Type Natriuretic Peptide] Stat Lab 01/31/25 23:40 Completed Beta Hydroxybutyrate Stat Lab 01/31/25 23:40 Completed Bilirubin,Direct Stat Lab 01/31/25 23:40 Completed Blood Culture (Lab) Stat Lab 01/31/25 00:23 Received CBC Stat Lab 01/31/25 23:40 Completed CMP [Comprehensive Metabolic Panel] Stat Lab 01/31/25 23:40 Completed CRP [C-Reactive Protein] Stat Lab 01/31/25 23:40 Completed D-Dimer Stat Lab 01/31/25 23:40 Completed ESR [Sed Rate (ESR)] Stat Lab 01/31/25 23:40 Completed Free T3 Stat Lab 02/01/25 00:15 Completed Free T4 (Free Thyroxine) Stat Lab 01/31/25 23:40 Completed HCG,Qualitative Serum Stat Lab 01/31/25 23:40 Completed Lactate (Lactic Acid) Stat Lab 01/31/25 23:41 Completed Lactic Acid, 3 HR Stat Lab 02/01/25 03:53 Completed Lipase Stat Lab 01/31/25 23:40 Completed Magnesium Stat Lab 01/31/25 23:40 Completed PT [Prothrombin Time with INR] Stat Lab 01/31/25 23:41 Completed PTT [Partial Thromboplastin Time] Stat Lab 01/31/25 23:41 Completed Path Review Blood Smear Stat Lab 02/01/25 00:15 Completed Procalcitonin Stat Lab 01/31/25 23:40 Completed TSH [Thyroid Stimulating Hormone] Stat Lab 01/31/25 23:40 Completed Troponin I Stat Lab 01/31/25 23:40 Completed UA, C/S IF [Urinalysis, C/S if Indicated] Stat Lab 02/01/25 00:52 Completed Cefepime Inj [Maxipime Inj] 1 gm Med 02/01/25 04:29 Discontinued SODIUM CHLORIDE 0.9% (Popper) [Ns 0.9% (P)] 50 ml IV X1 Dextrose 50% Syr [D50w Syringe Abboject] Med 02/01/25 04:10 Discontinued 50 ml IV X1 ONE Furosemide Inj [Lasix Inj] Med 01/31/25 23:40 Discontinued 40 mg IVP X1 ONE Heparin Inj Med 02/01/25 04:27 Discontinued 4,450 unit IV X1 ONE Heparin/D5w 25K 250 ML Ivpb [Heparin in D5w Ivpb] Med 02/01/25 04:30 Discontinued 25,000 unit in 250 ml IV 18 units/kg/hr Morphine Inj Med 01/31/25 23:40 Discontinued 2 mg IVP X1 ONE Nitroglycerin Oint 2% [Nitro-paste Oint 2%] Med 01/31/25 23:40 Discontinued 1 inch TOP X1 ONE Sodium Chloride 0.9% 1000 ml [Ns] 1,000 ml Med 02/01/25 04:10 Discontinued IV 999 mls/hr Vancomycin Inj 1,000 mg Med 02/01/25 04:29 Discontinued Sodium Chloride 0.9% 500 ml [Ns] 500 ml IV X1 Vital Signs Vital signs: Vital Signs Temperature 98 F 01/31/25 23:05 Pulse Rate 108 H 01/31/25 23:05 Respiratory Rate 18 01/31/25 23:05 Blood Pressure 117/69 01/31/25 23:05 Pulse Oximetry (%) 99 01/31/25 23:05 Oxygen Delivery Method Room Air 01/31/25 23:05 Extremity Problem MDM Narrative MDM Narrative:: This section includes all my notes and documentations, including HPI, PE, and ED course. Daniel Dunaway MD HPI: 44yo female with history of colon CA with metastasis s/p colectomy (few months ago) here with diffuse swelling (worst in the legs) and dyspnea for the last 2 weeks. No cough, fever, abdominal pain, nausea, or vomiting. Patient is not on chemotherapy or radiation yet. No other complaints reported. ROS: All negative except as documented in HPI. Physical Exam: General: Alert and oriented. Diffuse edema noted. Eyes: Conjunctivae and lids clear. ENT: No nasal congestion. Neck: Supple. No carotid bruit. No JVD. Heart: Sinus tachycardia noted. Lungs: No respiratory distress. Good air movement with rales. Abdomen: Soft with equivocal tenderness, difficult to localize. Normal bowel sounds. No distension. No rebound or guarding. Back: No CVA tenderness. Legs: Severe edema noted (L > R). Skin: Warm and dry. Neuro: Alert and oriented X 3. I reviewed all diagnostic test results. My interpretation of the EKG is sinus tachycardia with nonspecific ST-T changes. My interpretation of the chest x-ray is increased vascular congestion. My review of the US BLE venous doppler report is no DVT. My review of the abdominal ultrasound report is gallbladder sludge. My review of the CT abdomen pelvis report is: - Pelvis mass. - Probable metastatic liver disease. - Cirrhosis versus pseudocirrhosis. - Metastatic disease to the adrenal glands. - Mild left hydroureteronephrosis with JJ catheter in place. - Neoplastic retroperitoneal lymphadenopathy. My review of the CT angio chest report is: - Mediastinal neoplastic lymphadenopathy. - Lytic bone lesions, suspicious for metastatic bone disease. Blood and urine tests remarkable for ESR 66, Na 131, Glucose 70, Lactic Acid 4.9, AST 231, ALT 70, Alkaline Phosphatase 973, CRP 22.7, Beta Hydroxybutyrate 3.91, TSH 21.88, procalcitonin 3.91, Ca 11.6, INR 1.4, D-dimer > 3820, and Plt 42. COVID/Influenza negative. At this point, diagnoses include: Metastasis from colon cancer, Anasarca, Failure to thrive, Thrombocytopenia, Elevated lactic acid level, Hypoglycemia, Hypercalcemia, LFT elevation, Hypothyroidism, Cirrhosis, Gallbladder sludge, Ascites, Lytic bone lesions Treatment here included topical Nitropaste, Morphine 2 mg IV, Lasix 40 mg IV, D50, and IV fluid. Patient remained stable. I discussed the case with Dr. Collado (patient's PCP). About the presentation and exam and diagnostics and treatments here. And need of further care in the hospital. Will accept the patient. Daniel Dunaway MD Patient data External records reviewed:: [facility] previous records (Per chart review, patient was admitted here on 10/17/24 for pneumonia.) Clinical information provided by:: patient Social determinants that could affect healthcare access:: none Patient has the following chronic illnesses:: kidney stones, hemorrhoids, umbilical hernia repair, and recently diagnosed colon cancer metastasis s/p colectomy How is presenting disease/condition affected by chronic disease/condition?: exacerbated by Evaluation data The following diagnostics were reviewed and interpreted by me:: lab results, radiology exam(s) and EKG tracing(s) (My interpretation of the EKG is: Sinus tachycardia (108 bpm) with nonspecific ST-T changes. Daniel Dunaway MD) Lab and/or radiology exams considered but not ordered:: none Interpretation Summary: I reviewed all diagnostic test results. My interpretation of the EKG is sinus tachycardia with nonspecific ST-T changes. My interpretation of the chest x-ray is increased vascular congestion. My review of the US BLE venous doppler report is no DVT. My review of the abdominal ultrasound report is gallbladder sludge. My review of the CT abdomen pelvis report is: - Pelvis mass. - Probable metastatic liver disease. - Cirrhosis versus pseudocirrhosis. - Metastatic disease to the adrenal glands. - Mild left hydroureteronephrosis with JJ catheter in place. - Neoplastic retroperitoneal lymphadenopathy. My review of the CT angio chest report is: - Mediastinal neoplastic lymphadenopathy. - Lytic bone lesions, suspicious for metastatic bone disease. Blood and urine tests remarkable for ESR 66, Na 131, Glucose 70, Lactic Acid 4.9, AST 231, ALT 70, Alkaline Phosphatase 973, CRP 22.7, Beta Hydroxybutyrate 3.91, TSH 21.88, procalcitonin 3.91, Ca 11.6, INR 1.4, D-dimer > 3820, and Plt 42. COVID/Influenza negative. Medications / Prescriptions Medications or Prescriptions considered but not ordered:: none Medication administrations:: Medication Administration History Discontinued Medications Dextrose (Dextrose 50%-Water Inj 50 Ml Syringe) 50 ml IV X1 ONE Stop: 02/01/25 04:11 Furosemide (Furosemide Inj 10 Mg/Ml 4ml Vial) 40 mg IVP X1 ONE Stop: 01/31/25 23:41 Last Admin: 02/01/25 00:20 Dose: 40 mg Documented By: FLORESITA Heparin Sodium (Porcine) (Heparin Sod Inj 5000 Unit/Ml Vial) 4,450 unit 80 unit/kg (4450 unit) IV X1 ONE; Protocol Stop: 02/01/25 04:28 Sodium Chloride (Ns) 1,000 mls @ 999 mls/hr IV .Q1H1M ONE Stop: 02/01/25 05:10 Heparin Sodium/Dextrose (Heparin In D5w Ivpb) 25,000 unit in 250 mls @ 9.961 mls/hr IV .Q24H IFEOMA; Protocol Stop: 02/15/25 04:29 Cefepime HCl 1 gm/ Sodium (Chloride) 50 mls @ 100 mls/hr IV X1 ONE Stop: 02/01/25 04:58 Vancomycin HCl 1,000 mg/ (Sodium Chloride) 500 mls @ 150 mls/hr IV X1 ONE Stop: 02/01/25 07:48 Morphine Sulfate (Morphine Sulf Inj 10 Mg/Ml Vial) 2 mg IVP X1 ONE Stop: 01/31/25 23:41 Last Admin: 02/01/25 00:21 Dose: 2 mg Documented By: FLORESITA Nitroglycerin (Nitroglycerin Oint 2% 1 Inch Packet) 1 inch TOP X1 ONE Stop: 01/31/25 23:41 Last Admin: 02/01/25 00:21 Dose: 1 inch Documented By: FLORESITA Treatment here included topical Nitropaste, Morphine 2 mg IV, Lasix 40 mg IV, D50, and IV fluid. Consultations Consultation(s) initiated? (list below): Yes Consultation #1 (Physician, Specialty, Details): I discussed the case with Dr. Collado. About the presentation and exam and diagnostics and treatments here. And need of further care in the hospital. Will accept the patient. Diagnosis Extremity Problem Differential Diagnosis: deep vein thrombosis of lower extremity and other (Sepsis, pneumonia, UTI, CHF, PE, metastasis, dehydration, electrolyte abnormalities) Most likely diagnosis given after review of the tests above:: Metastasis from colon cancer, Anasarca, Failure to thrive, Thrombocytopenia, Elevated lactic acid level, Hypoglycemia, Hypercalcemia, LFT elevation, Hypothyroidism, Cirrhosis, Gallbladder sludge, Ascites, Lytic bone lesions Admission Indicated Admission indicated?: indicated Explain why admission is indicated or not indicated:: Metastasis from colon cancer, Anasarca, Failure to thrive, Thrombocytopenia, Elevated lactic acid level, Hypoglycemia, Hypercalcemia, LFT elevation, Hy pothyroidism, Cirrhosis, Gallbladder sludge, Ascites, Lytic bone lesions Admission Request Was there a request for admission?: Yes Admission Attestation Admission request attestation: Discussed case with Dr. Collado regarding admission. Discussed patients ED course, exam findings, labs, and radiology results. The Hospitalist [agrees] to accept the patient for admission. Disposition Plan Disposition Plan: Admit Discharge Plan Prescriptions/Referrals Prescriptions/Med Rec: No Action ibuprofen 600 mg tablet 600 mg PO TID metoprolol succinate 50 mg capsule,sprinkle,ER 24hr 50 mg PO QDAY Referrals: Ching Collado MD [Primary Care Provider] - In 1 week Problem List Clinical Impression: Metastasis from colon cancer, Anasarca, Failure to thrive, Thrombocytopenia, Elevated lactic acid level, Hypoglycemia, Hypercalcemia, LFT elevation, Hypothyroidism, Cirrhosis, Gallbladder sludge, Ascites, Lytic bone lesions on xray Patient/Caregiver Discharge Instructions Print Language: [place] Helen[place]
--- NOTE | 2025-01-31 23:39 | XR_ITS ---
Examination: CTA chest with intravenous contrast 2-D reconstructions 3-D reconstructions, vascular Date and time of exam: February 01, 2025, 0313 hrs. Indications: Back pain chest pain shortness of breath today CTDI: vol (mGy) 6.39 DLP: (mGycm) 207 Technique: Multiple axial sections of the thorax have been obtained. 3 mm slice thickness, from below the hemidiaphragms to above the apices of the lungs. Mediastinal and lung density settings have been obtained. 2-D sagittal and coronal reconstructions. 3-D angiographic renderings, 3-D volume renderings, 3D post processing, vascular maximum intensity projections obtained. Contrast administered is 100 cc Isovue-370.. Low dose protocols were performed. One or more of the following dose reduction techniques were used; automated exposure control, adjustment of the mA and/or KV according to patient size, use of iterative reconstruction technique. Findings: Extensive bulky mediastinal lymphadenopathy, periaortic, tracheobronchial, aortopulmonary window, hilar No pulmonary artery filling defects Thoracic aorta is not enlarged 4 mm pulmonary nodule left midlung No pneumonia or pulmonary edema Widespread osteolytic metastatic disease, most prominent T10, T1, T2 Impression: Negative for pulmonary artery emboli Extensive mediastinal lymphadenopathy. Osseous metastatic disease.
--- NOTE | 2025-01-31 23:39 | EKG_ITS ---
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
--- NOTE | 2025-01-31 23:39 | XR_ITS ---
Examination: AP chest single view Technique one AP portable upright chest single view Date and time: February 01, 2025 0103 hours, comparison October 17, 2024 INDICATIONS: Shortness of breath today FINDINGS: Normal heart size Abnormal right mediastinal contour again noted. Left subclavian Port-A-Cath tip satisfactory position. No interval pneumonia or pulmonary edema IMPRESSION: No interval pneumonia or pulmonary edema
--- NOTE | 2025-01-31 23:39 | XR_ITS ---
Examination: CT abdomen with intravenous contrast CT pelvis with intravenous contrast 2-D coronal reconstructions 2-D sagittal reconstructions Date and time of exam:February 01, 2025, 0313 hrs. Comparison October 07, 2024. Indications: Back pain decreased urination abdominal pain and distention today.. History extensive abdominal pelvic lymphadenopathy CTDI: vol (mGy) 6.90 DLP: (mGycm) 379 Technique: Multiple axial sections of the abdomen and pelvis have been obtained. 64 slice high-resolution scanner used. 3 mm axial sections have been obtained, post intravenous injection 100 cc Isovue-370 2-D sagittal, coronal reconstructions obtained. Low dose protocols were performed. One or more of the following dose reduction techniques were used; automated exposure control, adjustment of the mA and/or KV according to patient size, use of iterative reconstruction technique. Findings: Multiple abnormal areas of liver enhancement Moderate ascites. Contracted gallbladder. Liver is irregular in contour. Progression of abdominal lymphadenopathy compared with October 07, 2024, surrounding the abdominal aorta and inferior vena cava Ureteral stents satisfactory position. Bilateral metastatic adrenal masses 2.5 cm on the right 3.6 cm on the left Complex cystic extensive a solid pelvic mass measuring at least 13 cm above the contracted urinary bladder Urinary Posey catheter Anasarca Reticular nodular peritoneum Severe osteopenia Poorly defined osteolytic lesions, the largest in the T8 vertebral body 11 mm, osteolytic lesions involving the iliac bones and left hip Impression: Hepatic metastases Marked progression of abdominal and pelvic lymphadenopathy Ureteral stents satisfactory position. Bilateral adrenal metastatic masses Malignant ascites. Solid cystic pelvic tumor mass 13 cm, recommend pelvic sonography follow-up Peritoneal carcinomatosis Osseous metastatic disease, consider MRI thoracic lumbar spine follow-up
[2025-02-01] VITALS (12 sets, daily range): BP systolic 117–144; BP diastolic 69–103; PULSE 99–126; RESP 14–22; TEMP 35.9–37; O2SAT 95–99
--- NOTE | 2025-02-01 | XR_ITS ---
Examination: Abdomen sonogram, Limited Date and time of exam: February 01, 2025 0114 hours INDICATIONS: Abdominal pain and distention beginning 2 weeks ago Technique: Real-time calzada scale transabdominal sonographic images of the upper abdomen obtained. Findings: Minimal gallbladder sludge Gallbladder wall 0.5 cm with edema Common bile duct 0.3 cm Pancreatic head 3.6 cm Liver 19.4 cm fatty infiltration lobular contour moderate ascites Normal hepatopedal portal venous flow Patent IVC IMPRESSION: Gallbladder wall thickening with edema, however the patient has ascites and cirrhosis Consider HIDA scan/MRCP follow-up to confirm acute cholecystitis
--- NOTE | 2025-02-01 | XR_ITS ---
Examination: Venous duplex lower extremity sonogram, bilateral. Date and time of exam: February 01, 2025 0123 hours INDICATIONS: Bilateral leg swelling and pain beginning 2 weeks ago Technique: Multiple sonographic images of the deep venous system have been obtained. B-mode/2-D grayscale imaging of vascular structures and Doppler spectral analysis (waveforms) and color performed Both legs are examined. Findings: Deep venous systems do not demonstrate abnormal echogenicity. All visualized deep veins exhibit compressibility. All visualized deep veins exhibit augmentation. Impression: Negative for deep vein thrombosis
[2025-02-01] MEDS: FUROSEMIDE INJ 10 MG/ML 4ML VIAL 40 MG IVP ×2 (00:20→09:51)
[2025-02-01] MEDS: MORPHINE SULF INJ 10 MG/ML VIAL 2 MG IVP ×2 (00:21→09:55)
[2025-02-01] MEDS: NITROGLYCERIN OINT 2% 1 INCH PACKET TOP (00:21)
[2025-02-01 00:48] LABS: Lactate (Lactic Acid) 4.9 mMol/L (0.4-2.0)
[2025-02-01 00:50] LABS: Basophils # (Auto) 0.0 Thou/mm3 (0.0-0.2); Basophils % (Auto) 0 % (0-2.5); Eosinophils # (Auto) 0.0 Thou/mm3 (0.0-0.5); Eosinophils % (Auto) 0 % (0-10); Hematocrit 37.2 % (36.0-46.0); Hemoglobin 11.5 g/dL (12.0-16.0); Immature Granulocytes Auto 0.16 Thou/mm3 (0.00-0.00); Lymphocytes # (Auto) 0.3 Thou/mm3 (1.0-4.8); Lymphocytes % (Auto) 5 % (10-50); Mean Corpuscular HGB Conc 30.9 g/dl (31.0-37.0); Mean Corpuscular Hemoglobin 27.2 pg (25.0-35.0); Mean Corpuscular Volume 88 fL (80-100); Monocytes # (Auto) 0.4 Thou/mm3 (0.0-0.8); Monocytes % (Auto) 7 % (0-12); Neutrophils # (Auto) 4.8 Thou/mm3 (1.8-7.7); Neutrophils % (Auto) 85 % (37-80); Nucleated Red Blood Cell # 0.02 Thou/mm3 (0.00-0.00); Nucleated Red Blood Cell % 0 /100 WBC (0); RDW Standard Deviation 71.9 fL (36.4-46.3); Red Blood Count 4.23 Miln/mm3 (4.00-5.20); White Blood Count 5.7 Thou/mm3 (3.6-11.0)
[2025-02-01 01:00] LABS: Beta Hydroxybutyrate 3.6 mmol/L (<0.6)
[2025-02-01 01:03] LABS: HCG,Qualitative Serum Negative; Platelet Count 42 Thou/mm3 (140-440)
[2025-02-01 01:05] LABS: Bilirubin,Urine Negative (Negative); Blood,Urine 1+ (Negative); Clarity,Urine Clear (Clear/Hazy); Collection Type, Urine Clean Catch; Color,Urine Lt-Yellow (Lt Yel-Yel); Culture Indicated,Urine Not Indicated; Glucose, Urine Negative (Negative); Ketones,Urine 1+ (Negative); Leukocyte Esterase,Urine Positive (Negative); Nitrite,Urine Negative (Negative); PH,Urine 6.0 (5.0-7.0); Protein,Urine Negative (Neg - Trace); RBC,Urine 11 /hpf (0-3); Specific Gravity,Urine 1.015 (1.001-1.035); Squamous Epithelial Cell,Urine < 1 /hpf (0-5); Urobilinogen,Urine Negative mg/dL (0.0-1.0); WBC,Urine 5 /hpf (0-5)
[2025-02-01 01:10] LABS: Sed Rate (ESR) 66 mm/hr (0-20)
[2025-02-01 01:12] LABS: B-Type Natriuretic Peptide 21 pg/mL (0-100)
[2025-02-01 01:13] LABS: INR 1.4 (0.9-1.3); Partial Thromboplastin Time 38.1 Seconds (22.0-36.0); Prothrombin Time 14.6 Seconds (9.0-12.2)
[2025-02-01 01:18] LABS: Slide Review Platelets confirmed
[2025-02-01 01:21] LABS: Alanine Aminotransferase 70 U/L (10-49); Albumin, Serum 2.8 gm/dL (3.5-5.0); Albumin/Globulin Ratio 0.7 (1.2-2.2); Alkaline Phosphatase 973 U/L (46-116); Amylase 43 U/L (30-118); Anion Gap 16 (7-16); Aspartate Amino Transferase 231 U/L (0-34); BUN/Creatinine Ratio 37 Ratio (12-20); Bilirubin,Direct 0.6 mg/dL (0.0-0.3); Bilirubin,Total 1.2 mg/dL (0.3-1.2); Blood Urea Nitrogen 26 mg/dL (9-23); Calcium 10.6 mg/dL (8.3-10.6); Calcium (Corrected) 11.6 mg/dL (8.5-10.1); Carbon Dioxide 16.0 mMol/L (20.0-31.0); Chloride 99 mMol/L (98-107); Creatinine (Component) 0.7 mg/dL (0.6-1.3); Estimated Creatinine Clearance 84.0 mL/min (>60); Free T3 0.9 pg/mL (2.3-4.2); Free T4 (Free Thyroxine) 0.85 ng/dL (0.89-1.76); Globulin 3.8 gm/dL (2.3-3.5); Glucose 70 mg/dL (74-106); Lipase 33 U/L (12-53); Magnesium 1.7 mg/dL (1.6-2.6); Osmolality,Calculated 265 (275-295); Potassium 5.0 mMol/L (3.4-5.1); Procalcitonin 3.91 ng/ml (0.0-0.49); Sodium 131 mMol/L (136-145); Thyroid Stimulating Hormone 21.88 uIU/mL (0.55-4.78); Total Protein 6.6 gm/dL (5.7-8.2); Troponin I < 0.020 ng/mL (0.0-0.045); eGFR > 60 See Note
[2025-02-01 01:28] LABS: C-Reactive Protein 22.7 mg/dL (0.0-0.9)
[2025-02-01 01:30] LABS: D-Dimer > 3820 ng/mL (<600)
[2025-02-01 01:38] LABS: Path Review Blood Smear Sent to Pathologist
[2025-02-01 03:42] LABS: Reflex Lactate? Y
[2025-02-01 04:07] LABS: Lactic Acid, 3 HR 4.5 mMol/L (0.4-2.0)
[2025-02-01] MEDS: DEXTROSE 50%-WATER INJ 50 ML SYRINGE IV (06:18)
[2025-02-01] MEDS: SODIUM CHLORIDE 0.9% 1000 ML 1,000 ML 999 ML IV ×2 (06:18→18:09)
--- NOTE | 2025-02-01 07:11 | PC.NURSE ---
Pt. resting laying in bed in room 5. No s/s of distress at this time.
--- NOTE | 2025-02-01 09:00 | PC.NURSE ---
Pt. here from home to room 5, pt.'s at bedside moving pt. left leg, pt. states left leg is numb, left leg is swollen and left foot is swollen, pt. states she has stents on the right an left that go from her kidney to her bladder. Pt. has a chaves catheter that is draining yellow urine. Pt. states that she had colon cancer removed on October 01, pt. has a healing incision from her belly button down to her pelvic. Pt. states she is supposed to start chemo and radiation on February 13, pt. states the lymph nodes are swollen in her abdomen and decreasing flow to her legs, per pt. that is why her lower legs are swollen and the left leg is numb.
--- NOTE | 2025-02-01 09:00 | PC.NURSE ---
Pt. has a port to her left upper chest.
--- NOTE | 2025-02-01 09:26 | PC.NURSE ---
Pt. got pt. up to wheel chair and took her to the RR for a BM. Pt. is yellow in color and mildly pale.
--- NOTE | 2025-02-01 09:37 | PC.NURSE ---
called Dr. Collado [phone], informed doctor of pt.'s pain, new orders given and will be carried out.
--- NOTE | 2025-02-01 09:43 | PD.RESHP ---
Documentation for date of: 02/01/25 HPI History of Present Illness Chief complaint: Leg edema History of present illness: Ms. Taveras is 44 year old female with past medical history of Pericarditis, kidney stones, hemorrhoids, umbilical hernia repair, Colon cancer s/p colectomy, presented to the hospital for bilateral lower extremity edema and shortness of breath that has been lasting for 2 weeks. Patient was mostly bed bound throughout the duration. Patient also started to have difficulty urinating with minor pain on urination. Patient was originally schduled for chemotherapy with Dr. Hdz last month but was cancelled because she started to have rhinorrhea. Her chemotherapy was rescheduled on February 13, 2025. Patient endorses back pain. Denies chest pain, palpation, abdominal pain, N/V, fevers or chills. ED Course: Blood and urine tests remarkable for ESR 66, Na 131, Glucose 70, Lactic Acid 4.9, AST 231, ALT 70, Alkaline Phosphatase 973, CRP 22.7, Beta Hydroxybutyrate 3.91, TSH 21.88, procalcitonin 3.91, Ca 11.6, INR 1.4, D-dimer > 3820, and Plt 42. CTAP (01/31/2025): Hepatic metastases, Marked progression of abdominal and pelvic lymphadenopathy, Ureteral stents satisfactory position., Bilateral adrenal metastatic masses, Malignant ascites., Solid cystic pelvic tumor mass 13 cm, recommend pelvic sonography follow-up, Peritoneal carcinomatosis, Osseous metastatic disease, consider MRI thoracic lumbar spine follow-up Chest CT(01/31/2025): Negative for pulmonary artery emboli, Extensive mediastinal lymphadenopathy., Osseous metastatic disease. CXR (01/31/2025): No interval pneumonia or pulmonary edema Abd US (02/01/2025): Gallbladder wall thickening with edema, however the patient has ascites and cirrhosis, Consider HIDA scan/MRCP follow-up to confirm acute cholecystitis Venous Doppler study (02/01/2025): Negative for deep vein thrombosis Patient will be admitted for management of bilateral lower extremity edema and shortness of breath Medical history: As stated above Surgical history: Miscarriage, 09/2024 sigmoid colectomy and pelvic, coloproctostomy and right adnexal mass excision. Allergies: NKDA Medications: Pending official med rec Family history: Stroke and DM Social history: Denies smoking cigarettes, drinking alcohol or using other illicit drugs ROS: All 12 systems assessed and the patient denies unless otherwise stated in HPI Review of Systems Review of Systems Narrative Review of Systems: General: Denies fevers or chills, Lower back pain, Lower extremity edema HEENT: Denies congestion or sore throat Heart: Denies chest pain or palpitations Lungs: Denies cough. Endorses Shortness of breathe. Abdomen: Denies nausea, vomiting, blood in stool Genitourinary: Denies frequency, urgency, dysuria, or hematuria Neurology: Denies any changes in vision or difficulty speaking, or Upper and lower extremity weakness. Review of systems otherwise negative except what is mentioned above. Past Medical History Past Medical History NEUROLOGIC: Negative Neurological Disorders or Seizures CARDIAC: Positive Cardiac Disorders (pericarditis), Angina, Edema, Pericarditis, Deep Vein Thrombosis and Hypertension; Negative Myocardial Infarction, Cardiac Arrhythmia, Atrial Fibrillation, Heart Murmur, Coronary Artery Disease, Peripheral Vascular Disease, Hypercholesterolemia, Congestive Heart Failure, Congenital Heart Disease, Valvular Heart Disease, Rheumatic Fever, Cardiomyopathy, Cellulitis, Hypotension or Varicose Veins RESPIRATORY: Negative Respiratory Disorders, Chronic Obstructive Pulmonary Disease (COPD) or Asthma GASTROINTESTINAL: Positive Colorectal Cancer (diagnosed september 29, 2024); Negative Gastrointestinal Disorders or Hepatitis GENITOURINARY: Positive Genitourinary Disorders and Kidney Stones; Negative Renal Disease or Prostate Cancer REPRODUCTIVE: Positive Previous Pregnancies; Negative Breast Cancer or Testicular Cancer MUSCULOSKELETAL: Negative Musculoskeletal Disorders or Bone Cancer ENT: Negative History of ENT Problems ENDOCRINE: Negative Endocrine Disorders, Diabetes Mellitus Type 1 or Diabetes Mellitus Type 2 HEMATOLOGIC: Positive Anemia; Negative Blood Disorders or Sickle Cell Disease OTHER HISTORY: Positive Blood Transfusions (SEPTEMBER 2024), Cancer and Colorectal Cancer (diagnosed september 29, 2024); Negative Hospitalization, Autoimmune Disease, Down Syndrome, Developmental Delay, Shingles, Falls, Blood Transfusion Reaction, Anesthesia Reactions, Organ Transplant, Chemotherapy, Radiation Therapy, Hyperbaric Therapy, MRSA, VRSA, Vancomycin-Resistant Enterococci, Human Immunodeficiency Virus (HIV), Chicken Pox, Measles, Mumps, Rubella ([place] Measles), Pertussis, Clostridium Difficile, Breast Cancer, Cervical Cancer, Lung Cancer, Ovarian Cancer, Prostate Cancer or Testicular Cancer Family History FAMILY HISTORY: Negative Family Psychiatric Problems, Family Respiratory Disorders, Family Cardiac Disorders, Family Gastrointestinal Problems, Family Cancer, Family Surgery or Family Anesthesia Reaction Surgical History SURGICAL: Negative Pacemaker, Endocrine Surgery, Ear Surgery, Abdominal Surgery, Nephrectomy, Joint Replacement, Neurologic Surgery, Mastectomy, Section, Vasectomy or Organ Transplant Social History SMOKING STATUS: Never smoker SUBSTANCE USE: does not use Exam Vital Signs Temp Pulse Resp BP Pulse Ox O2 Del Method 97.7 F 105 H 18 128/82 97 Room Air 02/01/25 09:00 02/01/25 09:00 02/01/25 09:00 02/01/25 09:00 02/01/25 09:00 02/01/25 09:00 Narrative Exam General: well nourished, Tired-looking Eye: PERRL, EOMI, normal conjunctiva, no scleral icterus HENT: Normocephalic, atraumatic, hearing intact to conversation at normal volume, moist oral mucosa Neck: Supple, non-tender, no JVD, no lymphadenopathy Lungs: Non-labored respirations, symmetric chest rise, Clear to auscultate bilaterally. Heart: Peripheral pulses intact bilaterally, Regular Rate and Rhythm Abdomen: Soft, non-tender, Lower quadrant distention with mass palpable in pelvic area Musculoskeletal: Normal range of motion and strength. Lower back pain worsen on palpation, +2 Bilateral BLE edema with pain on palpation. Skin: Skin is warm, dry, no rashes or lesions. Psychiatric: Cooperative, appropriate mood and affect Neuro: Cranial nerves II-XII grossly intact. Strength 5/5 throughout. Sensations intact to light touch. Results: Labs 02/01/25 10:10 02/01/25 17:09 Labs: Short CBC 02/01/25 Range/Units 00:15 WBC 5.7 (3.6-11.0) Thou/mm3 Hgb 11.5 L (12.0-16.0) g/dL Hct 37.2 (36.0-46.0) % Plt Count 42 L D (140-440) Thou/mm3 BMP 02/01/25 00:15 Sodium 131 L Potassium 5.0 Chloride 99 Carbon Dioxide 16.0 L BUN 26 H Creatinine 0.7 Glucose 70 L Calcium 10.6 Cardiac Enzymes 02/01/25 Range/Units 00:15 Troponin I < 0.020 (0.0-0.045) ng/mL Liver Function 02/01/25 Range/Units 00:15 Total Bilirubin 1.2 (0.3-1.2) mg/dL Direct Bilirubin 0.6 H (0.0-0.3) mg/dL AST 231 H (0-34) U/L ALT 70 H (10-49) U/L Alkaline Phosphatase 973 H (46-116) U/L Albumin 2.8 L (3.5-5.0) gm/dL Urine 02/01/25 Range/Units 00:52 Urine Color Lt-Yellow (Lt Yel-Yel) Urine Clarity Clear (Clear/Hazy) Urine pH 6.0 (5.0-7.0) Ur Specific [place] 1.015 (1.001-1.035) Urine Protein Negative (Neg - Trace) Urine Glucose (UA) Negative (Negative) Quality Measures Quality Measures none Medications Home Medications and Allergies Home Medications ?Medication ?Instructions ?Recorded ?Confirmed ?Type ibuprofen 600 mg tablet 600 mg PO TID 11/10/24 11/10/24 History metoprolol succinate 50 mg capsule 50 mg PO QDAY 11/10/24 11/10/24 History sprinkle, ext. release 24 hr Allergies Allergy/AdvReac Type Severity Reaction Status Date / Time No Known Allergies Allergy Verified 01/31/25 22:27 Visit Medications Acetaminophen (Acetaminophen 325 Mg Tablet) 650 mg PO Q6H PRN PRN Reason: PAIN SCALE 1-3 (mild Stop: 03/03/25 08:43 Furosemide (Furosemide Inj 10 Mg/Ml 4ml Vial) 40 mg IVP BID IFEOMA Stop: 03/03/25 08:59 Ibuprofen (Ibuprofen Tab 400 Mg Tablet) 400 mg PO Q6HR PRN PRN Reason: Fever > 101 Stop: 03/03/25 08:43 Metoclopramide HCl (Metoclopramide 5 Mg Tablet) 10 mg PO Q6H PRN PRN Reason: NAUSEA OR VOMITING Stop: 03/03/25 08:43 Morphine Sulfate (Morphine Sulf Inj 10 Mg/Ml Vial) 2 mg IVP Q4HR PRN PRN Reason: PAIN SCALE 7-10 Stop: 02/06/25 09:39 Ondansetron HCl (Ondansetron Inj 2 Mg/Ml Inj 2 Ml) 4 mg IV Q4HR PRN; Protocol PRN Reason: NAUSEA OR VOMITING Stop: 03/03/25 09:38 Oxycodone/Acetaminophen (Oxycodone/Apap 5/325 Tablet) 1 tab PO Q6H PRN PRN Reason: PAIN SCALE 4-6 (Moderate Stop: 02/06/25 08:48 Pantoprazole Sodium (Pantoprazole 40 Mg Tablet) 40 mg PO Q12HR IFEOMA Stop: 03/03/25 08:59 Sennosides (Senna Tablet) 1 tab PO QDAY PRN; Protocol PRN Reason: constipation Stop: 03/03/25 08:43 Discontinued Medications Dextrose (Dextrose 50%-Water Inj 50 Ml Syringe) 50 ml IV X1 ONE Stop: 02/01/25 04:11 Last Admin: 02/01/25 06:18 Dose: 50 ml Furosemide (Furosemide Inj 10 Mg/Ml 4ml Vial) 40 mg IVP X1 ONE Stop: 01/31/25 23:41 Last Admin: 02/01/25 00:20 Dose: 40 mg Heparin Sodium (Porcine) (Heparin Sod Inj 5000 Unit/Ml Vial) 4,450 unit 80 unit/kg (4450 unit) IV X1 ONE; Protocol Stop: 02/01/25 04:28 Last Admin: 02/01/25 06:14 Dose: Not Given Sodium Chloride (Ns) 1,000 mls @ 999 mls/hr IV .Q1H1M ONE Stop: 02/01/25 05:10 Last Infusion: 02/01/25 07:19 Dose: Infused Heparin Sodium/Dextrose (Heparin In D5w Ivpb) 25,000 unit in 250 mls @ 9.961 mls/hr IV .Q24H IFEOMA; Protocol Stop: 02/15/25 04:29 Last Admin: 02/01/25 06:13 Dose: Not Given Cefepime HCl 1 gm/ Sodium (Chloride) 50 mls @ 100 mls/hr IV X1 ONE Stop: 02/01/25 04:58 Last Admin: 02/01/25 06:14 Dose: Not Given Vancomycin HCl 1,000 mg/ (Sodium Chloride) 500 mls @ 150 mls/hr IV X1 ONE Stop: 02/01/25 07:48 Last Admin: 02/01/25 06:14 Dose: Not Given Morphine Sulfate (Morphine Sulf Inj 10 Mg/Ml Vial) 2 mg IVP X1 ONE Stop: 01/31/25 23:41 Last Admin: 02/01/25 00:21 Dose: 2 mg Morphine Sulfate (Morphine Sulf Inj 10 Mg/Ml Vial) 2 mg IVP Q4HR PRN PRN Reason: PAIN SCALE 4-10(Mod-Sev Stop: 02/06/25 09:39 Nitroglycerin (Nitroglycerin Oint 2% 1 Inch Packet) 1 inch TOP X1 ONE Stop: 01/31/25 23:41 Last Admin: 02/01/25 00:21 Dose: 1 inch Assessment & Plan Plan Ms. Barlow is 44 year old female with past medical history of Pericarditis, kidney stones, hemorrhoids, umbilical hernia repair, Colon cancer s/p colectomy, presented to the hospital for bilateral lower extremity edema and shortness of breath that has been lasting for 2 weeks. Patient will be admitted for management of bilateral lower extremity edema and shortness of breath #Anasarca #Hepatic Metastasis #Hypoalbuminiema 2/ liver metastasis Patient's anasarca likely due to multiple factors: liver damage due to hepatic metastasis followed by hypoalbuminiemia. Unlikely due to pre-renal or CHF as GFR, Creatinine and BNP was normal, and Chest XR showing no signs of pulmonary edema or pneumonia. D-dimer was over 3820, however, venous doppler study showed negative for DVT. Patient also has massive abdominal and pelvis lymphadenopathy and solid cystic pelvic tumor of 13cm exerting pressure onto patient's lower extremity - On admission, BUN 26, creatinine 0.7, eGFR >60, BNP 21, albumin 2.8 - UA showed Negative Urine protein, Urine blood 1+ Urine RBC 11, Urine WBC 5, Positive leukocyte esterase -CTAP (01/31/2025): Hepatic metastases, Marked progression of abdominal and pelvic lymphadenopathy, Ureteral stents satisfactory position., Bilateral adrenal metastatic masses, Malignant ascites., Solid cystic pelvic tumor mass 13 cm, recommend pelvic sonography follow-up, Peritoneal carcinomatosis, Osseous metastatic disease, consider MRI thoracic lumbar spine follow-up -Chest CT(01/31/2025): Negative for pulmonary artery emboli, Extensive mediastinal lymphadenopathy., Osseous metastatic disease. -CXR (01/31/2025): No interval pneumonia or pulmonary edema -Abd US (02/01/2025): Gallbladder wall thickening with edema, however the patient has ascites and cirrhosis, Consider HIDA scan/MRCP follow-up to confirm acute cholecystitis -Venous Doppler study (02/01/2025): Negative for deep vein thrombosis Plan: -Monitor daily labs and electrolytes -Try to reschedule chemotherapy as soon as possible. Disposition: Telemed for management of BLE edema and SOB Diet: Cardiac Diet GI prophylaxis: Pantoprazole DVT prophylaxis: SCD Code: FULL Assessment and plan discussed with my attending physician Dr. Tobin (PGY-1)- Internal medicine resident Attending Provider Attestation/Addendum Patient seen and examined with the resident physician Dr. Tobin. Note reviewed, agree with findings and recommendations. Patient presented with a significant left lower extremity edema. Diagnosed a few months ago with metastatic colon cancer. Complicated with DVT, bilateral hydronephrosis needing stents, mets to the liver, lymph nodes with pelvic mass impinging on the lymphatic drainage and venous system causing her lower extremity edema. Labs reviewed-noted elevated lactic acid. No evidence of any infection. Suspect could be related to underlying tumor. Will have given her gentle IV fluids. Hold off on diuretics. Ultrasound showed no DVT. Had a long conversation with and patient at bedside. She needs to follow-up with the cancer center for debulking of the tumor via chemotherapy. Both of them had several questions which were answered to their satisfaction. She will be observed overnight and possible discharge tomorrow if stable. Also will give albumin to improve her third spacing. Due to elevated lactic acid and elevation in the liver enzymes-requested ICU consult. Dr. Key evaluated the patient and did not think she needs any ICU upgrade. Patient admitted to medical floor. Patient seems to have significant tumor burden-prognosis extremely guarded.
[2025-02-01] MEDS: PANTOPRAZOLE 40 MG TABLET PO ×2 (09:49→21:47)
[2025-02-01] MEDS: ONDANSETRON INJ 2 MG/ML INJ 2 ML 4 MG IV (09:53)
[2025-02-01 10:39] LABS: Basophils # (Auto) 0.0 Thou/mm3 (0.0-0.2); Basophils % (Auto) 0 % (0-2.5); Eosinophils # (Auto) 0.0 Thou/mm3 (0.0-0.5); Eosinophils % (Auto) 0 % (0-10); Hematocrit 35.3 % (36.0-46.0); Hemoglobin 11.1 g/dL (12.0-16.0); Immature Granulocytes Auto 0.14 Thou/mm3 (0.00-0.00); Lymphocytes # (Auto) 0.3 Thou/mm3 (1.0-4.8); Lymphocytes % (Auto) 6 % (10-50); Mean Corpuscular HGB Conc 31.4 g/dl (31.0-37.0); Mean Corpuscular Hemoglobin 27.9 pg (25.0-35.0); Mean Corpuscular Volume 89 fL (80-100); Monocytes # (Auto) 0.4 Thou/mm3 (0.0-0.8); Monocytes % (Auto) 8 % (0-12); Neutrophils # (Auto) 4.5 Thou/mm3 (1.8-7.7); Neutrophils % (Auto) 83 % (37-80); Nucleated Red Blood Cell # 0.02 Thou/mm3 (0.00-0.00); Nucleated Red Blood Cell % 0 /100 WBC (0); RDW Standard Deviation 74.2 fL (36.4-46.3); Red Blood Count 3.98 Miln/mm3 (4.00-5.20); White Blood Count 5.4 Thou/mm3 (3.6-11.0)
[2025-02-01 10:55] LABS: Platelet Count 39 Thou/mm3 (140-440)
[2025-02-01 12:43] LABS: Slide Review Platelets confirmed
[2025-02-01 17:47] LABS: Lactate (Lactic Acid) 7.2 mMol/L (0.4-2.0)
[2025-02-01 18:00] LABS: Alanine Aminotransferase 68 U/L (10-49); Albumin, Serum 2.6 gm/dL (3.5-5.0); Albumin/Globulin Ratio 0.7 (1.2-2.2); Alkaline Phosphatase 946 U/L (46-116); Anion Gap 18 (7-16); Aspartate Amino Transferase 228 U/L (0-34); BUN/Creatinine Ratio 31 Ratio (12-20); Bilirubin,Total 1.1 mg/dL (0.3-1.2); Blood Urea Nitrogen 25 mg/dL (9-23); Calcium 10.1 mg/dL (8.3-10.6); Calcium (Corrected) 11.2 mg/dL (8.5-10.1); Carbon Dioxide 17.1 mMol/L (20.0-31.0); Chloride 99 mMol/L (98-107); Creatinine (Component) 0.8 mg/dL (0.6-1.3); Estimated Creatinine Clearance 73.5 mL/min (>60); Globulin 3.7 gm/dL (2.3-3.5); Glucose 132 mg/dL (74-106); Osmolality,Calculated 274 (275-295); Potassium 4.3 mMol/L (3.4-5.1); Sodium 134 mMol/L (136-145); Total Protein 6.3 gm/dL (5.7-8.2); eGFR > 60 See Note
[2025-02-01 20:35] LABS: Reflex Lactate? Y
[2025-02-01 21:18] LABS: Lactic Acid, 3 HR 7.3 mMol/L (0.4-2.0)
[2025-02-01] MEDS: MORPHINE SULF INJ 4 MG/ML VIAL 2 MG IVP (21:47)
[2025-02-01] MEDS: ALBUMIN HUMAN 25% IVPB 25 GM/100 ML BTL IV (21:48)
[2025-02-02] VITALS (7 sets, daily range): BP systolic 128–146; BP diastolic 81–93; PULSE 108–135; RESP 19–30; TEMP 36.1–36.9; O2SAT 95–96
--- NOTE | 2025-02-02 | XR_ITS ---
Examination: MRI abdomen with intravenous contrast INDICATIONS: Diagnosis malignant neoplasm of the colon September 2024, 5 mm posterior right lobe liver lesion on MR abdomen October 01, 2024, restaging Date and time: February 02, 2025 1253 hours, comparison October 01, 2024 TECHNIQUE AND FINDINGS: Multiple MR coronal axial images of the abdomen obtained post intravenous administration 19 cc gadolinium FINDINGS: 3 mm nonenhancing liver cyst 4 mm nonenhancing liver cysts. The signal pattern in the liver for instance axial image 27 is diffusely heterogeneous and abnormal Spleen is not enlarged No pancreatic or adrenal mass Benign renal cysts Extensive para-aortic pericaval lymphadenopathy IMPRESSION: Extensive abdominal lymphadenopathy The signal pattern in the liver is diffusely heterogeneous and abnormal suspicious for numerous hepatic metastases Recommend ultrasound-guided liver biopsy for diagnostic assessment
--- NOTE | 2025-02-02 04:38 | PC.NURSE ---
[facility]25 from 0200 to 0440.
[2025-02-02] MEDS: LEVOTHYROXINE SODIUM 25 MCG TABLET 50 MCG PO (05:14)
[2025-02-02 05:47] LABS: Lactate (Lactic Acid) 6.1 mMol/L (0.4-2.0)
[2025-02-02 06:23] LABS: Alanine Aminotransferase 71 U/L (10-49); Albumin, Serum 3.0 gm/dL (3.5-5.0); Albumin/Globulin Ratio 0.8 (1.2-2.2); Alkaline Phosphatase 1065 U/L (46-116); Anion Gap 15 (7-16); Aspartate Amino Transferase 236 U/L (0-34); BUN/Creatinine Ratio 38 Ratio (12-20); Bilirubin,Total 1.5 mg/dL (0.3-1.2); Blood Urea Nitrogen 23 mg/dL (9-23); Calcium 10.6 mg/dL (8.3-10.6); Calcium (Corrected) 11.4 mg/dL (8.5-10.1); Carbon Dioxide 18.6 mMol/L (20.0-31.0); Chloride 101 mMol/L (98-107); Creatinine (Component) 0.6 mg/dL (0.6-1.3); Estimated Creatinine Clearance 97.9 mL/min (>60); Globulin 3.6 gm/dL (2.3-3.5); Glucose 106 mg/dL (74-106); Magnesium 1.6 mg/dL (1.6-2.6); Osmolality,Calculated 273 (275-295); Phosphorous 2.2 mg/dL (2.4-5.1); Potassium 4.4 mMol/L (3.4-5.1); Sodium 135 mMol/L (136-145); Total Protein 6.6 gm/dL (5.7-8.2); eGFR > 60 See Note
[2025-02-02] MEDS: METOPROLOL TARTRATE 25 MG TABLET PO (06:33)
[2025-02-02] MEDS: ALBUMIN HUMAN 25% IVPB 25 GM/100 ML BTL IV ×2 (08:09→20:39)
[2025-02-02] MEDS: PANTOPRAZOLE 40 MG TABLET PO ×2 (08:09→20:39)
--- NOTE | 2025-02-02 08:35 | ECHO_ITS ---
Transthoracic Echo Report Ht (in): 63 Wt (lb): 136 Exam Location: Echo Lab Status: Inpatient [employer]: Chasidy Ambrose Indications: Procedure Performed: BP: 131 / 93 HR: 125 MEASUREMENTS (Male / Female) Normal Values 2D ECHO LV Diastolic Diameter PLAX 2.9 cm 4.2 - 5.9 / 3.9 - 5.3 cm LV Systolic Diameter PLAX 1.9 cm IVS Diastolic Thickness 0.6 cm 0.6 - 1.0 / 0.6 - 0.9 cm LVPW Diastolic Thickness 1.0 cm 0.6 - 1.0 / 0.6 - 0.9 cm LV Relative Wall Thickness 0.6 LVOT Diameter 1.7 cm Ascending Aorta Diameter 2.4 cm M-MODE AV Cusp Separation MM 1.2 cm DOPPLER AV Peak Velocity 130.0 cm/s AV Peak Gradient 6.8 mmHg AV Mean Gradient 4.0 mmHg AV Velocity Time Integral 19.1 cm LVOT Peak Velocity 82.9 cm/s LVOT Peak Gradient 2.7 mmHg LVOT Velocity Time Integral 11.0 cm LVOT Cardiac Index 1874.2 cm?/min?m? AV Area Cont Eq vti 1.3 cm? AV Area Cont Eq pk 1.4 cm? MV Area PHT 8.1 cm? Mitral E Point Velocity 55.9 cm/s Mitral A Point Velocity 78.2 cm/s Mitral E to A Ratio 0.7 LV E' Lateral Velocity 10.8 cm/s Mitral E to LV E' Lateral Ratio 5.2 LV E' Septal Velocity 8.1 cm/s Mitral E to LV E' Septal Ratio 6.9 TR Peak Velocity 163.5 cm/s TR Peak Gradient 10.7 mmHg PV Peak Velocity 130.0 cm/s PV Peak Gradient 6.8 mmHg FINDINGS Left Ventricle Hyperdynamic LV, normal wall thickness, systolic function with no obvious regional wall motion abnormalities.There is grade I diastolic dysfunction of the left ventricle (impaired relaxation pattern). The ejection fraction is visually estimated at 60-65 %. TDS due to patient lying on right side not able to roll over to left side. Right Ventricle RV not well visualized. Left Atrium The left atrium is normal by two-dimensional, color flow and Doppler imaging with no structural abnormalities, no thrombus formation present. Right Atrium RA not well visualized Atrial Septum The interatrial septum appears normal with no evidence of a shunt. Aorta The aorta is normal by two-dimensional, color flow and Doppler interrogation. Mitral Valve The mitral valve is normal by two-dimensional, color flow and Doppler interrogation. There is no significant mitral valve regurgitation, stenosis or prolapse. Aortic Valve The aortic valve is trileaflet and normal by two-dimensional, color flow and Doppler interrogation. Tricuspid Valve The tricuspid valve is normal by two-dimensional, color flow and Doppler interrogation. There is trace tricuspid valve regurgitation. Pulmonic Valve The pulmonic valve is not well visualized. There is no significant pulmonic valve regurgitation. Vessels The pulmonary artery appears normal. The inferior vena cava not well visualized Pericardium There is a small pericardial effusion without cardiac tamponade. CONCLUSIONS Indication: Percarditis, R/O tamponade Hyperdynamic LV. Grade I diastolic dysfunction. Approximate ejection fraction is 60-65%. RV and RA not well visualized due to body habitus. Trace TR Trace pericaridal effusion without cardiac tamponade. Ankur Anumansilvana (Electronically Signed) Final Date: 04 February 2025 05:45
[2025-02-02 08:40] LABS: Reflex Lactate? Y
[2025-02-02 10:04] LABS: Lactic Acid, 3 HR 6.1 mMol/L (0.4-2.0)
[2025-02-02 10:59] LABS: Basophils # (Auto) 0.0 Thou/mm3 (0.0-0.2); Basophils % (Auto) 0 % (0-2.5); Eosinophils # (Auto) 0.0 Thou/mm3 (0.0-0.5); Eosinophils % (Auto) 0 % (0-10); Hematocrit 30.6 % (36.0-46.0); Hemoglobin 9.5 g/dL (12.0-16.0); Immature Granulocytes Auto 0.18 Thou/mm3 (0.00-0.00); Lymphocytes # (Auto) 0.3 Thou/mm3 (1.0-4.8); Lymphocytes % (Auto) 6 % (10-50); Mean Corpuscular HGB Conc 31.0 g/dl (31.0-37.0); Mean Corpuscular Hemoglobin 27.9 pg (25.0-35.0); Mean Corpuscular Volume 90 fL (80-100); Monocytes # (Auto) 0.5 Thou/mm3 (0.0-0.8); Monocytes % (Auto) 10 % (0-12); Neutrophils # (Auto) 4.0 Thou/mm3 (1.8-7.7); Neutrophils % (Auto) 80 % (37-80); Nucleated Red Blood Cell # 0.06 Thou/mm3 (0.00-0.00); Nucleated Red Blood Cell % 1 /100 WBC (0); RDW Standard Deviation 75.5 fL (36.4-46.3); Red Blood Count 3.40 Miln/mm3 (4.00-5.20); White Blood Count 5.0 Thou/mm3 (3.6-11.0)
[2025-02-02 11:03] LABS: Platelet Count 39 Thou/mm3 (140-440)
--- NOTE | 2025-02-02 11:12 | PD.NEPHDC ---
Planned Discharge Date 02/02/25 DS: Providers Provider Date of admission: 02/01/25 07:29 Primary care physician: Ching Collado MD Admitting Provider: Ching Collado MD Attending Provider on Admission: Ching Collado MD Attending Provider on DC: Ching Collado MD Discharging Provider: Ching Collado MD Discharge Diagnosis Discharge Diagnosis (1) Lytic bone lesions on xray: Status: Acute Assessment & Plan: Anasarca #Hepatic Metastasis #Hypoalbuminiema 2/2 liver metastasis Patient's anasarca likely due to multiple factors: liver damage due to hepatic metastasis followed by hypoalbuminiemia. Unlikely due to pre-renal or CHF as GFR, Creatinine and BNP was normal, and Chest XR showing no signs of pulmonary edema or pneumonia. D-dimer was over 3820, however, venous doppler study showed negative for DVT. Patient also has massive abdominal and pelvis lymphadenopathy and solid cystic pelvic tumor of 13cm exerting pressure onto patient's lower extremity - On admission, BUN 26, creatinine 0.7, eGFR >60, BNP 21, albumin 2.8 - UA showed Negative Urine protein, Urine blood 1+ Urine RBC 11, Urine WBC 5, Positive leukocyte esterase -CTAP (01/31/2025): Hepatic metastases, Marked progression of abdominal and pelvic lymphadenopathy, Ureteral stents satisfactory position., Bilateral adrenal metastatic masses, Malignant ascites., Solid cystic pelvic tumor mass 13 cm, recommend pelvic sonography follow-up, Peritoneal carcinomatosis, Osseous metastatic disease, consider MRI thoracic lumbar spine follow-up -Chest CT(01/31/2025): Negative for pulmonary artery emboli, Extensive mediastinal lymphadenopathy., Osseous metastatic disease. -CXR (01/31/2025): No interval pneumonia or pulmonary edema -Abd US (02/01/2025): Gallbladder wall thickening with edema, however the patient has ascites and cirrhosis, Consider HIDA scan/MRCP follow-up to confirm acute cholecystitis -Venous Doppler study (02/01/2025): Negative for deep vein thrombosis Plan: -Monitor daily labs and electrolytes -Try to reschedule chemotherapy as soon as possible. Disposition: Telemed for management of BLE edema and SOB Diet: Cardiac Diet GI prophylaxis: Pantoprazole DVT prophylaxis: SCD Code: FULL Hospital Course Time Spent with Patient Time attestation: Total time spent providing and/or coordinating discharge services:35 min Exam Vital Signs Temp Pulse Resp BP Pulse Ox O2 Del Method 36.3 C 121 H 23 H 128/83 95 Room Air 02/02/25 08:00 02/02/25 08:00 02/02/25 08:00 02/02/25 08:00 02/02/25 08:00 02/02/25 08:00 Narrative Exam General: well nourished, Tired-looking Eye: PERRL, EOMI, normal conjunctiva, no scleral icterus HENT: Normocephalic, atraumatic, hearing intact to conversation at normal volume, moist oral mucosa Neck: Supple, non-tender, no JVD, no lymphadenopathy Lungs: Non-labored respirations, symmetric chest rise, Clear to auscultate bilaterally. Heart: Peripheral pulses intact bilaterally, Regular Rate and Rhythm Abdomen: Soft, non-tender, Lower quadrant distention with mass palpable in pelvic area Musculoskeletal: Normal range of motion and strength. Lower back pain worsen on palpation, +2 Bilateral BLE edema with pain on palpation. Skin: Skin is warm, dry, no rashes or lesions. Psychiatric: Cooperative, appropriate mood and affect Neuro: Cranial nerves II-XII grossly intact. Strength 5/5 throughout. Sensations intact to light touch. Discharge Plan Prescriptions/Referrals Prescriptions/Med Rec: No Action metoprolol succinate 50 mg capsule,sprinkle,ER 24hr 50 mg PO QDAY prochlorperazine maleate 5 mg tablet 5 mg PO Q6H PRN (Reason: nausea and vomiting) Patient Comments: 5 MG DAILY - TAKE ONE TAB EVERY 6 HOURS NEEDED FOR NAUSEA levothyroxine 25 mcg tablet 25 mcg PO DAILY Patient Comments: TAKE 1 TABLET BY MOUTH EVERY DAY Referrals: Ching Collado MD [Primary Care Provider, Nephrology] Patient/Caregiver Discharge Instructions Print Language: Urdu
[2025-02-02 12:21] LABS: HCG Qualitative,Urine Negative
[2025-02-02 12:46] LABS: Slide Review Platelets confirmed
[2025-02-02] MEDS: Magnesium Sulfate 4 GM Ivpb 4 GM/50 ML BAG IV (13:40)
[2025-02-02] MEDS: NAPH,KPH MBDB 1 PACKET (1.5 GM) PO (13:41)
[2025-02-02] MEDS: SODIUM CHLORIDE 0.9% 1000 ML 1,000 ML 100 ML IV (13:47)
[2025-02-02] MEDS: MORPHINE SULF INJ 4 MG/ML VIAL 2 MG IVP ×2 (15:47→20:45)
--- NOTE | 2025-02-02 17:19 | PD.RESCONSUL ---
HPI Data of Consult Requesting Physician: Ching Collado MD Admitting Provider: Ching Collado MD Attending Provider: Ching Collado MD Primary Care Provider: Ching Collado MD Consult Narrative Reason for consult: History of pericarditis History of present illness: HPI: A 44-year-old female patient with past medical history of colon cancer status post colostomy, pericarditis, Hypothyroidism was admitted to the hospital secondary to worsening shortness of breath and increased generalized body swelling. Patient was diagnosed with colon cancer in 2024 and underwent colectomy however patient was found to have multiple metastases with malignant ascites and metastasis to the liver into the vertebrae. Patient was recently diagnosed with pericarditis she reported that she has finished a 3 months course of treatment with us. Today patient reported that she still has mild chest pain, shortness of breath, and orthopnea. She denied any fever or chills. Home medications:Levothyroxine, metoprolol, prochlorperazine PMH:As above PSX: Umbilical hernia repair, colectomy Allergies: NKA cc:: cc: Ching Collado MD Review of Systems Review of Systems Systems Reviewed: All systems reviewed, normal except as documented Exam Vital Signs Temp Pulse Resp BP Pulse Ox O2 Del Method 97.9 F 112 H 30 H 142/87 H 95 Room Air 02/02/25 16:00 02/02/25 16:00 02/02/25 16:00 02/02/25 16:00 02/02/25 16:00 02/02/25 16:00 Narrative Exam GEN:Looks toxic, AOx3, able to speak full sentences HEENT: NC/AC, icteric, oral mucosa moist, neck supple CVS: RRR, Pronounced S1-S2 present, no murmurs appreciated, No JVD RESP: CTAB GI: soft, distended, +ve fluid thrill, non tender, NBS MSK: able to move all 4 limbs, +3 lower extremity edema SKIN: warm and dry [employer]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 Results Labs 02/02/25 09:36 02/03/25 05:49 Labs: Short CBC 02/02/25 Range/Units 09:36 WBC 5.0 (3.6-11.0) Thou/mm3 Hgb 9.5 L (12.0-16.0) g/dL Hct 30.6 L (36.0-46.0) % Plt Count 39 L (140-440) Thou/mm3 BMP 02/01/25 02/02/25 17:09 05:35 Sodium 134 L 135 L Potassium 4.3 D 4.4 Chloride 99 101 Carbon Dioxide 17.1 L 18.6 L BUN 25 H 23 Creatinine 0.8 0.6 Glucose 132 H D 106 Calcium 10.1 10.6 Liver Function 02/01/25 02/02/25 Range/Units 17:09 05:35 Total Bilirubin 1.1 1.5 H (0.3-1.2) mg/dL AST 228 H 236 H (0-34) U/L ALT 68 H 71 H (10-49) U/L Alkaline Phosphatase 946 H D 1065 H D (46-116) U/L Albumin 2.6 L 3.0 L (3.5-5.0) gm/dL Quality Measures Quality Measures none Medications Home Medications and Allergies Home Medications ?Medication ?Instructions ?Recorded ?Confirmed ?Type metoprolol succinate 50 mg capsule 50 mg PO QDAY 11/10/24 02/01/25 History sprinkle, ext. release 24 hr levothyroxine 25 mcg tablet 25 mcg PO DAILY 02/01/25 02/01/25 History prochlorperazine maleate 5 mg 5 mg PO Q6H PRN nausea and vomiting 02/01/25 02/01/25 History tablet Allergies Allergy/AdvReac Type Severity Reaction Status Date / Time No Known Allergies Allergy Verified 01/31/25 22:27 Visit Medications Acetaminophen (Acetaminophen 325 Mg Tablet) 650 mg PO Q6H PRN PRN Reason: PAIN SCALE 1-3 (mild Stop: 03/03/25 08:43 Albumin Human (Albuminar-25 Ivpb) 25 gm in 100 mls @ 100 mls/hr IV BID IFEOMA Stop: 02/04/25 20:59 Last Admin: 02/02/25 08:09 Dose: 100 mls/hr Sodium Chloride (Ns) 1,000 mls @ 100 mls/hr IV .Q10H IFEOMA Stop: 02/02/25 21:48 Last Admin: 02/02/25 13:47 Dose: 100 mls/hr Levothyroxine Sodium (Levothyroxine Sodium 25 Mcg Tablet) 50 mcg PO ACBR IFEOMA Stop: 03/04/25 05:59 Last Admin: 02/02/25 05:14 Dose: 50 mcg Metoclopramide HCl (Metoclopramide 5 Mg Tablet) 10 mg PO Q6H PRN PRN Reason: NAUSEA OR VOMITING Stop: 03/03/25 08:43 Metoprolol Tartrate (Metoprolol Tartrate 25 Mg Tablet) 25 mg PO QDAY [facility] Stop: 03/04/25 06:19 Last Admin: 02/02/25 06:33 Dose: 25 mg Morphine Sulfate (Morphine Sulf Inj 4 Mg/Ml Vial) 2 mg IVP Q4HR PRN PRN Reason: PAIN SCALE 7-10 Stop: 02/06/25 09:39 Last Admin: 02/02/25 15:47 Dose: 2 mg Ondansetron HCl (Ondansetron Inj 2 Mg/Ml Inj 2 Ml) 4 mg IV Q4HR PRN; Protocol PRN Reason: NAUSEA OR VOMITING Stop: 03/03/25 09:38 Last Admin: 02/01/25 09:53 Dose: 4 mg Oxycodone/Acetaminophen (Oxycodone/Apap 5/325 Tablet) 1 tab PO Q6H PRN PRN Reason: PAIN SCALE 4-6 (Moderate Stop: 02/06/25 08:48 Last Admin: 02/02/25 05:14 Dose: 1 tab Pantoprazole Sodium (Pantoprazole 40 Mg Tablet) 40 mg PO Q12HR [facility] Stop: 03/03/25 08:59 Last Admin: 02/02/25 08:09 Dose: 40 mg Sennosides (Senna Tablet) 1 tab PO QDAY PRN; Protocol PRN Reason: constipation Stop: 03/03/25 08:43 Discontinued Medications Dextrose (Dextrose 50%-Water Inj 50 Ml Syringe) 50 ml IV X1 ONE Stop: 02/01/25 04:11 Last Admin: 02/01/25 06:18 Dose: 50 ml Furosemide (Furosemide Inj 10 Mg/Ml 4ml Vial) 40 mg IVP X1 ONE Stop: 01/31/25 23:41 Last Admin: 02/01/25 00:20 Dose: 40 mg Furosemide (Furosemide Inj 10 Mg/Ml 4ml Vial) 40 mg IVP BID IFEOMA Stop: 03/03/25 08:59 Last Admin: 02/01/25 09:51 Dose: 40 mg Heparin Sodium (Porcine) (Heparin Sod Inj 5000 Unit/Ml Vial) 4,450 unit 80 unit/kg (4450 unit) IV X1 ONE; Protocol Stop: 02/01/25 04:28 Last Admin: 02/01/25 06:14 Dose: Not Given Sodium Chloride (Ns) 1,000 mls @ 999 mls/hr IV .Q1H1M ONE Stop: 02/01/25 05:10 Last Infusion: 02/01/25 07:19 Dose: Infused Heparin Sodium/Dextrose (Heparin In D5w Ivpb) 25,000 unit in 250 mls @ 9.961 mls/hr IV .Q24H IFEOMA; Protocol Stop: 02/15/25 04:29 Last Admin: 02/01/25 06:13 Dose: Not Given Cefepime HCl 1 gm/ Sodium (Chloride) 50 mls @ 100 mls/hr IV X1 ONE Stop: 02/01/25 04:58 Last Admin: 02/01/25 06:14 Dose: Not Given Vancomycin HCl 1,000 mg/ (Sodium Chloride) 500 mls @ 150 mls/hr IV X1 ONE Stop: 02/01/25 07:48 Last Admin: 02/01/25 06:14 Dose: Not Given Sodium Chloride (Ns) 1,000 mls @ 999 mls/hr IV .Q1H1M ONE Stop: 02/01/25 18:53 Last Admin: 02/01/25 18:09 Dose: 999 mls/hr Magnesium Sulfate (Magnesium Sulfate Ivpb) 4 gm in 50 mls @ 12.5 mls/hr IV X1 ONE Stop: 02/02/25 12:35 Last Admin: 02/02/25 13:40 Dose: 12.5 mls/hr Ibuprofen (Ibuprofen Tab 400 Mg Tablet) 400 mg PO Q6HR PRN PRN Reason: Fever > 101 Stop: 03/03/25 08:43 Morphine Sulfate (Morphine Sulf Inj 10 Mg/Ml Vial) 2 mg IVP X1 ONE Stop: 01/31/25 23:41 Last Admin: 02/01/25 00:21 Dose: 2 mg Morphine Sulfate (Morphine Sulf Inj 10 Mg/Ml Vial) 2 mg IVP Q4HR PRN PRN Reason: PAIN SCALE 4-10(Mod-Sev Stop: 02/06/25 09:39 Morphine Sulfate (Morphine Sulf Inj 10 Mg/Ml Vial) 2 mg IVP Q4HR PRN PRN Reason: PAIN SCALE 7-10 Stop: 02/06/25 09:39 Last Admin: 02/01/25 09:55 Dose: 2 mg Nitroglycerin (Nitroglycerin Oint 2% 1 Inch Packet) 1 inch TOP X1 ONE Stop: 01/31/25 23:41 Last Admin: 02/01/25 00:21 Dose: 1 inch Potassium Phos/Sodium Phos (Naph,[facility] Mbdb 1 Packet (1.5 Gm)) 1 packet PO X1 ONE Stop: 02/02/25 08:38 Last Admin: 02/02/25 13:41 Dose: 1 packet Assessment & Plan Plan Summary: A 44-year-old female patient with past medical history of colon cancer status post colostomy, pericarditis, Hypothyroidism was admitted to the hospital secondary to worsening shortness of breath and increased generalized body swelling. Patient was diagnosed with colon cancer in 2024 and underwent colectomy however patient was found to have multiple metastases with malignant ascites and metastasis to the liver into the vertebrae. Patient was admitted for tx of anasarca and SOB. Assessment and plan: #History of pericarditis #History of pericardial effusion, mild Patient most likely has pericarditis 2/2 to her malignancy vs AI, ESR is 66, could be also 2/2 cancer, Her JOSE was 06/1279. Patient reported completion of her pericarditis tx for 3 months however she did not return to our clinic for follow up At this time clinically patient does not have sign of temponade, such as elevated JVD, distant heart sound or pulsus alternans. however has low voltage EKG Trops and BNP are normal Echo in september showed There is a trace pericardial effusion without any evidence of any tamponade. Normal LV size and function. Estimated EF 55-60%. Normal diastolic function. Plan - Stat echo was ordered - Keep K and magnesium above 4 and 2 respectively - Strict in and out #GI malignancy with mets #Hypercalcemia #CHERI #Lactic acidosis #Transaminitis Thank you so much for your consult, Please do not hesitate to reach out if you have any question or concerns. - Patient's plan and care discussed with my attending, Dr. Ankur Mayer MD Internal Medicine PGY-3
--- NOTE | 2025-02-02 21:01 | ESPR_ITS ---
Documentation for date of: 02/02/25 Subjective Subjective Interval history: Ms. Taveras is 44 year old female with past medical history of Pericarditis, kidney stones, hemorrhoids, umbilical hernia repair, Colon cancer s/p colectomy, presented to the hospital for bilateral lower extremity edema and shortness of breath that has been lasting for 2 weeks. Patient was mostly bed bound throughout the duration. Patient also started to have difficulty urinating with minor pain on urination. Patient was originally schduled for chemotherapy with Dr. Hdz last month but was cancelled because she started to have rhinorrhea. Her chemotherapy was rescheduled on February 13, 2025. Patient endorses back pain. Denies chest pain, palpation, abdominal pain, N/V, fevers or chills. ED Course: Blood and urine tests remarkable for ESR 66, Na 131, Glucose 70, Lactic Acid 4.9, AST 231, ALT 70, Alkaline Phosphatase 973, CRP 22.7, Beta Hydroxybutyrate 3.91, TSH 21.88, procalcitonin 3.91, Ca 11.6, INR 1.4, D-dimer > 3820, and Plt 42. CTAP (01/31/2025): Hepatic metastases, Marked progression of abdominal and pelvic lymphadenopathy, Ureteral stents satisfactory position., Bilateral adrenal metastatic masses, Malignant ascites., Solid cystic pelvic tumor mass 13 cm, recommend pelvic sonography follow-up, Peritoneal carcinomatosis, Osseous metastatic disease, consider MRI thoracic lumbar spine follow-up Chest CT(01/31/2025): Negative for pulmonary artery emboli, Extensive mediastinal lymphadenopathy., Osseous metastatic disease. CXR (01/31/2025): No interval pneumonia or pulmonary edema Abd US (02/01/2025): Gallbladder wall thickening with edema, however the patient has ascites and cirrhosis, Consider HIDA scan/MRCP follow-up to confirm acute cholecystitis Venous Doppler study (02/01/2025): Negative for deep vein thrombosis Patient will be admitted for management of bilateral lower extremity edema and shortness of breath 02/02/2025-patient currently seen in telemetry. Heart rate seems to be on the limited [id number] metoprolol ordered. Patient also has high lactic acid and 1 L IV fluid was given. Magnesium was replaced. Calcium slightly elevated. IV fluids given. Lasix was held. Suspect high lactic acid was coming from the tumor burden. Spoke to Dr. Hdz-will see her early next week in her office. Patient has a Port-A-Cath. Spoke to Dr. Arthur Hawthorne-will see her in the hospital. We ordered an echocardiogram. at bedside. Labs/medications reviewed. Edema in the lower extremities still persist. Probably related to huge pelvic mass and extensive lymphadenopathy pushing on the lower extremity lymphatic drainage/venous drainage. Prognosis remains guarded. Review of Systems Review of Systems Narrative Review of Systems: CONSTITUTIONAL: Patient denies any fever, chills. Complaining of fatigue. Patient lost weight HEENT: Denies any visual disturbances or hearing problems. CARDIOVASCULAR: Patient denies any chest pain, shortness of breath. c/oswelling in the lower extremities. PULMONARY: Patient denies any shortness of breath, cough. GASTROINTESTINAL: Patient complaining of abdominal pain GENITOURINARY: Patient denies any urinary symptoms of burning or frequency or hematuria, denies any form in the urine. SKIN: Denies any rash. MUSCULOSKELETAL: complaining of bodyaches NEUROLOGICAL: Denies any neurological problems of strokes, seizures or confusion. Denies any memory problems. PSYCHIATRIC: Admits sadness ++ Lymphadenopathy Exam Vital Signs Temp Pulse Resp BP Pulse Ox O2 Del Method 36.8 C 126 H 25 H 136/93 H 96 Room Air 02/02/25 20:00 02/02/25 20:00 02/02/25 20:00 02/02/25 20:02/02/25 20:02/02/25 20:00 Narrative Exam General: well nourished, Tired-looking Eye: PERRL, EOMI, normal conjunctiva, no scleral icterus HENT: Normocephalic, atraumatic, hearing intact to conversation at normal volume, moist oral mucosa Neck: Supple, non-tender, no JVD, no lymphadenopathy Lungs: Non-labored respirations, symmetric chest rise, Clear to auscultate bilaterally. Heart: Peripheral pulses intact bilaterally, Regular Rate and Rhythm Abdomen: Soft, non-tender, Lower quadrant distention with mass palpable in pelvic area Musculoskeletal: Normal range of motion and strength. Lower back pain worsen on palpation, +2 Bilateral BLE edema with pain on palpation. + Posey 2+ edema in the lower extremities Skin: Skin is warm, dry, no rashes or lesions. Psychiatric: Cooperative, appropriate mood and affect Neuro: Cranial nerves II-XII grossly intact. Strength 5/5 throughout. Sensations intact to light touch. Objective Labs 02/02/25 09:36 02/02/25 05:35 Labs: Laboratory Results - last 24 hr 02/01/25 02/02/25 02/02/25 21:07 05:35 09:36 WBC 5.0 RBC 3.40 L Hgb 9.5 L Hct 30.6 L MCV 90 MCH 27.9 MCHC 31.0 RDW Std Deviation 75.5 H Plt Count 39 L Neut % (Auto) 80 Lymph % (Auto) 6 L [place] % (Auto) 10 Eos % (Auto) 0 Baso % (Auto) 0 Neut # (Auto) 4.0 Lymph # (Auto) 0.3 L [place] # (Auto) 0.5 Eos # (Auto) 0.0 Baso # (Auto) 0.0 Immature Gran # (Auto) 0.18 H Absolute Nucleated RBC 0.06 H Immature Gran % 4 H Nucleated RBC % 1 H Sodium 135 L Potassium 4.4 Chloride 101 Carbon Dioxide 18.6 L Anion Gap 15 BUN 23 Creatinine 0.6 Estim Creat Clear Calc 97.9 eGFR > 60 BUN/Creatinine Ratio 38 H Glucose 106 Calculated Osmolality 273 L Lactic Acid 7.3 H* 6.1 H* 6.1 H* Calcium 10.6 Corrected Calcium 11.4 H Phosphorus 2.2 L Magnesium 1.6 Total Bilirubin 1.5 H AST 236 H ALT 71 H Alkaline Phosphatase 1065 H D Total Protein 6.6 Albumin 3.0 L Globulin 3.6 H Albumin/Globulin Ratio 0.8 L Urine HCG, Qual Misc Test Result Platelets confirmed 02/02/25 12:00 WBC RBC Hgb Hct MCV MCH MCHC RDW Std Deviation Plt Count Neut % (Auto) Lymph % (Auto) [place] % (Auto) Eos % (Auto) Baso % (Auto) Neut # (Auto) Lymph # (Auto) [place] # (Auto) Eos # (Auto) Baso # (Auto) Immature Gran # (Auto) Absolute Nucleated RBC Immature Gran % Nucleated RBC % Sodium Potassium Chloride Carbon Dioxide Anion Gap BUN Creatinine Estim Creat Clear Calc eGFR BUN/Creatinine Ratio Glucose Calculated Osmolality Lactic Acid Calcium Corrected Calcium Phosphorus Magnesium Total Bilirubin AST ALT Alkaline Phosphatase Total Protein Albumin Globulin Albumin/Globulin Ratio Urine HCG, Qual Negative Misc Test Result Assessment & Plan Assessment and plan (1) Lytic bone lesions on xray: Status: Acute Additional Assessment & Plan Additional Plan: Ms. Barlow is 44 year old female with past medical history of Pericarditis, kidney stones, hemorrhoids, umbilical hernia repair, Colon cancer s/p colectomy, presented to the hospital for bilateral lower extremity edema and shortness of breath that has been lasting for 2 weeks. Patient will be admitted for management of bilateral lower extremity edema and shortness of breath #Anasarca #Hepatic Metastasis #Hypoalbuminiema 2/2 liver metastasis Patient's anasarca likely due to multiple factors: liver damage due to hepatic metastasis followed by hypoalbuminiemia. Unlikely due to pre-renal or CHF as GFR, Creatinine and BNP was normal, and Chest XR showing no signs of pulmonary edema or pneumonia. D-dimer was over 3820, however, venous doppler study showed negative for DVT. Patient also has massive abdominal and pelvis lymphadenopathy and solid cystic pelvic tumor of 13cm exerting pressure onto patient's lower extremity - On admission, BUN 26, creatinine 0.7, eGFR >60, BNP 21, albumin 2.8 - UA showed Negative Urine protein, Urine blood 1+ Urine RBC 11, Urine WBC 5, Positive leukocyte esterase -CTAP (01/31/2025): Hepatic metastases, Marked progression of abdominal and pelvic lymphadenopathy, Ureteral stents satisfactory position., Bilateral adrenal metastatic masses, Malignant ascites., Solid cystic pelvic tumor mass 13 cm, recommend pelvic sonography follow-up, Peritoneal carcinomatosis, Osseous metastatic disease, consider MRI thoracic lumbar spine follow-up -Chest CT(01/31/2025): Negative for pulmonary artery emboli, Extensive mediastinal lymphadenopathy., Osseous metastatic disease. -CXR (01/31/2025): No interval pneumonia or pulmonary edema -Abd US (02/01/2025): Gallbladder wall thickening with edema, however the patient has ascites and cirrhosis, Consider HIDA scan/MRCP follow-up to confirm acute cholecystitis -Venous Doppler study (02/01/2025): Negative for deep vein thrombosis MRI abdomen showed extensive hepatic metastatic disease Plan: -Monitor daily labs and electrolytes -Try to reschedule chemotherapy as soon as possible. Disposition: Telemed for management of BLE edema and SOB Diet: Cardiac Diet GI prophylaxis: Pantoprazole DVT prophylaxis: SCD Code: FULL Patient presented with a significant left lower extremity edema. Diagnosed a few months ago with metastatic colon cancer. Complicated with DVT, bilateral hydronephrosis needing stents, mets to the liver, lymph nodes with pelvic mass impinging on the lymphatic drainage and venous system causing her lower extremity edema. Labs reviewed-noted elevated lactic acid. No evidence of any infection. Suspect could be related to underlying tumor. Will have given her gentle IV fluids. Hold off on diuretics. Ultrasound showed no DVT. Had a long conversation with and patient at bedside. She needs to follow-up with the cancer center for debulking of the tumor via chemotherapy. Both of them had several questions which were answered to their satisfaction. She will be observed overnight and possible discharge tomorrow if stable. Also will give albumin to improve her third spacing. Due to elevated lactic acid and elevation in the liver enzymes-MRI liver ordered to rule out obstruction. Patient seems to have significant tumor burden-prognosis extremely guarded.
[2025-02-03] VITALS (8 sets, daily range): BP systolic 117–143; BP diastolic 74–96; PULSE 123–145; RESP 15–26; TEMP 36.6–37.3; O2SAT 93–95; BMI 25.7
[2025-02-03] MEDS: MORPHINE SULF INJ 4 MG/ML VIAL 2 MG IVP ×3 (01:11→12:24)
--- NOTE | 2025-02-03 02:21 | PC.NURSE ---
DR. GORDON NOTIFIED OF PT'S HR 135 BPM S.TACH. PT SLEEPING, RR20, 94%RA. PT AWAKEN EASILY TO CALL OF NAME. NO ACUTE DISTRESS. NO NEW ORDER.
--- NOTE | 2025-02-03 04:08 | PC.NURSE ---
PT'S HR WENT UP TO 140'S. PT AWAKE, AT BEDSIDE REPOSITIONING HER. PT DENIES CHEST DISCOMFORT OR PALPITATION. PT STATED SHE WILL CALL IF SHE NEEDS HELP OR PAIN MED.
[2025-02-03] MEDS: LEVOTHYROXINE SODIUM 25 MCG TABLET 50 MCG PO (05:13)
--- NOTE | 2025-02-03 06:22 | PC.NURSE ---
DR. GORDON NOTIFIED OF PT'S HR 145, S. TACH.PT RESTING ON BED. NO ACUTE DISTRESS. NO C/O PAIN. NO C/O SOB. NEW ORDER GIVEN.
[2025-02-03] MEDS: METOPROLOL TARTRATE 25 MG TABLET 50 MG PO (06:34)
[2025-02-03 07:00] LABS: Alanine Aminotransferase 66 U/L (10-49); Albumin, Serum 3.1 gm/dL (3.5-5.0); Albumin/Globulin Ratio 1.0 (1.2-2.2); Alkaline Phosphatase 983 U/L (46-116); Anion Gap 16 (7-16); Aspartate Amino Transferase 233 U/L (0-34); BUN/Creatinine Ratio 34 Ratio (12-20); Bilirubin,Total 1.8 mg/dL (0.3-1.2); Blood Urea Nitrogen 17 mg/dL (9-23); Calcium 10.8 mg/dL (8.3-10.6); Calcium (Corrected) 11.5 mg/dL (8.5-10.1); Carbon Dioxide 18.5 mMol/L (20.0-31.0); Chloride 103 mMol/L (98-107); Creatinine (Component) 0.5 mg/dL (0.6-1.3); Estimated Creatinine Clearance 129.6 mL/min (>60); Globulin 3.2 gm/dL (2.3-3.5); Glucose 93 mg/dL (74-106); Magnesium 1.9 mg/dL (1.6-2.6); Osmolality,Calculated 275 (275-295); Phosphorous 1.5 mg/dL (2.4-5.1); Potassium 4.4 mMol/L (3.4-5.1); Sodium 137 mMol/L (136-145); Total Protein 6.3 gm/dL (5.7-8.2); eGFR > 60 See Note
--- NOTE | 2025-02-03 08:05 | EKG_ITS ---
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
[2025-02-03 08:10] LABS: Parathyroid Hormone Intact 4.9 pg/ml (18.5-88.0)
[2025-02-03] MEDS: CITRIC ACID/SODIUM CITR 15 ML UDC (BICITRA) 30 ML PO (08:21)
[2025-02-03] MEDS: ALBUMIN HUMAN 25% IVPB 25 GM/100 ML BTL IV (08:21)
[2025-02-03] MEDS: Magnesium Sulfate 2 GM Ivpb 2 GM/50 ML BAG IV (08:22)
[2025-02-03] MEDS: NAPH,KPH MBDB 1 PACKET (1.5 GM) PO (08:22)
[2025-02-03] MEDS: PANTOPRAZOLE 40 MG TABLET PO (08:22)
--- NOTE | 2025-02-03 08:40 | PD.ONCCONS ---
HPI Data of Consult Consult date: 02/03/25 Requesting Physician: Ching Collado MD Primary Care Provider: Ching Collado MD Consult Narrative Reason for consult: Stage IV colon cancer with pain History of present illness: Patient is an unfortunate 44-year-old with stage IV sigmoid colon cancer initially evaluated 09/27/2024 with extensive abdominal pelvic lymphadenopathy. CT-guided needle biopsy 09/28/2024 revealed metastatic carcinoma will differential most consistent with colorectal primary. Patient underwent explorative laparotomy sigmoid colectomy and low pelvic coloproctostomy along with excision of right Nexal mass 10/01/[address] Levine. Findings were near obstructing sigmoid tumor significant up and apathy around inferior mesenteric vessels. Final path revealed adenocarcinoma moderate differentiated grade two 3.7 x 2.2 x 1 cm with invasion of visceral peritoneum and extensive small vessel involvement with margins proximal and distal involved but close in the radial mesenteric areas. 22 lymph tensive nodes removed were all involved with mets. [id number]. Patient experienced DVT and bilateral hydronephrosis needing stents. Patient has port and was awaiting chemo with Dr. Yousuf ARENASFOX but this had to be delayed due to pericarditis's and awaiting cardiac clearance. Patient was admitted 02/01/[address] showing extensive widespread mets with progression involving mediastinum abdomen pelvis. There was extensive mediastinal adenopathy osseous mets disease peritoneal carcinomatosis progression of liver mets abdominal pelvic lymphadenopathy. Also noted was hypercalcemia lactic acidosis elevated LFTs. Patient referred for palliative medicine consultation. cc:: cc: Ching Collado MD Past Medical History Surgical History OTHER SURGICAL HX: Prior sigmoid colectomy low pelvic pelvic coloproctostomy 09/2024 status post ureteral stents for ureteral obstruction Past Medical History Comments PMH COMMENT: Discovery of colon cancer presenting with widespread mets and obstruction needing colectomy ureteral stent placement Meds Home Medications and Allergies Home Medications ?Medication ?Instructions ?Recorded ?Confirmed ?Type metoprolol succinate 50 mg capsule 50 mg PO QDAY 11/10/24 02/01/25 History sprinkle, ext. release 24 hr levothyroxine 25 mcg tablet 25 mcg PO DAILY 02/01/25 02/01/25 History prochlorperazine maleate 5 mg 5 mg PO Q6H PRN nausea and vomiting 02/01/25 02/01/25 History tablet Allergies Allergy/AdvReac Type Severity Reaction Status Date / Time No Known Allergies Allergy Verified 01/31/25 22:27 Exam Vital Signs Temp Pulse Resp BP Pulse Ox O2 Del Method 99.2 F 139 H 15 131/93 H 94 L Room Air 02/03/25 08:00 02/03/25 08:32 02/03/25 08:00 02/03/25 08:32 02/03/25 08:00 02/03/25 08:00 Narrative Exam Appears tired answering question with the considerably distended abdomen. Results Labs 02/02/25 09:36 02/03/25 05:49 Labs: Short CBC 02/02/25 Range/Units 09:36 WBC 5.0 (3.6-11.0) Thou/mm3 Hgb 9.5 L (12.0-16.0) g/dL Hct 30.6 L (36.0-46.0) % Plt Count 39 L (140-440) Thou/mm3 BMP 02/03/25 05:49 Sodium 137 Potassium 4.4 Chloride 103 Carbon Dioxide 18.5 L BUN 17 Creatinine 0.5 L Glucose 93 Calcium 10.8 H Liver Function 02/03/25 Range/Units 05:49 Total Bilirubin 1.8 H (0.3-1.2) mg/dL AST 233 H (0-34) U/L ALT 66 H (10-49) U/L Alkaline Phosphatase 983 H D (46-116) U/L Albumin 3.1 L (3.5-5.0) gm/dL Assessment and Plan Additional Assessment & Plan Additional Plan: 1. Patient with stage IV progressive colon cancer. Chemo planned has been delayed due to various medical factors. 2. Progression of malignancy imaging studies of chest abdomen pelvis 3. Cardiology feels that malignancy may be contributing to the pericarditis problem. Echo pending. 4. Patient has appointment to see Dr. Hdz upon discharge. I will also manage her pain symptoms as outpatient and ordered oxycodone 10 every 4 to every 6 at her [facility] pharmacy[facility]
[2025-02-03 10:04] LABS: Uric Acid 10.0 mg/dL (3.1-7.8)
[2025-02-03 10:16] LABS: Vitamin D 25 Hydroxy Total 33.0 ng/mL (7.3-40.2)
[2025-02-03 10:22] LABS: Beta Hydroxybutyrate 0.2 mmol/L (<0.6)
--- NOTE | 2025-02-03 11:08 | PC.SS ---
Yen Patel is a 44-year-old female admitted to [facility] for Anasarca and Liver Mass. SS conducted bedside contact with the patient to complete initial assessment and to discuss discharge planning. Pt was getting an xray done therefore, SS reached out to her Arnol Taveras . Role and reason explained. Arnol confirmed demographic information. Arnol identifies himself as the pt surrogate decision maker. Pt requires max assit at home, per Arnol family helps out. Pt has a walker and wheelchair at home. Pts PCP is Dr. Collado. [facility] choice [facility]. Discharge options discussed and the pt wishes to return home.? Family will provide transportation upon DC. No further intervention required at this time, aids social worker would be available to address any further concerns. DC Plan: Home Contact: Arnol Address: Confirmed on face sheet PCP: Heaven
[2025-02-03 12:19] LABS: Lactate (Lactic Acid) 8.5 mMol/L (0.4-2.0)
[2025-02-03] MEDS: SODIUM CHLORIDE 0.9% 1000 ML 1,000 ML 100 ML IV (12:40)
--- NOTE | 2025-02-03 12:52 | ESPR_ITS ---
Documentation for date of: 02/03/25 Subjective Subjective Interval history: Patient was seen and examined at bedside. Patient reported mild improvement in overall general symptoms. Patient reported improvement of her lower limb swelling except on the left side still mildly swollen. She denied any palpitation, chest pain, dizziness. Her lactic acid keep uptrending, review of her telemetry box for the past 24 hours did not show any arrhythmias. Heart rate persistently above 100 with max of 149. Her urine output for the past 24 hours is 700 mL. She is +2 L today. Noticed to have potassium 4.4 and magnesium 1.9 and phosphorus of 1.5. Were repleted by the primary team. Exam Vital Signs Temp Pulse Resp BP Pulse Ox O2 Del Method 99.2 F 123 H 22 H 143/86 H 94 L Room Air 02/03/25 08:00 02/03/25 12:00 02/03/25 12:00 02/03/25 12:00 02/03/25 12:00 02/03/25 12:00 Narrative Exam GEN:Looks ill, somehow improved since yesterday, AOx3, able to speak full sentences HEENT: NC/AC, icteric, oral mucosa moist, neck supple CVS: RRR, Pronounced S1-S2 present, no murmurs appreciated, No JVD RESP: CTAB GI: soft, distended, +ve fluid thrill, mild tender on deep palpation, NBS MSK: able to move all 4 limbs, +2 lower extremity edema, more on the left side. SKIN: warm and dry SECURITY SYSTEMS SPECIALIST: CN II-XII and Sensation grossly intact. Objective Labs 02/02/25 09:36 02/03/25 05:49 Labs: Laboratory Results - last 24 hr 02/03/25 02/03/25 02/03/25 05:49 09:21 12:08 Sodium 137 Potassium 4.4 Chloride 103 Carbon Dioxide 18.5 L Anion Gap 16 BUN 17 Creatinine 0.5 L Estim Creat Clear Calc 129.6 eGFR > 60 BUN/Creatinine Ratio 34 H Glucose 93 Calculated Osmolality 275 Lactic Acid 8.5 H* Uric Acid 10.0 H Calcium 10.8 H Corrected Calcium 11.5 H Phosphorus 1.5 L Magnesium 1.9 Total Bilirubin 1.8 H AST 233 H ALT 66 H Alkaline Phosphatase 983 H D Total Protein 6.3 Albumin 3.1 L Globulin 3.2 Albumin/Globulin Ratio 1.0 L 25-OH Vitamin D Total 33.0 Beta-Hydroxybutyrate/Acetoacetate 0.2 PTH Intact 4.9 L Quality Measures Quality Measures none Assessment & Plan Assessment Current Active Medications: Generic Name Dose Route Start Last Admin Trade Name Freq PRN Reason Stop Dose Admin Acetaminophen 650 mg 02/01/25 08:44 Acetaminophen 325 Mg Tablet PO 03/03/25 08:43 Q6H PRN PAIN SCALE 1-3 (mild Citric Acid/Sodium Citrate 30 ml 02/03/25 09:00 02/03/25 08:21 Citric Acid/Sodium Citr 15 Ml Udc (Bicitra) PO 03/05/25 08:59 30 ml BID IFEOMA Administration Albumin Human 25 gm in 100 mls @ 100 mls/hr 02/01/25 21:00 02/03/25 08:21 Albuminar-25 Ivpb IV 02/04/25 20:59 100 mls/hr BID IFEOMA Administration Sodium Chloride 1,000 mls @ 100 mls/hr 02/03/25 12:35 02/03/25 12:40 Ns IV 02/03/25 22:34 100 mls/hr X1 ONE Administration Levothyroxine Sodium 50 mcg 02/02/25 06:00 02/03/25 05:13 Levothyroxine Sodium 25 Mcg Tablet PO 03/04/25 05:59 50 mcg ACBR IFEOMA Administration Metoclopramide HCl 10 mg 02/01/25 08:44 Metoclopramide 5 Mg Tablet PO 03/03/25 08:43 Q6H PRN NAUSEA OR VOMITING Metoprolol Tartrate 25 mg 02/02/25 06:20 02/03/25 08:32 Metoprolol Tartrate 25 Mg Tablet PO 03/04/25 06:19 Not Given QDAY IFEOMA Morphine Sulfate 2 mg 02/01/25 13:45 02/03/25 12:24 Morphine Sulf Inj 4 Mg/Ml Vial IVP 02/06/25 09:39 2 mg Q4HR PRN Administration PAIN SCALE 7-10 Ondansetron HCl 4 mg 02/01/25 09:39 02/01/25 09:53 Ondansetron Inj 2 Mg/Ml Inj 2 Ml IV 03/03/25 09:38 4 mg Q4HR PRN Administration NAUSEA OR VOMITING Protocol Oxycodone/Acetaminophen 1 tab 02/01/25 08:49 02/03/25 08:22 Oxycodone/Apap 5/325 Tablet PO 02/06/25 08:48 1 tab Q6H PRN Administration PAIN SCALE 4-6 (Moderate Pantoprazole Sodium 40 mg 02/01/25 09:00 02/03/25 08:22 Pantoprazole 40 Mg Tablet PO 03/03/25 08:59 40 mg Q12HR IFEOMA Administration Potassium Phos/Sodium Phos 1 packet 02/03/25 09:00 02/03/25 08:22 [facility]db 1 Packet (1.5 Gm) PO 03/05/25 08:59 1 packet BID IFEOMA Administration Sennosides 1 tab 02/01/25 08:44 02/02/25 20:45 Senna Tablet PO 03/03/25 08:43 1 tab QDAY PRN Administration constipation Protocol Plan Summary: A 44-year-old female patient with past medical history of colon cancer status post colostomy, pericarditis, Hypothyroidism was admitted to the hospital secondary to worsening shortness of breath and increased generalized body swelling. Patient was diagnosed with colon cancer in 2024 and underwent colectomy however patient was found to have multiple metastases with malignant ascites and metastasis to the liver into the vertebrae. Patient was admitted for tx of anasarca and SOB. Assessment and plan: #History of pericarditis #History of pericardial effusion, mild Patient most likely has pericarditis 2/2 to her malignancy vs AI, ESR is 66, could be also 2/2 cancer, Her JOSE was 06/1279. Patient reported completion of her pericarditis tx for 3 months however she did not return to our clinic for follow up At this time clinically patient does not have sign of temponade, such as elevated JVD, distant heart sound or pulsus alternans. however has low voltage EKG Trops and BNP are normal Echo in september showed There is a trace pericardial effusion without any evidence of any tamponade. Normal LV size and function. Estimated EF 55-60%. Normal diastolic function. Plan - Stat echo was ordered - Keep K and magnesium above 4 and 2 respectively - Strict in and out #GI malignancy with mets #Hypercalcemia #CHERI #Lactic acidosis #Transaminitis Thank you so much for your consult, Please do not hesitate to reach out if you have any question or concerns. - Patient's plan and care discussed with my attending, Dr. Ankur Mayer MD Internal Medicine PGY-3
--- NOTE | 2025-02-03 14:58 | PC.SS ---
Rounding: Pending ECHO, YURY plan home
--- NOTE | 2025-02-03 15:01 | ESDS_ITS ---
Planned Discharge Date 02/03/25 DS: Providers Provider Date of admission: 02/01/25 07:29 Primary care physician: Ching Collado MD Admitting Provider: Ching Collado MD Attending Provider on Admission: Ching Collado MD Consults: 02/03/25 07:52 Consult to Oncology Stat Comment: multiple tumors mets Consulting Provider: Grabiel Dunaway 02/03/25 08:11 Referral Registered Dietitian Urgent Comment: Attending Provider on DC: RESIDENT Juvenal Discharging Provider: RESIDENT Juvenal DS: Diagnosis Problem List Completed Was Problem List Reviewed/Reconciled?: Yes Hospital Course Hospital Course Hospital course: Summary: Ms. Patel is 44 year old female with past medical history of Pericarditis, kidney stones, hemorrhoids, umbilical hernia repair, Colon cancer s/p colectomy, presented to the hospital for bilateral lower extremity edema and shortness of breath that has been lasting for 2 weeks. Most of her symptoms, including lab abnormalities likely due to cancer metastasis. Discharged to receive chemotherapy as soon as possible. ER course: Blood and urine tests remarkable for ESR 66, Na 131, Glucose 70, Lactic Acid 4.9, AST 231, ALT 70, Alkaline Phosphatase 973, CRP 22.7, Beta Hydroxybutyrate 3.91, TSH 21.88, procalcitonin 3.91, Ca 11.6, INR 1.4, D-dimer > 3820, and Plt 42. CTAP (01/31/2025): Hepatic metastases, Marked progression of abdominal and pelvic lymphadenopathy, Ureteral stents satisfactory position., Bilateral adrenal metastatic masses, Malignant ascites., Solid cystic pelvic tumor mass 13 cm, recommend pelvic sonography follow-up, Peritoneal carcinomatosis, Osseous metastatic disease, consider MRI thoracic lumbar spine follow-up Chest CT(01/31/2025): Negative for pulmonary artery emboli, Extensive mediastinal lymphadenopathy., Osseous metastatic disease. CXR (01/31/2025): No interval pneumonia or pulmonary edema Abd US (02/01/2025): Gallbladder wall thickening with edema, however the patient has ascites and cirrhosis, Consider HIDA scan/MRCP follow-up to confirm acute cholecystitis Venous Doppler study (02/01/2025): Negative for deep vein thrombosis Hospital Course: Patient received Lasix 40mg IV bid for lower extremity swelling. Patient's heart rate was high, ranging 120s. Given Metoprolol XL 50mg PO qd to lower HR. MRI (02/02/2025) showed extensive abdominal lymphadenopathy and the signal pattern in the liver is diffusely heterogeneous and abnormal, numerous hepatic metastases, no hepatic blockage. As most of her lab abnormalities have been due to extensive cancer metastasis, patient was discharged today to get chemotherapy as soon as possible with Dr. Lynn, oncologist. Instructions: f/u with dr. lynn- thursday at 12 noon f/u with nury harmon next week f/u with dr. collado, dr. dunaway in 1-2 weeks come back to er- if worsening SOB or chest pain, or palpitations Stable to return home #Anasarca #Hepatic Metastasis #Hypoalbuminiema 2/2 liver metastasis Assessment and plan discussed with my attending physician Dr. Heaven Tobin (PGY-1)- Internal medicine resident Time Spent with Patient Time attestation: Total time spent providing and/or coordinating discharge services: Time spent: Greater than 30 minutes Exam Vital Signs Temp Pulse Resp BP Pulse Ox O2 Del Method 99.2 F 123 H 22 H 143/86 H 94 L Room Air 02/03/25 08:00 02/03/25 12:02/03/25 12:02/03/25 12:00 02/03/25 12:02/03/25 12:00 Narrative Exam General: well nourished, Tired-looking Eye: PERRL, EOMI, normal conjunctiva, no scleral icterus HENT: Normocephalic, atraumatic, hearing intact to conversation at normal volume, moist oral mucosa Neck: Supple, non-tender, no JVD, no lymphadenopathy Lungs: Non-labored respirations, symmetric chest rise, Clear to auscultate bilaterally. Heart: Peripheral pulses intact bilaterally, Regular Rate and Rhythm Abdomen: Soft, non-tender, Lower quadrant distention with mass palpable in pelvic area Musculoskeletal: Normal range of motion and strength. Lower back pain worsen on palpation, +1 Bilateral BLE edema with pain on palpation. Skin: Skin is warm, dry, no rashes or lesions. Psychiatric: Cooperative, appropriate mood and affect Neuro: Cranial nerves II-XII grossly intact. Strength 5/5 throughout. Sensations intact to light touch. Discharge Plan Plan Patient Disposition: HOME (Self Care) Prescriptions/Referrals Prescriptions/Med Rec: New thiamine HCl (vitamin B1) 250 mg tablet 250 mg PO QDAY Qty: 30 0RF sodium bicarbonate 325 mg tablet 325 mg PO QDAY Qty: 30 0RF levothyroxine 50 mcg tablet 50 mcg PO QDAY Qty: 30 0RF levothyroxine 25 mcg Tablet 50 mcg PO ACBR Qty: 30 0RF furosemide 20 mg tablet 20 mg PO QDAY PRN (Reason: edema) Qty: 30 0RF oxycodone-acetaminophen [Percocet] 5-325 mg tablet 1 tab PO Q6H MDD 4 tabs PRN (Reason: pain) 3 Days Qty: 12 0RF Continued metoprolol succinate 50 mg capsule,sprinkle,ER 24hr 50 mg PO QDAY Qty: 30 0RF No Action prochlorperazine maleate 5 mg tablet 5 mg PO Q6H PRN (Reason: nausea and vomiting) Patient Comments: 5 MG DAILY - TAKE ONE TAB EVERY 6 HOURS NEEDED FOR NAUSEA levothyroxine 25 mcg tablet 25 mcg PO DAILY Patient Comments: TAKE 1 TABLET BY MOUTH EVERY DAY Referrals: Ching Collado MD [Primary Care Provider, Nephrology] Patient/Caregiver Discharge Instructions Discharge Activity: activity as tolerated Print Language: Macedonian Activity Restrictions/Additional Instructions: f/u with dr. lynn- thursday at 12 noon f/u with nury harmon f/u with dr. larry morris in 1-2 weeks come back to er- if worsening SOB or chest pain, or palpitations Stand Alone Forms: [employer] Award Info., Patient Portal Info Letter Discharge Order Discharge Orders: Discharge (Routine); Ordered 02/03/25 Ordered By: Ching Collado Quality Discharge Quality Measures VTE prophylaxis MD Attestestation MD Attestation Patient seen and examined with resident physician Dr. Tobin. Note reviewed, agree with findings and recommendations. Patient currently seen in telemetry. at bedside.Time spent > 45 minutes. I have been updating him on daily basis. Metastatic colon cancer-- spoke to Dr. Dunaway, seen her and will see her out patient. Will give her pain meds. Noted Lactic acid was high -- spoke to oncology- patient clinically stable.Noted mild metabolic acidosis. RR nl. Will dc her on BIcarbonate, Thiamine tabs. Hr better with metoprolol XL. Suggested to come back to ER if any chest pain, palpitations occur. Significant elevated LFTs, B/l Edema from huge pelvic mass/ bulky lymphadenopathy-- Secondary to tumor burden. Had a long conversation with Dr. Lynn- will see her on Thursday and start Chemotherapy. Prn lasix given. Patient also noted to have high Hr- Seen by DR. Singer- On metoprolol. Echo did not show pericardial effusion. F/u with , Dr. Lynn, Dr. Dunaway, Dr. Singer in 1-2 weeks Prognosis remains guarded. aware.
[2025-02-03 15:16] LABS: Reflex Lactate? Y
[2025-02-03 15:59] LABS: Lactic Acid, 3 HR 9.3 mMol/L (0.4-2.0)
[2025-02-09 07:02] LABS: Vitamin D,1,25 (OH)2,Total <8 pg/mL (18-72); Vitamin D2, 1,25 (OH)2 <8 pg/mL; Vitamin D3, 1,25 (OH)2 <8 pg/mL
== END 2025-02-03 18:32 | disposition home or self-care (01) | DRG 375 ==
LOC: SERX 02-01 02:09 → SERHOLD 02-01 07:32 → S2NX 02-01 10:20
PROVIDERS: Radiology Diagnostic Radiology; Student in an Organized Health Care Education/Training Program; Admitting Provider Internal Medicine; Emergency Provider Emergency Medicine; PCP Internal Medicine; Visit Provider Internal Medicine
DX: C18.7 Malignant neoplasm of sigmoid colon (principal); C78.6 Secondary malignant neoplasm of retroperitoneum and peritoneum; C78.7 Secondary malignant neoplasm of liver and intrahepatic bile duct; R18.0 Malignant ascites; N17.9 Acute kidney failure, unspecified; N13.30 Unspecified hydronephrosis; E87.20 Acidosis, unspecified; C79.72 Secondary malignant neoplasm of left adrenal gland; C79.71 Secondary malignant neoplasm of right adrenal gland; C79.51 Secondary malignant neoplasm of bone; R60.1 Generalized edema; Z90.49 Acquired absence of other specified parts of digestive tract; Z85.038 Personal history of other malignant neoplasm of large intestine; K74.60 Unspecified cirrhosis of liver; Z93.3 Colostomy status; E03.9 Hypothyroidism, unspecified; E83.52 Hypercalcemia
CPT/HCPCS: 36415; 71045; 71275; 74177; 74182; 76705; 80053; 81001; 81025; 82010; 82150; 82248; 82306; 82652; 83605; 83690; 83735; 83880; 83970; 84100; 84145; 84439; 84443; 84481; 84484; 84550; 84703; 85025; 85379; 85610; 85652; 85730; 86140; 87040; 87400; 87811; 93005; 93306; 93970; 96361; 96374; 96375; 96376; 99284; A4649; A9577; J1938; J2270; J2405; J3475; J7030; P9047; Q9967; A9270